=== PATIENT | female | born 1970 | race Caucasian/White ===

== ENCOUNTER → 2018-01-13 07:54 | Outpatient (CLI) | payer OTHER, SELFPAY ==
[2018-01-13 08:25] LABS: Erythrocyte Sedimentation Rate 23 mm/hr (0-20)
[2018-01-13 08:27] LABS: Absolute Lymphocyte Count 2.21 X10^3/ul (0.83-4.51); Absolute Neutrophil Count 5.2 X10^3/uL (2.0-7.7); Basophil# 0.02 X10^3/uL; Basophil% 0.2 % (0-1); Eosinophil# 0.11 X10^3/uL; Eosinophils% 1.4 % (0-5); Hematocrit 36.8 % (37-47); Hemoglobin 11.9 g/dl (12.0-15.0); Lymphocyte # 2.21 X10^3/ul (4.0); Lymphocyte % 27.3 % (19-41); Mean Corp Hgb Conc 32.3 g/gl (32-36); Mean Corpuscular Hgb 27.5 pg (27.0-32.0); Monocyte# 0.59 X10^3/uL; Monocyte% 7.3 % (0-10); Neutrophil # 5.17 X10^3/uL (2.7-7.7); Neutrophil % 63.7 % (47-70); Platelet Count 387 K/mm3 (150-450); RBC Distribution Width CV 13.5 % (11.6-14.6); RBC Distribution Width SD 41.9 fl (35.1-43.9); Red Blood Count 4.33 M/mm3 (4.2-5.4); White Blood Count 8.1 K/mm3 (4.4-11.0)
[2018-01-13 08:28] LABS: POSITIVE COUNT NO; POSITIVE DIFFERENTIAL NO; POSITIVE MORPHOLOGY NO
[2018-01-13 09:14] LABS: ALB/GLOB Ratio 0.9 RATIO (0.9-2.4); AST(SGOT) 12 U/L (15-37); Alanine Aminotransfer ALT/SGPT 19 U/L (13-56); Albumin, Serum 3.5 g/dL (3.2-5.0); Alkaline Phosphatase 40 U/L (45-117); Anion Gap 9 (5-15); BUN 12 mg/dL (7-18); BUN/Creat Ratio 16.3 RATIO (10-20); CRP 6.14 mg/L (0.0-3.0); Calcium,Total 8.5 mg/dL (8.5-10.1); Chloride 107 mmol/L (98-107); Creatinine, Serum 0.74 mg/dL (0.55-1.02); EST Glomerular Filtration Rate 90 mL/min (>60); Est Glom Filt Rate - Afr Amer 109 mL/min (>60); Globulin 3.7 g/dL (2.2-4.2); Glucose 96 mg/dL (74-106); Potassium 4.1 mmol/L (3.5-5.1); Protein, Total 7.2 g/dL (6.4-8.2); Sodium Level 141 mmol/L (136-145); Thyroid Stim Hormone (TSH) 0.92 uIU/mL (0.358-3.74)
[2018-01-13 18:45] LABS: Ferritin 49 ng/mL (8-252)
[2018-01-13 19:01] LABS: RET-HE 29.2 pg (30-35); Reticulocyte Count 0.72 % (0.5-1.5)
[2018-01-13 19:02] LABS: Immature Platelet Fraction 0.9 % (1.0-7.9)
[2018-01-14 10:29] LABS: Vitamin B12 482 pg/mL (211-911); Vitamin D,25 Hydroxy 31.2 ng/mL (29.95-100.01)
== END ==
PROVIDERS: Family Provider Family Medicine; PCP Family Medicine; Visit Provider Internal Medicine Endocrinology, Diabetes & Metabolism
DX: D50.8 Other iron deficiency anemias (principal); D51.9 Vitamin B12 deficiency anemia, unspecified; R79.9 Abnormal finding of blood chemistry, unspecified; E03.8 Other specified hypothyroidism; E55.9 Vitamin D deficiency, unspecified; L40.59 Other psoriatic arthropathy; L40.8 Other psoriasis; E04.9 Nontoxic goiter, unspecified; F32.89 Other specified depressive episodes; F41.8 Other specified anxiety disorders; E06.3 Autoimmune thyroiditis
CPT/HCPCS: 36415; 80053; 82306; 82607; 82728; 84443; 85025; 85045; 85652; 86140

== ENCOUNTER → 2018-01-26 07:12 | Outpatient (CLI) | payer OTHER, SELFPAY ==
[2018-01-26 08:04] LABS: Hematocrit 37.5 % (37-47); Hemoglobin 11.9 g/dl (12.0-15.0)
== END ==
PROVIDERS: Family Provider Family Medicine; PCP Family Medicine; Visit Provider Internal Medicine Endocrinology, Diabetes & Metabolism
DX: D64.9 Anemia, unspecified (principal)
CPT/HCPCS: 36415; 85014; 85018

== ENCOUNTER → 2018-04-29 16:41 | Outpatient (CLI) | payer OTHER, SELFPAY ==
[2018-04-29 18:25] LABS: Thyroid Stim Hormone (TSH) 0.61 uIU/mL (0.358-3.74)
== END ==
PROVIDERS: Family Provider Family Medicine; PCP Family Medicine; Visit Provider Family Medicine
DX: E03.9 Hypothyroidism, unspecified (principal)
CPT/HCPCS: 36415; 84443

== ENCOUNTER → 2018-05-16 10:59 | Outpatient (CLI) | payer OTHER, SELFPAY ==
[2018-05-16 12:02] LABS: Absolute Lymphocyte Count 2.17 X10^3/ul (0.83-4.51); Absolute Neutrophil Count 5.3 X10^3/uL (2.0-7.7); Basophil# 0.03 X10^3/uL; Basophil% 0.4 % (0-1); Eosinophil# 0.11 X10^3/uL; Eosinophils% 1.3 % (0-5); Hematocrit 38.9 % (37-47); Hemoglobin 12.6 g/dl (12.0-15.0); Lymphocyte # 2.17 X10^3/ul (4.0); Mean Corp Hgb Conc 32.4 g/gl (32-36); Mean Corpuscular Hgb 27.5 pg (27.0-32.0); Mean Corpuscular Volume 84.9 fL (81-99); Monocyte# 0.74 X10^3/uL; Monocyte% 8.9 % (0-10); Neutrophil # 5.28 X10^3/uL (2.7-7.7); Neutrophil % 63.3 % (47-70); Platelet Count 414 K/mm3 (150-450); RBC Distribution Width CV 13.7 % (11.6-14.6); RBC Distribution Width SD 42.4 fl (35.1-43.9); Red Blood Count 4.58 M/mm3 (4.2-5.4); White Blood Count 8.3 K/mm3 (4.4-11.0)
[2018-05-16 12:03] LABS: POSITIVE COUNT NO; POSITIVE DIFFERENTIAL NO; POSITIVE MORPHOLOGY NO
[2018-05-16 12:07] LABS: ALB/GLOB Ratio 0.9 RATIO (0.9-2.4); AST(SGOT) 11 U/L (15-37); Alanine Aminotransfer ALT/SGPT 21 U/L (13-56); Albumin, Serum 3.7 g/dL (3.2-5.0); Alkaline Phosphatase 44 U/L (45-117); Anion Gap 8 (5-15); BUN 10 mg/dL (7-18); BUN/Creat Ratio 12.8 RATIO (10-20); CRP 7.06 mg/L (0.0-3.0); Calcium,Total 9.1 mg/dL (8.5-10.1); Chloride 107 mmol/L (98-107); Creatinine, Serum 0.78 mg/dL (0.55-1.02); EST Glomerular Filtration Rate 84 mL/min (>60); Est Glom Filt Rate - Afr Amer 102 mL/min (>60); Globulin 3.9 g/dL (2.2-4.2); Glucose 89 mg/dL (74-106); Potassium 4.1 mmol/L (3.5-5.1); Protein, Total 7.6 g/dL (6.4-8.2); Sodium Level 139 mmol/L (136-145)
[2018-05-16 12:09] LABS: Erythrocyte Sedimentation Rate 45 mm/hr (0-20)
== END ==
PROVIDERS: Family Provider Family Medicine; PCP Family Medicine; Referring Provider Internal Medicine Rheumatology; Visit Provider Internal Medicine Rheumatology
DX: L40.59 Other psoriatic arthropathy (principal); L40.8 Other psoriasis; E03.9 Hypothyroidism, unspecified; E04.9 Nontoxic goiter, unspecified; F32.89 Other specified depressive episodes; F41.8 Other specified anxiety disorders; E06.3 Autoimmune thyroiditis
CPT/HCPCS: 36415; 80053; 85025; 85652; 86140

== ENCOUNTER → 2018-08-20 06:48 | Outpatient (CLI) | payer OTHER, SELFPAY ==
[2018-08-20 07:29] LABS: Absolute Neutrophil Count 5.3 X10^3/uL (2.0-7.7); Basophil# 0.03 X10^3/uL; Basophil% 0.4 % (0-1); Eosinophil# 0.17 X10^3/uL; Hematocrit 40.1 % (37-47); Hemoglobin 12.7 g/dl (12.0-15.0); Lymphocyte % 25.1 % (19-41); Mean Corp Hgb Conc 31.7 g/gl (32-36); Mean Corpuscular Hgb 27.9 pg (27.0-32.0); Mean Corpuscular Volume 87.9 fL (81-99); Mean Platelet Vol. 9.3 fl (6.2-12.0); Monocyte# 0.71 X10^3/uL; Monocyte% 8.5 % (0-10); Neutrophil # 5.34 X10^3/uL (2.7-7.7); Neutrophil % 63.8 % (47-70); Platelet Count 401 K/mm3 (150-450); RBC Distribution Width CV 14.2 % (11.6-14.6); RBC Distribution Width SD 45.8 fl (35.1-43.9); Red Blood Count 4.56 M/mm3 (4.2-5.4); White Blood Count 8.4 K/mm3 (4.4-11.0)
[2018-08-20 07:38] LABS: POSITIVE COUNT NO; POSITIVE DIFFERENTIAL NO; POSITIVE MORPHOLOGY NO
[2018-08-20 07:54] LABS: ALB/GLOB Ratio 0.9 RATIO (0.9-2.4); AST(SGOT) 12 U/L (15-37); Alanine Aminotransfer ALT/SGPT 17 U/L (13-56); Albumin, Serum 3.7 g/dL (3.2-5.0); Alkaline Phosphatase 44 U/L (45-117); Anion Gap 9 (5-15); BUN 13 mg/dL (7-18); BUN/Creat Ratio 17.7 RATIO (10-20); Calcium,Total 8.7 mg/dL (8.5-10.1); Chloride 107 mmol/L (98-107); Creatinine, Serum 0.74 mg/dL (0.55-1.02); EST Glomerular Filtration Rate 90 mL/min (>60); Est Glom Filt Rate - Afr Amer 109 mL/min (>60); Glucose 89 mg/dL (74-106); Potassium 4.3 mmol/L (3.5-5.1); Protein, Total 7.7 g/dL (6.4-8.2); Sodium Level 140 mmol/L (136-145)
[2018-08-20 11:18] LABS: Erythrocyte Sedimentation Rate 22 mm/hr (0-20)
== END ==
PROVIDERS: Family Provider Family Medicine; PCP Family Medicine; Referring Provider Internal Medicine Rheumatology; Visit Provider Internal Medicine Rheumatology
DX: L40.59 Other psoriatic arthropathy (principal); L40.8 Other psoriasis; E03.9 Hypothyroidism, unspecified; E04.9 Nontoxic goiter, unspecified; F32.89 Other specified depressive episodes; F41.8 Other specified anxiety disorders; E06.3 Autoimmune thyroiditis
CPT/HCPCS: 36415; 80053; 85025; 85652; 86140

== ENCOUNTER → 2018-12-01 | Outpatient (CLI) | payer OTHER, SELFPAY ==
[2018-12-01 14:25] LABS: Absolute Lymphocyte Count 2.17 X10^3/ul (0.83-4.51); Absolute Neutrophil Count 6.2 X10^3/uL (2.0-7.7); Basophil# 0.02 X10^3/uL; Basophil% 0.2 % (0-1); Eosinophils% 1.1 % (0-5); Hematocrit 37.2 % (37-47); Hemoglobin 12.2 g/dl (12.0-15.0); Lymphocyte # 2.17 X10^3/ul (4.0); Lymphocyte % 23.5 % (19-41); Mean Corp Hgb Conc 32.8 g/gl (32-36); Mean Corpuscular Hgb 28.3 pg (27.0-32.0); Mean Corpuscular Volume 86.3 fL (81-99); Mean Platelet Vol. 9.3 fl (6.2-12.0); Monocyte# 0.76 X10^3/uL; Monocyte% 8.2 % (0-10); Neutrophil # 6.15 X10^3/uL (2.7-7.7); Neutrophil % 66.8 % (47-70); Platelet Count 409 K/mm3 (150-450); RBC Distribution Width CV 14.3 % (11.6-14.6); RBC Distribution Width SD 43.7 fl (35.1-43.9); Red Blood Count 4.31 M/mm3 (4.2-5.4); White Blood Count 9.2 K/mm3 (4.4-11.0)
[2018-12-01 14:29] LABS: POSITIVE COUNT NO; POSITIVE DIFFERENTIAL NO; POSITIVE MORPHOLOGY NO
[2018-12-01 14:54] LABS: Vitamin D,25 Hydroxy 30.4 ng/mL (29.95-100.01)
[2018-12-01 14:57] LABS: AST(SGOT) 12 U/L (15-37); Alanine Aminotransfer ALT/SGPT 18 U/L (13-56); Albumin, Serum 3.6 g/dL (3.2-5.0); Alkaline Phosphatase 44 U/L (45-117); Anion Gap 4 (5-15); BUN 10 mg/dL (7-18); BUN/Creat Ratio 12.6 RATIO (10-20); Calcium,Total 8.6 mg/dL (8.5-10.1); Chloride 108 mmol/L (98-107); Creatinine, Serum 0.79 mg/dL (0.55-1.02); EST Glomerular Filtration Rate 82 mL/min (>60); Est Glom Filt Rate - Afr Amer 100 mL/min (>60); Globulin 3.6 g/dL (2.2-4.2); Glucose 86 mg/dL (74-106); Protein, Total 7.2 g/dL (6.4-8.2); Sodium Level 137 mmol/L (136-145); Thyroid Stim Hormone (TSH) 1.05 uIU/mL (0.358-3.74)
== END | disposition home or self-care (01) ==
PROVIDERS: Family Provider Family Medicine; PCP Family Medicine; Referring Provider Internal Medicine Rheumatology; Visit Provider Internal Medicine Rheumatology
DX: L40.59 Other psoriatic arthropathy (principal); Z79.899 Other long term (current) drug therapy; L40.8 Other psoriasis; E03.9 Hypothyroidism, unspecified; E04.9 Nontoxic goiter, unspecified; F32.89 Other specified depressive episodes; F41.8 Other specified anxiety disorders; E06.3 Autoimmune thyroiditis; E03.8 Other specified hypothyroidism; E55.9 Vitamin D deficiency, unspecified
CPT/HCPCS: 36415; 80053; 82306; 84443; 85025

== ENCOUNTER → 2019-02-25 11:51 | Outpatient (CLI) | payer OTHER, SELFPAY ==
[2019-02-25 14:23] LABS: Absolute Lymphocyte Count 2.31 X10^3/uL (0.83-4.51); Absolute Neutrophil Count 5.1 X10^3/uL (2.0-7.7); Basophil# 0.06 X10^3/uL; Basophil% 0.7 % (0-1); Eosinophils% 2.3 % (0-5); Hematocrit 38.5 % (37-47); Hemoglobin 12.4 g/dL (12.0-15.0); Lymphocyte # 2.31 X10^3/ul (4.0); Lymphocyte % 27.1 % (19-41); Mean Corp Hgb Conc 32.2 g/dL (32-36); Mean Corpuscular Hgb 28.9 pg (27.0-32.0); Mean Corpuscular Volume 89.7 fL (81-99); Mean Platelet Vol. 9.4 fl (6.2-12.0); Monocyte# 0.79 X10^3/uL; Monocyte% 9.3 % (0-10); NRBC Flagged by Analyzer 0 % (0-5); Neutrophil # 5.14 X10^3/uL (2.7-7.7); Neutrophil % 60.2 % (47-70); Platelet Count 407 K/mm3 (150-450); RBC Distribution Width CV 13.9 % (11.6-14.6); RBC Distribution Width SD 45.7 fl (35.1-43.9); Red Blood Count 4.29 M/mm3 (4.2-5.4); White Blood Count 8.5 K/mm3 (4.4-11.0)
[2019-02-25 15:09] LABS: ALB/GLOB Ratio 0.9 RATIO (0.9-2.4); AST(SGOT) 9 U/L (15-37); Alanine Aminotransfer ALT/SGPT 18 U/L (13-56); Albumin, Serum 3.6 g/dL (3.2-5.0); Alkaline Phosphatase 43 U/L (45-117); Anion Gap 4 (5-15); BUN 9 mg/dL (7-18); BUN/Creat Ratio 12.8 RATIO (10-20); Calcium,Total 8.8 mg/dL (8.5-10.1); Chloride 109 mmol/L (98-107); EST Glomerular Filtration Rate 94 mL/min (>60); Est Glom Filt Rate - Afr Amer 114 mL/min (>60); Free T3 2.1 pg/mL (2.18-3.98); Glucose 75 mg/dL (74-106); Potassium 3.7 mmol/L (3.5-5.1); Protein, Total 7.6 g/dL (6.4-8.2); Sodium Level 140 mmol/L (136-145); T4 Total, Thyroxin 7.3 ug/dL (4.8-13.9); Thyroid Stim Hormone (TSH) 0.98 uIU/mL (0.358-3.74)
== END ==
PROVIDERS: Family Provider Family Medicine; PCP Family Medicine; Referring Provider Internal Medicine Rheumatology; Visit Provider Internal Medicine Rheumatology
DX: L40.59 Other psoriatic arthropathy (principal); Z79.899 Other long term (current) drug therapy; L40.8 Other psoriasis; E03.9 Hypothyroidism, unspecified; E04.9 Nontoxic goiter, unspecified; F32.89 Other specified depressive episodes; F41.8 Other specified anxiety disorders; E06.3 Autoimmune thyroiditis; R53.83 Other fatigue
CPT/HCPCS: 36415; 80053; 84436; 84443; 84481; 85025

== ENCOUNTER → 2019-05-07 12:39 | Outpatient (CLI) | payer OTHER, SELFPAY ==
--- NOTE | 2019-05-07 12:50 | MRI_ITS ---
STUDY: MRI BRAIN WITH AND WITHOUT CONTRAST REASON FOR EXAM: Female, 49 years old. The patient presents with a history of episodic dizziness, memory loss and fatigue since March 12, 2019 TECHNIQUE: Standardized multiplanar fat and water weighted pulse sequences were obtained. IV Dotarem 18 was administered for the contrast portion of the examination. COMPARISON: None. FINDINGS: Normal size of the ventricles and extra-axial spaces for the patient's age. Normal white matter tracts of the supratentorial brain. There is no evidence for recent intracranial ischemia or other cause of cytotoxic edema on diffusion weighted imaging (DWI). Normal T2* images of the brain without demonstrated susceptibility artifact. There is no demonstrated hemosiderin stain. Normal bilateral basal ganglia. Normal thalami. There is no extra-axial fluid accumulation. Normal flow voids within the major intracranial circulation suggesting patency by spin echo criteria. Normal venous enhancement. There is no enhancing intra-axial or extra-axial abnormality. There is enlargement of the sella turcica with increased CSF within the sella and flattening of the pituitary gland consistent with an empty sellar syndrome. Normal infundibular stalk, hypothalamus, and optic chiasm. Normal tectal plate and pineal gland. Normal midbrain, rodriguez and medulla. Normal cerebellum. Normal basal cisterns. Normal bilateral temporal bones. Normal bilateral internal auditory canals. No demonstrated orbital abnormality, within the constraints of a routine brain study. There is chronic sinusitis with retention cyst within the bilateral maxillary antrum (axial T2 series 5, image 4). Normal calvarium and skull base. Normal visualized soft tissue structures. Normal visualized upper cervical spine. MRI/Brain W/WO Contrast IMPRESSION: 1. Normal unenhanced and enhanced MRI of the brain. 2. Chronic sinusitis of the bilateral maxillary sinuses. Electronically Signed: Hansel Browne DO at 14:28 EST Tel , Service support ,
== END ==
PROVIDERS: Family Provider Family Medicine; PCP Family Medicine; Referring Provider Psychiatry & Neurology Neurology; Visit Provider Psychiatry & Neurology Neurology
DX: R41.3 Other amnesia (principal)
CPT/HCPCS: 70553; A9575

== ENCOUNTER → 2019-06-29 09:08 | Outpatient (CLI) | payer OTHER, SELFPAY ==
[2019-06-29 09:42] LABS: Absolute Lymphocyte Count 2.34 X10^3/uL (0.83-4.51); Absolute Neutrophil Count 5.8 X10^3/uL (2.0-7.7); Basophil# 0.05 X10^3/uL; Basophil% 0.5 % (0-1); Eosinophil# 0.23 X10^3/uL; Eosinophils% 2.5 % (0-5); Hematocrit 36.8 % (37-47); Hemoglobin 11.8 g/dL (12.0-15.0); Lymphocyte # 2.34 X10^3/ul (4.0); Lymphocyte % 25.4 % (19-41); Mean Corp Hgb Conc 32.1 g/dL (32-36); Mean Corpuscular Hgb 27.8 pg (27.0-32.0); Mean Corpuscular Volume 86.8 fL (81-99); Mean Platelet Vol. 9.1 fl (6.2-12.0); Monocyte# 0.78 X10^3/uL; Monocyte% 8.5 % (0-10); NRBC Flagged by Analyzer 0 % (0-5); Neutrophil # 5.78 X10^3/uL (2.7-7.7); Neutrophil % 62.6 % (47-70); Platelet Count 425 K/mm3 (150-450); RBC Distribution Width CV 14.6 % (11.6-14.6); RBC Distribution Width SD 45.6 fl (35.1-43.9); Red Blood Count 4.24 M/mm3 (4.2-5.4); White Blood Count 9.2 K/mm3 (4.4-11.0)
[2019-06-29 10:24] LABS: ALB/GLOB Ratio 0.9 RATIO (0.9-2.4); AST(SGOT) 13 U/L (15-37); Alanine Aminotransfer ALT/SGPT 23 U/L (13-56); Albumin, Serum 3.5 g/dL (3.2-5.0); Alkaline Phosphatase 41 U/L (45-117); Anion Gap 6 (5-15); BUN 12 mg/dL (7-18); BUN/Creat Ratio 15.7 RATIO (10-20); Calcium,Total 8.8 mg/dL (8.5-10.1); Chloride 110 mmol/L (98-107); Creatinine, Serum 0.77 mg/dL (0.55-1.02); EST Glomerular Filtration Rate 86 mL/min (>60); Est Glom Filt Rate - Afr Amer 103 mL/min (>60); Globulin 3.9 g/dL (2.2-4.2); Glucose 100 mg/dL (74-106); Protein, Total 7.4 g/dL (6.4-8.2); Sodium Level 138 mmol/L (136-145); Thyroid Stim Hormone (TSH) 2.82 uIU/mL (0.358-3.74)
[2019-06-29 12:37] LABS: Vitamin D,25 Hydroxy 28.8 ng/mL (29.95-100.01)
[2019-07-10 15:22] LABS: Anti-Thyroglobulin AB 1.1 IU/mL (0.0-0.9); Thyroglobulin RIA 376 ng/mL (.)
== END ==
LOC: LAB.FUTURE 09:11 → LAB 06-30 06:24
PROVIDERS: Family Provider Family Medicine; PCP Family Medicine; Referring Provider Internal Medicine Rheumatology; Visit Provider Internal Medicine Rheumatology
DX: E03.8 Other specified hypothyroidism (principal); E04.2 Nontoxic multinodular goiter; E55.9 Vitamin D deficiency, unspecified; L40.59 Other psoriatic arthropathy; Z79.899 Other long term (current) drug therapy; L40.8 Other psoriasis; F32.89 Other specified depressive episodes; F41.8 Other specified anxiety disorders; E06.3 Autoimmune thyroiditis
CPT/HCPCS: 36415; 80053; 82306; 84432; 84443; 85025; 86376; 86800

== ENCOUNTER → 2019-08-12 11:47 | Outpatient (CLI) | payer OTHER, SELFPAY ==
--- NOTE | 2019-08-12 12:01 | BI_ITS ---
MAMMOGRAPHY - BILATERAL SCREENING REASON FOR EXAM: Female, 49 years old. Routine annual screening examination. PERTINENT HISTORY: Aunt with breast cancer. TECHNIQUE: Digital bilateral breast robbin (3D mammographic acquisition) in the CC and MLO projections. 2-D mediolateral oblique (MLO) and craniocaudad (CC) views of both breasts were obtained. CAD: Full Field Digital Mammography with Computer Added Detection was performed. COMPARISON: Comparison is made with prior examination dated December 20, 2016 and August 26, 2013. FINDINGS: Breast Composition: The breasts are heterogeneously dense, which may obscure small masses. There are no dominant masses or suspicious calcifications. No other significant abnormalities are identified. There has been no significant change since the prior study. BI/SCREEN MAMM (CAD) W/ROBBIN BILAT IMPRESSION: Stable bilateral screening mammogram. Yearly follow-up mammogram recommended. (A) ASSESSMENT CATEGORY: BIRADS Category 1: Negative. A letter regarding these results will be sent to the patient by the facility within 30 days. Approximately 10% of breast cancers are not detected by mammography. A normal mammogram should not delay biopsy of a clinically suspicious abnormality. [id number] Electronically Signed: Jeremy Mcgrath, at 12:36 EST , Service support ,
== END ==
PROVIDERS: PCP Family Medicine; Referring Provider Obstetrics & Gynecology; Visit Provider Obstetrics & Gynecology
DX: Z12.31 Encounter for screening mammogram for malignant neoplasm of breast (principal)
CPT/HCPCS: 77063; 77067

== ENCOUNTER → 2019-11-23 | Outpatient (CLI) | payer OTHER, SELFPAY ==
--- NOTE | 2019-11-23 11:00 | EMB_PTH ---
PATIENT: CHARLES STONER LOC: [facility] U#:[id number] AGE/SX: 49/F ROOM: RE11/23/[address]: Dr. Nahed Teixeira MD : 1970 BED: DIS: 11/23/2019 SPEC #: [id number] RECD: 11/23/19 12:10 STATUS: RAMONITA REEboni #: [id number] MAYRA: 11/23/19 11:[address]: Nahed Anna DEPT: SURGICAL PATHOLOGY RECD BY: Gigi Bazan ENTERED: 11/24/19 09:05 SP TYPE: ENDOM BX/C DEYA DR: Dr. Mikel Nicolas MD Tissues: Endometrium, NOS Procedures: Surgery Specimen Level IV HEADER OPERATION: Endometrial biopsy PRE-OP DIAGNOSIS: Irregular bleeding TISSUE SUBMITTED: Endometrial biopsy MICROSCOPIC DIAGNOSIS Endometrium, biopsy: Disordered proliferative endometrium with focal stromal breakdown. AM:dennis 11/25/19 COMMENT Case has been reviewed in consultation with Dr. Palomo who concurs with the above diagnosis. IDC:SJ MICROSCOPIC DESCRIPTION Slides are reviewed. GROSS DESCRIPTION Received in fixative is one container labeled with the patient's name and designated endometrial biopsy. The specimen consists of multiple irregular and elongated fragments of dark shabazz soft tissue that in aggregate measure 2.5 x 2.5 x 0.2 cm. The specimen is totally submitted in one cassette. / AM:dennis 11/24/19 TC:5 CPT: 02947
== END | disposition home or self-care (01) ==
LOC: LABSPEC 12:20
PROVIDERS: PCP Family Medicine; Referring Provider Obstetrics & Gynecology; Visit Provider Obstetrics & Gynecology
DX: N85.8 Other specified noninflammatory disorders of uterus (principal)
CPT/HCPCS: 88305

== ENCOUNTER → 2019-12-07 | Outpatient (CLI) | payer OTHER, SELFPAY ==
[2019-12-14 04:57] LABS: HPV APTIMA, High Risk Negative (Negative)
== END | disposition home or self-care (01) ==
LOC: LABSPEC 13:34
PROVIDERS: PCP Family Medicine; Visit Provider Obstetrics & Gynecology
DX: Z12.4 Encounter for screening for malignant neoplasm of cervix (principal)
CPT/HCPCS: 87624; 88175; G0145

== ENCOUNTER → 2019-12-28 15:36 | Outpatient (CLI) | payer OTHER, SELFPAY ==
[2019-12-28 17:34] LABS: Absolute Lymphocyte Count 2.53 X10^3/uL (0.83-4.51); Absolute Neutrophil Count 6.5 X10^3/uL (2.0-7.7); Basophil# 0.04 X10^3/uL; Basophil% 0.4 % (0-1); Eosinophil# 0.14 X10^3/uL; Eosinophils% 1.4 % (0-5); Hematocrit 37.5 % (37-47); Hemoglobin 11.8 g/dL (12.0-15.0); Lymphocyte # 2.53 X10^3/ul (4.0); Lymphocyte % 25.2 % (19-41); Mean Corp Hgb Conc 31.5 g/dL (32-36); Mean Corpuscular Hgb 28.6 pg (27.0-32.0); Mean Corpuscular Volume 90.8 fL (81-99); Mean Platelet Vol. 9.4 fl (6.2-12.0); NRBC Flagged by Analyzer 0 % (0-5); Neutrophil # 6.51 X10^3/uL (2.7-7.7); Neutrophil % 64.7 % (47-70); Platelet Count 525 K/mm3 (150-450); RBC Distribution Width CV 14.1 % (11.6-14.6); RBC Distribution Width SD 46.4 fl (35.1-43.9); Red Blood Count 4.13 M/mm3 (4.2-5.4); White Blood Count 10.1 K/mm3 (4.4-11.0)
[2019-12-28 17:57] LABS: ALB/GLOB Ratio 0.9 RATIO (0.9-2.4); AST(SGOT) 24 U/L (15-37); Alanine Aminotransfer ALT/SGPT 34 U/L (13-56); Albumin, Serum 3.7 g/dL (3.2-5.0); Alkaline Phosphatase 49 U/L (45-117); Anion Gap 9 (5-15); BUN 11 mg/dL (7-18); BUN/Creat Ratio 14.2 RATIO (10-20); Calcium,Total 8.7 mg/dL (8.5-10.1); Chloride 106 mmol/L (98-107); Creatinine, Serum 0.78 mg/dL (0.55-1.02); EST Glomerular Filtration Rate 84 mL/min (>60); Est Glom Filt Rate - Afr Amer 102 mL/min (>60); Glucose 86 mg/dL (74-106); Potassium 3.9 mmol/L (3.5-5.1); Protein, Total 7.7 g/dL (6.4-8.2); Sodium Level 139 mmol/L (136-145)
== END ==
PROVIDERS: PCP Family Medicine; Referring Provider Internal Medicine Rheumatology; Visit Provider Internal Medicine Rheumatology
DX: L40.59 Other psoriatic arthropathy (principal); Z79.899 Other long term (current) drug therapy; E03.9 Hypothyroidism, unspecified; L40.8 Other psoriasis; E04.9 Nontoxic goiter, unspecified; F32.89 Other specified depressive episodes; F41.8 Other specified anxiety disorders; E06.3 Autoimmune thyroiditis
CPT/HCPCS: 36415; 80053; 85025

== ENCOUNTER 2020-01-09 04:44 | Observation (INO) | payer OTHER, SELFPAY ==
[2020-01-09] VITALS (11 sets, daily range): BP systolic 121–143; BP diastolic 69–84; PULSE 82–99; RESP 16–20; TEMP 36.6–37.3; O2SAT 97–98; BMI 35.8; BMI 34.4; BMI 34.5
--- NOTE | 2020-01-09 04:53 | EKG12_ITS ---
Test Reason : CP ADMISSION Blood Pressure : / mmHG Vent. Rate : 086 BPM Atrial Rate : 086 BPM P-R Int : 132 ms QRS Dur : 090 ms QT Int : 374 ms P-R-T Axes : 052 013 012 degrees QTc Int : 447 ms Normal sinus rhythm Nonspecific T wave abnormality Abnormal ECG Confirmed by JÚNIOR GARCIA, DAWN ([id number]), senior editor DARIANA ALONZO ([id number]) on 01/12/2020 8:55:32 AM Referred By: JACK Confirmed By:DAWN CALLEJAS MD
--- NOTE | 2020-01-09 04:53 | RAD_ITS ---
STUDY: X-RAY CHEST REASON FOR EXAM: Female, 49 years old. Chest pressure to upper chest and right shoulder. TECHNIQUE: AP portable COMPARISON: None. FINDINGS: The lungs are clear and expanded. There is no demonstrated pleural abnormality. Normal size heart. Normal mediastinum and shakira. Normal visualized pulmonary arteries. Normal visualized aortic arch and descending thoracic aorta. Normal visualized thoracic spine. Normal visualized ribs, clavicles, and shoulders. There is no demonstrated abnormality of the visualized soft tissue structures of the upper abdomen. RAD/Chest 1 View (Portable) IMPRESSION: Negative x-ray examination of the chest. Electronically Signed: Abram Painting, at 5:44 EDT Tel , Service support ,
--- NOTE | 2020-01-09 04:53 | ED.VIS.GEN ---
History of Present Illness Chief Complaint: Chest Pain Informant: Patient Narrative: 49-year-old female presenting with chest pain which she felt was like squeezing in the center of her chest. This radiated up into her jaw and into her left shoulder between her spine and her shoulder blade. She states this lasted about 40 minutes and the pain would come in waves. She did have an episode of vomiting. She states that prior to this she was having some dyspepsia. She states that she has had reflux before but never this severe. She denies a cardiac history. No history of DVT/PE. She does have recent travel to [place] by car. Dates that currently the pain is gone. Past Medical History - Allergies and Home Meds Allergies/Adverse Reactions: Allergies Sulfa (Sulfonamide Antibiotics) Allergy (Verified 01/09/20 04:51) Rash Latex, Natural Rubber Adverse Reaction (Verified 01/09/20 04:51) Rash oseltamivir phosphate [From Tamiflu] Adverse Reaction (Verified 01/09/20 04:51) Nausea Primary Care Physician: Mikel Nicolas MD [Primary Care Provider] - Prior records reviewed: Yes Past Medical History: - Lives: Spouse/ Significant Other Smoking Status: Never smoker Alcohol: Occasional Drugs: None Review of Systems General: Denies: Chills, Fever Eyes: Denies: Visual changes - bilaterally, Diplopia ENT: Denies: Rhinorrhea, Sore throat Cardiovascular: Reports: Chest pain, Heart racing Respiratory: Denies: Dyspnea, Cough, Sputum Gastrointestinal: Reports: Nausea, Vomiting. Denies: Abdominal pain Genitourinary: Denies: Dysuria Musculoskeletal: Denies: Myalgias, Arthralgias Skin: Denies: Rash Neurological: Denies: Headache Allergy: Denies: Uticaria Physical Exam Vital Signs/Narrative: Vital Signs Temp Pulse Resp BP Pulse Ox 01/09/20 04:45 98 F 99 20 H 143/81 H 97 General: Well nourished, Obese Head: Normocephalic, Atraumatic Eyes: Perrl, EOMI ENT: Moist mucous membranes Neck: Supple, Nontender Cardiovascular: Regular rate, Regular rhythm, No murmurs Respiratory: No distress, CTA bilaterally Abdomen: Soft Extremities: Nontender, No edema Skin: Normal color, No rash Neurological: Alert, Oriented x3 Psychological: Normal affect Diagnostic/Tx/Re-eval Clinical Impression(s) from Imaging Studies Chest X-Ray 01/09/20 04:53 IMPRESSION: Negative x-ray examination of the chest. Electronically Signed: Abram Painting, at 5:44 EDT Tel , Service support , Chest CTA 01/09/20 05:38 IMPRESSION: Normal CTA chest examination, without a demonstrated pulmonary embolism or arterial dissection. Electronically Signed: Abram Painting, at 6:23 EDT Tel , Service support , Laboratory Data 01/09/20 01/09/20 01/09/20 04:54 04:54 04:54 WBC 10.3 RBC 3.85 L Hgb 11.1 L Hct 34.6 L MCV 89.9 MCH 28.8 MCHC 32.1 RDW Std Deviation 45.1 H RDW Coeff of Marielena 14.1 Plt Count 384 MPV 8.9 Immature Gran % (Auto) 0.400 Neut % (Auto) 59.7 Lymph % (Auto) 29.0 [place] % (Auto) 8.2 Eos % (Auto) 2.1 Baso % (Auto) 0.6 Absolute Neuts (auto) 6.1 Absolute Lymphs (auto) 2.98 Nucleated RBC % 0 D-Dimer Quant (PE/DVT) 0.54 H* Sodium 141 Potassium 3.4 L Chloride 109 H Carbon Dioxide 24.0 Anion Gap 8 BUN 9 Creatinine 0.75 Estim Creat Clear Calc 79.21 Est GFR (MDRD) Af Amer 106 Est GFR (MDRD) Non-Af 88 BUN/Creatinine Ratio 12.0 Glucose 116 H Calcium 8.3 L Troponin I < 0.015 Presents for chest pain which woke her up from sleep. She described it as slight dyspepsia at first but then became a heavy chest pressure which radiated up into her neck and to her left shoulder blade area. This lasted about 30 to 40 minutes. It resolved prior to arrival. Her EKG is sinus rhythm. There is inversion of the T wave in lead III. There is no ST elevations or depressions. This pain has not returned. Chest x-ray is normal. Troponin is negative. D-dimer was elevated so she had a CTA of the chest which was negative for PE or dissection. Patient's heart score is a 5. I discussed this with the admitting physician who will accept her for evaluation. She is stable for the medical floor. - Rhythm Strip Rhythm Strip: Sinus Rhythm Rate: 96 - EKG Follow-up EKG Interpretation: Sinus Rhythm - T wave inversion in lead III no ST elevations Prior: No Prior ED Disposition - Plan for ED Patient: Referrals: Mikel Nicolas MD [Primary Care Provider] -
[2020-01-09 05:02] LABS: Absolute Lymphocyte Count 2.98 X10^3/uL (0.83-4.51); Absolute Neutrophil Count 6.1 X10^3/uL (2.0-7.7); Basophil# 0.06 X10^3/uL; Basophil% 0.6 % (0-1); Eosinophil# 0.22 X10^3/uL; Eosinophils% 2.1 % (0-5); Hematocrit 34.6 % (37-47); Hemoglobin 11.1 g/dL (12.0-15.0); Lymphocyte # 2.98 X10^3/ul (4.0); Mean Corp Hgb Conc 32.1 g/dL (32-36); Mean Corpuscular Hgb 28.8 pg (27.0-32.0); Mean Corpuscular Volume 89.9 fL (81-99); Mean Platelet Vol. 8.9 fl (6.2-12.0); Monocyte# 0.84 X10^3/uL; Monocyte% 8.2 % (0-10); NRBC Flagged by Analyzer 0 % (0-5); Neutrophil # 6.12 X10^3/uL (2.7-7.7); Neutrophil % 59.7 % (47-70); Platelet Count 384 K/mm3 (150-450); RBC Distribution Width CV 14.1 % (11.6-14.6); RBC Distribution Width SD 45.1 fl (35.1-43.9); Red Blood Count 3.85 M/mm3 (4.2-5.4); White Blood Count 10.3 K/mm3 (4.4-11.0)
[2020-01-09 05:37] LABS: D-Dimer Quantitative (DVT/PE) 0.54 FEU/ug/m (0.27-0.49)
--- NOTE | 2020-01-09 05:38 | CT_ITS ---
STUDY: CTA CHEST REASON FOR EXAM: Female, 49 years old. CHEST PRESSURE TO UPPER CHEST AND RIGHT SHOULDER SINCE 3AM WITH EMESIS X 1 RADIATION DOSAGE (If Supplied By Facility): CTDIvol = ( 15.88 ) mGy, DLP = ( 473.71 ) mGycm TECHNIQUE: The examination was performed with the intravenous administration of IV 100mL Isovue-370. Post-processing of the angiographic images was performed, with multiplanar reformation and 3D reconstruction. Individualized dose optimization techniques were used for this CT. COMPARISON: None. FINDINGS: Normal enhancement of the main pulmonary artery and right and left pulmonary arteries. Normal enhancement of the bilateral peripheral pulmonary arteries. There is no demonstrated pulmonary embolism. Normal thoracic aorta and visualized great vessels. There is no demonstrated aortic dissection. Normal heart and pericardium. Normal mediastinum. Normal hilar regions. Normal visualized trachea and bronchi. The lungs are well expanded. Normal pulmonary parenchyma. Normal pleura. Normal chest wall structures. Normal osseous structures. Normal visualized upper abdomen. CT/CTA Chest W/WO Contrast IMPRESSION: Normal CTA chest examination, without a demonstrated pulmonary embolism or arterial dissection. Electronically Signed: Abram Painting, at 6:23 EDT Tel , Service support ,
[2020-01-09] MEDS: 0.9% Normal Saline 1,000 ML 999 ML IV (06:04)
[2020-01-09 06:14] LABS: Anion Gap 8 (5-15); BUN 9 mg/dL (7-18); Calcium,Total 8.3 mg/dL (8.5-10.1); Chloride 109 mmol/L (98-107); Creatinine, Serum 0.75 mg/dL (0.55-1.02); EST Glomerular Filtration Rate 88 mL/min (>60); Est Glom Filt Rate - Afr Amer 106 mL/min (>60); Estimated Creatinine Clearance 79.21 ml/min; Glucose 116 mg/dL (74-106); Potassium 3.4 mmol/L (3.5-5.1); Sodium Level 141 mmol/L (136-145)
--- NOTE | 2020-01-09 07:15 | HP.PCM_ITS ---
Problem List (1) Chest pain Status: Acute (2) History of colon polyps Status: Chronic (3) Screening for colon cancer Status: Inactive History of Present Illness Date of Admission: 01/09/20 Chief Complaint: Chest pain The patient is a 49 year old F problems medical history segment for hypothyroidism, history of psoriatic arthritis on methotrexate who presented with chest pain. Patient symptoms started around 3 AM on the morning of her presentation. Pain was described as squeezing located in the retrosternal region radiating up her neck as well as to her back. Patient also did complain of some shortness of breath and nausea. In view of the persistent nature of her symptoms she presented to the emergency department. Initial set of cardiac enzymes and EKG came back unremarkable subsequently admitted to a monitored bed for further management Past Medical History Past Medical History (Chronic Problems): Chronic Problems History of colon polyps (Chronic) Allergies Sulfa (Sulfonamide Antibiotics) Allergy (Verified 01/09/20 04:51) Rash Latex, Natural Rubber Adverse Reaction (Verified 01/09/20 04:51) Rash oseltamivir phosphate [From Tamiflu] Adverse Reaction (Verified 01/09/20 04:51) Nausea Home Medications: Ambulatory Orders Medication Instructions Recorded Cholecalciferol (VIT D3) [Vitamin 4,000 unit PO DAILY 06/16/15 D] Levothyroxine [Synthroid] 88 mcg PO DAILY 06/16/15 Apremilast [Otezla] 30 mg PO DAILY 01/03/17 Naproxen [Naprosyn] 500 mg PO BID PRN #20 tablet 01/03/17 Ibuprofen 200 mg PO PRN PRN 01/20/17 Vitamin B Complex 1 each PO DAILY 01/20/17 Calcium (Elemental) [Os-Donnie 500] 500 mg PO DAILY@0800 01/09/20 Levothyroxine [Synthroid] 44 mcg PO HERNANDEZ 01/09/20 Lives: Spouse/ Significant Other Smoking Status: Never smoker Alcohol: Occasional Drugs: None - *Family History Paternal History Items: Heart Disease Review of Systems Constitutional: Denies: Anorexia, Chills, Fever, Night Sweats, Weight Change HEENT: Denies: Head Aches, Sinus Congestion, Sinus Drainage Cardiovascular: Reports: Chest Pain Respiratory: Denies: Cough, Shortness of breath at rest, Shortness of breath upon exertion, Sputum production Gastrointestinal: Reports: Nausea. Denies: Abdominal Pain, Hematemesis, Hematochezia, Melena Genitourinary: Denies: Dysuria, Frequency, Hematuria, Urgency Musculoskeletal: Denies: Joint Pain, Joint Tenderness Skin: Denies: Rash Neurological: Denies: Focal weakness, Numbness, Tingling Psychiatric: Denies: Homicidal Ideations, Suicidal Ideations Hematologic/ Lymphatic: Denies: Easy Bruising, Easy Bleeding VTE Information - Inpt Only VTE Present on Admission: No VTE Mechan Device Prophylaxis: None VTE Pharm Prophylaxis ordered?: Yes Patient Problems: Active and Suspected Problems Chest pain (Acute) Objective: GENERAL: cooperative HEENT: Atraumatic; EYES; Anicteric, Normal Conjunctiva NECK; supple, normal thyroid, RESPIRATORY: Diminished to auscultation CARDIOVASCULAR: Regular S1 S2, GI: soft, normoactive bowel sounds, : No Renal angle tenderness; EXTREMITIES: No edema, no clubbing, MUSCULOSKELETAL: no muscle waisting NEURO: Awake; no lateralizing signs. SKIN: No Rash PSYCH; Flat affect - Physical Exam Vitals/I&O's: Vital Signs Temp Pulse Resp BP Pulse Ox 98.1 F 92 19 H 139/82 H 97 01/09/20 06:57 01/09/20 06:57 01/09/20 06:57 01/09/20 06:57 01/09/20 06:57 Oxygen Delivery Method Room Air Weight: 94.6 kg Body Mass Index (BMI) 35.8 Laboratory Results 01/09/20 04:54: WBC 10.3, RBC 3.85 L, Hgb 11.1 L, Hct 34.6 L, MCV 89.9, MCH 28.8, MCHC 32.1, RDW Std Deviation 45.1 H, RDW Coeff of Marielena 14.1, Plt Count 384, MPV 8.9, Immature Gran % (Auto) 0.400, Neut % (Auto) 59.7, Lymph % (Auto) 29.0, [place] % (Auto) 8.2, Eos % (Auto) 2.1, Baso % (Auto) 0.6, Absolute Neuts (auto) 6.1, Absolute Lymphs (auto) 2.98, Nucleated RBC % 0 01/09/20 04:54: Sodium 141, Potassium 3.4 L, Chloride 109 H, Carbon Dioxide 24.0, Anion Gap 8, BUN 9, Creatinine 0.75, Estim Creat Clear Calc 79.21, Est GFR (MDRD) Af Amer 106, Est GFR (MDRD) Non-Af 88, BUN/Creatinine Ratio 12.0, Glucose 116 H, Calcium 8.3 L, Troponin I < 0.015 01/09/20 04:54: D-Dimer Quant (PE/DVT) 0.54 H* Assessment/Plan All Active Problems Chest pain (Acute) Patient is a 49-year-old lady presented with chest pain 1. Chest pain ?Admitted to monitored bed ruling out myocardial infarction with serial cardiac enzymes. Patient to undergo an exercise nuclear stress test in a.m. if NE is ruled out 2. Hypothyroidism - Patient is on levothyroxine home dose continued 3. Psoriatic arthritis ?On methotrexate 4. Obesity with BMI of 35.8 ?Weight loss advised 5. DVT prophylaxis ?Lovenox OBSV E&M: 22470 Initial observation care L3
--- NOTE | 2020-01-09 08:05 | EKG12_ITS ---
Test Reason : CP Blood Pressure : / mmHG Vent. Rate : 096 BPM Atrial Rate : 096 BPM P-R Int : 138 ms QRS Dur : 092 ms QT Int : 360 ms P-R-T Axes : 033 -06 005 degrees QTc Int : 454 ms Normal sinus rhythm Minimal voltage criteria for LVH, may be normal variant Nonspecific T wave abnormality Abnormal ECG Confirmed by JORGE GARCIA, OLEG ([id number]), art editor DARIANA ALONZO ([id number]) on 01/12/2020 9:01:05 AM Referred By: BEVERLY Confirmed By:OLEG PATEL MD
[2020-01-09 08:51] LABS: Magnesium 2.1 mg/dL (1.6-2.6)
[2020-01-09] MEDS: Aspirin E.C. 81 MG Tablet PO (11:19)
[2020-01-09] MEDS: Famotidine 20 MG Tablet PO ×2 (11:19→20:59)
[2020-01-09] MEDS: Enoxaparin 40 MG/0.4 ML Syringe SC (11:21)
[2020-01-09] MEDS: Levothyroxine 88 MCG Tablet PO (15:51)
[2020-01-09] MEDS: MELATONIN 10 MG TABLET PO (20:59)
[2020-01-09] MEDS: Sertraline 50 MG Tablet PO (22:37)
[2020-01-10 03:00] VITALS: BP 109/70; PULSE 84; RESP 14; TEMP 36.7; O2SAT 97
[2020-01-10 05:23] LABS: Absolute Lymphocyte Count 2.09 X10^3/uL (0.83-4.51); Absolute Neutrophil Count 4.9 X10^3/uL (2.0-7.7); Basophil# 0.06 X10^3/uL; Basophil% 0.7 % (0-1); Eosinophil# 0.29 X10^3/uL; Eosinophils% 3.6 % (0-5); Hematocrit 35.7 % (37-47); Hemoglobin 11.2 g/dL (12.0-15.0); Lymphocyte # 2.09 X10^3/ul (4.0); Lymphocyte % 25.6 % (19-41); Mean Corp Hgb Conc 31.4 g/dL (32-36); Mean Corpuscular Hgb 28.6 pg (27.0-32.0); Mean Corpuscular Volume 91.3 fL (81-99); Mean Platelet Vol. 8.9 fl (6.2-12.0); Monocyte# 0.81 X10^3/uL; Monocyte% 9.9 % (0-10); NRBC Flagged by Analyzer 0 % (0-5); Neutrophil # 4.89 X10^3/uL (2.7-7.7); Platelet Count 360 K/mm3 (150-450); RBC Distribution Width CV 14.3 % (11.6-14.6); RBC Distribution Width SD 46.7 fl (35.1-43.9); Red Blood Count 3.91 M/mm3 (4.2-5.4); White Blood Count 8.2 K/mm3 (4.4-11.0)
[2020-01-10 05:42] LABS: ALB/GLOB Ratio 0.9 RATIO (0.9-2.4); AST(SGOT) 10 U/L (15-37); Alanine Aminotransfer ALT/SGPT 18 U/L (13-56); Albumin, Serum 3.2 g/dL (3.2-5.0); Alkaline Phosphatase 45 U/L (45-117); Anion Gap 4 (5-15); BUN 8 mg/dL (7-18); BUN/Creat Ratio 11.1 RATIO (10-20); Calcium,Total 8.2 mg/dL (8.5-10.1); Chloride 110 mmol/L (98-107); Cholesterol 158 mg/dL (200); Creatinine, Serum 0.72 mg/dL (0.55-1.02); EST Glomerular Filtration Rate 92 mL/min (>60); Est Glom Filt Rate - Afr Amer 111 mL/min (>60); Estimated Creatinine Clearance 82.51 ml/min; Globulin 3.4 g/dL (2.2-4.2); Glucose 97 mg/dL (74-106); High Density Lipoprotein 44 mg/dL; Potassium 3.9 mmol/L (3.5-5.1); Protein, Total 6.6 g/dL (6.4-8.2); Sodium Level 139 mmol/L (136-145); Triglycerides 116 mg/dL; Very Low Density Lipoprotein 23 mg/dL (5-40)
[2020-01-10 05:47] VITALS: BP 114/69; PULSE 75; RESP 12; TEMP 36.8; O2SAT 96
[2020-01-10] MEDS: Levothyroxine 88 MCG Tablet PO (05:49)
[2020-01-10] MEDS: Aspirin E.C. 81 MG Tablet PO (05:49)
--- NOTE | 2020-01-10 05:55 | EKG12_ITS ---
Test Reason : AM EKG Blood Pressure : / mmHG Vent. Rate : 072 BPM Atrial Rate : 072 BPM P-R Int : 134 ms QRS Dur : 088 ms QT Int : 382 ms P-R-T Axes : 034 004 001 degrees QTc Int : 418 ms Normal sinus rhythm with sinus arrhythmia Nonspecific T wave abnormality Confirmed by JÚNIOR GARCIA, DAWN ([id number]), editorial writer DARIANA ALONZO ([id number]) on 01/12/2020 8:59:31 AM Referred By: OCTAVIO Confirmed By:DAWN CALLEJAS MD
[2020-01-10 07:00] VITALS: PULSE 78
[2020-01-10 07:45] VITALS: O2SAT 98
[2020-01-10] MEDS: Famotidine 20 MG Tablet PO (09:55)
[2020-01-10 10:05] VITALS: BP 134/37; PULSE 91; RESP 16; TEMP 36.8; O2SAT 97
--- NOTE | 2020-01-10 11:08 | STRESSREP ---
Stress Test Report Exercise myocardial perfusion stress test. 49-year-old lady with a history of chest pain. Stress protocol: Resting EKG demonstrates normal sinus rhythm with a rate of 87 bpm normal intervals are noted resting blood pressure is 118/70 mmHg. The patient exercised according to regular Ethan protocol for a total duration of 7 minutes. The maximum heart rate attained was 187 bpm which was 108% of maximum predicted heart rate the maximum workload was 8.5 metabolic equivalents. The patient maintained sinus rhythm throughout the recording. Occasional premature ventricular complexes were noted. At rest there were no ST or T wave changes noted suggest ischemia at peak exercise upsloping ST changes only were noted which did not meet the criteria for ischemia. The peak blood pressure was noted to be 160/78 mmHg. Myocardial perfusion protocol. 10.9 mCi of technetium 99m sestamibi was injected at rest. The patient exercised according to regular Ethan protocol for 7 minutes at peak exercise 33.8 mCi of technetium 99m sestamibi was injected stress images were obtained stress and rest images were reconstructed and compared in the short axis vertical long horizontal long axis. Gated images were also obtained Perfusion SPECT analysis: Review of the stress images demonstrate normal uptake of tracer noted in all areas of the myocardium the resting images similar demonstrate normal uptake of tracer noted in all areas of the myocardium. No reversibility is noted suggest ischemia no previous infarct is noted. Gated SPECT analysis: The gated ejection fraction is 67%. Conclusion: Normal exercise myocardial perfusion stress test at a moderate workload. No clinical angina noted. Preserved ejection fraction.
--- NOTE | 2020-01-10 11:15 | DCINST_ITS ---
- Discharge Diagnoses Current Active Problems: Current Active and Chronic Problems Chest pain (Acute) You will use the following diet at home:: No restrictions Discharge Activity: Return to Normal Activity Call your doctor if you observe: Shortness of breath, Dizziness, Fainting spells, Chest pain Allergies/Adverse Reactions: Allergies Sulfa (Sulfonamide Antibiotics) Allergy (Verified 01/09/20 04:51) Rash Latex, Natural Rubber Adverse Reaction (Verified 01/09/20 04:51) Rash oseltamivir phosphate [From Tamiflu] Adverse Reaction (Verified 01/09/20 04:51) Nausea Medications to take at Discharge Cholecalciferol (VIT D3) [Vitamin D3] 4,000 unit PO DAILY 06/16/15 Levothyroxine [Synthroid] 88 mcg PO DAILY 06/16/15 Apremilast [Otezla] 30 mg PO DAILY 01/03/17 Ibuprofen 200 mg PO PRN PRN 01/20/17 Vitamin B Complex 1 each PO DAILY 01/20/17 Calcium (Elemental) [Os-Donnie 500] 500 mg PO DAILY@0800 01/09/20 Fluticasone 0.05% [Flonase Nasal [place]] 1 spray NASAL DAILY PRN 01/09/20 Levothyroxine [Synthroid] 44 mcg PO HERNANDEZ 01/09/20 Loratadine [Claritin] 10 mg PO DAILY PRN 01/09/20 Methotrexate 15 mg PO Q7D 01/09/20 Sertraline HCl 50 mg PO QHS 01/09/20 Primary Care Physician: Mikel Nicolas MD [Primary Care Provider] - Please follow up with your Primary Care Physician in: 1 Week Test Results: Test results from this visit will be discussed in further detail at your follow- up appointment, if applicable. Proposed Discharge Date: 01/10/20
--- NOTE | 2020-01-10 11:16 | PCM.DC.SUM ---
<Yu Steiner - Last Filed: 01/10/20 11:28> Discharge Date and Diagnosis Date of Admission: 01/09/20 Date of Discharge: 01/10/20 - Primary Discharge Diagnosis Acute Problems: Active Problems 1. Chest pain, ACS ruled out 2. Psoriatic arthritis 3. Hypothyroidism 4. Obesity 5. Depression - Secondary Discharge Diagnosis Chronic Problems: Chronic Problems History of colon polyps (Chronic) Hospital Course and Treatment Imaging Results: Diagnostic Data Chest X-Ray 01/09/20 04:53 IMPRESSION: Negative x-ray examination of the chest. Electronically Signed: Shanetoni Garima, at 5:44 EDT Tel , Service support , Chest CTA 01/09/20 05:38 IMPRESSION: Normal CTA chest examination, without a demonstrated pulmonary embolism or arterial dissection. Electronically Signed: Shanetoni Garima, at 6:23 EDT Tel , Service support , Operations: None Procedures: Stress test Summary of Care Provided: The patient is a 49 year old F admitted 01/09/2020 due to chest pain. 1. Chest pain, ACS ruled out-troponin negative. EKG without ST-T changes. Patient underwent nuclear stress test which was negative for ischemia. Gated ejection fraction 67%. Patient reports she has occasional GERD. Discussed possible etiology including GERD, esophageal spasm, elevated blood pressure. Patient reports during a recent office visit her blood pressure was higher than normal however at home her blood pressures been fairly controlled. Blood pressure during admission stable. Patient states while eating certain types of food such as hard-boiled eggs, she notices a spasm in her esophagus. She denies choking or swallowing difficulty. Patient denies frequent episodes of GERD. Discussed with patient if episodes become more frequent, recommend initiating daily regimen of PPI or H2 trinity. Follow-up with primary care physician in 1 week. 2. Psoriatic arthritis-on methotrexate, apremilast. 3. Hypothyroidism-continue Synthroid regimen. 4. Obesity-encouraged diet and lifestyle modifications. 5. Depression-continue home sertraline regimen. Patient seen and examined prior to discharge. Physical assessment as noted below. Patient is stable for discharge with follow up recommendations as noted above. This patient was seen by ROSEANNE Denton under the supervision of Dr. Paris. - Physical Exam Vitals/I&O's: Vital Signs Temp Pulse Resp BP Pulse Ox 98.2 F 91 16 134/37 H 97 01/10/20 10:05 01/10/20 10:05 01/10/20 10:05 01/10/20 10:05 01/10/20 10:05 Oxygen Delivery Method Room Air Weight: 201 lb 0.985 oz Body Mass Index (BMI) 34.4 Intake and Output for Last 24 Hours 01/08/20 01/09/20 01/10/20 23:59 23:59 23:59 Intake Total 2219 / 2219 0 / 0 Balance 2219 / 2219 0 / 0 General: Alert, Oriented x3, Cooperative HEENT: Atraumatic, PERRLA, EOMI, Normocephalic Neck: Supple, No JVD, Negative Carotid Bruits Lungs: Clear to auscultation, Normal air movement Cardiovascular: Regular rate, No murmurs Abdomen: Bowel Sounds Present, Soft, Non Tender, Non-Distended Extremities: No clubbing, No cyanosis, No edema, Capillary Refill Less than 3 Seconds Skin: No rashes, No breakdown Musculoskeletal: No Tenderness to Palpation of Joints or Extremities Neurological: Cranial nerves II-XII grossly intact, Neuro grossly intact Psych/Mental Status: Normal Affect, Appropriate Laboratory Results 01/09/20 11:30: Troponin I < 0.015 01/10/20 05:12: WBC 8.2, RBC 3.91 L, Hgb 11.2 L, Hct 35.7 L, MCV 91.3, MCH 28.6, MCHC 31.4 L, RDW Std Deviation 46.7 H, RDW Coeff of Marielena 14.3, Plt Count 360, MPV 8.9, Immature Gran % (Auto) 0.200, Neut % (Auto) 60.0, Lymph % (Auto) 25.6, Childress % (Auto) 9.9, Eos % (Auto) 3.6, Baso % (Auto) 0.7, Absolute Neuts (auto) 4.9, Absolute Lymphs (auto) 2.09, Nucleated RBC % 0 07/20/20 05:12: Sodium 139, Potassium 3.9, Chloride 110 H, Carbon Dioxide 25.0, Anion Gap 4 L, BUN 8, Creatinine 0.72, Estim Creat Clear Calc 82.51, Est GFR (MDRD) Af Amer 111, Est GFR (MDRD) Non-Af 92, BUN/Creatinine Ratio 11.1, Glucose 97, Calcium 8.2 L, Total Bilirubin 0.20, AST 10 L, ALT 18, Alkaline Phosphatase 45, Total Protein 6.6, Albumin 3.2, Globulin 3.4, Albumin/Globulin Ratio 0.9, Triglycerides 116, Cholesterol 158, LDL Cholesterol 91, VLDL Cholesterol 23, HDL Cholesterol 44 Current Medications Acetaminophen (Tylenol) 650 mg PO Q6H PRN PRN PRN Reason: Pain Score 1-10/Temp > 100.7 F Al Hydroxide/Mg Hydroxide (Mylanta Ii) 30 ml PO Q6H PRN PRN PRN Reason: Gastric Burning Albuterol Sulfate (Ventolin Aerosols) 2.5 mg INHALATION Q2H PRN PRN PRN Reason: Dyspnea, wheezing Aspirin (Ecotrin) 81 mg PO DAILY@0800 [facility] Last Admin: 01/10/20 05:49 Dose: 81 mg Documented by: Dextrose (D50w Syringe) 0 gm IV X1 PRN; Protocol PRN Reason: Hypoglycemia Enoxaparin Sodium (Lovenox) 40 mg SC DAILY [facility] Last Admin: 01/09/20 11:21 Dose: 40 mg Documented by: Famotidine (Pepcid) 20 mg PO BID [facility] Last Admin: 01/10/20 09:55 Dose: 20 mg Documented by: Fluticasone Propionate (Flonase Nasal [place]) 1 spray NASAL DAILY PRN PRN Reason: ALLERGIES Glucagon () 1 mg IM .X1 PRN PRN Reason: Hypoglycemia Guaifenesin (Robitussin) 20 ml PO Q4H PRN PRN PRN Reason: COUGH Hydralazine HCl (Apresoline Iv) 10 mg IV Q4H PRN PRN PRN Reason: SBP > 160 Levothyroxine Sodium (Synthroid) 44 mcg PO Hernandez@0600 [facility] Levothyroxine Sodium (Synthroid) 88 mcg PO DAILY@0600 [facility] Last Admin: 01/10/20 05:49 Dose: 88 mcg Documented by: Loratadine (Claritin) 10 mg PO DAILY PRN PRN PRN Reason: ALLERGIES Magnesium Hydroxide (Milk Of Magnesia) 30 ml PO DAILY PRN PRN PRN Reason: Constipation Melatonin (Melatonin) 10 mg PO QHS [facility] Last Admin: 01/09/20 20:59 Dose: 10 mg Documented by: Morphine Sulfate () 2 mg IV Q3H PRN PRN PRN Reason: Pain Score 6-10/10 Nitroglycerin (Nitrostat) 0.4 mg SUBLINGUAL Q5M PRN PRN Reason: CARDIAC/CHEST PAIN Ondansetron HCl (Zofran) 4 mg IV Q8H PRN PRN PRN Reason: NAUSEA/VOMITING Oxycodone HCl (Oxyir) 5 mg PO Q4H PRN PRN PRN Reason: Pain Score 4-5/10 Prochlorperazine Edisylate (Compazine Iv) 5 mg IV Q4H PRN PRN PRN Reason: Breakthrough Nausea/Vomiting Psyllium Hydrophilic Mucilloid (Metamucil) 1 packet PO DAILY PRN PRN PRN Reason: Constipation Senna/Docusate Sodium (Senokot-S, Perla-Colace) 2 tablet PO BID PRN PRN PRN Reason: Constipation Sertraline HCl (Zoloft) 50 mg PO QHS [facility] Last Admin: 01/09/20 22:37 Dose: 50 mg Documented by: Sodium Chloride () 10 - 40 ml IV UD PRN PRN Reason: SALINE FLUSH Throat Lozenges (Cepacol Sore Throat Lozenge) 1 lozenge MUCOUS MEM Q2H PRN PRN PRN Reason: SORE THROAT Discharge Diet: No Restrictions Discharge Activity: Return to Normal Activity Call your doctor if you observe: Shortness of breath, Dizziness, Fainting spells, Chest pain Home Medications: Medications to take at Discharge Cholecalciferol (VIT D3) [Vitamin D3] 4,000 unit PO DAILY 06/16/15 Levothyroxine [Synthroid] 88 mcg PO DAILY 06/16/15 Apremilast [Otezla] 30 mg PO DAILY 01/03/17 Ibuprofen 200 mg PO PRN PRN 01/20/17 Vitamin B Complex 1 each PO DAILY 01/20/17 Calcium (Elemental) [Os-Donnie 500] 500 mg PO DAILY@0800 01/09/20 Fluticasone 0.05% [Flonase Nasal [place]] 1 spray NASAL DAILY PRN 01/09/20 Levothyroxine [Synthroid] 44 mcg PO HERNANDEZ 01/09/20 Loratadine [Claritin] 10 mg PO DAILY PRN 01/09/20 Methotrexate 15 mg PO Q7D 01/09/20 Sertraline HCl 50 mg PO QHS 01/09/20 Primary Care Physician: Mikel Nicolas MD [Primary Care Provider] - Please follow up with your Primary Care Physician in: 1 Week Disposition: Home Minutes spent on discharge:: 35 Patient Condition:: Stable Medical Necessity - Tobacco Use Smoking Status: Never smoker Tobacco Use: Non-smoker Meaningful Use Info Meaningful Use Diagnoses (Choose all that apply): None applicable <Kirstin Paris E - Last Filed: 01/10/20 12:04> Discharge Date and Diagnosis - Secondary Discharge Diagnosis Chronic Problems: Chronic Problems History of colon polyps (Chronic) Hospital Course and Treatment Imaging Results: 01/10/20 05:55 Nuclear Stress Test - Treadmil [NM] AM (NON MEDS) Procedures: EKG, Stress test Summary of Care Provided: Hospitalist note: Discharge summary above reviewed and I concur with above discharge treatment plan. Patient was admitted for chest pain for evaluation. She was found to have elevated d-dimer for which CTA chest done and showed no PE or dissection. EKG revealed no evidence of acute, changes. Troponin was negative x3. Routine blood work was unremarkable. LFT was normal. Patient underwent nuclear stress test that revealed no evidence of stress-induced myocardial ischemia with preserved ejection fraction. ACS ruled out. Her symptoms could be due to GERD although patient denied significant frequent episodes of reflux disease. Patient discharged home in a stable condition, discharged on her previous home medications without any changes, recommended follow-up with PCP in 1 week. - Physical Exam General: Alert, Oriented x3, Cooperative, No apparent distress. HEENT: Atraumatic, PERRLA, EOMI. Neck: Supple, No JVD, Negative Carotid Bruits, Trachea Midline, Thyroid Normal. Lungs: Clear to auscultation, Normal air movement, No rhonchi, No wheeze, No rales. Cardiovascular: Regular rate, Regular Rhythm, Normal S1, Normal S2, PMI Normal. Abdomen: Bowel Sounds Present, Soft, Non Tender, Non-Distended, No Hepato-splenomegaly. Extremities: No clubbing, No cyanosis, No edema Skin: No rashes, No breakdown Neurological: Cranial nerves are intact, neuro grossly intact Vital Signs are stable. This note was generated with [employer] dictation software. It may contain incorrect words, spelling, and punctuation that were not noted in checking the note before signing. - Physical Exam Vitals/I&O's: Vital Signs Temp Pulse Resp BP Pulse Ox 98.2 F 91 16 134/37 H 97 01/10/20 10:05 01/10/20 10:05 01/10/20 10:05 01/10/20 10:05 01/10/20 10:05 Oxygen Delivery Method Room Air Weight: 201 lb 0.985 oz Body Mass Index (BMI) 34.4 Intake and Output for Last 24 Hours 01/08/20 01/09/20 01/10/20 23:59 23:59 23:59 Intake Total 2220 / 2220 0 / 0 Balance 2220 / 2220 0 / 0 Laboratory Results 01/10/20 05:12: WBC 8.2, RBC 3.91 L, Hgb 11.2 L, Hct 35.7 L, MCV 91.3, MCH 28.6, MCHC 31.4 L, RDW Std Deviation 46.7 H, RDW Coeff of Marielena 14.3, Plt Count 360, MPV 8.9, Immature Gran % (Auto) 0.200, Neut % (Auto) 60.0, Lymph % (Auto) 25.6, Childress % (Auto) 9.9, Eos % (Auto) 3.6, Baso % (Auto) 0.7, Absolute Neuts (auto) 4.9, Absolute Lymphs (auto) 2.09, Nucleated RBC % 0 01/10/20 05:12: Sodium 139, Potassium 3.9, Chloride 110 H, Carbon Dioxide 25.0, Anion Gap 4 L, BUN 8, Creatinine 0.72, Estim Creat Clear Calc 82.51, Est GFR (MDRD) Af Amer 111, Est GFR (MDRD) Non-Af 92, BUN/Creatinine Ratio 11.1, Glucose 97, Calcium 8.2 L, Total Bilirubin 0.20, AST 10 L, ALT 18, Alkaline Phosphatase 45, Total Protein 6.6, Albumin 3.2, Globulin 3.4, Albumin/Globulin Ratio 0.9, Triglycerides 116, Cholesterol 158, LDL Cholesterol 91, VLDL Cholesterol 23, HDL Cholesterol 44 Current Medications Acetaminophen (Tylenol) 650 mg PO Q6H PRN PRN PRN Reason: Pain Score 1-10/Temp > 100.7 F Al Hydroxide/Mg Hydroxide (Mylanta Ii) 30 ml PO Q6H PRN PRN PRN Reason: Gastric Burning Albuterol Sulfate (Ventolin Aerosols) 2.5 mg INHALATION Q2H PRN PRN PRN Reason: Dyspnea, wheezing Aspirin (Ecotrin) 81 mg PO DAILY@0800 [facility] Last Admin: 01/10/20 05:49 Dose: 81 mg Documented by: Dextrose (D50w Syringe) 0 gm IV X1 PRN; Protocol PRN Reason: Hypoglycemia Enoxaparin Sodium (Lovenox) 40 mg SC DAILY [facility] Last Admin: 01/10/20 11:55 Dose: Not Given Documented by: Famotidine (Pepcid) 20 mg PO BID [facility] Last Admin: 01/10/20 09:55 Dose: 20 mg Documented by: Fluticasone Propionate (Flonase Nasal [place]) 1 spray NASAL DAILY PRN PRN Reason: ALLERGIES Glucagon () 1 mg IM .X1 PRN PRN Reason: Hypoglycemia Guaifenesin (Robitussin) 20 ml PO Q4H PRN PRN PRN Reason: COUGH Hydralazine HCl (Apresoline Iv) 10 mg IV Q4H PRN PRN PRN Reason: SBP > 160 Levothyroxine Sodium (Synthroid) 44 mcg PO Hernandez@0600 [facility] Levothyroxine Sodium (Synthroid) 88 mcg PO DAILY@0600 [facility] Last Admin: 01/10/20 05:49 Dose: 88 mcg Documented by: Loratadine (Claritin) 10 mg PO DAILY PRN PRN PRN Reason: ALLERGIES Magnesium Hydroxide (Milk Of Magnesia) 30 ml PO DAILY PRN PRN PRN Reason: Constipation Melatonin (Melatonin) 10 mg PO QHS [facility] Last Admin: 01/09/20 20:59 Dose: 10 mg Documented by: Morphine Sulfate () 2 mg IV Q3H PRN PRN PRN Reason: Pain Score 6-10/10 Nitroglycerin (Nitrostat) 0.4 mg SUBLINGUAL Q5M PRN PRN Reason: CARDIAC/CHEST PAIN Ondansetron HCl (Zofran) 4 mg IV Q8H PRN PRN PRN Reason: NAUSEA/VOMITING Oxycodone HCl (Oxyir) 5 mg PO Q4H PRN PRN PRN Reason: Pain Score 4-5/10 Prochlorperazine Edisylate (Compazine Iv) 5 mg IV Q4H PRN PRN PRN Reason: Breakthrough Nausea/Vomiting Psyllium Hydrophilic Mucilloid (Metamucil) 1 packet PO DAILY PRN PRN PRN Reason: Constipation Senna/Docusate Sodium (Senokot-S, Perla-Colace) 2 tablet PO BID PRN PRN PRN Reason: Constipation Sertraline HCl (Zoloft) 50 mg PO QHS [facility] Last Admin: 01/09/20 22:37 Dose: 50 mg Documented by: Sodium Chloride () 10 - 40 ml IV UD PRN PRN Reason: SALINE FLUSH Throat Lozenges (Cepacol Sore Throat Lozenge) 1 lozenge MUCOUS MEM Q2H PRN PRN PRN Reason: SORE THROAT Disposition: Home Minutes spent on discharge:: 27 Patient Condition:: Stable Meaningful Use Info Meaningful Use Diagnoses (Choose all that apply): None applicable OBSV E&M: 74844 Observation care discharge
--- NOTE | 2020-01-10 11:47 | PHA.DC.MC ---
Pharmacy Service has performed discharge medication reconciliation and counseling for this patient. The patient has no new medications at time of discharge. Upon Home medlication list review, it was noted patient is taking methotrexate. Reviewed with patient directions for use, proper administration, ADR associated with MTX, as well as limiting use of NSAIDs while taking methotrexate. Patient was able to demonstrate adequate understanding of all of this. All patient questions were answered at this time. Home Medications Cholecalciferol (VIT D3) [Vitamin D3] 4,000 unit PO DAILY 06/16/15 Levothyroxine [Synthroid] 88 mcg PO DAILY 06/16/15 Apremilast [Otezla] 30 mg PO DAILY 01/03/17 Ibuprofen 200 mg PO PRN PRN 01/20/17 Vitamin B Complex 1 each PO DAILY 01/20/17 Calcium (Elemental) [Os-Donnie 500] 500 mg PO DAILY@0800 01/09/20 Fluticasone 0.05% [Flonase Nasal [place]] 1 spray NASAL DAILY PRN 01/09/20 Levothyroxine [Synthroid] 44 mcg PO HERNANDEZ 01/09/20 Loratadine [Claritin] 10 mg PO DAILY PRN 01/09/20 Methotrexate 15 mg PO Q7D 01/09/20 Sertraline HCl 50 mg PO QHS 01/09/20 The patient's discharge medication list was reviewed for discrepancies and discrepancies were resolved.
== END 2020-01-10 11:15 | disposition home or self-care (01) ==
LOC: ED 05:13 → PCU 07:00
PROVIDERS: Admitting Provider Family Medicine; Emergency Provider Student in an Organized Health Care Education/Training Program; PCP Family Medicine; Visit Provider Hospitalist
DX: R07.89 Other chest pain (principal); E03.9 Hypothyroidism, unspecified; L40.50 Arthropathic psoriasis, unspecified; E66.9 Obesity, unspecified; Z68.34 Body mass index [BMI] 34.0-34.9, adult; F32.9 Major depressive disorder, single episode, unspecified; Z79.899 Other long term (current) drug therapy
CPT/HCPCS: 36415; 71045; 71275; 78452; 80048; 80053; 80061; 83735; 84484; 85025; 85379; 93005; 93017; 96360; 96361; 96372; 99218; 99251; 99285; A9500; J7030; Q9967; A4216; G0378; G0463

== ENCOUNTER → 2020-01-21 | Outpatient (CLI) | payer OTHER, SELFPAY ==
[2020-01-09 08:34] VITALS: BMI 34.4
== END | disposition home or self-care (01) ==
LOC: LABSPEC 11:39
PROVIDERS: PCP Family Medicine; Visit Provider Obstetrics & Gynecology
DX: R87.625 Unsatisfactory cytologic smear of vagina (principal)
CPT/HCPCS: 88175; G0145

== ENCOUNTER 2020-01-27 11:50 | Day surgery (SDC) | payer OTHER, SELFPAY ==
[2020-01-09 08:34] VITALS: BMI 34.4
[2020-01-21 12:32] LABS: Partial Thromboplast Time 25.9 Seconds (24.1-36.2); Prothrombin Time (Protime)PT. 12.6 SECONDS (11.7-14.9)
[2020-01-21 12:56] LABS: Thyroid Stim Hormone (TSH) 1.37 uIU/mL (0.358-3.74)
--- NOTE | 2020-01-27 | FALS_PTH ---
PATIENT: CHARLES STONER [place] [facility] [place][id number] AGE/SX: 49/F ROOM: RE01/27/[address]: Dr. Nahed Teixeira MD : 1970 BED: DIS: 01/27/2020 SPEC #: [id number] RECD: 01/27/20 15:08 STATUS: RAMONITA REEboni #: [id number] MAYRA: 01/27/20 00:[address]: Nahed Anna DEPT: SURGICAL PATHOLOGY RECD BY: Raffi Mallory ENTERED: 01/28/20 07:46 SP TYPE: FALL TUBES OTHR DR: Dr. Mikel Nicolas MD Tissues: A - Fallopian tube Endometrial cavity Procedures: Surgery Specimen Level II Surgery Specimen Level IV HEADER OPERATION: Hysteroscopy, dilation and curettage, Uzma ablation PRE-OP DIAGNOSIS: Excessive and frequent menstruation TISSUE SUBMITTED: A - Bilateral fallopian tubes, B - Endometrial curettings MICROSCOPIC DIAGNOSIS A. Right and left fallopian tubes, bilateral salpingectomies: Two complete cross-sections of fallopian tubes. Benign paratubal cysts. B. Endometrium, curettings: Secretory endometrium with glandular and stroma breakdown. AM:dennis 01/31/20 MICROSCOPIC DESCRIPTION Slides are reviewed. GROSS DESCRIPTION A - Received in fixative is one container labeled with the patient's name and designated bilateral fallopian tubes. The specimen consists of two fallopian tubes with an average length of 5.5 cm and has an average diameter of 0.8 cm. Both fallopian tubes have normal fimbriated ends. No mass lesions are identified. One fallopian tubes contains a paratubal cyst measuring 1.2 cm in greatest dimension. Anesthetic Assistant sections are submitted in two cassettes as follows: 1 - one fallopian tube, paratubal cyst, 2 - the other fallopian tube. B - Received in fixative is one container labeled with the patient's name and designated endometrial curettings. The specimen consists of multiple irregular fragments of dark shabazz soft tissue that in aggregate measure 3 x 2.5 x 0.2 cm. The specimen is totally submitted in one cassette. / AM:dennis 01/28/20 TC:5 CPT: 61844, 88696 x2
--- NOTE | 2020-01-27 06:04 | HP.PCM_ITS ---
- Problem List (1) Excessive and frequent menstruation with irregular cycle Status: Acute History and Physical Date of Admission: 01/27/20 Surgical History and Physical Date: 01/25/2020 Name: KYM STONER Age: 49 Date of : 1970 Kym Stoner, a 49 year old female 2 0 0 0 2, presents for Hysteroscopy, D&C, Uzma endometrial ablation, Laparoscopic bilateral salpingectomy on January 27, 2020 at 11:00. -- Kym is here for pre-op visit for Hysteroscopy D and C, Uzma, tubal. Will have repap today in office also. Consents are signed and PAT packet provided. LMT as above. m MEDICATIONS HISTORY: Patient is also takin. levothyroxine 75 mcg tablet, one po daily 2. Otezla 30 mg tablet 3. methotrexate sodium 2.5 mg tablet, six pills once a day ALLERGIES: Sulfa, Rash, Latex, Skin irritation, Latex, Skin irritation, Sulfa (Sulfonamide Antibiotics), Rash, Tamiflu and Severe nausea & vomiting Infections - Strep throat and strep throat Illnesses - Hypothyroidism, Depression, Anxiety Accidents - no injuries of consequence Hospitalizations - Childbirth and see surgery Review of Systems: GENERAL - Denies fever, or chills SKIN - Denies skin changes EYES - Denies visual changes EARS - Denies difficulty hearing NOSE - Denies nasal congestion or bleeding MOUTH - Denies sore throat or difficulty swallowing NECK - Denies pain or swelling RESPIRATORY - Denies shortness of breath or wheezing CARDIOVASCULAR - Denies palpitations or chest pain GASTROINTESTINAL - Denies nausea, vomiting, diarrhea, constipation GENITOURINARY - irregular bleeding MUSCULOSKELETAL - Denies joint or muscle pain NEUROLOGICAL - Denies localized numbness or weakness PSYCHIATRIC - Denies depression or anxiety ENDOCRINE - Denies heat or cold intolerance, weight loss or gain HEMATO-IMMUNOLOGIC - Denies excesive bleeding with cuts SOCIAL HISTORY: Alcohol Use - 1 glass red wine 5 nights / week Smoking - denies smoking Diet - no special diet Lifestyle - Exercise - minimal Seat Belt Use - always Employer - [employer] Job Description - [employer] [place] Illicit Drug Use - denies use of street drugs Sexual Activity - and only sexual partner Residence - lives w/ Hours Worked - 30hr/wk Spouse-Sig Other Name - Santi Stoner Spouse-Sig Other Occupation - [employer] Spouse-Sig Other Phone No - [phone] Children Name(s) - Tatiana Bo Control - condoms FAMILY HISTORY: Mother: Heart Disease. Father: DM II and Heart Disease. MENSTRUAL HISTORY: LMP Known?- DefiniteAmount/Duration - 3-4 DAYS, Regularity - Regular, Frequency - 25-29 days, LMP - 12/24/19, Age Onset Menarche - 13 PAST PREGNANCIES: Total Pregnancies - 2; Full Term Pregnancies - 2; Premature - 0; Abortions, Induced - 0; Abortions, Spontaneous - 0; Ectopics - 0; Multiple Births - 0; Living Children - 2 SURGICAL HISTORY: 1. Bone Marrow Donation -- Pelvis -- 1999 ; - 2. Colonoscopy after age 36 ; - PHYSICAL EXAM BP- 124/80 Sitting, Right arm, regular cuff Temp- 98.3 Taken Orally Weight- 202.49345 lbs Height- 64 inch BMI:34.75 CONSTITUTIONAL - NAD, well nourished, and well developed SKIN - No rash, lesions, or ulcers HEENT - normocephalic, atraumatic, sclerae anicteric LUNGS - CTA x2 without wheezes, crackles or rales CARDIAC - Regular rate and rhythm without rubs, murmurs, or gallops ABDOMEN - Without hepatosplenomegaly, distention, masses, rebound, or guarding; normal bowel sounds; no hernias EXTREMITIES - No edema or calf tenderness NEUROLOGICAL - normal gait, normal balance, normal motor PSYCHIATRIC - A and O to time, place, person, mood and affect 01/21/20 pap NILM PELVIC US UTERUS: 10.6 x 5.3 x 5.1cm and contains 2 subserousal fibroids, largest measuring 2 x 1.6 x 1.3 cm and the other 1.6 x 1.5 x 1.6cm. ENDOMETRIAL ECHO: 1.1cm. RIGHT OVARY: 2.1 x 2.2 x 1.3cm and contains a 1.2 x 1.5 1x 1.1cm complex cystic area.. LEFT OVARY: 4.2 x 3.3 x 2cm and contains 2 simple cysts, largest is1.6 x 1.6 x 1.6cm. FREE FLUID: NONE. OTHER PERTINENT FINDINGS: fibroids seen within uterus and Nabot cysts in the cervix. Bilateral ovarian cysts.. Laboratory Tests 01/21/20 01/21/20 01/21/20 Range/Units 11:12 11:12 11:10 PT 12.6 (11.7-14.9) SECONDS INR 1.0 APTT 25.9 (24.1-36.2) Seconds TSH 1.37 (0.358-3.74) uIU/mL COVID-19 ([facility]) (Not Detect) Blood Type A POSITIVE Antibody Screen NEGATIVE 01/21/20 Range/Units 09:30 PT (11.7-14.9) SECONDS INR APTT (24.1-36.2) Seconds TSH (0.358-3.74) uIU/mL COVID-19 ([facility]) Not Detected (Not Detect) Blood Type Antibody Screen ASSESSMENT/PLAN: 1. Encounter For Sterilization and Other Specified Irregular Menstruation US with enlarged fibroid uterus and EMB - benign pathology Plan for hysteroscopy, dilation and curettage with Uzma endometrial ablation, bilateral salpingectomy; Procedural r/b/i/a reviewed Consents signed Preop preparation and labs reviewed Procedure Criteria Procedure Type: Elective COVID Risk Discussion: The surgeon/proceduralist and patient have discussed in detail the risk of exposure to and/or potential harm posed by the COVID-19 virus with having a surgery/procedure at this time versus the risk of delaying the surgery/procedure. It is not possible to know either the risk of delaying the surgery or procedure or chance of getting an infection with perfect accuracy, but a joint decision was made between the patient and the surgeon/proceduralist to proceed at this time with the scheduled surgery/procedure as indicated on the consent form.
[2020-01-27 12:19] VITALS: BP 119/66; PULSE 70; RESP 14; TEMP 36.4; O2SAT 98; BMI 34.2
[2020-01-27] MEDS: Lactated Ringers 1,000 ML 125 ML IV (12:48)
[2020-01-27 13:04] LABS: Internal QC Validated? YES +Cl - CLEAR BKGD; Pregnancy, Urine Negative Negative
--- NOTE | 2020-01-27 14:38 | OP.PCM_ITS ---
Problem List (1) Excessive and frequent menstruation with irregular cycle Status: Acute Report of Operation Date of Procedure: 01/27/20 Pre-Operative Diagnosis: 1. Menorrhagia. 2. Subserosal fibroids. 3. Sterilization request Post-Operative Diagnosis: 1. Menorrhagia. 2. Subserosal fibroid. 3. Endometrial polyp. 4. Sterilization request Surgery/Procedure Performed:: 1. Hysteroscopy. 2. Dilation and curettage. 3. Polypectomy. 4. Uzma endometrial ablation. 5. Laparoscopic bilateral salpingectomy Description of Surgical Findings:: Normal tubes, ovaries bilaterally. Uterus approximately 10w size with subserosal fibroids. Endometriosis of posterior culdesac and left uterosacral peritoneum. Appendix normal. payroll and benefits assistant: Naina Palma Type of Anesthesia:: General, Local Anesthesiologist: Luis Alfredo Patel Specimen's removed: 1. bilateral tubes. 2. endometrial curettings with polyp Estimated Blood Loss (mL): 10 Fluids Replaced: 1200 ml Description of Procedure: Indications: 49-year-old 2 para 2 with a history of menorrhagia and subserosal uterine fibroids. She was counseled regarding management options and opted to proceed with hysteroscopy, dilation and curettage and Uzma en dometrial ablation. Sterilization was desired with plan for laparoscopic bilateral salpingectomy. Procedural risks, benefits, indications and alternatives were reviewed at length. Patient opted to proceed. Informed consent was obtained prior to the procedure. Procedure: The patient was brought to the operating room and signed was performed. She was placed in the dorsal supine position and induced under general anesthesia and intubated. She was repositioned into dorsolithotomy and her arms were tucked at her side. The perineum and abdomen were prepped and draped in sterile fashion. Straight catheterization of the bladder was performed. Patient was placed to high lithotomy and a bivalve speculum was placed vaginally. The cervix was grasped the anterior cervical lip using a single-tooth tenaculum and the uterus sounded to 9 cm. A ZUMI uterine manipulator was placed and secured and the tenaculum was removed from the cervix. The speculum was removed from the vagina. The patient was placed into low lithotomy attention turned to the abdomen. Half percent bupivacaine was injected at the inferior umbilicus and an incision was placed at the site. A 5 mm port was placed under laparoscopic guidance confirming entry into the abdominal cavity. A left lower quadrant tap block was performed using same Vivacaine. An incision was made at the site under transillumination and a 5 mm port also placed. In similar fashion local analgesic was injected suprapubically, incision made and a 5 mm port placed. The abdomen and pelvis were inspected with the findings as reported above. Attention was turned to the left adnexa and tubal fimbria identified. The mesosalpinx was serially clamped, coagulated and transected using the Enseal device to the level of the uterine cornua with salpingectomy performed. In similar fashion right salpingectomy was also performed. There was excellent hemostasis. The tubes were removed via ports. The abdomen was desufflated and the ports were removed. The [employer] reapproximated the abdominal incisions using 4-0 Monocryl under my supervision. Steri-Strips and OpSite dressing were placed over the incisions. At the same time attention was returned to the perineum. The patient was placed into high lithotomy and a bivalve speculum placed vaginally. The ZUMI uterine manipulator was removed. The anterior cervical lip was grasped using a single-tooth tenaculum. The cervix was subsequently dilated and hysteroscopy performed demonstrating an approximately 1-1/2 cm endometrial polyp present. There is no evidence of submucosal fibroids. Polypectomy was performed and followed by sharp curettage. Hysteroscopy again performed confirming full removal of the polyp. The Uzma ablation apparatus was set to five 5 cm depth and introduced into the uterine cavity and secured. The ablation cycle was performed, completed, and the device removed. Hysteroscopy was again performed with evidence of global endometrial ablation and cavity integrity maintained. The procedure was complete. The tenaculum was removed from the cervix with the site hemostatic. The speculum was removed from the vagina. The patient was placed into dorsal supine position, awakened, extubated and transferred to the recovery room without complication. Sponge and needle counts were correct x2. The patient tolerated the procedure well. - Complications None - Admit VTE Documentation VTE Present on Admission: No VTE Mechan Device Prophylaxis: SCD's VTE Pharm Prophylaxis ordered?: No
[2020-01-27 14:49] VITALS: BP 119/66; BP 98/55; PULSE 83; RESP 16; TEMP 36.2; O2SAT 100
--- NOTE | 2020-01-27 14:57 | PCM.DC ---
- Discharge Diagnoses Current Active Problems: Menorrhagia, Sterilization request Reason(s) for Visit for Discharge Instructions: Laparoscopic bilateral salpingectomy (removal of both tubes). Hysteroscopy (viewing the uterus). Dilation and curettage (D&C). Endometrial ablation You will use the following diet at home:: No restrictions Your food should be the consistency of: Regular Discharge Activity: Return to Normal Activity, May not drive while taking narcotic pain medications., May Shower, - - No tub bath x 2 weeks May resume sexual activity in: 4 weeks Lifting Restrictions: 10 lb Call your doctor if you observe: Fever of 101 or Higher, Inability to urinate, Inability to have a bowel movement, Using more than one pad per hour, Shortness of breath, Chest pain, Calf discomfort, Uncontrolled pain Suture Line Care: Avoid Pulling/Pushing Remove Dressing in (days):: 1 Cleanse incision/area with: Soap & Water Additional Instructions: Take a stool softener over the counter as needed for constipation. Allergies/Adverse Reactions: Allergies Sulfa (Sulfonamide Antibiotics) Allergy (Verified 01/27/20 12:16) Rash Latex, Natural Rubber Adverse Reaction (Verified 01/27/20 12:16) Rash oseltamivir phosphate [From Tamiflu] Adverse Reaction (Verified 01/27/20 12:16) Nausea Medications to take at Discharge Cholecalciferol (VIT D3) [Vitamin D3] 4,000 unit PO DAILY 06/16/15 Levothyroxine [Synthroid] 88 mcg PO DAILY 06/16/15 Apremilast [Otezla] 30 mg PO DAILY 01/03/17 Vitamin B Complex 1 each PO DAILY 01/20/17 Calcium (Elemental) [Os-Donnie 500] 500 mg PO DAILY@0800 01/09/20 Fluticasone 0.05% [Flonase Nasal [place]] 1 spray NASAL DAILY PRN 01/09/20 Levothyroxine [Synthroid] 44 mcg PO HERNANDEZ 01/09/20 Loratadine [Claritin] 10 mg PO DAILY PRN 01/09/20 Methotrexate 15 mg PO Q7D 01/09/20 Sertraline HCl 50 mg PO QHS 01/09/20 Folic Acid 2 mg PO DAILY 01/20/20 Ibuprofen 600 mg PO TID PRN #30 tab 01/27/20 Oxycodone [Oxyir] 5 mg PO Q6H PRN PRN 5 Days #16 tablet 01/27/20 The following prescriptions were given: Ibuprofen 600 mg PO TID PRN #30 tab PRN Reason: pain Transmission Status: Pending to [id number] Oxycodone [Oxyir] 5 mg PO Q6H PRN PRN 5 Days #16 tablet PRN Reason: severe pain Transmission Status: Received by [id number] Primary Care Physician: Mikel Nicolas MD [Primary Care Provider] - Test Results: Test results from this visit will be discussed in further detail at your follow-up appointment, if applicable. Please Follow Up With: Nahed Anna MD When: 2-4 weeks
[2020-01-27 15:00] VITALS: BP 119/66; BP 99/53; PULSE 56; RESP 16; O2SAT 100
[2020-01-27 15:15] VITALS: BP 119/66; BP 98/54; PULSE 57; RESP 16; O2SAT 100
[2020-01-27 15:30] VITALS: BP 119/66; BP 92/50; PULSE 59; RESP 16; TEMP 36.3; O2SAT 94
[2020-01-27 16:33] VITALS: BP 101/65; BP 119/66; PULSE 67; RESP 18; TEMP 36.8; O2SAT 95
== END 2020-01-27 16:34 | disposition home or self-care (01) ==
LOC: SDC 11:51 → AC 11:55
PROVIDERS: Anesthesiology; PCP Family Medicine; Referring Provider Obstetrics & Gynecology; Visit Provider Obstetrics & Gynecology
PROC: 0U5B8ZZ Destruction of Endometrium, Via Natural or Artificial Opening Endoscopic (ICD-10-PCS; CPT 58558; principal; 2020-01-27 13:15)
DX: D25.2 Subserosal leiomyoma of uterus (principal); N84.0 Polyp of corpus uteri; N92.1 Excessive and frequent menstruation with irregular cycle; Z30.2 Encounter for sterilization; Z11.59 Encounter for screening for other viral diseases; E03.9 Hypothyroidism, unspecified; F41.9 Anxiety disorder, unspecified; F32.9 Major depressive disorder, single episode, unspecified; K58.9 Irritable bowel syndrome, unspecified; Z86.2 Personal history of diseases of the blood and blood-forming organs and certain disorders involving the immune mechanism; Z79.899 Other long term (current) drug therapy
CPT/HCPCS: 00952; 58558; 58563; 58661; 36415; 81025; 84443; 85610; 85730; 86850; 86900; 86901; 87635; 88302; 88305; 94799; J7120; C1760; J2405; U0003

== ENCOUNTER → 2020-02-07 13:19 | Outpatient (CLI) | payer OTHER, SELFPAY ==
[2020-01-27 12:19] VITALS: BMI 34.2
[2020-02-07 14:27] LABS: ALB/GLOB Ratio 0.9 RATIO (0.9-2.4); AST(SGOT) 14 U/L (15-37); Alanine Aminotransfer ALT/SGPT 19 U/L (13-56); Albumin, Serum 3.6 g/dL (3.2-5.0); Alkaline Phosphatase 48 U/L (45-117); Anion Gap 7 (5-15); BUN 7 mg/dL (7-18); BUN/Creat Ratio 8.3 RATIO (10-20); Calcium,Total 8.7 mg/dL (8.5-10.1); Chloride 106 mmol/L (98-107); Creatinine, Serum 0.84 mg/dL (0.55-1.02); EST Glomerular Filtration Rate 77 mL/min (>60); Est Glom Filt Rate - Afr Amer 93 mL/min (>60); Globulin 3.9 g/dL (2.2-4.2); Glucose 110 mg/dL (74-106); Potassium 3.7 mmol/L (3.5-5.1); Protein, Total 7.5 g/dL (6.4-8.2); Sodium Level 139 mmol/L (136-145); Thyroid Stim Hormone (TSH) 1.99 uIU/mL (0.358-3.74)
[2020-02-07 14:51] LABS: Vitamin D,25 Hydroxy 45.8 ng/mL
== END ==
PROVIDERS: PCP Family Medicine; Referring Provider Internal Medicine Endocrinology, Diabetes & Metabolism; Visit Provider Internal Medicine Endocrinology, Diabetes & Metabolism
DX: E03.8 Other specified hypothyroidism (principal); N95.1 Menopausal and female climacteric states; E55.9 Vitamin D deficiency, unspecified
CPT/HCPCS: 36415; 80053; 82306; 84443

== ENCOUNTER → 2020-03-29 10:20 | Outpatient (CLI) | payer OTHER, SELFPAY ==
[2020-03-29 11:25] LABS: Absolute Lymphocyte Count 1.91 X10^3/uL (0.83-4.51); Absolute Neutrophil Count 5.1 X10^3/uL (2.0-7.7); Basophil# 0.05 X10^3/uL; Basophil% 0.6 % (0-1); Eosinophils% 1.3 % (0-5); Hematocrit 37.5 % (37-47); Hemoglobin 12.1 g/dL (12.0-15.0); Lymphocyte # 1.91 X10^3/ul (4.0); Lymphocyte % 24.6 % (19-41); Mean Corp Hgb Conc 32.3 g/dL (32-36); Mean Corpuscular Hgb 28.4 pg (27.0-32.0); Mean Platelet Vol. 9.4 fl (6.2-12.0); Monocyte# 0.54 X10^3/uL; NRBC Flagged by Analyzer 0 % (0-5); Neutrophil # 5.13 X10^3/uL (2.7-7.7); Neutrophil % 66.1 % (47-70); Platelet Count 469 K/mm3 (150-450); RBC Distribution Width CV 14.7 % (11.6-14.6); Red Blood Count 4.26 M/mm3 (4.2-5.4); White Blood Count 7.8 K/mm3 (4.4-11.0)
[2020-03-29 11:50] LABS: ALB/GLOB Ratio 0.9 RATIO (0.9-2.4); AST(SGOT) 19 U/L (15-37); Alanine Aminotransfer ALT/SGPT 31 U/L (13-56); Albumin, Serum 3.6 g/dL (3.2-5.0); Alkaline Phosphatase 45 U/L (45-117); Anion Gap 6 (5-15); BUN 9 mg/dL (7-18); BUN/Creat Ratio 11.3 RATIO (10-20); Calcium,Total 9.3 mg/dL (8.5-10.1); Chloride 109 mmol/L (98-107); EST Glomerular Filtration Rate 82 mL/min (>60); Est Glom Filt Rate - Afr Amer 99 mL/min (>60); Glucose 122 mg/dL (74-106); Potassium 3.8 mmol/L (3.5-5.1); Protein, Total 7.6 g/dL (6.4-8.2); Sodium Level 139 mmol/L (136-145)
== END ==
PROVIDERS: PCP Family Medicine; Referring Provider Internal Medicine Rheumatology; Visit Provider Internal Medicine Rheumatology
DX: L40.59 Other psoriatic arthropathy (principal); Z79.899 Other long term (current) drug therapy; L40.8 Other psoriasis; E03.9 Hypothyroidism, unspecified; E04.9 Nontoxic goiter, unspecified; F32.89 Other specified depressive episodes; F41.8 Other specified anxiety disorders; E06.3 Autoimmune thyroiditis
CPT/HCPCS: 36415; 80053; 85025

== ENCOUNTER → 2020-06-07 12:14 | Outpatient (CLI) | payer OTHER, SELFPAY ==
[2020-06-07 12:42] LABS: Absolute Lymphocyte Count 2.64 X10^3/uL (0.83-4.51); Absolute Neutrophil Count 4.8 X10^3/uL (2.0-7.7); Basophil# 0.05 X10^3/uL; Basophil% 0.6 % (0-1); Eosinophil# 0.16 X10^3/uL; Eosinophils% 1.9 % (0-5); Hematocrit 38.7 % (37-47); Hemoglobin 12.6 g/dL (12.0-15.0); Lymphocyte # 2.64 X10^3/ul (4.0); Lymphocyte % 31.6 % (19-41); Mean Corp Hgb Conc 32.6 g/dL (32-36); Mean Corpuscular Hgb 28.8 pg (27.0-32.0); Mean Corpuscular Volume 88.6 fL (81-99); Mean Platelet Vol. 9.1 fl (6.2-12.0); Monocyte# 0.66 X10^3/uL; Monocyte% 7.9 % (0-10); NRBC Flagged by Analyzer 0 % (0-5); Neutrophil # 4.84 X10^3/uL (2.7-7.7); Neutrophil % 57.9 % (47-70); Platelet Count 490 K/mm3 (150-450); RBC Distribution Width CV 14.2 % (11.6-14.6); RBC Distribution Width SD 45.4 fl (35.1-43.9); Red Blood Count 4.37 M/mm3 (4.2-5.4); White Blood Count 8.4 K/mm3 (4.4-11.0)
[2020-06-07 13:23] LABS: AST(SGOT) 13 U/L (15-37); Alanine Aminotransfer ALT/SGPT 24 U/L (13-56); Albumin, Serum 3.9 g/dL (3.2-5.0); Alkaline Phosphatase 44 U/L (45-117); Anion Gap 7 (5-15); BUN 12 mg/dL (7-18); BUN/Creat Ratio 14.4 RATIO (10-20); Calcium,Total 9.3 mg/dL (8.5-10.1); Chloride 106 mmol/L (98-107); Creatinine, Serum 0.84 mg/dL (0.55-1.02); EST Glomerular Filtration Rate 77 mL/min (>60); Est Glom Filt Rate - Afr Amer 93 mL/min (>60); Globulin 3.9 g/dL (2.2-4.2); Glucose 84 mg/dL (74-106); Potassium 3.8 mmol/L (3.5-5.1); Protein, Total 7.8 g/dL (6.4-8.2); Sodium Level 139 mmol/L (136-145)
== END ==
PROVIDERS: PCP Family Medicine; Referring Provider Internal Medicine Rheumatology; Visit Provider Internal Medicine Rheumatology
DX: L40.59 Other psoriatic arthropathy (principal); Z79.899 Other long term (current) drug therapy; L40.8 Other psoriasis; E03.9 Hypothyroidism, unspecified; E04.9 Nontoxic goiter, unspecified; E06.3 Autoimmune thyroiditis; F41.8 Other specified anxiety disorders; F32.89 Other specified depressive episodes
CPT/HCPCS: 36415; 80053; 85025

== ENCOUNTER → 2020-08-28 13:12 | Outpatient (CLI) | payer OTHER, SELFPAY ==
[2020-08-28 13:49] LABS: Absolute Lymphocyte Count 2.34 X10^3/uL (0.83-4.51); Absolute Neutrophil Count 4.4 X10^3/uL (2.0-7.7); Basophil# 0.06 X10^3/uL; Basophil% 0.8 % (0-1); Eosinophil# 0.18 X10^3/uL; Eosinophils% 2.3 % (0-5); Hematocrit 36.6 % (37-47); Hemoglobin 11.3 g/dL (12.0-15.0); Lymphocyte # 2.34 X10^3/ul (4.0); Lymphocyte % 29.9 % (19-41); Mean Corp Hgb Conc 30.9 g/dL (32-36); Mean Corpuscular Volume 90.8 fL (81-99); Monocyte# 0.79 X10^3/uL; Monocyte% 10.1 % (0-10); NRBC Flagged by Analyzer 0 % (0-5); Neutrophil # 4.42 X10^3/uL (2.7-7.7); Neutrophil % 56.5 % (47-70); Platelet Count 436 K/mm3 (150-450); RBC Distribution Width CV 14.6 % (11.6-14.6); RBC Distribution Width SD 48.1 fl (35.1-43.9); Red Blood Count 4.03 M/mm3 (4.2-5.4); White Blood Count 7.8 K/mm3 (4.4-11.0)
[2020-08-28 14:18] LABS: ALB/GLOB Ratio 0.9 RATIO (0.9-2.4); AST(SGOT) 11 U/L (15-37); Alanine Aminotransfer ALT/SGPT 24 U/L (13-56); Albumin, Serum 3.7 g/dL (3.2-5.0); Alkaline Phosphatase 45 U/L (45-117); Anion Gap 6 (5-15); BUN 9 mg/dL (7-18); BUN/Creat Ratio 11.1 RATIO (10-20); Calcium,Total 9.1 mg/dL (8.5-10.1); Chloride 108 mmol/L (98-107); Creatinine, Serum 0.81 mg/dL (0.55-1.02); EST Glomerular Filtration Rate 80 mL/min (>60); Est Glom Filt Rate - Afr Amer 96 mL/min (>60); Globulin 3.9 g/dL (2.2-4.2); Glucose 95 mg/dL (74-106); Potassium 3.9 mmol/L (3.5-5.1); Protein, Total 7.6 g/dL (6.4-8.2); Sodium Level 140 mmol/L (136-145)
== END ==
PROVIDERS: PCP Family Medicine; Referring Provider Internal Medicine Rheumatology; Visit Provider Internal Medicine Rheumatology
DX: L40.59 Other psoriatic arthropathy (principal); L40.8 Other psoriasis; E03.9 Hypothyroidism, unspecified; E04.9 Nontoxic goiter, unspecified; E06.3 Autoimmune thyroiditis; Z79.899 Other long term (current) drug therapy
CPT/HCPCS: 36415; 80053; 85025

== ENCOUNTER → 2020-09-11 12:20 | Outpatient (CLI) | payer OTHER, SELFPAY ==
[2020-09-11 14:56] LABS: AST(SGOT) 11 U/L (15-37); Alanine Aminotransfer ALT/SGPT 27 U/L (13-56); Albumin, Serum 3.9 g/dL (3.2-5.0); Alkaline Phosphatase 49 U/L (45-117); Anion Gap 6 (5-15); BUN 9 mg/dL (7-18); BUN/Creat Ratio 11.3 RATIO (10-20); Calcium,Total 9.1 mg/dL (8.5-10.1); Chloride 105 mmol/L (98-107); EST Glomerular Filtration Rate 81 mL/min (>60); Est Glom Filt Rate - Afr Amer 98 mL/min (>60); Glucose 84 mg/dL (74-106); Protein, Total 7.9 g/dL (6.4-8.2); Sodium Level 137 mmol/L (136-145); Thyroid Stim Hormone (TSH) 0.54 uIU/mL (0.358-3.74)
== END ==
PROVIDERS: PCP Family Medicine; Referring Provider Internal Medicine Endocrinology, Diabetes & Metabolism; Visit Provider Internal Medicine Endocrinology, Diabetes & Metabolism
DX: E03.8 Other specified hypothyroidism (principal)
CPT/HCPCS: 36415; 80053; 84443

== ENCOUNTER → 2021-02-23 12:49 | Outpatient (CLI) | payer OTHER, SELFPAY ==
[2021-02-23 16:53] LABS: AST(SGOT) 11 U/L (15-37); Alanine Aminotransfer ALT/SGPT 19 U/L (13-56); Albumin, Serum 3.8 g/dL (3.2-5.0); Alkaline Phosphatase 43 U/L (45-117); Anion Gap 5 (5-15); BUN 9 mg/dL (7-18); BUN/Creat Ratio 10.9 RATIO (10-20); Calcium,Total 8.5 mg/dL (8.5-10.1); Chloride 108 mmol/L (98-107); Creatinine, Serum 0.82 mg/dL (0.55-1.02); EST Glomerular Filtration Rate 78 mL/min (>60); Est Glom Filt Rate - Afr Amer 94 mL/min (>60); Globulin 3.8 g/dL (2.2-4.2); Glucose 114 mg/dL (74-106); Potassium 3.6 mmol/L (3.5-5.1); Protein, Total 7.6 g/dL (6.4-8.2); Sodium Level 140 mmol/L (136-145); Thyroid Stim Hormone (TSH) 2.18 uIU/mL (0.358-3.74)
== END ==
PROVIDERS: PCP Family Medicine; Visit Provider Internal Medicine Endocrinology, Diabetes & Metabolism
DX: E03.8 Other specified hypothyroidism (principal); E04.2 Nontoxic multinodular goiter
CPT/HCPCS: 36415; 80053; 84443

== ENCOUNTER → 2021-05-18 09:22 | Outpatient (CLI) | payer OTHER, SELFPAY ==
[2021-05-18 12:28] LABS: Anion Gap 8 (5-15); BUN 14 mg/dL (7-18); Calcium,Total 8.8 mg/dL (8.5-10.1); Chloride 110 mmol/L (98-107); Cholesterol 152 mg/dL (200); Creatinine, Serum 0.78 mg/dL (0.55-1.02); EST Glomerular Filtration Rate 83 mL/min (>60); Est Glom Filt Rate - Afr Amer 101 mL/min (>60); Free T3 2.4 pg/mL (2.18-3.98); Glucose 101 mg/dL (74-106); High Density Lipoprotein 44 mg/dL; Potassium 3.9 mmol/L (3.5-5.1); Sodium Level 141 mmol/L (136-145); T4 Free Direct 1.08 ng/dL (0.76-1.46); Thyroid Stim Hormone (TSH) 1.75 uIU/mL (0.358-3.74); Triglycerides 72 mg/dL; Very Low Density Lipoprotein 14 mg/dL (5-40)
== END ==
PROVIDERS: PCP Family Medicine; Referring Provider Family Medicine; Visit Provider Family Medicine
DX: Z00.00 Encounter for general adult medical examination without abnormal findings (principal); E03.9 Hypothyroidism, unspecified
CPT/HCPCS: 36415; 80048; 80061; 84439; 84443; 84481

== ENCOUNTER 2021-07-18 10:02 | Outpatient (CLI) | payer OTHER, SELFPAY ==
--- NOTE | 2021-07-18 10:04 | BI_ITS ---
MAMMOGRAPHY - BILATERAL SCREENING REASON FOR EXAM: Female, 51 years old. Routine annual screening examination. PERTINENT HISTORY: Aunt with breast cancer. TECHNIQUE: Digital bilateral breast robbin (3D mammographic acquisition) in the CC and MLO projections. 2-D mediolateral oblique (MLO) and craniocaudad (CC) views of both breasts were obtained. CAD: Full Field Digital Mammography with Computer Added Detection was performed. COMPARISON: Comparison is made with prior study dated 08/12/2019 and 12/20/2016. FINDINGS: Breast Composition: The breasts are heterogeneously dense, which may obscure small masses. There are no dominant masses or suspicious calcifications. No other significant abnormalities are identified. There has been no significant change since the prior study. BI/SCRN MAMM (CAD)W/ROBBIN BILAT IMPRESSION: Stable bilateral screening mammogram. Yearly follow-up mammogram recommended. (A) ASSESSMENT CATEGORY: BIRADS Category 1: Negative. A letter regarding these results will be sent to the patient by the facility within 30 days. Approximately 10% of breast cancers are not detected by mammography. A normal mammogram should not delay biopsy of a clinically suspicious abnormality. [id number] Electronically Signed: Jeremy Mcgrath MD at 10:47 EST ,
== END 2021-07-18 23:59 | disposition short-term general hospital (02) ==
LOC: OPBI 10:02
PROVIDERS: PCP Family Medicine; Referring Provider Obstetrics & Gynecology; Visit Provider Obstetrics & Gynecology
DX: Z12.31 Encounter for screening mammogram for malignant neoplasm of breast (principal); Z80.3 Family history of malignant neoplasm of breast
CPT/HCPCS: 77063; 77067

== ENCOUNTER 2021-09-12 15:13 | Outpatient (CLI) | payer OTHER, SELFPAY ==
[2021-09-12 17:53] LABS: Absolute Lymphocyte Count 2.77 X10^3/uL (0.83-4.51); Absolute Neutrophil Count 8.5 X10^3/uL (2.0-7.7); Basophil# 0.05 X10^3/uL; Basophil% 0.4 % (0-1); Eosinophils% 1.6 % (0-5); Hematocrit 39.2 % (37-47); Hemoglobin 13.3 g/dL (12.0-15.0); Lymphocyte # 2.77 X10^3/ul (0.83-4.51); Lymphocyte % 22.4 % (19-41); Mean Corp Hgb Conc 33.9 g/dL (32-36); Mean Corpuscular Hgb 29.1 pg (27.0-32.0); Mean Corpuscular Volume 85.8 fL (81-99); Mean Platelet Vol. 9.9 fl (6.2-12.0); Monocyte# 0.82 X10^3/uL; Monocyte% 6.6 % (0-10); NRBC Flagged by Analyzer 0 % (0-5); Neutrophil # 8.51 X10^3/uL (2.7-7.7); Neutrophil % 68.7 % (47-70); Platelet Count 463 K/mm3 (150-450); RBC Distribution Width CV 13.2 % (11.6-14.6); RBC Distribution Width SD 41.1 fl (35.1-43.9); Red Blood Count 4.57 M/mm3 (4.2-5.4); White Blood Count 12.4 K/mm3 (4.4-11.0)
[2021-09-12 17:58] LABS: Erythrocyte Sedimentation Rate 39 mm/hr (0-30)
[2021-09-12 18:14] LABS: ALB/GLOB Ratio 1.1 RATIO (0.9-2.4); AST(SGOT) 10 U/L (15-37); Alanine Aminotransfer ALT/SGPT 19 U/L (13-56); Alkaline Phosphatase 47 U/L (45-117); Anion Gap 7 (5-15); BUN 14 mg/dL (7-18); BUN/Creat Ratio 15.7 RATIO (10-20); Calcium,Total 9.2 mg/dL (8.5-10.1); Chloride 106 mmol/L (98-107); Creatinine, Serum 0.89 mg/dL (0.55-1.02); EST Glomerular Filtration Rate 71 mL/min (>60); Est Glom Filt Rate - Afr Amer 86 mL/min (>60); Globulin 3.8 g/dL (2.2-4.2); Glucose 113 mg/dL (74-106); Potassium 3.6 mmol/L (3.5-5.1); Protein, Total 7.8 g/dL (6.4-8.2); Sodium Level 139 mmol/L (136-145)
[2021-09-14 19:07] LABS: QNTFERON TB Mitogen Value > 10.00 IU/mL (.); QNTFERON TB Nil Value 0.02 IU/mL (.); QNTFERON TB1+ Ag Value 0.04 IU/mL (.); QNTFERON TB2+ Ag Value 0.03 IU/mL (.)
[2021-09-14 20:05] LABS: QNTIFERON TB Positive Criteria Negative (Negative)
== END 2021-09-12 23:59 | disposition home or self-care (01) ==
LOC: MTLAB 15:15
PROVIDERS: PCP Family Medicine; Referring Provider Internal Medicine Rheumatology; Visit Provider Internal Medicine Rheumatology
DX: L40.59 Other psoriatic arthropathy (principal); Z79.899 Other long term (current) drug therapy; L40.8 Other psoriasis; E03.9 Hypothyroidism, unspecified; E04.9 Nontoxic goiter, unspecified; F32.89 Other specified depressive episodes; F41.8 Other specified anxiety disorders; E06.3 Autoimmune thyroiditis
CPT/HCPCS: 36415; 80053; 85025; 85652; 86140; 86480

== ENCOUNTER 2021-09-14 13:06 | Outpatient (CLI) | payer OTHER, SELFPAY ==
--- NOTE | 2021-09-14 13:09 | RAD_ITS ---
STUDY: X-RAY CHEST REASON FOR EXAM: Female, 51 years old. PAIN TECHNIQUE: PA and lateral views of the chest. COMPARISON: January 09, 2020 chest x-ray FINDINGS: The lungs are clear and expanded. There is no demonstrated pleural abnormality. Normal size heart. Normal mediastinum and shakira. Normal visualized pulmonary arteries. Normal visualized aortic arch and descending thoracic aorta. There are diffuse degenerative changes of the visualized thoracic spine. Normal visualized ribs, clavicles, and shoulders. There is no demonstrated abnormality of the visualized soft tissue structures of the upper abdomen. RAD/Chest PA and Lateral IMPRESSION: No demonstrated acute cardiopulmonary process. Electronically Signed: Sultana Brown MD at 2:33 EDT ,
== END 2021-09-14 23:59 | disposition home or self-care (01) ==
LOC: MTRAD 13:08
PROVIDERS: PCP Family Medicine; Referring Provider Internal Medicine Rheumatology; Visit Provider Internal Medicine Rheumatology
DX: L40.59 Other psoriatic arthropathy (principal); Z79.899 Other long term (current) drug therapy; L40.8 Other psoriasis; E03.9 Hypothyroidism, unspecified; E04.9 Nontoxic goiter, unspecified; F32.89 Other specified depressive episodes; F41.8 Other specified anxiety disorders; E06.3 Autoimmune thyroiditis
CPT/HCPCS: 71046

== ENCOUNTER 2021-09-28 13:45 | Outpatient (CLI) | payer OTHER, SELFPAY ==
[2021-09-28 15:28] LABS: Vitamin D,25 Hydroxy 42.2 ng/mL
[2021-09-28 15:35] LABS: AST(SGOT) 11 U/L (15-37); Alanine Aminotransfer ALT/SGPT 19 U/L (13-56); Albumin, Serum 3.8 g/dL (3.2-5.0); Alkaline Phosphatase 45 U/L (45-117); Anion Gap 4 (5-15); BUN 13 mg/dL (7-18); BUN/Creat Ratio 16.7 RATIO (10-20); Calcium,Total 8.9 mg/dL (8.5-10.1); Chloride 105 mmol/L (98-107); Creatinine, Serum 0.78 mg/dL (0.55-1.02); EST Glomerular Filtration Rate 83 mL/min (>60); Est Glom Filt Rate - Afr Amer 101 mL/min (>60); Glucose 92 mg/dL (74-106); Potassium 3.9 mmol/L (3.5-5.1); Protein, Total 7.8 g/dL (6.4-8.2); Sodium Level 136 mmol/L (136-145); Thyroid Stim Hormone (TSH) 2.69 uIU/mL (0.358-3.74)
== END 2021-09-28 23:59 | disposition home or self-care (01) ==
LOC: LAB 13:46
PROVIDERS: PCP Family Medicine; Referring Provider Physician Assistant; Visit Provider Physician Assistant
DX: E03.8 Other specified hypothyroidism (principal); E55.9 Vitamin D deficiency, unspecified
CPT/HCPCS: 36415; 80053; 82306; 84443

== ENCOUNTER → 2021-11-23 | Outpatient (CLI) | payer OTHER, SELFPAY ==
[2021-11-23 17:16] LABS: Absolute Lymphocyte Count 1.84 X10^3/uL (0.83-4.51); Absolute Neutrophil Count 9.4 X10^3/uL (2.0-7.7); Basophil# 0.04 X10^3/uL; Basophil% 0.3 % (0-1); Eosinophil# 0.03 X10^3/uL; Eosinophils% 0.2 % (0-5); Hematocrit 36.8 % (37-47); Hemoglobin 12.1 g/dL (12.0-15.0); Lymphocyte # 1.84 X10^3/ul (0.83-4.51); Lymphocyte % 15.3 % (19-41); Mean Corp Hgb Conc 32.9 g/dL (32-36); Mean Corpuscular Hgb 28.4 pg (27.0-32.0); Mean Corpuscular Volume 86.4 fL (81-99); Mean Platelet Vol. 9.7 fl (6.2-12.0); Monocyte# 0.74 X10^3/uL; Monocyte% 6.1 % (0-10); NRBC Flagged by Analyzer 0 % (0-5); Neutrophil # 9.35 X10^3/uL (2.7-7.7); Neutrophil % 77.8 % (47-70); Platelet Count 431 K/mm3 (150-450); RBC Distribution Width CV 14.2 % (11.6-14.6); RBC Distribution Width SD 44.7 fl (35.1-43.9); Red Blood Count 4.26 M/mm3 (4.2-5.4)
[2021-11-23 18:19] LABS: ALB/GLOB Ratio 0.9 RATIO (0.9-2.4); AST(SGOT) 10 U/L (15-37); Alanine Aminotransfer ALT/SGPT 21 U/L (13-56); Albumin, Serum 3.7 g/dL (3.2-5.0); Alkaline Phosphatase 42 U/L (45-117); Anion Gap 4 (5-15); BUN 16 mg/dL (7-18); BUN/Creat Ratio 21.5 RATIO (10-20); Calcium,Total 9.6 mg/dL (8.5-10.1); Chloride 107 mmol/L (98-107); Creatinine, Serum 0.74 mg/dL (0.55-1.02); EST Glomerular Filtration Rate 88 mL/min (>60); Est Glom Filt Rate - Afr Amer 106 mL/min (>60); Globulin 3.9 g/dL (2.2-4.2); Glucose 104 mg/dL (74-106); Potassium 3.7 mmol/L (3.5-5.1); Protein, Total 7.6 g/dL (6.4-8.2); Sodium Level 138 mmol/L (136-145)
== END | disposition home or self-care (01) ==
LOC: LAB 14:42
PROVIDERS: PCP Family Medicine; Visit Provider Internal Medicine Rheumatology
DX: L40.59 Other psoriatic arthropathy (principal); Z79.899 Other long term (current) drug therapy; L40.8 Other psoriasis; E03.9 Hypothyroidism, unspecified; E04.9 Nontoxic goiter, unspecified; F32.89 Other specified depressive episodes; F41.8 Other specified anxiety disorders; E06.3 Autoimmune thyroiditis
CPT/HCPCS: 36415; 80053; 85025

== ENCOUNTER → 2022-02-02 | Outpatient (CLI) | payer OTHER, SELFPAY ==
[2022-02-02 11:37] LABS: Absolute Lymphocyte Count 2.23 X10^3/uL (0.83-4.51); Absolute Neutrophil Count 5.7 X10^3/uL (2.0-7.7); Basophil# 0.07 X10^3/uL; Basophil% 0.8 % (0-1); Eosinophil# 0.17 X10^3/uL; Eosinophils% 1.9 % (0-5); Hematocrit 39.6 % (37-47); Hemoglobin 12.8 g/dL (12.0-15.0); Lymphocyte # 2.23 X10^3/ul (0.83-4.51); Lymphocyte % 25.1 % (19-41); Mean Corp Hgb Conc 32.3 g/dL (32-36); Mean Corpuscular Hgb 28.4 pg (27.0-32.0); Mean Corpuscular Volume 87.8 fL (81-99); Mean Platelet Vol. 9.3 fl (6.2-12.0); Monocyte# 0.74 X10^3/uL; Monocyte% 8.3 % (0-10); NRBC Flagged by Analyzer 0 % (0-5); Neutrophil # 5.67 X10^3/uL (2.7-7.7); Neutrophil % 63.8 % (47-70); Platelet Count 432 K/mm3 (150-450); RBC Distribution Width CV 13.7 % (11.6-14.6); RBC Distribution Width SD 43.9 fl (35.1-43.9); Red Blood Count 4.51 M/mm3 (4.2-5.4); White Blood Count 8.9 K/mm3 (4.4-11.0)
[2022-02-02 11:58] LABS: ALB/GLOB Ratio 0.9 RATIO (0.9-2.4); AST(SGOT) 9 U/L (15-37); Alanine Aminotransfer ALT/SGPT 18 U/L (13-56); Albumin, Serum 3.5 g/dL (3.2-5.0); Alkaline Phosphatase 41 U/L (45-117); Anion Gap 4 (5-15); BUN 11 mg/dL (7-18); BUN/Creat Ratio 14.2 RATIO (10-20); Calcium,Total 8.8 mg/dL (8.5-10.1); Chloride 110 mmol/L (98-107); Creatinine, Serum 0.78 mg/dL (0.55-1.02); EST Glomerular Filtration Rate 83 mL/min (>60); Est Glom Filt Rate - Afr Amer 101 mL/min (>60); Glucose 102 mg/dL (74-106); Potassium 4.2 mmol/L (3.5-5.1); Protein, Total 7.5 g/dL (6.4-8.2); Sodium Level 138 mmol/L (136-145)
== END | disposition home or self-care (01) ==
LOC: LAB 10:55
PROVIDERS: PCP Family Medicine; Referring Provider Internal Medicine Rheumatology; Visit Provider Internal Medicine Rheumatology
DX: L40.59 Other psoriatic arthropathy (principal); Z79.899 Other long term (current) drug therapy; L40.8 Other psoriasis; E03.9 Hypothyroidism, unspecified; E04.9 Nontoxic goiter, unspecified; F32.89 Other specified depressive episodes; F41.8 Other specified anxiety disorders; E06.3 Autoimmune thyroiditis
CPT/HCPCS: 36415; 80053; 85025

== ENCOUNTER → 2022-05-03 | Outpatient (CLI) | payer OTHER, SELFPAY ==
[2022-05-03 14:59] LABS: Absolute Lymphocyte Count 2.73 X10^3/uL (0.83-4.51); Absolute Neutrophil Count 7.4 X10^3/uL (2.0-7.7); Basophil# 0.03 X10^3/uL; Basophil% 0.3 % (0-1); Eosinophils% 1.8 % (0-5); Hematocrit 38.8 % (37-47); Hemoglobin 12.9 g/dL (12.0-15.0); Lymphocyte # 2.73 X10^3/ul (0.83-4.51); Mean Corp Hgb Conc 33.2 g/dL (32-36); Mean Corpuscular Volume 87.2 fL (81-99); Mean Platelet Vol. 9.5 fl (6.2-12.0); Monocyte# 0.97 X10^3/uL; Monocyte% 8.5 % (0-10); NRBC Flagged by Analyzer 0 % (0-5); Neutrophil # 7.42 X10^3/uL (2.7-7.7); Neutrophil % 65.1 % (47-70); Platelet Count 415 K/mm3 (150-450); Red Blood Count 4.45 M/mm3 (4.2-5.4); White Blood Count 11.4 K/mm3 (4.4-11.0)
[2022-05-03 15:33] LABS: ALB/GLOB Ratio 0.9 RATIO (0.9-2.4); AST(SGOT) 8 U/L (15-37); Alanine Aminotransfer ALT/SGPT 17 U/L (13-56); Albumin, Serum 3.6 g/dL (3.2-5.0); Alkaline Phosphatase 44 U/L (45-117); Anion Gap 5 (5-15); BUN 12 mg/dL (7-18); BUN/Creat Ratio 18.2 RATIO (10-20); Calcium,Total 9.3 mg/dL (8.5-10.1); Chloride 107 mmol/L (98-107); Creatinine, Serum 0.66 mg/dL (0.55-1.02); EST Glomerular Filtration Rate 101 mL/min (>60); Est Glom Filt Rate - Afr Amer 122 mL/min (>60); Globulin 3.9 g/dL (2.2-4.2); Glucose 91 mg/dL (74-106); Potassium 3.7 mmol/L (3.5-5.1); Protein, Total 7.5 g/dL (6.4-8.2); Sodium Level 138 mmol/L (136-145); Thyroid Stim Hormone (TSH) 0.88 uIU/mL (0.358-3.74)
== END | disposition home or self-care (01) ==
LOC: LAB 13:58
PROVIDERS: PCP Family Medicine; Referring Provider Internal Medicine Endocrinology, Diabetes & Metabolism; Visit Provider Internal Medicine Endocrinology, Diabetes & Metabolism
DX: L40.59 Other psoriatic arthropathy (principal); L40.8 Other psoriasis; E03.9 Hypothyroidism, unspecified; E04.9 Nontoxic goiter, unspecified; F41.9 Anxiety disorder, unspecified; E06.3 Autoimmune thyroiditis; Z79.899 Other long term (current) drug therapy
CPT/HCPCS: 36415; 80053; 84443; 85025

== ENCOUNTER → 2022-12-09 | Outpatient (CLI) | payer OTHER, SELFPAY ==
[2022-12-09 11:17] LABS: Vitamin D,25 Hydroxy 41.6 ng/mL
[2022-12-09 11:56] LABS: ALB/GLOB Ratio 0.8 RATIO (0.9-2.4); AST(SGOT) 11 U/L (15-37); Alanine Aminotransfer ALT/SGPT 15 U/L (13-56); Albumin, Serum 3.6 g/dL (3.2-5.0); Alkaline Phosphatase 43 U/L (45-117); Anion Gap 8 (5-15); BUN 12 mg/dL (7-18); BUN/Creat Ratio 15.5 RATIO (10-20); Chloride 106 mmol/L (98-107); Creatinine, Serum 0.78 mg/dL (0.55-1.02); EST Glomerular Filtration Rate 83 mL/min (>60); Est Glom Filt Rate - Afr Amer 100 mL/min (>60); Globulin 4.3 g/dL (2.2-4.2); Glucose 97 mg/dL (74-106); Potassium 4.1 mmol/L (3.5-5.1); Protein, Total 7.9 g/dL (6.4-8.2); Sodium Level 136 mmol/L (136-145); Thyroid Stim Hormone (TSH) 1.62 uIU/mL (0.358-3.74)
== END | disposition home or self-care (01) ==
LOC: LAB 10:10
PROVIDERS: PCP Family Medicine; Referring Provider Internal Medicine Endocrinology, Diabetes & Metabolism; Visit Provider Internal Medicine Endocrinology, Diabetes & Metabolism
DX: E03.8 Other specified hypothyroidism (principal); E55.9 Vitamin D deficiency, unspecified
CPT/HCPCS: 36415; 80053; 82306; 84443

== ENCOUNTER → 2023-02-13 | Outpatient (CLI) | payer OTHER, SELFPAY ==
[2023-02-19 22:09] LABS: HPV Reflexed? NOT INDICATED
== END | disposition home or self-care (01) ==
LOC: LABSPEC 14:54
PROVIDERS: PCP Family Medicine; Referring Provider Registered Nurse; Visit Provider Registered Nurse
DX: Z12.4 Encounter for screening for malignant neoplasm of cervix (principal)
CPT/HCPCS: 88175; G0145

== ENCOUNTER → 2023-03-18 | Outpatient (CLI) | payer OTHER, SELFPAY ==
--- NOTE | 2023-03-18 12:04 | BI_ITS ---
MAMMOGRAPHY - BILATERAL SCREENING REASON FOR EXAM: Female, 52 years old. Routine annual screening examination. PERTINENT HISTORY: Aunt with breast cancer. TECHNIQUE: Digital bilateral breast robbin (3D mammographic acquisition) in the CC and MLO projections. 2-D mediolateral oblique (MLO) and craniocaudad (CC) views of both breasts were obtained. CAD: Full Field Digital Mammography with Computer Added Detection was performed. COMPARISON: Comparison is made with prior study dated January 15, 2022 and August 12, 2019. FINDINGS: Breast Composition: The breasts are heterogeneously dense, which may obscure small masses. There are no dominant masses or suspicious calcifications. Stable small benign-appearing bilateral axillary lymph nodes. No other significant abnormalities are identified. There has been no significant change since the prior study. BI/SCRN MAMM (CAD)W/ROBBIN BILAT IMPRESSION: Stable bilateral screening mammogram. Yearly follow-up mammogram recommended. (A) ASSESSMENT CATEGORY: BIRADS Category 2: Benign. A letter regarding these results will be sent to the patient by the facility within 30 days. Approximately 10% of breast cancers are not detected by mammography. A normal mammogram should not delay biopsy of a clinically suspicious abnormality. [id number] Electronically Signed: Jeremy Mcgrath MD at 13:38 EDT ,
== END | disposition home or self-care (01) ==
LOC: OPBI 12:03
PROVIDERS: PCP Family Medicine; Visit Provider Registered Nurse
DX: Z12.31 Encounter for screening mammogram for malignant neoplasm of breast (principal); Z80.3 Family history of malignant neoplasm of breast
CPT/HCPCS: 77063; 77067

== ENCOUNTER → 2023-04-05 | Outpatient (CLI) | payer OTHER, SELFPAY ==
[2023-04-05 12:10] LABS: Basophil# 0.06 X10^3/uL; Basophil% 0.6 % (0-1); Eosinophil# 0.36 X10^3/uL; Eosinophils% 3.5 % (0-5); Hematocrit 40.3 % (37-47); Hemoglobin 13.5 g/dL (12.0-15.0); Lymphocyte % 18.6 % (19-41); Mean Corp Hgb Conc 33.5 g/dL (32-36); Mean Corpuscular Hgb 28.7 pg (27.0-32.0); Mean Corpuscular Volume 85.7 fL (81-99); Monocyte# 0.81 X10^3/uL; Monocyte% 7.9 % (0-10); NRBC Flagged by Analyzer 0 % (0-5); Neutrophil # 7.02 X10^3/uL (2.7-7.7); Platelet Count 414 K/mm3 (150-450); RBC Distribution Width CV 13.3 % (11.6-14.6); RBC Distribution Width SD 41.7 fl (35.1-43.9); White Blood Count 10.2 K/mm3 (4.4-11.0)
[2023-04-05 12:26] LABS: AST(SGOT) 60 U/L (15-37); Alanine Aminotransfer ALT/SGPT 95 U/L (13-56); Albumin, Serum 3.6 g/dL (3.2-5.0); Alkaline Phosphatase 61 U/L (45-117); Bilirubin, Direct 0.13 mg/dL (0.00-0.30); Globulin 4.3 g/dL (2.2-4.2); Protein, Total 7.9 g/dL (6.4-8.2)
[2023-04-08 19:07] LABS: QNTFERON TB Mitogen Value > 10.00 IU/mL (.); QNTFERON TB Nil Value 0.08 IU/mL (.); QNTFERON TB1+ Ag Value 0.08 IU/mL (.); QNTFERON TB2+ Ag Value 0.09 IU/mL (.); QNTIFERON TB Positive Criteria Negative (Negative)
== END | disposition home or self-care (01) ==
LOC: LAB 11:47
PROVIDERS: PCP Family Medicine; Referring Provider Dermatology; Visit Provider Dermatology
DX: L40.0 Psoriasis vulgaris (principal); L40.59 Other psoriatic arthropathy; Z79.899 Other long term (current) drug therapy
CPT/HCPCS: 36415; 80076; 85025; 86480

== ENCOUNTER → 2023-05-01 | Outpatient (CLI) | payer OTHER, SELFPAY ==
[2023-05-01 10:20] LABS: AST(SGOT) 30 U/L (15-37); Alanine Aminotransfer ALT/SGPT 51 U/L (13-56)
== END | disposition home or self-care (01) ==
LOC: MTLAB 08:21
PROVIDERS: PCP Family Medicine; Referring Provider Dermatology; Visit Provider Dermatology
DX: Z79.899 Other long term (current) drug therapy (principal)
CPT/HCPCS: 36415; 84450; 84460

== ENCOUNTER → 2023-05-27 | Outpatient (CLI) | payer OTHER, SELFPAY | END | disposition home or self-care (01) | LOC: SL 13:21 | PROVIDERS: PCP Family Medicine; Referring Provider Nurse Practitioner Acute Care; Visit Provider Nurse Practitioner Acute Care | DX: R06.83 Snoring (principal) | CPT/HCPCS: 95806 ==

== ENCOUNTER → 2023-06-11 | Outpatient (CLI) | payer OTHER, SELFPAY ==
[2023-06-11 14:10] LABS: ALB/GLOB Ratio 0.9 RATIO (0.9-2.4); AST(SGOT) 21 U/L (15-37); Alanine Aminotransfer ALT/SGPT 36 U/L (13-56); Albumin, Serum 3.6 g/dL (3.2-5.0); Alkaline Phosphatase 43 U/L (45-117); Anion Gap 8 (5-15); BUN 10 mg/dL (7-18); BUN/Creat Ratio 13.7 RATIO (10-20); Calcium,Total 8.7 mg/dL (8.5-10.1); Chloride 107 mmol/L (98-107); Cholesterol 165 mg/dL (200); Creatinine, Serum 0.73 mg/dL (0.55-1.02); EST Glomerular Filtration Rate 89 mL/min (>60); Est Glom Filt Rate - Afr Amer 108 mL/min (>60); Estradiol 158.6 pg/mL; Follicle Stimulating Hormone 16.3 mIU/mL; Globulin 3.9 g/dL (2.2-4.2); Glucose 88 mg/dL (74-106); High Density Lipoprotein 62 mg/dL; Potassium 4.3 mmol/L (3.5-5.1); Protein, Total 7.5 g/dL (6.4-8.2); Sodium Level 141 mmol/L (136-145); Thyroid Stim Hormone (TSH) 1.23 uIU/mL (0.358-3.74); Triglycerides 96 mg/dL; Very Low Density Lipoprotein 19 mg/dL (5-40)
== END | disposition home or self-care (01) ==
PROVIDERS: PCP Family Medicine; Referring Provider Nurse Practitioner Adult Health; Visit Provider Nurse Practitioner Adult Health
DX: E03.8 Other specified hypothyroidism (principal); E78.2 Mixed hyperlipidemia; N95.1 Menopausal and female climacteric states
CPT/HCPCS: 36415; 80053; 80061; 82670; 83001; 84443

== ENCOUNTER 2023-07-07 09:51 | Day surgery (SDC) | payer OTHER, SELFPAY ==
[2023-07-07 10:05] VITALS: BP 121/59; PULSE 99; RESP 16; TEMP 36.2; O2SAT 95; BMI 35.2
[2023-07-07] MEDS: Lactated Ringers 1,000 ML 15 ML IV (10:12)
--- OUTSIDE RECORDS SUMMARY | 2023-07-07 10:15 | XMS RPT_ITS | CCD ---
Author Name Unknown Address [address] [place] [address] Organization [facility] Care Team Providers Care Maintenance Operator Name Role Phone Torie Greco Unavailable Unavailable Alo GARCIA, Phil Longo Unavailable [phone] Torie Greco Unavailable Unavailable Allergies Allergy Classification Reported Allergen(s) Allergy Type Date of Onset Reaction(s) Facility (3 sources) Latex drug allergy 7 skin rash [facility] Work Phone: (3 sources) oseltamivir drug allergy 7 excessive vomiting [facility] Work Phone: (3 sources) Sulfonamides (Antibiotic) drug allergy 7 skin rash [facility] Work Phone: Medications Completed/Discontinued Medications Medication Drug Class(es) Dates Sig (Normalized) Sig (Original) apremilast 30 mg oral tablet (3 sources) Start: 12-18-2016 take 2 tablets by mouth once daily OTEZLA 30 MG TABS Two tablets by mouth daily APREMILAST [id number] Torie A Greco B COMPLEX VITAMINS (2 sources) Start: 12-18-2016 take 1 tablet by mouth once daily B COMPLEX CAPS One tablet by mouth daily B COMPLEX VITAMINS [id number] Torie A Greco B COMPLEX VITAMINS (1 source) Start: 12-18-2016 take 1 tablet by mouth once daily B COMPLEX CAPS One tablet by mouth daily B COMPLEX VITAMINS [id number] Torie A Greco calcium (2 sources) Phosphate Binder, Calcium Start: 12-18-2016 take 1 tablet by mouth once daily CALCIUM 600+D TABS One tablet by mouth daily CALCIUM CARB-CHOLECALCIFEROL TABS [id number] Torie Greco CALCIUM CARB-CHOLECALCIFEROL TABS (1 source) Start: 12-18-2016 take 1 tablet by mouth once daily CALCIUM 600+D TABS One tablet by mouth daily CALCIUM CARB-CHOLECALCIFEROL TABS [id number] Torie Greco cholecalciferol 2000 unt oral tablet (3 sources) Vitamin D Start: 12-18-2016 take 1 tablet by mouth once daily VITAMIN D3 2000 UNIT TABS One tablet by mouth daily CHOLECALCIFEROL [id number] Torie Greco levothyroxine sodium 0.088 mg oral tablet (3 sources) l-Thyroxine Start: 12-18-2016 take 1 tablet by mouth once daily LEVOTHYROXINE SODIUM 88 MCG TABS One tablet by mouth daily LEVOTHYROXINE SODIUM 47392028893 Torie Greco vitamin e 600 unt oral capsule (3 sources) Start: 12-18-2016 take 1 tablet by mouth once daily VITAMIN E 600 UNIT CAPS One tablet by mouth daily VITAMIN E [id number] Torie Greco Problems Active Problems Problem Classification Problem Date Documented Da te Episodic/Chronic Osteoarthritis (3 sources) Arthritis; Translations: [Unspecified osteoarthritis, unspecified site] Onset: 12-18-2016 12-18-2016 Chronic Other gastrointestinal disorders (3 sources) Irritable bowel syndrome; Translations: [Irritable bowel syndrome without diarrhea] Onset: 12-18-2016 12-18-2016 Chronic Other inflammatory condition of skin (3 sources) Psoriasis; Translations: [Psoriasis, unspecified] Onset: 12-18-2016 12-18-2016 Chronic Other nutritional; endocrine; and metabolic disorders (3 sources) Overweight; Translations: [Overweight] Onset: 12-18-2016 12-18-2016 Chronic Other upper respiratory disease (3 sources) Seasonal allergy; Translations: [Other seasonal allergic rhinitis] Onset: 12-18-2016 12-18-2016 Chronic Thyroid disorders (3 sources) Hypothyroidism; Translations: [Hypothyroidism, unspecified] Onset: 12-18-2016 12-18-2016 Chronic Unclassified (2 sources) Screening for malignant neoplasm of colon ; Translations: [Encounter for screening for malignant neoplasm of colon] Onset: 12-18-2016 12-18-2016 Past or Other Problems Problem Classification Problem Date Documented Da te Episodic/Chronic Other and unspecified benign neoplasm (3 sources) Polyp of colon; Translations: [Polyp of colon] Onset: 12-18-2016 12-18-2016 Episodic Results Test Name Value Interpretation Reference Range Facil ity Vital Signs Date Time Vital Sign Value Performing Clinician Facility 12-18-2016 10:10-0400 BMI (Body Mass Index) 34.39 kg/m2 Torie Greco [facility] Work Phone: 12-18-2016 10:10-0400 Body Temperature 98.3 [degF] Torie Greco [facility] Work Phone: 12-18-2016 10:10-0400 BP Diastolic 87 mm[Hg] Torie Greco [facility] Work Phone: 12-18-2016 10:10-0400 BP Systolic 150 mm[Hg] Torie Greco [facility] [employer] Work Phone: 12-18-2016 10:10-0400 Height 162.56 cm Torie Greco [facility] Work Phone: 12-18-2016 10:10-0400 Pulse (Heart Rate) 61 /min Torie Greco [facility] Work Phone: 12-18-2016 10:10-0400 Pulse Oximetry 98 % Torie Greco [facility] Work Phone: 12-18-2016 10:10-0400 Respiratory Rate 20 /min Torie Greco [facility] Work Phone: 12-18-2016 10:10-0400 Weight 90.9 kg Torie Greco [facility] Work Phone: Procedures Date Procedure Procedure Detail Performing Clinician Start: 12-18-2016 End: 12-18-2016 Dietary management education, guidance, and counseling Torie Greco Start: 12-18-2016 End: 01-24-2017 Diagnostic colonoscopy Phil elizalde MD Work Phone: Start: 12-18-2016 Screening for malign ant neoplasm of colon Screening, colon ca Toriejose Greco Plan of Treatment Date Care Activity Detail Author Start: 01-24-2017 End: 01-24-2017 Appointment Appointment [facility] Work Phone: Start: 12-18-2016 End: 12-18-2016 Appointment Appointment [facility] Work Phone: Start: 12-18-2016 End: 01-24-2017 Diagnostic colonoscopy Colonoscopy [facility] Work Phone: Additional Source Comments FOR RECORDS PERTAINING TO PATIENTS WHO ARE OR HAVE BEEN ENROLLED IN A CHEMICAL DEPENDENCY/SUBSTANCEABUSE PROGRAM, SOME INFORMATION MAY BE OMITTED. This clinical summary was aggregated from multiple sources. Caution should be exercised in using it in the provision of clinical care. This summary normalizes information from multiple sources, and as a consequence, information in this document may materially change the coding, format and clinical context of patient data. In addition, data may be omitted in some cases. CLINICAL DECISIONS SHOULD BE BASED ON THE PRIMARY CLINICAL RECORDS. [facility] [employer] [facility]. provides no warranty or guarantee of the accuracy or completeness of information in this document.
--- NOTE | 2023-07-07 10:49 | H&P.OPEN ---
HPI - General HPI Narrative CHARLES STONER, is a 53 F who presents for surveillance colonoscopy. Her last colonoscopy was 5 years ago and a tubular adenoma was removed. She is not experiencing any abdominal pain or blood in the stool. [facility] Medical History (Updated 07/04/23 @ 10:57 by Ashley Gallagher) Alcohol use Anxiety Arthritis Back pain Depression Esophageal spasm Family history of cancer of digestive organ Gastric reflux Smita's thyroiditis History of IBS History of irregular heartbeat History of steroid therapy History of stress test Low iron Migraine headache Non-smoker Psoriatic arthritis Tinnitus Wears contact lenses Home Medications loratadine 10 mg tablet 10 mg PO DAILY PRN Allergies 01/09/20 [History Last Taken 01/07/20 21:00] sertraline 50 mg tablet 50 mg PO QHS depression 01/09/20 [History Last Taken 01/08/20 21:00] ibuprofen 600 mg tablet 600 mg PO TID PRN pain #30 tabs 01/27/20 [Rx Last Taken Unknown] ixekizumab 80 mg/mL subcutaneous auto-injector ([employer] Autoinjector) 80 mg subcut Q4W 12/19/22 [History Last Taken Unknown] levothyroxine 100 mcg tablet 100 mcg PO DAILY 05/05/23 [History Last Taken Unknown] clonazepam 0.5 mg tablet (Klonopin) 0.5 mg PO DAILY PRN anxiety 06/27/23 [History Last Taken Unknown] famotidine 20 mg tablet (Acid Controller) 20 mg PO DAILY 07/04/23 [History Last Taken Unknown] prednisone 10 mg tablet 10 mg PO DAILY PRN ARTHRITIS FLARE 07/04/23 [History Last Taken Unknown] Allergy/AdvReac Type Severity Reaction Status Date / Time Sulfa (Sulfonamide Allergy Rash Verified 07/07/23 10:04 Antibiotics) oseltamivir phosphate AdvReac Severe Nausea/Vom/ Verified 07/07/23 10:04 [From Tamiflu] Diarrhea Latex, Natural Rubber AdvReac Rash Verified 07/07/23 10:04 Family History (Updated 06/27/23 @ 08:15 by Tatiana Latham) Unknown Cancer of digestive system Father Colon polyps Other Breast cancer Diabetes Heart disease Surgical History (Updated 07/04/23 @ 10:57 by Ashley Gallagher) History of salpingectomy Hx of bone marrow donation Hx of colonoscopy S/P endometrial ablation Social History number of children: 2 current occupational status: employed current occupation: [employer] Smoking Status: Never smoker Electronic Cigarette Use: not used second hand exposure: No alcohol intake: current alcohol intake frequency: holidays/special occasions only substance use type: does not use additional social history: - Shaneopher Past Medical/Surgical History Planned Operation Planned Operative Procedure/s: CSCOPE OA S.O.S: No Previous Hospitalizations/Surgeries HX Hospitalizations: No HX of Surgeries: BONE MARROW DONATION 1999 COLONOSCOPY X3 Any Problems With Anesthesia: Yes (SLOW TO AWAKEN) You/Your Family Experience Fever (Hyperthermia) With Anes: No Cholinesterase deficiency: No Cardiovascular Hx Chest Pain within Last 2 months: Yes (12/2019 had work up) Hx of Irregular Heartbeat and/or Afib: No Hx Heart Attack: No Hx Congestive Heart Failure: No Hx Rheumatic Fever: No Hx Hypertension: No Hx Internal Defibrillator: No Hx Pacemaker: No Hx Cardiac Catheterization: No Hx Cardiac Surgery/Stents/Etc.: No Hx Stress Test: Yes (08/12/2019 [facility]) Hx Pain in Legs when Walking/Leg Cramps: No Respiratory Chronic Cough: No HX of Shortness of Breath: No Hoarseness: No Hx Chronic Obstructive Pulmonary Disease (COPD): No Hx Asthma: No Hx Emphysema: No Hx Sleep Apnea: No Hx Respiratory Tract Infection/Cold (presently): No Do You Snore Loudly (louder than talking or can be heard): No Do You Often Feel Tired/ Fatigued/ Sleepy Dring Daytime?: No Has Anyone Observed You Stop Breathing During Sleep?: No Result (for STOP score): Negative Hx Smoking: No Smoking Status: Never smoker Gastrointestinal Hx Gastrointestinal Disorders: Yes (IBS) Hx Gastrointestinal Bleed: No Hx Ulcer: No Hx Hiatal Hernia: No Difficulty Chewing/Swallowing: Yes (esophageal spasm/ trouble swallowing eggs) Special diet followed at home: No Hx Unplanned Weight Loss of 20#: No HX Unplanned Weight Gain of 20#: No Neurological Hx Seizures: No HX Syncope/Blackout Spells/Unconsciousness: No Hx Transient Ischemic Attacks (TIA): No Hx Multiple Sclerosis: No Hx Parkinson's Disease: No Hx Head/Neck Injury: No Hx Headaches: Yes (HX OF MIGRAINES 20 YRS AGO) Hx Back Injury/Pain: Yes (herniated disc per hx) Recent Onset of Speech Difficulty: No Restless Legs: No Does patient have nerve stimulator: No Blood Disorder Hx Leukemia: No Bleeding Tendencies: No Hx Deep Vein Thrombosis: No Hx High Cholesterol: No Blood Transmitted Disease: No Hx Hepatitis: No Hx Cirrhosis: No Hx Anemia: Yes (per hx) Hx Blood Disorders: No Reproduction : No Is Patient Lactating: No Hx Hysterectomy: No Hx Tubal Ligation: No Are You Post Menopause: No Genitourinary Hx Renal Disease: No Hx Dialysis: No Musculoskeletal Hx Arthritis: Yes Hx Rheumatoid Arthritis: No (psoriatic) Hx Gout: No Recent Onset of an Orthopedic Problem: No Endocrine Hx Diabetes: No Thyroid Disease: Yes (ON MED) Hx Steroid Therapy: No Psycho/Social Hx Substance Use: No Hx Alcohol Use: Yes (GLASS A WINE A COUPLE NIGHT A WEEK.) Hx Anxiety: Yes (on med) Hx Depression: Yes (on med) Mental Illness: No Hx Dementia: No Miscellaneous Hx Cancer: No Recent Exposure to Contagious Disease: No Hx of C-Diff: No Any Loose Teeth: No Allergies Sulfa (Sulfonamide Antibiotics) Allergy (Verified 07/07/23 10:04) Rash oseltamivir phosphate [From Tamiflu] Adverse Reaction (Severe, Verified 07/07/23 10:04) Nausea/Vom/Diarrhea Latex, Natural Rubber Adverse Reaction (Verified 07/07/23 10:04) Rash Paternal: Family History (Updated 06/27/23 @ 08:15 by Tatiana Latham) Unknown Cancer of digestive system Father Colon polyps Other Breast cancer Diabetes Heart disease Heart Disease Discharge Is Pt Admitted From a Skilled Nursing, or a Halfway: No After D/C, Where Do you Plan to Go: Return Home Vital Signs Vital Signs Vital Signs: 07/07/23 10:05 07/07/23 10:05 Temperature 97.2 F L Temperature Source Temporal Pulse Rate 99 Respiratory Rate 16 Respiratory Pattern Normal Blood Pressure 121/59 H Blood Pressure Mean 79 Blood Pressure Source Monitor Blood Pressure Position Sitting Blood Pressure Location Left Arm Pulse Ox 95 Oxygen Delivery Method Room Air Weight Weight: 205 lb Body Mass Index (BMI) 35.2 Physical Exam Const alert and oriented x3 HEENT normocephalic Eyes PERRL Resp normal respiratory effort and normal air movement Cardio regular rate and regular rhythm GI soft to palpation, non-tender and non-distended Extremity normal to inspection Assessment & Plan Assessment/Plan (1) History of colon polyps: PLAN: Patient is due for surveillance colonoscopy for history of polyps. I explained endoscopy in detail to the patient. I explained the risks including but not limited to stroke or heart attack with anesthesia, perforation of the GI tract, bleeding, infection. I explained that any of these could necessitate further emergency surgery. The patient understands and all questions were answered sufficiently. The patient wishes to proceed with procedure. Phil Prajapati MD Pager: [facility] [address] [place] [address], [address] [place] [address] Office: Surgery Risks - Colonoscopy Risks Include but are not Limited To: Risks include but are not limited to: Bleeding, perforation requiring further surgery, inability to complete colonoscopy requiring barium enema.
[2023-07-07 11:15] VITALS: BP 121/59; BP 153/88; PULSE 82; RESP 16; TEMP 36.5; O2SAT 96
--- NOTE | 2023-07-07 11:18 | OP.COLON_ITS ---
Patient Name: Kym Saldana Procedure Date: 07/07/2023 10:40 AM Date of : 1970 Age: 53 Procedure: Colonoscopy Indications: High risk colon cancer surveillance: Personal history of colonic polyps Providers: Phil Prajapati MD Referring MD: Phil Prajapati MD Medicines: Monitored Anesthesia Care Patient Profile: This is a 53 year old female. Refer to note in patient chart for documentation of history and physical. Last Colonoscopy: 5 years ago. Complications: No immediate complications. Procedure: Pre-Anesthesia Assessment: - Prior to the procedure, a History and Physical was performed, and patient medications and allergies were reviewed. The patient's tolerance of previous anesthesia was also reviewed. The risks and benefits of the procedure and the sedation options and risks were discussed with the patient. All questions were answered, and informed consent was obtained. Prior Anticoagulants: The patient has taken no anticoagulant or antiplatelet agents. After reviewing the risks and benefits, the patient was deemed in satisfactory condition to undergo the procedure. After I obtained informed consent, the scope was passed under direct vision. Throughout the procedure, the patient's blood pressure, pulse, and oxygen saturations were monitored continuously. The Colonoscope was introduced through the anus and advanced to the cecum, identified by appendiceal orifice and ileocecal valve. The colonoscopy was performed without difficulty. The patient tolerated the procedure well. The quality of the bowel preparation was good. The ileocecal valve, appendiceal orifice, and rectum were photographed. Scope In: 11:00:55 AM Scope Withdrawal Time 0 hours 6 minutes 4 seconds Scope Out: 11:11:54 AM Total Procedure Duration Time 0 hours 10 minutes 59 seconds Findings: The entire examined colon appeared normal on direct and retroflexion views. Impression: - The entire examined colon is normal on direct and retroflexion views. - No specimens collected. Recommendation: - Discharge patient to home. - Resume previous diet. - Continue present medications. - Repeat colonoscopy in 10 years for screening purposes. Procedure Code(s): --- Professional --- 62245, Colonoscopy, flexible; diagnostic, including collection of specimen(s) by brushing or washing, when performed (separate procedure) Diagnosis Code(s): --- Professional --- Z86.010, Personal history of colonic polyps CPT copyright 2021 [employer]. All rights reserved. The codes documented in this report are preliminary and upon real estate job titles review may be revised to meet current compliance requirements. Phil Prajapati MD 07/07/2023 11:17:59 AM This report has been signed electronically. Number of Addenda: 0 Note Initiated On: 07/07/2023 10:40 AM
--- NOTE | 2023-07-07 11:18 | OP.CCLET_ITS ---
07/07/2023 Mikel Nicolas MD [address] [id number] Re : Colonoscopy procedure for Kym Saldana Dear Dr. Nicolas This procedure was performed on Friday, July 07, 2023. My impressions and recommendations are as follows: Impressions : - The entire examined colon is normal on direct and retroflexion views. - No specimens collected. Recommendations : - Discharge patient to home. - Resume previous diet. - Continue present medications. - Repeat colonoscopy in 10 years for screening purposes. My findings are described in the full procedure note, which is enclosed. If I can be of further assistance, please feel free to contact me at Doctor phone number(s): , Work: . Sincerely, Phil Prajapati MD 07/07/2023 11:17:59 AM This report has been signed electronically.
[2023-07-07 11:20] VITALS: BP 121/59; BP 128/99; PULSE 75; RESP 16; O2SAT 97
[2023-07-07 11:25] VITALS: BP 121/59; BP 97/65; PULSE 76; RESP 16; TEMP 36.6; O2SAT 98
[2023-07-07 11:43] VITALS: BP 121/59
== END 2023-07-07 12:01 | disposition home or self-care (01) ==
LOC: EN 09:51 → AC 10:02
PROVIDERS: PCP Family Medicine; Referring Provider Surgery; Visit Provider Surgery
PROC: 0DJD8ZZ Inspection of Lower Intestinal Tract, Via Natural or Artificial Opening Endoscopic (ICD-10-PCS; CPT 45378; principal; 2023-07-07 12:25)
DX: Z12.11 Encounter for screening for malignant neoplasm of colon (principal); Z86.010 Personal history of colon polyps; F32.A Depression, unspecified; Z79.899 Other long term (current) drug therapy; E06.3 Autoimmune thyroiditis; K21.9 Gastro-esophageal reflux disease without esophagitis
CPT/HCPCS: 45378; J7120; J2405

== ENCOUNTER → 2023-12-31 | Outpatient (CLI) | payer OTHER, SELFPAY ==
[2023-12-31 10:15] LABS: ALB/GLOB Ratio 0.9 RATIO (0.9-2.4); AST(SGOT) 17 U/L (15-37); Alanine Aminotransfer ALT/SGPT 28 U/L (13-56); Albumin, Serum 3.3 g/dL (3.2-5.0); Alkaline Phosphatase 45 U/L (45-117); Anion Gap 3 (5-15); BUN 8 mg/dL (7-18); BUN/Creat Ratio 10.5 RATIO (10-20); Calcium,Total 8.1 mg/dL (8.5-10.1); Chloride 112 mmol/L (98-107); Cholesterol 142 mg/dL (200); Creatinine, Serum 0.76 mg/dL (0.55-1.02); EST Glomerular Filtration Rate 85 mL/min (>60); Est Glom Filt Rate - Afr Amer 102 mL/min (>60); Globulin 3.6 g/dL (2.2-4.2); Glucose 95 mg/dL (74-106); High Density Lipoprotein 49 mg/dL; Protein, Total 6.9 g/dL (6.4-8.2); Sodium Level 140 mmol/L (136-145); Thyroid Stim Hormone (TSH) 0.58 uIU/mL (0.358-3.74); Triglycerides 99 mg/dL; Very Low Density Lipoprotein 20 mg/dL (5-40)
== END | disposition home or self-care (01) ==
LOC: LAB 08:43
PROVIDERS: PCP Family Medicine; Referring Provider Internal Medicine Endocrinology, Diabetes & Metabolism; Visit Provider Internal Medicine Endocrinology, Diabetes & Metabolism
DX: E78.2 Mixed hyperlipidemia (principal); E04.2 Nontoxic multinodular goiter; E03.8 Other specified hypothyroidism
CPT/HCPCS: 36415; 80053; 80061; 84443

== ENCOUNTER → 2024-05-29 | Outpatient (CLI) | payer OTHER, SELFPAY ==
[2024-06-01 20:08] LABS: QNTFERON TB Mitogen Value > 10.00 IU/mL (.); QNTFERON TB Nil Value 0 IU/mL (.); QNTFERON TB1+ Ag Value 0.01 IU/mL (.); QNTFERON TB2+ Ag Value 0.03 IU/mL (.); QNTIFERON TB Positive Criteria Negative (Negative)
== END | disposition home or self-care (01) ==
LOC: LAB 09:12
PROVIDERS: PCP Family Medicine; Referring Provider Dermatology; Visit Provider Dermatology
DX: Z09 Encounter for follow-up examination after completed treatment for conditions other than malignant neoplasm (principal); L40.59 Other psoriatic arthropathy; Z87.2 Personal history of diseases of the skin and subcutaneous tissue; L40.0 Psoriasis vulgaris; Z79.899 Other long term (current) drug therapy; L71.8 Other rosacea; L82.1 Other seborrheic keratosis; D18.01 Hemangioma of skin and subcutaneous tissue; L57.8 Other skin changes due to chronic exposure to nonionizing radiation; Z71.89 Other specified counseling
CPT/HCPCS: 36415; 86480

== ENCOUNTER 2024-07-20 13:16 | Emergency (ER) | payer OTHER, SELFPAY ==
[2024-07-20 13:16] VITALS: BP 126/100; PULSE 104; RESP 20; TEMP 36.6; O2SAT 99; BMI 35.3
--- NOTE | 2024-07-20 14:10 | US_ITS ---
PROCEDURE: PELVIC W/ TRANSVAGINAL REASON FOR EXAM: Uterine bleeding. TECHNIQUE: Transabdominal and transvaginal pelvic ultrasound COMPARISON: None. FINDINGS: LMP: July 19, 2024. Measurements: Uterus: 11.2 x 6.6 x 4.3 cm. There are 2 uterine fibroids. The larger fibroid measures 3.4 cm x 2. 6 cm x 2.4 cm. Endometrial Thickness: 9 mm. Nabothian cysts. Right Ovary: 3.2 x 2.1 x 1.8 cm. Dominant follicle measuring 1.8 cm x 1.6 cm x 1.2 cm. Left Ovary: 2.3 cm x 1.9 cm x 1.5 cm. TRANSABDOMINAL: Uterus: Normal size, myometrial echotexture, and contour. Endometrium: Unremarkable. Right ovary: Normal size and echotexture. Left ovary: Normal size and echotexture. No large pelvic mass identified. Transvaginal sonography was performed to better visualize the endometrium and to look for the nonvisu alized ovary or ovaries. TRANSVAGINAL: Uterus: Anteverted. Normal contour and myometrial echotexture. Endometrium: Normal echotexture. Right ovary: Normal size and echotexture. Left ovary: Normal size and echotexture. Other adnexal findings: None. Cul-de-sac: No free intraperitoneal fluid identified. No tenderness. US/Pelvic w/ Transvaginal IMPRESSION: Uterine fibroids as described. Dominant follicle in the right ovary. Reading Location: [place] [address]
--- NOTE | 2024-07-20 14:11 | EDS_ITS ---
HPI HPI - Female History of Present Illness Chief Complaint: Vag Bld, Preg Informant: patient Narrative Narrative: 54-year-old female presenting for the evaluation of abnormal vaginal bleeding. Patient states she underwent uterine ablation with Dr. Susana Teixeira in 2019. She has subsequently been following with [facility] but has not seen anybody at the [facility] office for about a year and a half. She notes that intermittently since the ablation she would have the occasional spotting of blood. She states that in the fall she had a day of dark brown like discharge in May had 1 day of spotting. She states that yesterday she had light bleeding. She states that resolved during the night. This morning she notes a slight pain on the right lower side of her abdomen. She went outside and felt a gush of blood. At this point she decided to come to emergency for evaluation. She states now the bleeding is more of a spotting and only needs a panty liner. She is not on any gynecologic hormonal medication. She is treated for psoriatic arthritis. She is a non-smoker. [facility] Medical History Tinnitus Wears contact lenses Anxiety Alcohol use Psoriatic arthritis History of steroid therapy Arthritis Low iron Back pain Migraine headache Esophageal spasm History of IBS Gastric reflux Non-smoker History of stress test History of irregular heartbeat Family history of cancer of digestive organ Smita's thyroiditis Depression Home Medications ?Medication ?Instructions ?Recorded ?Last Taken ?Type loratadine 10 mg tablet 10 mg PO DAILY PRN Allergies 01/09/20 01/07/20 21:00 History sertraline 50 mg tablet 50 mg PO QHS depression 01/09/20 01/08/20 21:00 History ibuprofen 600 mg tablet 600 mg PO TID PRN pain #30 tabs 01/27/20 Unknown Rx ixekizumab 80 mg/mL subcutaneous 80 mg subcut Q4W 12/19/22 Unknown History auto-injector ([employer] Autoinjector) levothyroxine 100 mcg tablet 100 mcg PO DAILY 05/05/23 Unknown History clonazepam 0.5 mg tablet (Klonopin) 0.5 mg PO DAILY PRN anxiety 06/27/23 Unknown History famotidine 20 mg tablet (Acid 20 mg PO DAILY 07/04/23 Unknown History Controller) prednisone 10 mg tablet 10 mg PO DAILY PRN ARTHRITIS FLARE 07/04/23 Unknown History Allergy/AdvReac Type Severity Reaction Status Date / Time Sulfa (Sulfonamide Allergy Rash Verified 07/20/24 13:16 Antibiotics) oseltamivir phosphate (From AdvReac Severe Nausea/Vom/ Verified 07/20/24 13:16 Tamiflu) Diarrhea Latex, Natural Rubber AdvReac Rash Verified 07/20/24 13:16 Family History Unknown Cancer of digestive system Father Colon polyps Other Breast cancer Diabetes Heart disease Surgical History Hx of bone marrow donation Hx of colonoscopy History of salpingectomy S/P endometrial ablation Social History number of children: 2 current occupational status: employed current occupation: [employer] [place] Smoking Status: Never smoker Electronic Cigarette Use: not used second hand exposure: No alcohol intake: current alcohol intake frequency: holidays/special occasions only substance use type: does not use additional social history: - Christopher ROS ROS ED Constitutional Constitutional ED: Denies chills, fever(s) or weight loss Eyes Eyes: Denies change in vision or diplopia ENT ENT ED: Denies ear pain, rhinorrhea or sore throat Cardiovascular Cardiovascular: Denies chest pain, orthopnea, palpitations or racing heartbeat Respiratory/Chest Respiratory/Chest: Denies cough, dyspnea or orthopnea Gastrointestinal Gastrointestinal: Denies abdominal pain, diarrhea, nausea or vomiting Genitourinary Genitourinary ED: Reports other Details: Vaginal bleeding ; Denies dysuria, hematuria or urinary frequency Musculoskeletal Musculoskeletal: Denies arthralgias or myalgias Integumentary Denies abscess or rash Neurologic Neurologic: Denies headache(s) or weakness Psychiatric Psychiatric: Denies anxiety, depression, suicidal ideation or suicidal thoughts Endocrine Endocrinology: Denies polydipsia, polyphagia or polyuria Allergic/Immunologic Allergic/Immunologic ED: Denies mouth swelling, tongue swelling or urticaria EXAM Physical Exam Const Vital Signs: 07/20/24 13:16 07/20/24 15:16 Temperature 97.9 F Temperature Source Temporal Pulse Rate 104 H Respiratory Rate 20 H Blood Pressure 126/100 H 109/78 Blood Pressure Mean 108 88 Pulse Ox 99 Oxygen Delivery Method Room Air Positive well nourished and well developed General Appearance ED: well developed and NAD HEENT Reports normocephalic, head/scalp atraumatic and moist mucous membranes Eyes PERRL and EOMs intact bilaterally Neck no lymphadenopathy, supple and no JVD Resp normal respiratory effort and clear to auscultation bilaterally Cardio regular rate, regular rhythm and no murmurs GI normal to inspection, nondistended, normoactive bowel sounds and non-tender Palpation: soft Narrative: Pelvic examination performed in the presence of female nurse (Piedad Tafoya) This demonstrates dark red bleeding coming from the cervix. I do not appreciate any vaginal lesions/masses. There are small clots. Back/Spine no CVA tenderness and normal ROM Extremity normal to inspection General Extremety ED: Negative for edema General Extremity: Negative for edema Neuro oriented x3 and CN's II-XII intact bilaterally Sensorium / Orientation: alert Motor Exam: strength 5/5 throughout Psych mental status grossly normal Mood & Affect: Negative for depressed or tearful Skin no rashes or lesions noted and no wounds MDM MDM MDM Narrative Medical decision making narrative: Differential diagnosis includes but not limited to dysfunctional uterine bleeding uterine fibroids ovarian cyst anemia malignancy. Patient's hemoglobin 12.1 test is negative. Pelvic ultrasound was obtained which demonstrates 2 uterine fibroids. Endometrial thickness 9 mm. please see radiologist read. Case was discussed with [facility]. Ultrasound and laboratory findings were discussed. Plan of care will be outpatient follow-up for monitoring of bleeding plan for endometrial biopsy. The above was discussed with the patient and her who noted understanding especially early follow-up. History & Record Review Discussion w/independent historian: Patient Lab Data Attestation: I reviewed the patient's lab results. Labs: Laboratory Results - last 24 hr 07/20/24 14:13 Hgb 12.1 Hct 36.6 L Serum , Qual NEGATIVE Radiography Diagnostic Testing: Clinical Impression(s) from Imaging Studies Pelvic/Transvag US 07/20/24 14:10 IMPRESSION: Uterine fibroids as described. Dominant follicle in the right ovary. Reading Location: [place] [id number] Discharge Plan Triage Chief Complaint: Vag Bld, Preg ED Provider: Alfred Bates Dx/Rx/DC Orders Clinical Impression: DUB (dysfunctional uterine bleeding), Uterine fibroid Instructions: ED Dysfunctional Uterine Bleeding, ED Uterine Fibroids Prescriptions: No Action [employer] Autoinjector 80 mg/mL auto-injector 80 mg subcut Q4W levothyroxine 100 mcg tablet 100 mcg PO DAILY Patient Comments: TAKE 1 TABLET BY MOUTH EVERY DAY clonazepam [Klonopin] 0.5 mg tablet 0.5 mg PO DAILY PRN (Reason: anxiety) ibuprofen 600 MG tablet 600 mg PO TID PRN (Reason: pain) Qty: 30 0RF sertraline 50 MG tablet 50 mg PO QHS loratadine 10 MG tablet 10 mg PO DAILY PRN (Reason: Allergies) famotidine [Acid Controller] 20 mg tablet 20 mg PO DAILY prednisone 10 mg tablet 10 mg PO DAILY PRN (Reason: ARTHRITIS FLARE) Primary Care Provider: Mikel Nicolas Referrals: Mikel Nicolas MD [Primary Care Provider] - Lucrecia Lui MD [Med Staff - Active Staff] - As soon as possible Print Language: Upper Sorbian Disposition Disposition: Home, Self Care
[2024-07-20 14:34] LABS: Hematocrit 36.6 % (37-47); Hemoglobin 12.1 g/dL (12.0-15.0)
[2024-07-20 14:35] LABS: Internal QC Validated? YES +Cl - CLEAR BKGD; Pregnancy, Serum, hCG Quali. NEGATIVE Negative
[2024-07-20 15:16] VITALS: BP 109/78
[2024-07-20 16:03] VITALS: BP 109/78; PULSE 69; RESP 16; TEMP 36.6; O2SAT 99
== END 2024-07-20 16:08 | disposition home or self-care (01) ==
PROVIDERS: Emergency Provider Emergency Medicine; PCP Family Medicine; Visit Provider Emergency Medicine
DX: N93.8 Other specified abnormal uterine and vaginal bleeding (principal); D25.9 Leiomyoma of uterus, unspecified; F32.A Depression, unspecified; Z79.899 Other long term (current) drug therapy; F41.9 Anxiety disorder, unspecified
CPT/HCPCS: 76830; 76856; 84703; 85014; 85018; 99282; A4216

== ENCOUNTER → 2024-07-21 | Outpatient (CLI) | payer OTHER, SELFPAY ==
[2024-07-21 17:18] LABS: Absolute Lymphocyte Count 2.54 X10^3/uL (0.83-4.51); Absolute Neutrophil Count 5.5 X10^3/uL (2.0-7.7); Basophil# 0.08 X10^3/uL; Basophil% 0.9 % (0-1); Eosinophil# 0.24 X10^3/uL; Eosinophils% 2.6 % (0-5); Hematocrit 38.2 % (37-47); Hemoglobin 12.4 g/dL (12.0-15.0); Lymphocyte # 2.54 X10^3/ul (0.83-4.51); Lymphocyte % 27.2 % (19-41); Mean Corp Hgb Conc 32.5 g/dL (32-36); Mean Corpuscular Hgb 27.1 pg (27.0-32.0); Mean Corpuscular Volume 83.6 fL (81-99); Mean Platelet Vol. 9.8 fl (6.2-12.0); Monocyte# 0.99 X10^3/uL; Monocyte% 10.6 % (0-10); NRBC Flagged by Analyzer 0 % (0-5); Neutrophil # 5.47 X10^3/uL (2.7-7.7); Neutrophil % 58.4 % (47-70); Platelet Count 478 K/mm3 (150-450); RBC Distribution Width CV 13.6 % (11.6-14.6); RBC Distribution Width SD 41.4 fl (35.1-43.9); Red Blood Count 4.57 M/mm3 (4.2-5.4); White Blood Count 9.4 K/mm3 (4.4-11.0)
[2024-07-21 17:32] LABS: Estradiol 13.7 pg/mL; Follicle Stimulating Hormone 22.8 mIU/mL; Luteinizing Hormone 9.5 mIU/mL
== END | disposition home or self-care (01) ==
LOC: BWCLAB 15:31
PROVIDERS: PCP Family Medicine; Referring Provider Nurse Practitioner Family; Visit Provider Nurse Practitioner Family
DX: N93.9 Abnormal uterine and vaginal bleeding, unspecified (principal)
CPT/HCPCS: 36415; 82670; 83001; 83002; 85025

== ENCOUNTER → 2024-07-27 | Outpatient (CLI) | payer OTHER, SELFPAY ==
--- NOTE | 2024-07-27 13:40 | CER_PTH ---
PATIENT: CHARLES STNOER LOC: [facility] U#:[id number] AGE/SX: 54/F ROOM: RE07/27/[address]: ROSEANNE Galindo : 1970 BED: DIS: 07/27/2024 SPEC #: [id number] RECD: 07/27/24 17:09 STATUS: RAMONITA RORY #: [id number] MAYRA: 07/27/24 13:[address]: Ruth Tate NP DEPT: SURGICAL PATHOLOGY RECD BY: Flori Mishra ENTERED: 07/28/24 08:42 SP TYPE: CERV OTHR DR: Dr. Mikel Nicolas MD Tissues: Uterine cervix, NOS Procedures: Surgery Specimen Level IV HEADER OPERATION: Polypectomy PRE-OP DIAGNOSIS: Cervical polyp TISSUE SUBMITTED: Cervical polyp MICROSCOPIC DIAGNOSIS Cervical polyp, polypectomy: Benign endocervical polyp. SJ.mr 07/29/2024 MICROSCOPIC DESCRIPTION Slides are reviewed. GROSS DESCRIPTION Received is one container labeled with the patient's name and not further designated. The specimen consists of a piece of shabazz-pink polyp measuring 1.5 x 1.5 x 0.7cm. The specimen consists of a cystic lesion and is filled with mucoid material. The entire specimen is submitted in one cassette. 07/28/2024 TC:5 CPT:22911
[2024-07-31 08:08] LABS: HPV APTIMA, High Risk Negative (Negative)
== END | disposition home or self-care (01) ==
LOC: LABSPEC 16:52
PROVIDERS: PCP Family Medicine; Visit Provider Nurse Practitioner Women's Health
DX: Z12.4 Encounter for screening for malignant neoplasm of cervix (principal); N84.1 Polyp of cervix uteri
CPT/HCPCS: 87624; 88175; 88305; G0145

== ENCOUNTER 2024-09-21 09:27 | Day surgery (SDC) | payer OTHER, SELFPAY ==
--- NOTE | 2024-09-09 07:17 | EKG12_ITS ---
Test Reason : PREOP Blood Pressure : */* mmHG Vent. Rate : 91 BPM Atrial Rate : 91 BPM P-R Int : 140 ms QRS Dur : 82 ms QT Int : 358 ms P-R-T Axes : 44 0 8 degrees QTcB Int : 440 ms Normal sinus rhythm Normal ECG Confirmed by JORGE GARCIA, OLEG ([id number]), digital editor DARIANA ALONZO ([id number]) on 09/10/2024 5:50:22 AM Referred By: Lucrecia Lui Confirmed By: OLEG PATEL MD
[2024-09-09 08:00] LABS: Hematocrit 36.7 % (37-47); Mean Corp Hgb Conc 32.7 g/dL (32-36); Mean Corpuscular Hgb 27.4 pg (27.0-32.0); Mean Corpuscular Volume 83.8 fL (81-99); Mean Platelet Vol. 9.5 fl (6.2-12.0); Platelet Count 433 K/mm3 (150-450); RBC Distribution Width CV 13.6 % (11.6-14.6); RBC Distribution Width SD 41.6 fl (35.1-43.9); Red Blood Count 4.38 M/mm3 (4.2-5.4); White Blood Count 9.5 K/mm3 (4.4-11.0)
[2024-09-09 08:36] LABS: ALB/GLOB Ratio 1.3 RATIO (0.9-2.4); AST(SGOT) 16 U/L (<=31); Alanine Aminotransfer ALT/SGPT 15 U/L (<=34); Albumin, Serum 3.9 g/dL (3.5-5.0); Alkaline Phosphatase 42 U/L (35-104); Anion Gap 11 (5-15); BUN 10 mg/dL (4-19); BUN/Creat Ratio 14.8 RATIO (10-20); Calcium,Total 8.6 mg/dL (7.6-11.0); Carbon Dioxide 20.5 mmol/L (21.0-32.0); Chloride 107 mmol/L (98-108); Creatinine, Serum 0.66 mg/dL (0.70-1.20); EST Glomerular Filtration Rate 105 (>60); Follicle Stimulating Hormone 13.5 mIU/mL; Globulin 2.9 g/dL (2.2-4.2); Glucose 106 mg/dL (70-99); Protein, Total 6.9 g/dL (5.9-8.4); Sodium Level 139 mmol/L (133-145); Total Bilirubin 0.23 mg/dL (0.00-1.30)
--- NOTE | 2024-09-09 18:24 | PAT.ANESEVAL ---
Pre-Assessment Diagnosis/Proposed Procedure Planned Operative Procedure(s): CSCOPE Anesthesia History Anesthesia History - company controller: Anesthesia History - company controller Hx Hospitalization No 09/07/24 14:11 Any Problems With Anesthesia No 09/07/24 14:11 Cholinesterase deficiency No 09/07/24 14:11 You/Your Family Experience No 09/07/24 14:11 fever (hyperthermia) with Relationship Recent Exposure to Contagious No 07/07/23 10:50 Disease Does patient have nerve No 09/07/24 14:11 stimulator Patient instructed to have device shut off --Does patient have Pacemaker or ICD? When Was Last Pacemaker Check QUESTION #4 FULL TEXT: You/Your Family Experience fever (hyperthermia) with Anesthesia Last Oral Intake Last Oral intake: Last Oral Intake NPO since Meds taken in AM with sips of water? Meds patient instructed to take am of surgery PONV PONV - company controller: PONV - company controller Female Yes 09/07/24 14:11 HX of Motion Sickness Yes 09/07/24 14:11 HX of N/V After Surgery Yes 09/07/24 14:11 Non-Smoker Yes 09/07/24 14:11 Duration of Surgery greater No 09/07/24 14:11 than 60 minutes Number of Risk Factors 4 09/07/24 14:11 PONV Score Severe Risk 09/07/24 14:11 Height & Weight Height & Weight: Anesthesia: Height & Weight Height 5 ft 4 in 08/09/24 15:17 Respiratory Assessment Respiratory Assessment - company controller: Respiratory Tract Infection Hx - company controller Hx Respiratory Tract Infection Yes: COLD CURRENTLY 09/07/24 14:11 STOP Sleep Apnea STOP Sleep Apnea - company controller: STOP Sleep Apnea - company controller Hx Hypertension No 09/07/24 14:11 Hx Sleep Apnea No 09/07/24 14:11 CPAP BIPAP Do you snore loudly (louder No 09/07/24 14:11 than talking or can be heard Do you often feel tired/ No 09/07/24 14:11 fatigued/ sleepy during daytime? Has anyone observed you stop No 09/07/24 14:11 breathing during sleep? STOP Results Negative 09/07/24 14:11 QUESTION #5 FULL TEXT : Do you snore loudly (louder than talking or can be heard through closed doors)? 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 Specify any problems Hx of Preganancy in last 3 N/A 09/07/24 14:11 Months Nurse Filling Out Transfusion NBUCHER 09/07/24 14:11 & Questions: Date: 09/07/24 09/07/24 14:11 Time: 14:13 09/07/24 14:11 Patient unable to answer at this time (ie. confused, unrespo /Reproduction History /Reproductive History - company controller: /Reproductive Hx- company controller Hx Now No 09/07/24 14:11 Gestational Age (in weeks): EDC: Hx Hx Para Hx Section SAB No 09/07/24 14:11 ON LICENSE OF [facility] Medical History Psoriasis Hypothyroid Thyroid disease Anemia PONV (postoperative nausea and vomiting) Tinnitus Wears contact lenses Anxiety Alcohol use Psoriatic arthritis History of steroid therapy Arthritis Low iron Back pain Migraine headache Esophageal spasm History of IBS Gastric reflux Non-smoker History of stress test History of irregular heartbeat Family history of cancer of digestive organ Smita's thyroiditis Depression Home Medications ?Medication ?Instructions ?Recorded ?Last Taken ?Type loratadine 10 mg tablet 10 mg PO DAILY PRN Allergies 01/09/20 01/07/20 21:00 History ixekizumab 80 mg/mL subcutaneous 80 mg subcut Q4W 12/19/22 Unknown History auto-injector (Taltz Autoinjector) levothyroxine 100 mcg tablet 100 mcg PO DAILY 05/05/23 Unknown History biotin 10,000 mcg capsule 10,000 mcg PO DAILY 07/21/24 Unknown History leflunomide 10 mg tablet 10 mg PO QDAY 07/21/24 Unknown History misoprostol 200 mcg tablet 200 mcg PO .complex #2 tabs 08/10/24 Unknown Rx (Cytotec) betamethasone, augmented 0.05 % 1 applic topical DAILY PRN PSORASIS 09/07/24 Unknown History topical cream Allergy/AdvReac Type Severity Reaction Status Date / Time Sulfa (Sulfonamide Allergy Rash Verified 09/07/24 14:08 Antibiotics) oseltamivir phosphate (From AdvReac Severe Nausea/Vom/ Verified 09/07/24 14:08 Tamiflu) Diarrhea Latex, Natural Rubber AdvReac Rash Verified 09/07/24 14:08 Family History Unknown Cancer of digestive system Father Colon polyps Other Breast cancer Diabetes Heart disease Surgical History Hx of bone marrow donation Hx of colonoscopy History of salpingectomy S/P endometrial ablation Social History number of children: 2 current occupational status: employed current occupation: [employer] Smoking Status: Never smoker Electronic Cigarette Use: not used second hand exposure: No alcohol intake: current alcohol intake frequency: holidays/special occasions only substance use type: does not use additional social history: - Christopher Audit: Pertinent Findings Pertinent Findings EKG Perinent findings: January 10, 2020. Normal sinus rhythm with sinus arrhythmia. Nonspecific T wave abnormality. Stress test pertinent findings: January 10, 2020. Ejection fraction is 67%. No reversibility is noted to suggest ischemia. No previous infarct is noted. Recommendation Anesthesia Recommendation Anesthesia recommendation: OPTIMIZED for anesthesia
[2024-09-21] VITALS (9 sets, daily range): BP systolic 90–118; BP diastolic 48–86; PULSE 78–95; RESP 16–18; TEMP 36.1–36.4; O2SAT 95–97; BMI 35.4
--- NOTE | 2024-09-21 09:50 | PCM.HP.BLA ---
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 Is patient in pain?: No Allergies Sulfa (Sulfonamide Antibiotics) Allergy (Verified 09/07/24 14:08) Rashoseltamivir phosphate (From Tamiflu) Adverse Reaction (Severe, Verified 09/07/24 14:08) Nausea/Vom/DiarrheaLatex, Natural Rubber Adverse Reaction (Verified 09/07/24 14:08) Rash Medications ?Medication ?Instructions ?Recorded ?Confirmed ?Type loratadine 10 mg tablet 10 mg PO DAILY PRN Allergies 01/09/20 09/08/24 History ixekizumab 80 mg/mL subcutaneous 80 mg subcut Q4W 12/19/22 09/08/24 History auto-injector (Taltz Autoinjector) levothyroxine 100 mcg tablet 100 mcg PO DAILY 05/05/23 09/08/24 History biotin 10,000 mcg capsule 10,000 mcg PO DAILY 07/21/24 09/08/24 History leflunomide 10 mg tablet 10 mg PO QDAY 07/21/24 09/08/24 History misoprostol 200 mcg tablet 200 mcg PO .complex #2 tabs 08/10/24 09/08/24 Rx (Cytotec) betamethasone, augmented 0.05 % 1 applic topical DAILY PRN PSORASIS 09/07/24 09/08/24 History topical cream Is last menstrual period known: Yes Patient : No : No PFSH Medical History Psoriasis Hypothyroid Thyroid disease Anemia PONV (postoperative nausea and vomiting) Tinnitus Wears contact lenses Anxiety Alcohol use Psoriatic arthritis History of steroid therapy Arthritis Low iron Back pain Migraine headache Esophageal spasm History of IBS Gastric reflux Non-smoker History of stress test History of irregular heartbeat Family history of cancer of digestive organ Smita's thyroiditis Depression Surgical History Hx of bone marrow donation Hx of colonoscopy History of salpingectomy S/P endometrial ablation Family History Unknown Cancer of digestive systemFather Colon polypsOther Breast cancer Diabetes Heart disease Social History number of children: 2 current occupational status: employed current occupation: [employer] [place] Smoking Status: Never smoker Electronic Cigarette Use: not used second hand exposure: No alcohol intake: current alcohol intake frequency: holidays/special occasions only substance use type: does not use additional social history: - Gianfrancoer [facility] D&C Symphion Details: CHARLES STONER is a 54 year old who presents for preop visit. she has had irregular bleeding. she has had an ablation in the past. On exam by nurse practitioner she had a polyp that was removed but has had an 8-month time span that she had no bleeding and then she had 2 episodes of significant bleeding so this concerned her. Ultrasound showed a 9 mm lining and the nurse practitioner felt like there was another polyp that was in there. Patient is wondering if she should just have a hysterectomy or if a D&C is appropriate. She denies any bleeding or abnormal discharge right now. She denies any significant cramping or pain. She denies any hot flashes or night sweats but has some vaginal dryness. Female Reproductive History Menopausal Symptoms: No night sweats ROS Const Constitutional: Denies fatigue, night sweats, weight gain or weight loss ENT ENT: Reports system reviewed and no additional complaints, except as documented Cardio Card: Denies chest pain Resp Resp: Denies cough or dyspnea GI GI: Reports as per HPI; Denies abdominal pain, constipation, nausea or vomiting : Denies nipple discharge, urinary frequency, urinary incontinence, urinary hesitancy, urinary urgency, vaginal discharge, vaginal dryness, vaginal odor or vaginal pruritus Musc Musc: Denies arthralgias, back pain or muscle weakness Skin Skin/Breast: Denies alopecia, change in hair, dry skin, breast mass, breast pain, breast skin changes or nipple discharge Neuro Neuro: Reports system reviewed and no additional complaints, except as documented Psych Psych: Reports system reviewed and no additional complaints, except as documented Endo Endo: Denies cold intolerance, excessive sweating, heat intolerance or polydipsia Jeronimo/Lymph Hematologic/Lymphatic: Denies easy bleeding, Denies easy bruising and Denies lymphadenopathy Exam Const General: cooperative, healthy appearing, comfortable and no acute distress Orientation: alert [facility] Head: normal to inspection and normocephalic Ears: hearing grossly normal bilaterally and external ears normal Nose: external nose normal and nares normal Face and sinus: normal facial exam Neck Neck: normal visual inspection and no lymphadenopathy Thyroid: thyroid normal Chest Chest palpation & inspection: normal inspection of the chest Resp Effort & Inspection: normal respiratory effort Auscultation: clear to auscultation bilaterally Cardio Rate: regular rate Rhythm: regular rhythm Heart Sounds: S1 normal and S2 normal GI Inspection: normal to inspection and non-distended Palpation: soft and no hepatosplenomegaly Musc Other: gross motor intact no deficits, full bilateral strength Skin General: no rashes or lesions noted Neuro General: patient alert, patient awake, moves all extremities and no focal motor deficits Motor: muscle tone normal throughout Extrem General: normal to inspection and no pedal edema Psych Appearance: grossly normal Mental Status: mental status grossly normal Affect: normal affect Speech and Movement: speech and movement normal Coding Level of Care Code No Charge Diagnoses Abnormal uterine bleeding (AUB) N93.9 History of endometrial ablation Z98.890 Endocervical polyp N84.1 Assessment and Plan Assessment and Plan (1) Abnormal uterine bleeding (AUB): Status: Acute Comment: Counseled regarding options including D&C hysteroscopy polypectomy versus hysterectomy, recommend conservative therapy with hysteroscopy first. Patient agrees. Recommend Cytotec preop prep (2) History of endometrial ablation: Status: Acute (3) Endocervical polyp: Status: Acute Plan After discussing the patient's diagnosis and treatment plan options, patient wishes to proceed with surgical management. I have discussed with the patient the risks, benefits, and alternatives of the procedure which include but are not limited to risks of anesthesia, bleeding, infection, possible damage to bowel, bladder, or surrounding vasculature which could lead to additional surgery to evaluate any complications. Patient agrees to procedure and wishes to proceed. ACOG/uptodate references given for additional information regarding procedure. UPDATE- I have seen the patient and performed any clinically relevant updates to the history and physical exam. Lucrecia Lui MD
--- NOTE | 2024-09-21 10:06 | PRE.ANES_ITS ---
ASA Classification* ASA Classification ASA Classification: 2 Assessment & Plan Anesthesia* Anesthesia Assessment Anesthesia Assessment: Discussed sedation and/or anesthesia options, risks, benefits, and alternatives with patient/parents/legal guardian/POA. Questions invited. The patient/parents/legal guardian/POA seems to understand and agrees to proceed with anesthesia plan. Reviewed the physical assessment, medical history, allergy history and patient home medications list prior to surgery/procedure/anesthetic and documented any changes. Performed airway and anesthesia risk assessments. Anesthesia Type Anesthesia Type: MAC History Source History Obtained from:: Patient and Chart Anesthesia Focused Assessment* Temperature: 97.6 F Pulse Rate: 84 Blood Pressure: 118/86 Respiratory Rate: 18 Pulse Ox: 97 Oxygen Delivery Method: Room Air Airway Assessment Mouth opens: >3 cm Mallampati Score: IV Teeth Condition: Caps/Crowns (Patient has several crowns. They are all tight.) Neck Range of motion (ROM): Full ROM Focused Labs Anesthesia Preop lab: CBC WBC 9.5 K/mm3 (4.4-11.0) 09/09/24 07:09/09/24 RBC 4.38 M/mm3 (4.2-5.4) 09/09/24 07:24 09/09/24 Hgb 12.0 g/dL (12.0-15.0) 09/09/24 07:24 09/09/24 Hct 36.7 % (37-47) L 09/09/24 07:24 09/09/24 Plt Count 433 K/mm3 (150-450) 09/09/24 07:24 09/09/24 CHEMISTRY Potassium 4.0 mmol/L (3.3-5.1) 09/09/24 07:24 09/09/24 Sodium 139 mmol/L (133-145) 09/09/24 07:24 09/09/24 Magnesium 2.1 mg/dL (1.6-2.6) 01/09/20 04:54 01/09/20 BUN 10 mg/dL (4-19) 09/09/24 07:24 09/09/24 Creatinine 0.66 mg/dL (0.70-1.20) L 09/09/24 07:24 Glucose 106 mg/dL (70-99) H 09/09/24 07:24 09/09/24 TSH 0.58 uIU/mL (0.358-3.74) 12/31/23 08:45 COAG PT 12.6 SECONDS (11.7-14.9) 01/21/20 11:12 Urine Test Negative Negative 01/27/20 12:00 01/27/20 Pre-Assessment Diagnosis/Proposed Procedure Planned Operative Procedure(s): Dilatation and curettage, hysteroscopy, possible Symphion Anesthesia History 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 When Was Last Pacemaker Check QUESTION #4 FULL TEXT: You/Your Family Experience fever (hyperthermia) with Anesthesia Last Oral Intake Last Oral intake: Last Oral Intake NPO since 22:00 09/21/24 09:52 Meds taken in AM with sips of Yes 09/21/24 09:52 water? 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 Female Yes 09/07/24 14:11 HX of Motion Sickness Yes 09/07/24 14:11 HX of N/V After Surgery Yes 09/07/24 14:11 Non-Smoker Yes 09/07/24 14:11 Duration of Surgery greater No 09/07/24 14:11 than 60 minutes Number of Risk Factors 4 09/07/24 14:11 PONV Score Severe Risk 09/07/24 14:11 Height & Weight Height & Weight: Anesthesia: Height & Weight Height 5 ft 4 in 09/21/24 09:52 Weight: 93.7 kg 09/21/24 09:52 Body Mass Index (BMI) 35.4 09/21/24 09:52 Respiratory Assessment Respiratory Assessment - sheet metal duct installer apprentice: Respiratory Tract Infection Hx - sheet metal duct installer apprentice Hx Respiratory Tract Infection Yes: COLD CURRENTLY 09/07/24 14:11 Any additional information?: Yes Hx Respiratory Tract Infection: Yes (Recent sinus infection is cleared up.) STOP Sleep Apnea STOP Sleep Apnea - sheet metal duct installer apprentice: STOP Sleep Apnea - sheet metal duct installer apprentice Hx Hypertension No 09/07/24 14:11 Hx Sleep Apnea No 09/07/24 14:11 CPAP BIPAP Do you snore loudly (louder No 09/07/24 14:11 than talking or can be heard Do you often feel tired/ No 09/07/24 14:11 fatigued/ sleepy during daytime? Has anyone observed you stop No 09/07/24 14:11 breathing during sleep? STOP Results Negative 09/07/24 14:11 QUESTION #5 FULL TEXT : Do you snore loudly (louder than talking or can be heard through closed doors)? 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 Specify any problems Hx of Preganancy in last 3 N/A 09/07/24 14:11 Months Nurse Filling Out Transfusion NBUCHER 09/07/24 14:11 & Questions: Date: 09/07/24 09/07/24 14:11 Time: 14:13 09/07/24 14:11 Patient unable to answer at this time (ie. confused, unrespo /Reproduction History /Reproductive History - sheet metal duct installer apprentice: /Reproductive Hx- sheet metal duct installer apprentice Hx Now No 09/07/24 14:11 Gestational Age (in weeks): EDC: Hx Hx Para Hx Section SAB No 09/08/24 11:26 PFSH Medical History Psoriasis Hypothyroid Thyroid disease Anemia PONV (postoperative nausea and vomiting) Tinnitus Wears contact lenses Anxiety Alcohol use Psoriatic arthritis History of steroid therapy Arthritis Low iron Back pain Migraine headache Esophageal spasm History of IBS Gastric reflux Non-smoker History of stress test History of irregular heartbeat Family history of cancer of digestive organ Smita's thyroiditis Depression Home Medications ?Medication ?Instructions ?Recorded ?Last Taken ?Type loratadine 10 mg tablet 10 mg PO DAILY PRN Allergies 01/09/20 01/07/20 21:00 History ixekizumab 80 mg/mL subcutaneous 80 mg subcut Q4W 11/2208/18/24 History auto-injector (Taltz Autoinjector) levothyroxine 100 mcg tablet 100 mcg PO DAILY 05/05/23 Unknown History biotin 10,000 mcg capsule 10,000 mcg PO DAILY 07/21/24 Unknown History leflunomide 10 mg tablet 10 mg PO QDAY 07/21/24 Unkno wn History misoprostol 200 mcg tablet 200 mcg PO .complex #2 tabs 08/10/24 09/21/24 05:30 Rx (Cytotec) betamethasone, augmented 0.05 % 1 applic topical DAILY PRN PSORASIS 09/07/24 Unknown History topical cream Allergy/AdvReac Type Severity Reaction Status Date / Time Sulfa (Sulfonamide Allergy Rash Verified 09/21/24 09:47 Antibiotics) oseltamivir phosphate (From AdvReac Severe Nausea/Vom/ Verified 09/21/24 09:47 Tamiflu) Diarrhea Latex, Natural Rubber AdvReac Rash Verified 09/21/24 09:47 Family History Unknown Cancer of digestive system Father Colon polyps Other Breast cancer Diabetes Heart disease Surgical History Hx of bone marrow donation Hx of colonoscopy History of salpingectomy S/P endometrial ablation Social History number of children: 2 current occupational status: employed current occupation: [employer] [place] Smoking Status: Never smoker Electronic Cigarette Use: not used second hand exposure: No alcohol intake: current alcohol intake frequency: holidays/special occasions only substance use type: does not use additional social history: - Christopher Review of Systems (Anesthesia) ROS Narrative System reviewed and no additional complaints, except as documented.
[2024-09-21] MEDS: Lidocaine 1% (30 ml sdv) 30 ML Vial (10:40)
--- NOTE | 2024-09-21 10:57 | PCM.OPRPT ---
Problems Associated Problem List Diagnoses (1) Abnormal uterine bleeding (AUB): (2) History of endometrial ablation: (3) Endocervical polyp: Multi Select Codes Urinary/Genital Urinary/Genital CPT Codes: 75355 Hysteroscopy, diagnostic Operative Report (Standard) Operative Information Date of Procedure: 09/21/24 Pre-Operative Diagnosis: AUB Post-Operative Diagnosis: same Surgery/Procedure Performed: d and c hysteroscopy correctional therapy director: No Type of Anesthesia: IV Sedation RN Documented Start/Stop Times: Operation Date: 09/21/24 11:00 Case Time Into Pre-Op 09/21/24 09:33 Out of Pre-Op 09/21/24 10:18 Anesthesia Start 09/21/24 10:21 Into Room 09/21/24 10:21 Procedure Start 09/21/24 10:40 Procedure End 09/21/24 10:51 Anesthesia End 09/21/24 10:56 Out of Room 09/21/24 10:56 Into Recovery 09/21/24 11:00 Procedure Start Time: 10:40 Procedure Stop Time: 10:51 Select all DRAINS/GRAFTS/IMPLANTS that apply: None Estimated Blood Loss: 25 Specimen collected: Yes Description of specimen(s) removed: polyp, emc Description of surgery: Patient was prepped and draped in a normal sterile fashion under MAC anesthesia. A weighted speculum was placed in the vagina and the anterior lip of the cervix was grasped with a single-tooth tenaculum. A paracervical block was placed with 1% lidocaine. cervical polyp seen and grasped with ring forcep, easily removed and sent to pathology. Cervix was progressively dilated to allow passage of a 7 mm hysteroscope. The lining was fully visualized and noted to have a thin atophric lining with scarred cavity no polyps seen no fibroids . Uterine sounded to 7 cm. Curettage was performed and tissue removed , sent to pathology. All instruments were removed from the vagina and excellent hemostasis was noted. Patient was awoken and taken to recovery in stable condition. Surgical Findings: cervical polyp thin endometrial lining scarred uterine cavity Complications Complications: No
--- NOTE | 2024-09-21 11:00 | EMB_PTH ---
PATIENT: CHARLES STONER [place] [facility] [facility] [id number] AGE/SX: 54/F ROOM: RE09/21/[address]: Dr. Lucrecia Lui MD : 1970 BED: DIS: 09/21/2024 SPEC #: [id number] RECD: 09/21/24 11:54 STATUS: RAMONITA VALADEZ #: [id number] MAYRA: 09/21/24 11:[address]: Lucrecia Lui DEPT: SURGICAL PATHOLOGY RECD BY: Gigi Bazan ENTERED: 09/21/24 12:23 SP TYPE: ENDOM BX/C OTHR DR: Dr. Mikel Nicolas MD Tissues: A - POLYP B - Endometrium, NOS Procedures: Surgery Specimen Level IV HEADER OPERATION: Hysteroscopy, D&C, polypectomy PRE-OP DIAGNOSIS: Abnormal uterine bleeding, history of endometrial ablation, endocervical polyp TISSUE SUBMITTED: A- Cervical polyp, B- Endometrial curettings MICROSCOPIC DIAGNOSIS A. Cervix, Polyp, Excision: * Benign endocervical mucosal polyp. B. Endometrium, Curettage: * Benign endocervical tissue, atrophic endometrium, and scant cervical squamous mucosa. * Abundant blood clot. MICROSCOPIC DESCRIPTION Slides are reviewed. GROSS DESCRIPTION A. Received in formalin in a container labeled with the patient's name, date of , and cervical polyp are multiple shabazz-pink fragments of soft tissue admixed with mucus measuring 2.0 x 1.7 x 0.5 cm in aggregate. Submitted in toto in A1. B. Received in formalin in a container labeled with the patient's name, date of , and endometrial curettings is an abundance of red-shabazz soft tissue admixed with blood and mucus measuring 4.0 x 3.0 x 2.0 cm in aggregate. Submitted in toto in B1-4. [facility] 09-21-2024 CPT:[id number]
--- NOTE | 2024-09-21 11:03 | PCM.POST.ANE ---
Anesthesia: Postop Eval I Current Vital Signs Temperature: 97 F Pulse Rate: 95 Blood Pressure: 100/61 Respiratory Rate: 16 Pulse Ox: 95 Oxygen Delivery Method: Room Air Assessment Airway patent: Yes Spontaneous unlabored respirations: Yes Mental status: Awake and Calm nausea: No Vomiting: No Anesthesia Complication: No Fluid Hydration Crystalloid volume administer (ml): 10 Total IV fluid infused: 10 Progress Note Anesthesia document: Postop Eval 1 completed: Yes
--- NOTE | 2024-09-21 11:31 | PCM.DC ---
Discharge Instructions Diet Discharge Diet: No restrictions DC O2, CPAP, BIPAP needs Home O2 Discharge instructions: No Dressing / Incision Discharge Activity: Return to Normal Activity, May Shower and May Take a Tub Bath (after 1 week) May resume sexual activity in: 1-2 weeks Weight Bearing Status: Weight bearing as tolerated Lifting Restrictions: none Dressing / Incision Call your doctor if you observe: Fever of 101 or Higher, Using more than 1 pad per hour, Shortness of breath and Uncontrolled pain Follow Up Care Please Follow Up With: Lucrecia Lui MD When: Call [phone] to schedule appointment. Test Results: Test results from this visit will be discussed in further detail at your follow-up appointment, if applicable. Discharge Plan Admission Attending Provider: Lucrecia Lui Primary Care Provider: Mikel Nicolas Instructions Print Language: Togolese Discharge Orders/Prescriptions Prescriptions: No Action Taltz Autoinjector 80 mg/mL auto-injector 80 mg subcut Q4W levothyroxine 100 mcg tablet 100 mcg PO DAILY Patient Comments: TAKE 1 TABLET BY MOUTH EVERY DAY leflunomide 10 mg tablet 10 mg PO QDAY biotin 10,000 mcg capsule 10,000 mcg PO DAILY misoprostol [Cytotec] 200 mcg tablet 200 mcg PO .complex Qty: 2 1RF Rx Instructions: take the night before and two hours prior to the procedure loratadine 10 MG tablet 10 mg PO DAILY PRN (Reason: Allergies) betamethasone, augmented 0.05 % cream 1 applic topical DAILY PRN (Reason: PSORASIS ) Other Ambulatory Orders: 12 Lead EKG (Routine) Timeframe: [id number] Location: None Selected Ordered By: Dr. Lucrecia Lui Referrals / Follow Up: Mikel Nicolas MD [Primary Care Provider] - Disposition Disposition (needs filled in before D/C Order can be placed): Home, Self Care
--- NOTE | 2024-09-21 13:40 | POSTOPAN2_ITS ---
Anesthesia Postop Eval I Sum Postop Eval Completion status Anesthesia document: Postop Eval 1 completed: Yes Anesthesia Postop Eval I Summary Anesthesia Postop Eval I Summary: Anesthesia Postop Eval I: Assessment Summary Airway patent Yes 09/21/24 11:03 [email or web address] Spontaneous unlabored Yes 09/21/24 11:03 [email or web address] respirations Mental status Awake,Calm 09/21/24 11:03 [email or web address] nausea No 09/21/24 11:03 [email or web address][email or web address] Vomiting No 09/21/24 11:03 [email or web address][email or web address] Anesthesia Postop Eval I: Fluid Summary Crystalloid volume administer 10 09/21/24 11:03 [email or web address] (ml) Colloids volume administered ( ml) Blood Product volume administered (ml) Total IV fluid infused 10 09/21/24 11:03 [email or web address] Anesthesia Postop Eval I: Summary Notes Anesthesia Complication No 09/21/24 11:03 [email or web address][email or web address] Anesthesia Complication Comment: Post-operative progress note Anesthesia: Postop Eval II Evaluation Mental status: Awake and Calm Pain Level: 0 nausea: No Vomiting: No Complications Anesthesia Complication: No
--- NOTE | 2024-09-21 13:40 | PCM.POSTANE2 ---
Anesthesia Postop Eval I Sum Postop Eval Completion status Anesthesia document: Postop Eval 1 completed: Yes Anesthesia Postop Eval I Summary Anesthesia Postop Eval I Summary: Anesthesia Postop Eval I: Assessment Summary Airway patent Yes 09/21/24 11:03 [email or web address] [email or web address] Spontaneous unlabored Yes 09/21/24 11:03 HE[employer] [email or web address] respirations Mental status Awake,Calm 09/21/24 11:03 [email or web address] nausea No 09/21/24 11:03 HE[employer] [email or web address] Vomiting No 09/21/24 11:03 HE[employer] [email or web address] Anesthesia Postop Eval I: Fluid Summary Crystalloid volume administer 10 09/21/24 11:03 [email or web address] (ml) Colloids volume administered ( ml) Blood Product volume administered (ml) Total IV fluid infused 10 09/21/24 11:03 HEEL [email or web address] Anesthesia Postop Eval I: Summary Notes Anesthesia Complication No 09/21/24 11:03 HEEL [email or web address] Anesthesia Complication Comment: Post-operative progress note Anesthesia: Postop Eval II Evaluation Mental status: Awake and Calm Pain Level: 0 nausea: No Vomiting: No Complications Anesthesia Complication: No
== END 2024-09-21 12:07 | disposition home or self-care (01) ==
LOC: SDC 09:32 → AC 09:33
PROVIDERS: PCP Family Medicine; Referring Provider Obstetrics & Gynecology; Visit Provider Obstetrics & Gynecology
PROC: 0UB98ZZ Excision of Uterus, Via Natural or Artificial Opening Endoscopic (ICD-10-PCS; CPT 58558; principal; 2024-09-21 10:45)
DX: N93.9 Abnormal uterine and vaginal bleeding, unspecified (principal); N84.1 Polyp of cervix uteri; E06.3 Autoimmune thyroiditis; Z79.890 Hormone replacement therapy
CPT/HCPCS: 58558; 00952; 36415; 80053; 82670; 83001; 85027; 86850; 86900; 86901; 88305; 93005; A4216; J2405

== ENCOUNTER → 2025-01-11 | Outpatient (CLI) | payer OTHER, SELFPAY ==
[2025-01-11 13:57] LABS: AST(SGOT) 18 U/L (<=31); Alanine Aminotransfer ALT/SGPT 18 U/L (<=34); Albumin, Serum 4.3 g/dL (3.5-5.0); Alkaline Phosphatase 49 U/L (35-104); Anion Gap 11 (5-15); BUN 9 mg/dL (4-19); BUN/Creat Ratio 13.1 RATIO (10-20); Calcium,Total 9.3 mg/dL (7.6-11.0); Carbon Dioxide 23.4 mmol/L (21.0-32.0); Chloride 106 mmol/L (98-108); Globulin 3.1 g/dL (2.2-4.2); Glucose 82 mg/dL (70-99); Potassium 4.3 mmol/L (3.3-5.1); Vitamin D,25 Hydroxy 28.1 ng/mL (30-100)
== END | disposition home or self-care (01) ==
LOC: LAB 11:43
PROVIDERS: PCP Family Medicine; Referring Provider Family Medicine; Visit Provider Family Medicine
DX: E03.8 Other specified hypothyroidism (principal); E55.9 Vitamin D deficiency, unspecified
CPT/HCPCS: 36415; 80053; 82306; 84443

== ENCOUNTER → 2025-06-09 | Outpatient (CLI) | payer OTHER, SELFPAY ==
--- OUTSIDE RECORDS SUMMARY | 2025-06-09 07:28 | XMS RPT_ITS | CCD ---
Author Organization [facility] CliniSymd Care Team Providers Care Field Account Manager Name Role Phone Torie Greco Unavailable Unavailable Alo GARCIA, Santiago Longo Unavailable Torie Greco Unavailable Unavailable Dr. Mikel Nicolas Primary Care Provider Dr. Mikel Nicolas Referring Provider TYSHAWN Alejandra Attending Provider Dr. Mikel Nicolas Primary Care Provider Dr. Mikel Nicolas Referring Provider TYSHAWN Alejandra Attending Provider Adam FOOD CART ATTENDANT, FOOD CART ATTENDANT-C Isa Attending Provider Dr. Mikel Nicolas Primary Care Provider Dr. Mikel Nicolas Referring Provider Dr. Mikel Nicolas MD Primary Care Provider [phone] Dr. Ebenezer Martinez MD Attending Provider [phone] Ebenezer Martinez MD Referring Provider Dr. Alfred Bates DO Attending Provider Dr. Alfred Bates DO Emergency Provider Dr. Mikel Nicolas MD Referring Provider Tony BARFIELD-CSelma Attending Provider Tony FOOD CART ATTENDANT-CSelma Referring Provider Lea BARFIELD-Ruth Hong Attending Provider Sania GARCIA, Dr. Singer Attending Provider [phone] Tanya GARCIA, Dr. Ludwig Attending Provider [phone] Sania GARCIA, Dr. Singer Referring Provider Sania GARCIA, Dr. Singer Other Provider [phone] Maria Isabel GARCIA, Dr. Morin Primary Care Provider Sania GARCIA, Dr. Singer Attending Provider Sania GARCIA, Dr. Singer Referring Provider Maria Isabel GARCIA, Dr. Morin Referring Provider Maria Isabel GARCIA, Dr. Morin Attending Provider Selma Jimenez Referring Unavailable Selma Jimenez Attending Unavailable Nicolas, Mikel Primary Care Unavailable LeaRuth Attending Unavailable Nciolas, Mikel Primary Care Unavailable Alfred Bates Attending Unavailable Nicolas, Mikel Primary Care Unavailable Juan, Ebenezer Referring Unavailable Juan, Ebenezer Attending Unavailable Nicolas, Mikel Primary Care Unavailable Black Diamond, Molly Attending Unavailable Nicolas, Mikel Primary Care Unavailable Nicolas, Mikel Referring Unavailable Marcanthony, Lucrecia Attending Unavailable Nicolas, Mikel Primary Care Unavailable Nicolas, Miekl Referring Unavailable Marcanthony, Lucrecia Attending Unavailable Nicolas, Mikel Primary Care Unavailable Nicolas, Mikel Referring Unavailable Marcanthony, Lucrecia Referring Unavailable Nicolas, Mikel Primary Care Unavailable Tnaya, Oziel Attending Unavailable BarkmanSelma Attending Unavailable Nicolas, Mikel Referring Unavailable Nicolas, Mikel Primary Care Unavailable Nicolas, Mikel Primary Care Unavailable Nicolas, Mikel Referring Unavailable Nicolas, Mikel Attending Unavailable Marcanthony, Lucrecia Referring Unavailable Marcanthony, Lucrecia Attending Unavailable Nicolas, Mikel Primary Care Unavailable Marcanthony, Lucrecia Consulting Unavailable Nicolas, Mikel Primary Care Unavailable Nicolas, Mikel Referring Unavailable Marcanthony, Lucrecia Attending Unavailable Marcanthony, Lucrecia Referring Unavailable Marcanthony, Lucrecia Attending Unavailable Nicolas, Mikel Primary Care Unavailable Juan, Ebenezer Referring Unavailable Juan, Ebenezer Attending Unavailable Nicolas, Mikel Primary Care Unavailable Allergies Allergy Classification Reported Allergen(s) Allergy Type Date of Onset Reaction(s) Facility (3 sources) Latex drug allergy 7 skin rash [facility] Work Phone: (3 sources) oseltamivir drug allergy 7 excessive vomiting [facility] Work Phone: (3 sources) Sulfonamides (Antibiotic) drug allergy 7 skin rash [facility] Work Phone: (14 sources) natural latex rubber; Translations: [Latex, Natural Rubber] Propensity to adverse reactions 0 Rash [facility] (14 sources) Oseltamivir; Translations: [oseltamivir phosphate] Drug Allergy 0 Nausea, Nausea/Vom/Diar ritchie [facility] (14 sources) Sulfonamides (Antibiotic); Translations: [Sulfa (Sulfonamide Antibiotics)] Allergy to substance 0 [facility] Medications Current Medications Medication Drug Class(es) Dates Sig (Normalized) Sig (Original) augmented betamethasone 0.5 mg/ml topical cream (2 sources) Corticosteroid Start: 09-07-2024 Betamethasone, Augmented 0.05 % cream Active 1 NMA TOPICAL DAILY as needed for PSORASIS September 07, 2024 12:00am biotin 10 mg oral capsule (2 sources) Start: 07-21-2024 take 1 capsule by mouth once daily Biotin 10,000 mcg capsule Active 32899 ug PO DAILY July 21, 2024 1:00am 1 ml ixekizumab 80 mg/ml auto-injector (8 sources) Interleukin-17A Antagonist Start: 12-19-2022 Ixekizumab (Taltz Autoinjector) 80 mg/mL auto-injector Active 80 mg SC every 4 weeks December 19, 2022 12:00am leflunomide 10 mg oral tablet (2 sources) Antirheumatic Agent Start: 07-21-2024 take 1 tablet by mouth once daily Leflunomide 10 mg tablet Active 10 mg PO daily July 21, 2024 1:00am levothyroxine sodium 0.1 mg oral tablet (20 sources) l-Thyroxine Start: 05-05-2023 take 1 tablet by mouth once daily Levothyroxine 100 mcg tablet Active 100 ug PO DAILY May 05, 2023 1:00am Start: 01-09-2020 End: 05-05-2023 Levothyroxine Discontinued 4 4 MCG PO HERNANDEZ January 08, 2020 11:00pm May 05, 2023 9:48am Takes 88mcg daily and 44mcg + 88mcg on Friday. Start: 06-16-2015 End: 05-05-2023 Levothyroxine 88 MCG tablet Discontinued 44 ug PO HERNANDEZ January 09, 2020 12:00am May 05, 2023 10:48am thyroid Takes 88mcg daily and 44mcg + 88mcg on Friday. loratadine 10 mg oral tablet (13 sources) Start: 01-09-2020 take 1 tablet by mouth once daily as needed Loratadine 10 MG tablet Active 10 mg PO DAILY as needed for Allergies January 09, 2020 12:00am Vitamin B Complex (11 sources) Start: 01-20-2017 Vitamin B Comp adrien Active 1 EACH PO DAILY January 20, 2017 11:45am Start: 01-20-2017 End: 12-19-2022 Vitamin B Complex Discontinu ed 1 EACH PO DAILY January 19, 2017 11:00pm December 19, 2022 6:15am Start: 01-20-2017 End: 12-19-2022 Vitamin B Complex Discontinu ed 1 EACH PO DAILY January 20, 2017 12:00am December 19, 2022 7:15am Start: 01-20-2017 Vitamin B Comp adrien Active 1 EACH PO DAILY January 20, 2017 12:00am Start: 01-20-2017 Vitamin B Comp adrien Active 1 EACH PO DAILY January 19, 2017 11:00pm Completed/Discontinued Medications Medication Drug Class(es) Dates Sig (Normalized) Sig (Original) amoxicillin 875 mg / clavulanate 125 mg oral tablet (2 sources) Penicillin-class Antibacterial Start: 11-02-2023 End: 11-09-2023 Amoxicillin-Pot Clavulanate 875-125 mg tablet Discontinued 1 {tbl} PO TWICE A DAY 14 7 0 November 02, 2023 12:00am November 08, 2023 12:00am November 09, 2023 12:06am apremilast 30 mg oral tablet (16 sources) Start: 01-03-2017 End: 12-19-2022 take 1 tablet by mouth once daily Apremilast (Otezla) 30 MG tablet Discontinued 30 mg PO DAILY January 03, 2017 12:00am December 19, 2022 7:13am scoriatic arthritis Start: 12-18-2016 take 2 tablets by mo [facility] once daily OTEZLA 30 MG TABS Two tablets by mouth daily APREMILAST [id number] Torie Greco B COMPLEX VITAMINS (2 sources) Start: 12-18-2016 take 1 tablet by mouth once daily B COMPLEX CAPS One tablet by mouth daily B COMPLEX VITAMINS [id number] Torie Greco B COMPLEX VITAMINS (1 source) Start: 12-18-2016 take 1 tablet by mouth once daily B COMPLEX CAPS One tablet by mouth daily B COMPLEX VITAMINS [id number] Torie Greco calcium (2 sources) Phosphate Binder, Calcium Start: 12-18-2016 take 1 tablet by mouth once daily CALCIUM 600+D TABS One tablet by mouth daily CALCIUM CARB-CHOLECALCIFEROL TABS [id number] Torie Greco CALCIUM CARB-CHOLECALCIFEROL TABS (1 source) Start: 12-18-2016 take 1 tablet by mouth once daily CALCIUM 600+D TABS One tablet by mouth daily CALCIUM CARB-CHOLECALCIFEROL TABS [id number] Torie Greco calcium carbonate 1250 mg oral tablet (13 sources) Start: 01-09-2020 End: 12-19-2022 take 1 tablet by mouth once daily Calcium Carbonate 500 MG tablet Discontinued 500 mg PO DAILY@0800 January 09, 2020 12:00am December 19, 2022 7:14am supplement cholecalciferol 2000 unt oral tablet (16 sources) Vitamin D Start: 12-18-2016 take 1 tablet by mouth once daily VITAMIN D3 2000 UNIT TABS One tablet by mouth daily CHOLECALCIFEROL [id number] Torie Greco Start: 06-16-2015 End: 12-19-2022 take 4 tablets by mouth once daily Cholecalciferol (Vitamin D3) (Vitamin D3) 1,000 UNIT tablet Discontinued 4000 U PO DAILY June 16, 2015 1:00am December 19, 2022 7:14am supplement clonazePAM 0.5 mg oral tablet (2 sources) Benzodiazepine Start: 06-27-2023 End: 07-21-2024 take 1 tablet by mouth once daily as needed for anxiety Clonazepam (Klonopin) 0.5 mg tablet Discontinued 0.5 mg PO DAILY as needed for anxiety June 27, 2023 1:00am July 21, 2024 3:41pm famotidine 20 mg oral tablet (2 sources) Histamine-2 Receptor Antagonist Start: 07-04-2023 End: 07-21-2024 take 1 tablet by mouth once daily Famotidine (Acid Controller) 20 mg tablet Discontinued 20 mg PO DAILY July 04, 2023 1:00am July 21, 2024 3:41pm fluticasone propionate 0.05 mg/actuat metered dose nasal spray (13 sources) Corticosteroid Start: 01-09-2020 End: 12-19-2022 Fluticasone Propionate 1 SPRAY spray,suspension Discontinued 1 NMA NASAL DAILY as needed for Allergies January 09, 2020 12:00am December 19, 2022 7:14am Start: 01-09-2020 End: 12-19-2022 Fluticasone Propionate Disco ntinued 1 SPRAY NASAL DAILY January 08, 2020 11:00pm December 19, 2022 6:14am folic acid 1 mg oral tablet (13 sources) Start: 01-20-2020 End: 12-19-2022 take 2 tablets by mouth once daily Folic Acid 1 MG tablet Discontinued 2 mg PO DAILY January 20, 2020 12:00am December 19, 2022 7:14am supplement Start: 01-20-2020 End: 12-19-2022 take 2 mg by mouth once daily Folic Acid Discontinued 2 MG PO DAILY January 19, 2020 11:00pm December 19, 2022 6:14am ibuprofen 600 mg oral tablet (13 sources) Nonsteroidal Anti-inflammatory Drug Start: 01-27-2020 End: 09-07-2024 take 1 tablet by mouth three times daily as needed for pain Ibuprofen 600 MG tablet Discontinued 600 mg PO THREE TIMES A DAY as needed for pain 30 0 January 27, 2020 2:49pm September 07, 2024 2:10pm methotrexate 2.5 mg oral tablet (13 sources) Folate Analog Metabolic Inhibitor Start: 01-09-2020 End: 12-19-2022 Methotrexate Sodium 2.5 MG tablet Discontinued 15 mg PO Q7D January 09, 2020 12:00am December 19, 2022 7:15am arthritis Start: 01-09-2020 End: 12-19-2022 take 15 mg by mouth every week Methotrexate Sodium Dis continued 15 MG PO Q7D January 08, 2020 11:00pm December 19, 2022 6:15am miSOPROStol 0.2 mg oral tablet (2 sources) Prostaglandin E1 Analog Start: 08-10-2024 End: 10-04-2024 Misoprostol (Cytotec) 200 mcg tablet Discontinued 200 ug PO .complex 2 August 10, 2024 1:00am October 04, 2024 3:51pm take the night before and two hours prior to the procedure naproxen 500 mg oral tablet (2 sources) Nonsteroidal Anti-inflammatory Drug Start: 09-21-2024 End: 10-04-2024 take 1 tablet by mouth twice daily as needed for pain Naproxen 500 mg tablet Discontinued 500 mg PO TWICE DAILY NEEDED as needed for Pain 30 September 21, 2024 12:00am October 04, 2024 3:51pm oxyCODONE hydrochloride 5 mg oral tablet (13 sources) Opioid Agonist Start: 01-27-2020 End: 02-01-2020 take 1 tablet by mouth every six hours as needed for pain Oxycodone 5 MG tablet Discontinued 5 mg PO EVERY 6 HOURS NEEDED as needed for severe pain 16 5 0 January 27, 2020 January 31, 2020 12:00am February 01, 2020 12:02am Menorrhagia with irregular cycle Excessive and frequent menstruation with irregular cycle predniSONE 10 mg oral tablet (2 sources) Start: 07-04-2023 End: 07-21-2024 take 1 tablet by mouth once daily as needed for arthritis Prednisone 10 mg tablet Discontinued 10 mg PO DAILY as needed for ARTHRITIS FLARE July 04, 2023 1:00am July 21, 2024 3:43pm sertraline 50 mg oral tablet (13 sources) Serotonin Reuptake Inhibitor Start: 01-09-2020 End: 07-21-2024 take 1 tablet by mouth at bedtime Sertraline 50 MG tablet Discontinued 50 mg PO AT BEDTIME January 09, 2020 12:00am July 21, 2024 3:43pm depression Vitamin B Complex 1 EACH capsule (2 sources) Start: 01-20-2017 End: 12-19-2022 Vitamin B Complex 1 EACH capsule Discontinued 1 NMA PO DAILY January 20, 2017 12:00am December 19, 2022 7:15am supplement Start: 01-20-2017 End: 12-19-2022 Vitamin B Complex 1 EACH cap ainsley Discontinued 1 NMA PO DAILY January 20, 2017 12:00am December 19, 2022 7:15am vitamin e 600 unt oral capsule (3 sources) Start: 12-18-2016 take 1 tablet by mouth once daily VITAMIN E 600 UNIT CAPS One tablet by mouth daily VITAMIN E [id number] Toriedanis Greco Problems Active Problems Problem Classification Problem Date Documented Da te Episodic/Chronic Abdominal pain (9 sources) Pain in pelvis; Translations: [Pelvic and perineal pain] 12-19-2022 Episodic Benign neoplasm of uterus (4 sources) Uterine leiomyoma; Translations: [Leiomyoma of uterus, unspecified] 07-28-2024 Episodic Comment on above: largest 3.5cm Menstrual disorders (12 sources) Menometrorrhagia; Translations: [Excessive and frequent menstruation with irregular cycle] 01-27-2020 Chronic Nonspecific chest pain (13 sources) Chest pain; Translations: [Chest pain, unspecified] 01-10-2020 Episodic Osteoarthritis (3 sources) Arthritis; Translations: [Unspecified osteoarthritis, unspecified site] Onset: 12-18-2016 12-18-2016 Chronic Other and unspecified benign neoplasm (13 sources) History of polyp of colon; Translations: [Personal history of colonic polyps] 01-09-2020 Episodic Comment on above: /colonoscopy screeni ng last 01/2017, referral sent. Other and unspecified benign neoplasm (5 sources) Personal history of colonic polyps; Translations: [Personal history of colonic polyps] 02-13-2023 Episodic Other female genital disorders (10 sources) Abnormal uterine bleeding; Translations: [Other specified abnormal uterine and vaginal bleeding] 07-28-2024 Chronic Comment on above: Counseled regarding options including D&C hysteroscopy polypectomy versus hysterectomy, recommend conservative therapy with hysteroscopy first. Patient agrees. Recommend Cytotec preop prep s/p d and c hysteros ocpy polypectomy Other female genital disorders (1 source) Abnormal uterine and vaginal bleeding, unspecified; Translations: [Abnormal uterine and vaginal bleeding, unspecified] Onset: 09-29-2024 Chronic Other female genital disorders (1 source) Other specified abnormal uterine and vaginal bleeding; Translations: [Other specified abnormal uterine and vaginal bleeding] Onset: 08-10-2024 Chronic Other female genital disorders (8 sources) Vaginal dryness; Translations: [Other specified noninflammatory disorders of vagina] 12-19-2022 Episodic Other female genital disorders (8 sources) Other specified noninflammatory disorders of vagina; Translations: [Other specified symptoms associated with female genital organs] 12-19-2022 Episodic Other female genital disorders (7 sources) Endocervical polyp; Translations: [Polyp of cervix uteri] 07-27-2024 Episodic Other gastrointestinal disorders (3 sources) Irritable bowel syndrome; Translations: [Irritable bowel syndrome without diarrhea] Onset: 12-18-2016 12-18-2016 Chronic Other inflammatory condition of skin (3 sources) Psoriasis; Translations: [Psoriasis, unspecified] Onset: 12-18-2016 12-18-2016 Chronic Other inflammatory condition of skin (8 sources) Psoriatic arthritis; Translations: [Arthropathic psoriasis, unspecified] 02-13-2023 Chronic Comment on above: cole managed by [facility]. Other inflammatory condition of skin (5 sources) Arthropathic psoriasis, unspecified; Translations: [Psoriatic arthropathy] 02-13-2023 Chronic Other lower respiratory disease (5 sources) Snoring; Translations: [Snoring] 05-05-2023 Episodic Other lower respiratory disease (3 sources) Snoring; Translations: [Other respiratory abnormalities] 05-05-2023 Episodic Other nutritional; endocrine; and metabolic disorders (3 sources) Overweight; Translations: [Overweight] Onset: 12-18-2016 12-18-2016 Chronic Other nutritional; endocrine; and metabolic disorders (4 sources) Obesity; Translations: [Obesity, unspecified] 05-05-2023 Chronic Other nutritional; endocrine; and metabolic disorders (2 sources) Obesity, unspecified; Translations: [Obesity, unspecified] 05-05-2023 Chronic Other upper respiratory disease (3 sources) Seasonal allergy; Translations: [Other seasonal allergic rhinitis] Onset: 12-18-2016 12-18-2016 Chronic Residual codes; unclassified (7 sources) History of endometrial ablation; Translations: [Other specified postprocedural states] 07-27-2024 Episodic Thyroid disorders (17 sources) Hypothyroidism; Translations: [Smita thyroiditis] Onset: 12-18-2016 12-18-2016 Chronic Comment on above: on synthroid Unclassified (2 sources) Screening for malignant neoplasm of colon ; Translations: [Encounter for screening for malignant neoplasm of colon] Onset: 12-18-2016 12-18-2016 Past or Other Problems Problem Classification Problem Date Documented Da te Episodic/Chronic Other aftercare (1 source) Other mcc (current) drug therapy; Translations: [Other mcc (current) drug therapy] Onset: 06-03-2024 Episodic Other aftercare (1 source) Encounter for follow-up examination after completed treatment for conditions other than malignant neoplasm; Translations: [Encounter for follow-up examination after completed treatment for conditions other than malignant neoplasm] Onset: 07-01-2024 Episodic Other and unspecified benign neoplasm (3 sources) Polyp of colon; Translations: [Polyp of colon] Onset: 12-18-2016 12-18-2016 Episodic Other screening for suspected conditions (not mental disorders or infectious disease) (12 sources) Patient encounter status; Translations: [Encounter for screening for malignant neoplasm of colon] Onset: 08-12-2024 01-09-2020 Episodic Results Test Name Value Interpretation Reference Range Facility Anion gap in Serum or Plasma Ordered By: Mikel Nicolas on 01-11-2025 Anion gap [Moles/Vol] 11 mmol/L 5-15 [facility] BUN/creatinine ratioOrdered By: Mikel Nicolas on 01-11-2025 Urea nitrogen/Creatinine [Mass ratio] 13.1 mg/mg 04-11 [facility] Bilirubin, totalOrdered By: Mikel Nicolas on 01-11-2025 Bilirubin [Mass/Vol] 0.35 mg/dL 0.00-1.30 [facility] Carbon dioxide, total [Moles /volume] in Central venous bloodOrdered By: Mikel Nicolas on 01-11-2025 CO2 [Moles/Vol] 23.4 mmol/L 21.0-32.0 [facility] Chloride assayOrdered By: Lonnie Nicolas on 01-11-2025 Chloride [Moles/Vol] 106 mmol/L 98-108 [facility] Comprehensive Metabolic Prof ilon 01-11-2025 Albumin [Mass/Vol] 4.3 g/dL Normal 3.5-5.0 [facility] Comment on above: Performed By: #### L 506.1002, L501.0209, L500.4050 #### [facility] [address] [place], [address] Albumin/Globulin [Mass ratio] 1.4 {ratio} Normal 0.9-2.4 [facility] Comment on above: Performed By: #### L 506.1001, [id number], [id number] #### [facility] [address] [place], [address] ALK PHOS 49 U/L Normal 35-104 [facility] Comment on above: Performed By: #### L 506.1001, [id number], [id number] #### [facility] [address] [place], [address] ALT [Catalytic activity/Vol] 18 U/L Normal <=34 [facility] Comment on above: Performed By: #### L 506.1001, [id number], [id number] #### [facility] [address] [place], [address] AST [Catalytic activity/Vol] 18 U/L Normal <=31 [facility] Comment on above: Performed By: #### L 506.1001, [id number], [id number] #### [facility] [address] [place], [address] Bilirubin [Mass/Vol] 0.35 mg/dL Normal 0.00-1.30 [facility] Comment on above: Performed By: #### L 506.1001, [id number], [id number] #### [facility] [address] [place], [address] BUN/CRE 13.1 RATIO Normal 10-20 [facility] Comment on above: Performed By: #### L 506.1001, [id number], [id number] #### [facility] [address] [place], [address] Calcium [Mass/Vol] 9.3 mg/dL Normal 7.6-11.0 [facility] Comment on above: Performed By: #### L 506.1001, [id number], [id number] #### [facility] [address] [place], [address] Chloride [Moles/Vol] 106 mmol/L Normal 98-108 [facility] Comment on above: Performed By: #### L 506.1001, [id number], [id number] #### [facility] [address] [place], [address] CO2 [Moles/Vol] 23.4 mmol/L Normal 21.0-32.0 [facility] Comment on above: Performed By: #### L 506.1001, [id number], [id number] #### [facility] [address] [place], [address] Creatinine [Mass/Vol] 0.69 mg/dL Low 0.70-1.20 [facility] Comment on above: Performed By: #### L 506.1001, [id number], [id number] #### [facility] [address] [place], [address] GAP 11 Normal 5-15 [facility] Comment on above: Performed By: #### L 506.1001, [id number], [id number] #### [facility] [address] [place], [address] GFR/1.73 sq M.predicted among non-blacks MDRD (S/P/Bld) [Vol rate/Area] 104 mL/min/{1.73_m2} Normal >60 [facility] Comment on above: Result Comment: mL/m in/1.73m2 CKD-EPI Creatinine Equation (2020) Performed By: #### L 506.1001, [id number], [id number] #### [facility] [address] [place], [address] Globulin (S) [Mass/Vol] 3.1 g/dL Normal 2.2-4.2 [facility] Comment on above: Performed By: #### L 506.1001, [id number], [id number] #### [facility] [address] [place], [address] Glucose [Mass/Vol] 82 mg/dL Normal 70-99 [facility] Comment on above: Performed By: #### L 506.1001, [id number], [id number] #### [facility] [address] [place], [address] Potassium [Moles/Vol] 4.3 mmol/L Normal 3.3-5.1 [facility] Comment on above: Performed By: #### L 506.1001, [id number], [id number] #### [facility] [address] [place], [address] Sodium [Moles/Vol] 140 mmol/L Normal 133-145 [facility] Comment on above: Performed By: #### L 506.1001, [id number], [id number] #### [facility] [address] [place], [address] T PROT 7.4 g/dL Normal 5.9-8.4 [facility] Comment on above: Performed By: #### L 506.1001, [id number], [id number] #### [facility] [address] [place], [address] Urea nitrogen [Mass/Vol] 9 mg/dL Normal 4-19 [facility] Comment on above: Performed By: #### L 506.1001, [id number], [id number] #### [facility] [address] [place], [address] Glomerular filtration rate ( GFR) estimation/1.73 sq m using serum, plasma, or whole bOrdered By: Mikel Nicolas on 01-11-2025 GFR/1.73 sq M.predicted among non-blacks MDRD (S/P/Bld) [Vol rate/Area] 104 mL/min/{1.73_m2} >60 [facility] Comment on above: mL/min/1.73m2 CKD-EP I Creatinine Equation (2020) Laboratory - Chemistry and C hemistry - challengeOrdered By: Mikel Nicolas on 01-11-2025 AST [Catalytic activity/Vol] 18 U/L <32 [facility] Potassium measurement (mass/ volume)Ordered By: Mikel Nicolas on 01-11-2025 Potassium (Unsp spec) [Mass/Vol] 4.3 mmol/L 3.3-5.1 [facility] Serum creatinine measurement (mass/volume)Ordered By: Mikel Nicolas on 01-11-2025 Creatinine [Mass/Vol] 0.69 mg/dL Low 0.70-1.20 [facility] Serum globulin measurementOr dered By: Mikel Nicolas on 01-11-2025 Globulin (S) [Mass/Vol] 3.1 g/dL 2.2-4.2 [facility] Serum glucose measurement (m ass/volume)Ordered By: Mikel Nicolas on 01-11-2025 Glucose [Mass/Vol] 82 mg/dL 70-99 [facility] Serum or plasma alanine lópez otransferase (ALT) measurementOrdered By: Mikel Nicolas on 01-11-2025 ALT [Catalytic activity/Vol] 18 U/L <35 [facility] Serum or plasma albumin ethan urement (mass/volume)Ordered By: Mikel Nicolas on 01-11-2025 Albumin [Mass/Vol] 4.3 g/dL 3.5-5.0 [facility] Serum or plasma albumin/glob ulin mass ratioOrdered By: Mikel Nicolas on 01-11-2025 Albumin/Globulin [Mass ratio] 1.4 {ratio} 0.9-2.4 [facility] Serum or plasma alkaline anahi sphatase measurementOrdered By: Mikel Nicolas on 01-11-2025 ALP [Catalytic activity/Vol] 49 U/L 35-104 [facility] Serum or plasma calcium ethan urement (mass/volume)Ordered By: Mikel Nicolas on 01-11-2025 Calcium [Mass/Vol] 9.3 mg/dL 7.6-11.0 [facility] Serum or plasma urea nitroge n measurement (mass/volume)Ordered By: Mikel Nicolas on 01-11-2025 Urea nitrogen [Mass/Vol] 9 mg/dL 4-19 [facility] Sodium levelOrdered By: Mikel Nicolas on 01-11-2025 Sodium [Moles/Vol] 140 mmol/L 133-145 [facility] TSH DL <= 0.005 mIU/L QnOrde red By: Mikel Nicolas on 01-11-2025 TSH Qn 1.230 uIU/mL 0.300-4.20 0 [facility] Thyroid Stim Hormone (TSH)on 01-11-2025 TSH 1.230 uIU/mL Normal 0.300-4.20 0 [facility] Comment on above: Performed By: #### L 506.1001, L501.9520, L500.4050 #### [facility] [address] [place], [place], [address] Total proteinOrdered By: Opal Nicolas on 01-11-2025 Protein [Mass/Vol] 7.4 g/dL 5.9-8.4 [facility] Vitamin D,25 Hydroxyon 01-11 Vitamin D 25-OH 28.1 ng/mL Low 30-100 [facility] Comment on above: Result Comment: Carin min D Status Deficiency: <20 ng/mL (50nmol/L) Insufficiency: 20-30 ng/mL (50-75 nmol/L) Sufficiency: 30-100 ng/mL (75-250 nmol/L) Toxicity: >100 ng/mL (>250 nmol/L) Performed By: #### L 506.1001, L501.9520, L500.4050 #### [facility] [address] [place], [place], [address] Data Analytics Chief Scientist Office Visit Reporton 10-04-2024 Data Analytics Chief Scientist Office Visit Report [facility] [address], [address] [place] [address] OFFICE VISIT Date of Service: 10/04/24 MR#: [id number] Acct: [id number] Name: CHARLES STONER Rep #: [id number] : 1970 Provider: Dr. Lucrecia bain MD Age/Sex: 54/F Location: [facility] Status: Signed Intake Vital Signs 08/09/24 15:17 09/21/24 09:52 10/04/24 15:43 Height 5 ft 4 in 5 ft 4 in 5 ft 4 in Weight: 208 lb 2 oz BMI 35.7 BP 124/78 H Intake Visit Reasons: 2 wk D C Symphion Credit Rating Inspector Required: No Is patient in pain?: No Allergies Sulfa (Sulfonamide Antibiotics) Allergy (Verified 09/21/24 09:47) Rash oseltamivir phosphate (From Tamiflu) Adverse Reaction (Severe, Verified 09/21/24 09:47) Nausea/Vom/Diarrhea Latex, Natural Rubber Adverse Reaction (Verified 09/21/24 09:47) Rash Medications ???Medication ???Instructions ???Recorded ???Confirmed ???Type loratadine 10 mg tablet 10 mg PO DAILY PRN Allergies 01/0810/04/24 History ixekizumab 80 mg/mL subcutaneous 80 mg subcut Q4W 12/19/22 10/04/24 History auto-injector (Taltz Autoinjector) levothyroxine 100 mcg tablet 100 mcg PO DAILY 05/05/23 10/04/24 History biotin 10,000 mcg capsule 10,000 mcg PO DAILY 07/21/2410/04 History leflunomide 10 mg tablet 10 mg PO QDAY 07/21/24 10/04/24 Hi story betamethasone, augmented 0.05 % 1 applic topical DAILY PRN PSORASI S 09/07/24 10/04/24 History topical cream Is last menstrual period known: No Patient : No : No PFSH Medical History (Updated 10/05/24 @ 05:[address] Lucrecia Lui MD) Psoriasis Hypothyroid Thyroid disease Anemia PONV (postoperative nausea and vomiting) Tinnitus Wears contact lenses Anxiety Alcohol use Psoriatic arthritis History of steroid therapy Arthritis Low iron Back pain Migraine headache Esophageal spasm History of IBS Gastric reflux Non-smoker History of stress test History of irregular heartbeat Family history of cancer of digestive organ Smita's thyroiditis Depression Surgical History (Updated 10/05/24 @ 05:[address] Lucrecia Lui MD) H/O dilation and curettage Hx of bone marrow donation Hx of colonoscopy History of salpingectomy S/P endometrial ablation Family History Unknown Cancer of digestive system Father Colon polyps Other Breast cancer Diabetes Heart disease Social History number of children: 2 current occupational status: employed current occupation: [employer] Smoking Status: Never smoker Electronic Cigarette Use: not used second hand exposure: No alcohol intake: current alcohol intake frequency: holidays/special occasions only substance use type: does not use additional social history: - Christopher HPI 2 wk D C Symphion Details: CHARLES STONER is a 54 year old who presents for follow-up after D C. She has had minimal spotting on and off and is doing well overall no fevers or abnormal discharge. ROS Const Constitutional: Reports system reviewed and no additional complaints, except as documented GI GI: Denies abdominal pain, cramping, nausea or vomiting : Denies pelvic pain, urinary frequency, urinary incontinence, urinary urgency, vaginal discharge, vaginal dryness or vaginal odor Exam Const General: cooperative, healthy appearing, comfortable and no acute distress GI Inspection: normal to inspection Palpation: soft and nontender Coding Level of Care Code No Charge Diagnoses Abnormal uterine bleeding (AUB) N93.9 Assessment and Plan Assessment and Plan (1) Abnormal uterine bleeding (AUB): Status: Acute Comment: s/p d and c hysterosocpy polypectomy Plan Problem list updated and treatment plans were reviewed with the patient and relevant educational handouts given. See problem list details for specific plan information. 10/05/24525 Date Lucrecia Lui MD Cosigner Signature: Date (if applicable) CC: Normal [facility] Discharge Instructionon Discharge Instruction [facility] Medical Records Department [address] [place] [address] Instructions for Home/Discharge Instructions 09/21/24 1131 MR#: [id number] Acct: [id number] Name: CHARLES STONER Rep #: [id number] : 1970 54 From: Lucrecia Lui MD PCP: Dr. Mikel Nicolas MD Status:REG [facility] Discharge Instructions Diet Discharge Diet: No restrictions DC O2, CPAP, BIPAP needs Home O2 Discharge instructions: No Dressing / Incision Discharge Activity: Return to Normal Activity, May Shower and May Take a Tub Bath (after 1 week) May resume sexual activity in: 1-2 weeks Weight Bearing Status: Weight bearing as tolerated Lifting Restrictions: none Dressing / Incision Call your doctor if you observe: Fever of 101 or Higher, Using more than 1 pad per hour, Shortness of breath and Uncontrolled pain Follow Up Care Please Follow Up With: Lucrecia Lui MD When: Call [phone] to schedule appointment. Test Results: Test results from this visit will be discussed in further detail at your follow-up appointment, if applicable. Discharge Plan Admission Attending Provider: Lucrecia Lui Primary Care Provider: Mikel Nicolas Instructions Print Language: Welsh Discharge Orders/Prescriptions Prescriptions: No Action Taltz Autoinjector 80 mg/mL auto-injector 80 mg subcut Q4W levothyroxine 100 mcg tablet 100 mcg PO DAILY Patient Comments: TAKE 1 TABLET BY MOUTH EVERY DAY leflunomide 10 mg tablet 10 mg PO QDAY biotin 10,000 mcg capsule 10,000 mcg PO DAILY misoprostol [Cytotec] 200 mcg tablet 200 mcg PO .complex Qty: 2 1RF Rx Instructions: take the night before and two hours prior to the procedure loratadine 10 MG tablet 10 mg PO DAILY PRN (Reason: Allergies) betamethasone, augmented 0.05 % cream 1 applic topical DAILY PRN (Reason: PSORASIS ) Other Ambulatory Orders: 12 Lead EKG (Routine) Timeframe: [id number] Location: None Selected Ordered By: Dr. Lucrecia Lui Referrals / Follow Up: Mikel Nicolas MD [Primary Care Provider] - Disposition Disposition (needs filled in before D/C Order can be placed): Home, Self Care 09/21/24 1131 Lucrecia Lui MD CC: Dr. Mikel Nicolas MD Signed [facility] MR/POSTOP.ANE 09-21-2024 MR/POSTOP.[facility] Medical Records Department [address] [place] [address] Anesthesia Postop Eval I 09/21/24 1103 MR#: [id number] Acct: [id number] Name: CHARLES STONER Rep #: [id number] : 1970 54 From: Tatum Dwyer PCP: Dr. Mikel Nicolas MD Status:REG [facility] Y Race: C Location: [place] [address] Anesthesia: Postop Eval I Current Vital Signs Temperature: 97 F Pulse Rate: 95 Blood Pressure: 100/61 Respiratory Rate: 16 Pulse Ox: 95 Oxygen Delivery Method: Room Air Assessment Airway patent: Yes Spontaneous unlabored respirations: Yes Mental status: Awake and Calm nausea: No Vomiting: No Anesthesia Complication: No Fluid Hydration Crystalloid volume administer (ml): 10 Total IV fluid infused: 10 Progress Note Anesthesia document: Postop Eval 1 completed: Yes 09/21/24 1103 Date Tatum Melendrez Signature: Date CC: Signed [facility] MR/COGWOAOP7ap 09-21-2024 MR/POSTOPAN2 [facility] Medical Records Department [address] [place] [address] Anesthesia Postop Eval II 09/21/24 1340 MR#: [id number] Acct: [id number] Name: CHARLES STONER Rep #: [id number] : 1970 54 From: Tatum Dwyer PCP: Dr. Mikel Nicolas MD Status:DEP [facility] Y Race: C Location: [facility] Anesthesia Postop Eval I Sum Postop Eval Completion status Anesthesia document: Postop Eval 1 completed: Yes Anesthesia Postop Eval I Summary Anesthesia Postop Eval I Summary: Anesthesia Postop Eval I: Assessment Summary Airway patent Yes 09/21/24 11:03 SENIOR MAINTENANCE MECHANIC.GDOTT Spontaneous unlabored Yes 09/21/24 11:03 SENIOR MAINTENANCE MECHANIC.GDOTT respirations Mental status Awake,Calm 09/21/24 11:03 SENIOR MAINTENANCE MECHANIC.GDOTT nausea No 09/21/24 11:03 SENIOR MAINTENANCE MECHANIC.GDOTT Vomiting No 09/21/24 11:03 SENIOR MAINTENANCE MECHANIC.GDOTT Anesthesia Postop Eval I: Fluid Summary Crystalloid volume administer 10 09/21/24 11:03 SENIOR MAINTENANCE MECHANIC.GDOTT (ml) Colloids volume administered ( ml) Blood Product volume administered (ml) Total IV fluid infused 10 09/21/24 11:03 SENIOR MAINTENANCE MECHANIC.GDOTT Anesthesia Postop Eval I: Summary Notes Anesthesia Complication No 09/21/24 11:03 SENIOR MAINTENANCE MECHANIC.GDOTT Anesthesia Complication Comment: Post-operative progress note Anesthesia: Postop Eval II Evaluation Mental status: Awake and Calm Pain Level: 0 nausea: No Vomiting: No Complications Anesthesia Complication: No 09/21/24 1341 Date Tatum Melendrez Signature: Date CC: Signed Normal [facility] Operative Reporton [address] [facility] Medical Records Department [address] [place] [address] Operative Report 09/21/24 1057 MR#: [id number] Acct: [id number] Name: CHARLES STONER Rep #: [id number] : 1970 54 From: Lucrecia Lui MD PCP: Dr. Mikel Nicolas MD Status:[facility] Location: [place] [address] Problems Associated Problem List Diagnoses (1) Abnormal uterine bleeding (AUB): (2) History of endometrial ablation: (3) Endocervical polyp: Multi Select Codes Urinary/Genital Urinary/Genital CPT Codes: 18261 Hysteroscopy, diagnostic Operative Report (Standard) Operative Information Date of Procedure: 09/21/24 Pre-Operative Diagnosis: AUB Post-Operative Diagnosis: same Surgery/Procedure Performed: d and c hysteroscopy fruit thinner machine operator: No Type of Anesthesia: IV Sedation RN Documented Start/Stop Times: Operation Date: 09/21/24 11:00 Case Time Into Pre-Op 09/21/24 09:33 Out of Pre-Op 09/21/24 10:18 Anesthesia Start 09/21/24 10:21 Into Room 09/21/24 10:21 Procedure Start 09/21/24 10:40 Procedure End 09/21/24 10:51 Anesthesia End 09/21/24 10:56 Out of Room 09/21/24 10:56 Into Recovery 09/21/24 11:00 Procedure Start Time: 10:40 Procedure Stop Time: 10:51 Select all DRAINS/GRAFTS/IMPLANTS that apply: None Estimated Blood Loss: 25 Specimen collected: Yes Description of specimen(s) removed: polyp, emc Description of surgery: Patient was prepped and draped in a normal sterile fashion under MAC anesthesia. A weighted speculum was placed in the vagina and the anterior lip of the cervix was grasped with a single-tooth tenaculum. A paracervical block was placed with 1% lidocaine. cervical polyp seen and grasped with ring forcep, easily removed and sent to pathology. Cervix was progressively dilated to allow passage of a 7 mm hysteroscope. The lining was fully visualized and noted to have a thin atophric lining with scarred cavity no polyps seen no fibroids . Uterine sounded to 7 cm. Curettage was performed and tissue removed , sent to pathology. All instruments were removed from the vagina and excellent hemostasis was noted. Patient was awoken and taken to recovery in stable condition. Surgical Findings: cervical polyp thin endometrial lining scarred uterine cavity Complications Complications: No 09/21/24 1134 Cosigner Signature (if applicable): CC: Dr. Mikel Nicolas MD; Dr. Lucrecia Lui MD Signed Normal [facility] Surgery Specimen Level Darrick 09-21-2024 Surgery Specimen Level IV -------- Patient Age/Sex Location Account Attending Physician -------- CHARLES STONER 54/F [facility] [id number] Dr. Lucrecia Lui MD -------- Specimen: [id number] Received: 09/21/24 Status: RAMONITA Fatmata Num: [id number] Spec Type: ENDOM BX/C Subm Dr: Dr. Lucrecia Lui MD HEADER OPERATION: Hysteroscopy, D C, polypectomy PRE-OP DIAGNOSIS: Abnormal uterine bleeding, history of endometrial ablation, endocervical polyp TISSUE SUBMITTED: A- Cervical polyp, B- Endometrial curettings -------- MICROSCOPIC DIAGNOSIS A. Cervix, Polyp, Excision: * Benign endocervical mucosal polyp. B. Endometrium, Curettage: * Benign endocervical tissue, atrophic endometrium, and scant cervical squamous mucosa. * Abundant blood clot. MICROSCOPIC DESCRIPTION Slides are reviewed. GROSS DESCRIPTION A. Received in formalin in a container labeled with the patient's name, date of , and cervical polyp are multiple shabazz-pink fragments of soft tissue admixed with mucus measuring 2.0 x 1.7 x 0.5 cm in aggregate. Submitted in toto in A1. B. Received in formalin in a container labeled with the patient's name, date of , and endometrial curettings is an abundance of red-shabazz soft tissue admixed with blood and mucus measuring 4.0 x 3.0 x 2.0 cm in aggregate. Submitted in toto in B1-4. [facility] 09-21-2024 CPT:02225j0 -------- Patient Age/Sex Location Account Attending Physician -------- CHARLES STONER 54/F [facility] [id number] Dr. Lucrecia Lui MD -------- Signed (signature on file) Dr. Sarah Beth Mendez MD 09/24/24 1650 -------- Normal [facility] Comment on above: Performed By: #### P SUIV ####[facility] [address] [facility] [place], [place], [address] Electrocardiogram reportOrde red By: Oziel Martínez on 09-10-2024 EKG study [facility] Cardiovascular Services [address] [place] [address] 12 Lead EKG 09/09/24 0717 MR#: [id number] Acct: [id number] Name: CHARLES STONER Rep #:[id number] : 1970 54 From: Oziel Martínez MD Attending Dr: Dr. Lucrecia Lui MD Status: PRE [facility] Ordering Dr: Lucrecia Lui MD Ranjeet e: 09/09/24 Location: [facility] Sex: F C Admitted: Test Reason : PREOP Blood Pressure : */* mmHG Vent. Rate : 91 BPM Atrial Rate : 91 BPM P-R Int : 140 ms QRS Dur : 82 ms QT Int : 358 ms P-R-T Axes : 44 0 8 degrees QTcB Int : 440 ms Normal sinus rhythm Normal ECG Confirmed by OZIEL MARTÍNEZ MD ([id number]), makeup editor DARIANA ALONZO ([id number]) on 55:50:22 AM Referred By: Lucrecia Lui Confirmed By: OZIEL MARTÍNEZ MD 09/10/24 0550 Date _ Oziel Martínez MD CC: Dr. Mikel Nicolas MD; Dr. Lucrecia Lui MD ~ Signed [facility] Work Phone: 12 Lead EKGon 09-09-2024 12 Lead EKG [facility] Cardiovascular Services [address] [place] [address] 12 Lead EKG 09/09/24 0717 MR#: [id number] Acct: [id number] Name: CHARLES STONER Rep #: [id number] : 1970 54 From: Oziel Martínez MD Attending Dr: Dr. Lucrecia Lui MD Status: PRE [facility] Ordering Dr: Lucrecia Lui MD Date: 09/09/24 Location: [facility] Sex: F C Admitted: Test Reason : PREOP Blood Pressure : */* mmHG Vent. Rate : 91 BPM Atrial Rate : 91 BPM P-R Int : 140 ms QRS Dur : 82 ms QT Int : 358 ms P-R-T Axes : 44 0 8 degrees QTcB Int : 440 ms Normal sinus rhythm Normal ECG Confirmed by TANYA GARCIA, OZIEL ([id number]), makeup editor DARIANA ALONZO ([id number]) on 09/10/2024 5:50:22 AM Referred By: Lucrecia Lui Confirmed By: OZIEL MARTÍNEZ MD 09/10/24 0550 Date Oziel Martínez MD CC: Dr. Mikel Nicolas MD; Dr. Lucrecia Lui MD Signed Normal [facility] Anion gap in Serum or Plasma Ordered By: Lucrecia Lui on 09-09-2024 Anion gap [Moles/Vol] 11 mmol/L 11-04 [facility] Automated blood erythrocyte countOrdered By: Lucrecia Lui on 09-09-2024 RBC (Bld) [#/Vol] 4.38 10*6/uL Normal 4.2-5.4 [facility] Comment on above: Performed By: #### B TSPAT, L3300.1750, L100.0500, L500.4050, L3100.5125 ####[facility] [address] [place], [place], [address] Automated blood hematocrit ( percentage)Ordered By: Lucrecia Lui on 09-09-2024 Hematocrit (Bld) [Volume fraction] 36.7 % Low 37-47 [facility] Comment on above: Performed By: #### B TSPAT, L3300.1750, L100.0500, L500.4050, L3100.5125 ####[facility] [address] [place], [address] BUN/creatinine ratioOrdered By: Lucrecia Lui on 09-09-2024 Urea nitrogen/Creatinine [Mass ratio] 14.8 mg/mg - [facility] Bilirubin, totalOrdered By: Lucrecia Lui on 09-09-2024 Bilirubin [Mass/Vol] 0.23 mg/dL 0.00-1.30 [facility] CBC-Complete Blood Cnt No Di ffon 09-09-2024 RDW SD 41.6 fl Normal 35.1-43.9 [facility] Comment on above: Performed By: #### B TSPAT, L3300.1750, L100.0500, L500.4050, L3100.5125 ####[facility] [address] [place], [place], [address] Carbon dioxide, total [Moles /volume] in Central venous bloodOrdered By: Lucrecia Lui on 09-09-2024 CO2 [Moles/Vol] 20.5 mmol/L Low 21.0-32.0 [facility] Chloride assayOrdered By: Elliott Lui on 09-09-2024 Chloride [Moles/Vol] 107 mmol/L 98-108 [facility] Comprehensive Metabolic Prof ilon 09-09-2024 Albumin [Mass/Vol] 3.9 g/dL Normal 3.5-5.0 [facility] Comment on above: Performed By: #### B TSPAT, L3300.1750, L100.0500, L500.4050, L3100.5125 ####[facility] [address] [place], [address] Albumin/Globulin [Mass ratio] 1.3 {ratio} Normal 0.9-2.4 [facility] Comment on above: Performed By: #### B TSPAT, L3300.1750, L100.0500, L500.4050, L3100.5125 ####[facility] [address] [place], [address] ALK PHOS 42 U/L Normal 35-104 [facility] Comment on above: Performed By: #### B TSPAT, L3300.1750, L100.0500, L500.4050, L3100.5125 ####[facility] [address] [place], [address] ALT [Catalytic activity/Vol] 15 U/L Normal <=34 [facility] Comment on above: Performed By: #### B TSPAT, L3300.1750, L100.0500, L500.4050, L3100.5125 ####[facility] [address] [place], [address] AST [Catalytic activity/Vol] 16 U/L Normal <=31 [facility] Comment on above: Performed By: #### B TSPAT, L3300.1750, L100.0500, L500.4050, L3100.5125 ####[facility] [address] [place], [address] Bilirubin [Mass/Vol] 0.23 mg/dL Normal 0.00-1.30 [facility] Comment on above: Performed By: #### B TSPAT, L3300.1750, L100.0500, L500.4050, L3100.5125 ####[facility] [address] [place], [address] BUN/CRE 14.8 RATIO Normal 10-20 [facility] Comment on above: Performed By: #### B TSPAT, L3300.1750, L100.0500, L500.4050, L3100.5125 ####[facility] [address] [place], [address] Calcium [Mass/Vol] 8.6 mg/dL Normal 7.6-11.0 [facility] Comment on above: Performed By: #### B TSPAT, L3300.1750, L100.0500, L500.4050, L3100.5125 ####[facility] [address] [place], [address] Chloride [Moles/Vol] 107 mmol/L Normal 98-108 [facility] Comment on above: Performed By: #### B TSPAT, L3300.1750, L100.0500, L500.4050, L3100.5125 ####[facility] [address] [place], [address] CO2 [Moles/Vol] 20.5 mmol/L Low 21.0-32.0 [facility] Comment on above: Performed By: #### B TSPAT, L3300.1750, L100.0500, L500.4050, L3100.5125 ####[facility] [address] [place], [address] Creatinine [Mass/Vol] 0.66 mg/dL Low 0.70-1.20 [facility] Comment on above: Performed By: #### B TSPAT, L3300.1750, L100.0500, L500.4050, L3100.5125 ####[facility] [address] [place], [address] GAP 11 Normal 5-15 [facility] Comment on above: Performed By: #### B TSPAT, L3300.1750, L100.0500, L500.4050, L3100.5125 ####[facility] [address] [place], [address] GFR/1.73 sq M.predicted among non-blacks MDRD (S/P/Bld) [Vol rate/Area] 105 mL/min/{1.73_m2} Normal >60 [facility] Comment on above: Result Comment: mL/m in/1.73m2 CKD-EPI Creatinine Equation (2020) Performed By: #### B TSPAT, L3300.1750, L100.0500, L500.4050, L3100.5125 ####[facility] [address] [place], [address] Globulin (S) [Mass/Vol] 2.9 g/dL Normal 2.2-4.2 [facility] Comment on above: Performed By: #### B TSPAT, L3300.1750, L100.0500, L500.4050, L3100.5125 ####[facility] [address] [place], [address] Glucose [Mass/Vol] 106 mg/dL High 70-99 [facility] Comment on above: Performed By: #### B TSPAT, L3300.1750, L100.0500, L500.4050, L3100.5125 ####[facility] [address] [place], [address] Potassium [Moles/Vol] 4.0 mmol/L Normal 3.3-5.1 [facility] Comment on above: Performed By: #### B TSPAT, L3300.1750, L100.0500, L500.4050, L3100.5125 ####[facility] [address] [place], [address] Sodium [Moles/Vol] 139 mmol/L Normal 133-145 [facility] Comment on above: Performed By: #### B TSPAT, L3300.1750, L100.0500, L500.4050, L3100.5125 ####[facility] [address] [place], [address] T PROT 6.9 g/dL Normal 5.9-8.4 [facility] Comment on above: Performed By: #### B TSPAT, L3300.1750, L100.0500, L500.4050, L3100.5125 ####[facility] [address] [place], [address] Urea nitrogen [Mass/Vol] 10 mg/dL Normal 4-19 [facility] Comment on above: Performed By: #### B TSPAT, L3300.1750, L100.0500, L500.4050, L3100.5125 ####[facility] [address] [place], [address] E2 post dose follitropin [Ma ss/Vol]Ordered By: Lucrecia Lui on 09-09-2024 Estradiol (E2) Level 118.0 pg/mL [facility] Comment on above: FEMALES ADULT FEMALE : Premenopausal: 15-350 pg/mL(E2 levels vary widely through the menstrual cycle) Postmenopausal: <10 pg/mL CRISTOFER STAGES MEAN AGE REFERENCE RANGES Stage I(>14 days and prepubertal) 7.1 years Undetectable-20 pg/mLL Stage II 10.5 years Undetectable-24 pg/mL Stage III 11.6 years Undetectable-60 pg/mL Stage IV 12.3 years 15-85 pg/mL Stage V 14.5 years 15-350 pg/mL Puberty onset (transition from Cristofer stage I to Cristofer stage II) occurs for girls at a median age of 10.5 (/- 2) years. There is evidence that it may occur up to 1 year earlier in obese girls and in girls.Progression through Cristofer stages is variable. Cristofer stage V (adult) should be reached by age 18. Erythrocyte distribution wid th ratioOrdered By: Lucrecia Underwoodsantiago on 09-09-2024 Erythrocyte distribution width (RBC) [Ratio] 13.6 % Normal 11.6-14.6 [facility] Comment on above: Performed By: #### B TSPAT, L3300.1750, L100.0500, L500.4050, L3100.5125 ####[facility] [address] [place], [address] Erythrocyte distribution wid th standard deviationOrdered By: Lucrecia Underwoodsantiago on 09-09-2024 Erythrocyte distribution width (RBC) [Entitic vol] 41.6 fL 35.1-43.9 [facility] Erythrocyte distribution width (RBC) [Ratio] 41.6 fl 35.1-43.9 [facility] Estradiolon 09-09-2024 ESTRADIOL 118.0 pg/mL Normal [facility] Comment on above: Result Comment: FEMA LES ADULT FEMALE: Premenopausal: 15-350 pg/mL(E2 levels vary widely through the menstrual cycle) Postmenopausal: <10 pg/mL CRISTOFER STAGES MEAN AGE REFERENCE RANGES Stage I(>14 days and prepubertal) 7.1 years Undetectable-20 pg/mLL Stage II 10.5 years Undetectable-24 pg/mL Stage III 11.6 years Undetectable-60 pg/mL Stage IV 12.3 years 15-85 pg/mL Stage V 14.5 years 15-350 pg/mL Puberty onset (transition from Cristofer stage I to Cristofer stage II) occurs for girls at a median age of 10.5 (/- 2) years. There is evidence that it may occur up to 1 year earlier in obese girls and in girls. Progression through Cristofer stages is variable. Cristofer stage V (adult) should be reached by age 18. Performed By: #### B TSPAT, L3300.1750, L100.0500, L500.4050, L3100.5125 ####[facility] [address] [place], [place], [id number] Follicle Stimulating Hormone on 09-09-2024 FSH 13.5 mIU/mL Normal [facility] Comment on above: Result Comment: FEMA LE: Follicular: 1.4 - 18.1 mIU/mL Midcycle: 3.4 - 33.4 mIU/mL Luteal: 1.5 - 9.1 mIU/mL Post Menopause: 23.0 - 116.3 mIU/mL MALE: 1.4 - 18.1 mIU/mL NORMAL REFERENCE RANGES FEMALE FOLLICULAR 2.3 - 12.6 mIU/mL MID-CYCLE PEAK 5.2 - 17.5 mIU/mL LUTEAL 1.7 - 12.9 mIU/mL POST-MENOPAUSAL ON MHT 5.9 - 72.8 mIU/mL NOT ON MHT 12.7 - 132.2 mlU/mL MALE 0.7 - 10.8 mIU/mL Performed By: #### B TSPAT, L3300.1750, L100.0500, L500.4050, L3100.5125 ####[facility] [address] [place], [address] Follicle stimulating hormone (FSH) levelOrdered By: Lucrecia Lui on 09-09-2024 Follicle Stimulating Hormone 13.5 mIU/mL [facility] Comment on above: FEMALE:Follicular: 1 .4 - 18.1 mIU/mLMidcycle: 3.4 - 33.4 mIU/mLLuteal: 1.5 - 9.1 mIU/mLPost Menopause: 23.0 - 116.3 mIU/mLMALE: 1.4 - 18.1 mIU/mL NORMAL REFERENCE RANGES FEMALE FOLLICULAR 2.3 - 12.6 mIU/mL MID-CYCLE PEAK 5.2 - 17.5 mIU/mL LUTEAL 1.7 - 12.9 mIU/mL POST-MENOPAUSAL ON MHT 5.9 - 72.8 mIU/mL NOT ON MHT 12.7 - 132.2 mlU/mL MALE 0.7 - 10.8 mIU/mL GFR/1.73 sq M.predicted aiden g non-blacks MDRD (S/P/Bld) [Vol rate/Area]Ordered By: Lucrecia Lui on 09-09-2024 Estimated GFR (MDRD) Non-Af Amer 105 >60 [facility] Comment on above: mL/min/1.73m2 CKD-EP I Creatinine Equation (2020) Glomerular filtration rate ( GFR) estimation/1.73 sq m using serum, plasma, or whole bOrdered By: Lucrecia Lui on 09-09-2024 GFR/1.73 sq M.predicted among non-blacks MDRD (S/P/Bld) [Vol rate/Area] 105 mL/min/{1.73_m2} >60 [facility] Comment on above: mL/min/1.73m2 CKD-EP I Creatinine Equation (2020) Hemoglobin measurementOrdere d By: Lucrecia Lui on 09-09-2024 Hemoglobin (Bld) [Mass/Vol] 12.0 g/dL Normal 12.0-15.0 [facility] Comment on above: Performed By: #### B TSPAT, L3300.1750, L100.0500, L500.4050, L3100.5125 ####[facility] [address] [place], [address] Laboratory - Chemistry and C hemistry - challengeOrdered By: Lucrecia Lui on 09-09-2024 AST [Catalytic activity/Vol] 16 U/L <32 [facility] MCV (mean corpuscular volume ) determinationOrdered By: Lucrecia Lui on 09-09-2024 MCV (RBC) [Entitic vol] 83.8 fL Normal 81-99 [facility] Comment on above: Performed By: #### B TSPAT, L3300.1750, L100.0500, L500.4050, L3100.5125 ####[facility] [address] [place], [address] MR/PATKofiANEon 09-09-2024 MR/PAT.[facility] Medical Records Department [address] [address] PAT - Anesthesia 09/09/24 1824 MR#: [id number] Acct: [id number] Name: CHARLES STONER Rep #: [id number] : 1970 54 From: Luis Alfredo Patel MD PCP: Dr. 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 When Was Last Pacemaker Check QUESTION #4 FULL TEXT: You/Your Family Experience fever (hyperthermia) with Anesthesia Last Oral Intake Last Oral intake: Last Oral Intake NPO since Meds taken in AM with sips of water? Meds patient instructed to take am of surgery PONV PONV - associate professor computer science: PONV - associate professor computer science Female Yes 09/07/24 14:11 HX of Motion Sickness Yes 09/07/24 14:11 HX of N/V After Surgery Yes 09/07/24 14:11 Non-Smoker Yes 09/07/24 14:11 Duration of Surgery greater No 09/07/24 14:11 than 60 minutes Number of Risk Factors 4 09/07/24 14:11 PONV Score Severe Risk 09/07/24 14:11 Height Weight Height Weight: Anesthesia: Height Weight Height 5 ft 4 in 08/09/24 15:17 Respiratory Assessment Respiratory Assessment - associate professor computer science: Respiratory Tract Infection Hx - associate professor computer science Hx Respiratory Tract Infection Yes: COLD CURRENTLY 09/07/24 14:11 STOP Sleep Apnea STOP Sleep Apnea - associate professor computer science: STOP Sleep Apnea - associate professor computer science Hx Hypertension No 09/07/24 14:11 Hx Sleep Apnea No 09/07/24 14:11 CPAP BIPAP Do you snore loudly (louder No 09/07/24 14:11 than talking or can be heard Do you often feel tired/ No 09/07/24 14:11 fatigued/ sleepy during daytime? Has anyone observed you stop No 09/07/24 14:11 breathing during sleep? STOP Results Negative 09/07/24 14:11 QUESTION #5 FULL TEXT : Do you snore loudly (louder than talking or can be heard through closed doors)? 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 Specify any problems Hx of Preganancy in last 3 N/A 09/07/24 14:11 Months Nurse Filling Out Transfusion NBUCHER 09/07/24 14:11 Questions: Date: 09/07/24 09/07/24 14:11 Time: 14:13 09/07/24 14:11 Patient unable to answer at this time (ie. confused, unrespo /Reproduction History /Reproductive History - associate professor computer science: /Reproductive Hx- associate professor computer science Hx Now No 09/07/24 14:11 Gestational Age (in weeks): EDC: Hx Hx Para Hx Section SAB No 09/07/24 14:11 PFSH Medical History Psoriasis Hypothyroid Thyroid disease Anemia PONV (postoperative nausea and vomiting) Tinnitus Wears contact lenses Anxiety Alcohol use Psoriatic arthritis History of steroid therapy Arthritis Low iron Back pain Migraine headache Esophageal spasm History of IBS Gastric reflux Non-smoker History of stress test History of irregular heartbeat Family history of cancer of digestive organ Smita's thyroiditis Depression Home Medications ???Medication ???Instructions ???Recorded ???Last Taken ???Type loratadine 10 mg tablet 10 mg PO DAILY PRN Allergies 01/0801/07/20 21:00 History ixekizumab 80 mg/mL subcutaneous 80 mg subcut Q4W 12/19/22 Unknown History auto-injector (Taltz Autoinjector) levothyroxine 100 mcg tablet 100 mcg PO DAILY 05/05/23 Unknown History biotin 10,000 mcg capsule 10,000 mcg PO DAILY 07/21/24 Unkno wn History l (more content not included)... Normal [facility] Mean corpuscular hemoglobin (MCH) determinationOrdered By: Lucrecia Lui on 09-09-2024 MCH (RBC) [Entitic mass] 27.4 pg Normal 27.0-32.0 [facility] Comment on above: Performed By: #### B TSPAT, L3300.1750, L100.0500, L500.4050, L3100.5125 ####[facility] [address] [place], [address] Mean corpuscular hemoglobin concentration (MCHC) determinationOrdered By: Lucrecia Lui on 09-09-2024 MCHC (RBC) [Mass/Vol] 32.7 g/dL Normal 32-36 [facility] Comment on above: Performed By: #### B TSPAT, L3300.1750, L100.0500, L500.4050, L3100.5125 ####[facility] [address] [place], [address] Mean platelet volume determi nationOrdered By: Lucrecia Lui on 09-09-2024 Platelet mean volume (Bld) [Entitic vol] 9.5 fL Normal 6.2-12.0 [facility] Comment on above: Performed By: #### B TSPAT, L3300.1750, L100.0500, L500.4050, L3100.5125 ####[facility] [address] [place], [address] Platelet countOrdered By: Elliott Lui on 09-09-2024 Platelets (Bld) [#/Vol] 433 10*3/uL Normal 150-450 [facility] Comment on above: Performed By: #### B TSPAT, L3300.1750, L100.0500, L500.4050, L3100.5125 ####[facility] [address] [place], [address] Potassium (Unsp spec) [Mass/ Vol]Ordered By: Lucrecia Lui on 09-09-2024 Potassium [Moles/Vol] 4.0 mmol/L 3.3-5.1 [facility] Potassium measurement (mass/ volume)Ordered By: Lucrecia Lui on 09-09-2024 Potassium (Unsp spec) [Mass/Vol] 4.0 mmol/L 3.3-5.1 [facility] Serum creatinine measurement (mass/volume)Ordered By: Lucrecia Lui on 09-09-2024 Creatinine [Mass/Vol] 0.66 mg/dL Low 0.70-1.20 [facility] Serum globulin measurementOr dered By: Lucrecia Lui on 09-09-2024 Globulin (S) [Mass/Vol] 2.9 g/dL 2.2-4.2 [facility] Serum glucose measurement (m ass/volume)Ordered By: Lucrecia Lui on 09-09-2024 Glucose [Mass/Vol] 106 mg/dL High 70-99 [facility] Serum or plasma alanine lópez otransferase (ALT) measurementOrdered By: Lucrecia Lui on 09-09-2024 ALT [Catalytic activity/Vol] 15 U/L <35 [facility] Serum or plasma albumin ethan urement (mass/volume)Ordered By: Lucrecia Lui on 09-09-2024 Albumin [Mass/Vol] 3.9 g/dL 3.5-5.0 [facility] Serum or plasma albumin/glob ulin mass ratioOrdered By: Lucrecia Lui on 09-09-2024 Albumin/Globulin [Mass ratio] 1.3 {ratio} 0.9-2.4 [facility] Serum or plasma alkaline anahi sphatase measurementOrdered By: Lucrecia Lui on 09-09-2024 ALP [Catalytic activity/Vol] 42 U/L 35-104 [facility] Serum or plasma calcium ethan urement (mass/volume)Ordered By: Lucrecia Lui on 09-09-2024 Calcium [Mass/Vol] 8.6 mg/dL 7.6-11.0 [facility] Serum or plasma estradiol me asurement after follitropin dose (mass/volume)Ordered By: Lucrecia Lui on 09-09-2024 E2 post dose follitropin [Mass/Vol] 118.0 pg/mL [facility] Comment on above: FEMALES ADULT FEMALE : Premenopausal: 15-350 pg/mL(E2 levels vary widely through the menstrual cycle) Postmenopausal: <10 pg/mL CRISTOFER STAGES MEAN AGE REFERENCE RANGES Stage I(>14 days and prepubertal) 7.1 years Undetectable-20 pg/mLL Stage II 10.5 years Undetectable-24 pg/mL Stage III 11.6 years Undetectable-60 pg/mL Stage IV 12.3 years 15-85 pg/mL Stage V 14.5 years 15-350 pg/mL Puberty onset (transition from Cristofer stage I to Cristofer stage II) occurs for girls at a median age of 10.5 (/- 2) years. There is evidence that it may occur up to 1 year earlier in obese girls and in girls.Progression through Cristofer stages is variable. Cristofer stage V (adult) should be reached by age 18. Serum or plasma urea nitroge n measurement (mass/volume)Ordered By: Lucrecia Lui on 09-09-2024 Urea nitrogen [Mass/Vol] 10 mg/dL 4-19 [facility] Sodium levelOrdered By: Jan Lui on 09-09-2024 Sodium [Moles/Vol] 139 mmol/L 133-145 [facility] Total proteinOrdered By: Robin Lui on 09-09-2024 Protein [Mass/Vol] 6.9 g/dL 5.9-8.4 [facility] Type AND Screen - PAT ONLYon 09-09-2024 ABO and Rh group Nom (Bld) Blood group A Rh(D) positive Normal [facility] Comment on above: Order Comment: Reaso n for Laboratory Test [id number] Performed By: #### B TSPAT, L3300.1750, L100.0500, L500.4050, L3100.5125 ####[facility] [address] [place], [address] White blood cell (WBC) count Ordered By: Lucrecia Lui on 09-09-2024 WBC (Bld) [#/Vol] 9.5 10*3/uL Normal 4.4-11.0 [facility] Comment on above: Performed By: #### B TSPAT, L3300.1750, L100.0500, L500.4050, L3100.5125 ####[facility] [address] [place], [address] Data Analytics Chief Scientist Office Visit Reporton 09-08-2024 Data Analytics Chief Scientist Office Visit Report [facility] [address], [address] [place] [address] OFFICE VISIT Date of Service: 09/08/24 MR#: [id number] Acct: [id number] Name: CHARLES STONER Rep #: [id number] : 1970 Provider: Dr. Lucrecia bain MD Age/Sex: 54/F Location: [facility] [place] Status: Signed Intake Vital Signs 08/09/24 15:17 09/08/24 11:24 Height 5 ft 4 in 5 ft 4 in Weight: 210 lb 6 oz BMI 36.1 BP 119/83 H Intake Visit Reasons: Quirino Hong [employer] Credit Rating Inspector Required: No Is patient in pain?: No Allergies Sulfa (Sulfonamide Antibiotics) Allergy (Verified 09/07/24 14:08) Rash oseltamivir phosphate (From Tamiflu) Adverse Reaction (Severe, Verified 09/07/24 14:08) Nausea/Vom/Diarrhea Latex, Natural Rubber Adverse Reaction (Verified 09/07/24 14:08) Rash Medications ???Medication ???Instructions ???Recorded ???Confirmed ???Type loratadine 10 mg tablet 10 mg PO DAILY PRN Allergies 01/0809/08/24 History ixekizumab 80 mg/mL subcutaneous 80 mg subcut Q4W 12/19/22 09/08/24 History auto-injector (Taltz Autoinjector) levothyroxine 100 mcg tablet 100 mcg PO DAILY 05/05/23 09/08/24 History biotin 10,000 mcg capsule 10,000 mcg PO DAILY 07/21/2409/08 History leflunomide 10 mg tablet 10 mg PO QDAY 07/21/24 09/08/24 Hi story misoprostol 200 mcg tablet 200 mcg PO .complex #2 tabs 09/08/24 Rx (Cytotec) betamethasone, augmented 0.05 % 1 applic topical DAILY PRN PSORASI S 09/07/24 09/08/24 History topical cream Is last menstrual period known: Yes Patient : No : No PFSH Medical History Psoriasis Hypothyroid Thyroid disease Anemia PONV (postoperative nausea and vomiting) Tinnitus Wears contact lenses Anxiety Alcohol use Psoriatic arthritis History of steroid therapy Arthritis Low iron Back pain Migraine headache Esophageal spasm History of IBS Gastric reflux Non-smoker History of stress test History of irregular heartbeat Family history of cancer of digestive organ Smita's thyroiditis Depression Surgical History Hx of bone marrow donation Hx of colonoscopy History of salpingectomy S/P endometrial ablation Family History Unknown Cancer of digestive system Father Colon polyps Other Breast cancer Diabetes Heart disease Social History number of children: 2 current occupational status: employed current occupation: [employer] Smoking Status: Never smoker Electronic Cigarette Use: not used second hand exposure: No alcohol intake: current alcohol intake frequency: holidays/special occasions only substance use type: does not use additional social history: - Shanetoni EVI D C Symphion Details: CHARLES STONER is a 54 year old who presents for preop visit. she has had irregular bleeding. she has had an ablation in the past. On exam by nurse practitioner she had a polyp that was removed but has had an 8-month time span that she had no bleeding and then she had 2 episodes of significant bleeding so this concerned her. Ultrasound showed a 9 mm lining and the nurse practitioner felt like there was another polyp that was in there. Patient is wondering if she should just have a hysterectomy or if a D C is appropriate. She denies any bleeding or abnormal discharge right now. She denies any significant cramping or pain. She denies any hot flashes or night sweats but has some vaginal dryness. Female Reproductive History Menopausal Symptoms: No night sweats ROS Const Constitutional: Denies fatigue, night sweats, weight gain or weight loss ENT ENT: Reports system reviewed and no additional complaints, except as documented Cardio Card: Denies chest pain Resp Resp: Denies cough or dyspnea GI GI: Reports as per HPI; Denies abdominal pain, constipation, nausea or vomiting : Denies nipple discharge, urinary frequency, urinary incontinence, urinary hesitancy, urinary urgency, vaginal discharge, vaginal dryness, vaginal odor or vaginal pruritus Musc Musc: Denies arthralgias, back pain or muscle weakness Skin Skin/Breast: Denies alopecia, change in hair, dry skin, breast mass, breast pain, breast skin changes or nipple discharge Neuro Neuro: Reports system reviewed and no additional complaints, except as documented Psych Psych: Reports system reviewed and no additional complaints, except as documented Endo Endo: Denies cold intolerance, excessive sweating, heat intolerance or polydipsia Jeronimo/Lymph Hematologic/Lymphatic: Denies easy bleeding, Denies easy bruising and Denies lymphadeno (more content not included)... Normal [facility] Data Analytics Chief Scientist Office Visit Reporton 08-09-2024 Data Analytics Chief Scientist Office Visit Report [facility] [address], [address] [place] [address] OFFICE VISIT Date of Service: 08/09/24 MR#: [id number] Acct: [id number] Name: CHARLES STONER Rep #: [id number] : 1970 Provider: Dr. Lucrecia bain MD Age/Sex: 54/F Location: [facility] [place] Status: Signed Intake Vital Signs 07/27/24 13:13 08/09/24 15:09 08/09/24 15:17 Height 5 ft 4 in 5 ft 4 in 5 ft 4 in Weight: 204 lb 2 oz 207 lb 2 oz BMI 35.0 35.5 BP 130/87 H 120/80 Intake Visit Reasons: SURGICAL CONSULT D C VS HYSTO Credit Rating Inspector Required: No Is patient in pain?: Yes (some mild cramping earlier today) Pain scale (1-10): 1 Allergies Sulfa (Sulfonamide Antibiotics) Allergy (Verified 07/27/24 13:36) Rash oseltamivir phosphate (From Tamiflu) Adverse Reaction (Severe, Verified 07/27/24 13:36) Nausea/Vom/Diarrhea Latex, Natural Rubber Adverse Reaction (Verified 07/27/24 13:36) Rash Medications ???Medication ???Instructions ???Recorded ???Confirmed ???Type loratadine 10 mg tablet 10 mg PO DAILY PRN Allergies 01/0808/09/24 History ibuprofen 600 mg tablet 600 mg PO TID PRN pain #30 tabs 08/09/24 Rx ixekizumab 80 mg/mL subcutaneous 80 mg subcut Q4W 12/19/22 08/09/24 History auto-injector (Taltz Autoinjector) levothyroxine 100 mcg tablet 100 mcg PO DAILY 05/05/23 08/09/24 History biotin 10,000 mcg capsule mcg PO 07/21/24 08/09/24 History leflunomide 10 mg tablet 10 mg PO QDAY 07/21/24 08/09/24 Hi story Is last menstrual period known: Yes Patient : No : No PFSH Medical History Tinnitus Wears contact lenses Anxiety Alcohol use Psoriatic arthritis History of steroid therapy Arthritis Low iron Back pain Migraine headache Esophageal spasm History of IBS Gastric reflux Non-smoker History of stress test History of irregular heartbeat Family history of cancer of digestive organ Smita's thyroiditis Depression Surgical History Hx of bone marrow donation Hx of colonoscopy History of salpingectomy S/P endometrial ablation Family History Unknown Cancer of digestive system Father Colon polyps Other Breast cancer Diabetes Heart disease Social History number of children: 2 current occupational status: employed current occupation: [employer] Smoking Status: Never smoker Electronic Cigarette Use: not used second hand exposure: No alcohol intake: current alcohol intake frequency: holidays/special occasions only substance use type: does not use additional social history: - Abram HPI SURGICAL CONSULT D C VS HYSASKIA Details: CHARLES STONER is a 54 year old who presents for irregular bleeding. she has had an ablation in the past. On exam by nurse practitioner she had a polyp that was removed but has had an 8-month time span that she had no bleeding and then she had 2 episodes of significant bleeding so this concerned her. Ultrasound showed a 9 mm lining and the nurse practitioner felt like there was another polyp that was in there. Patient is wondering if she should just have a hysterectomy or if a D C is appropriate. She denies any bleeding or abnormal discharge right now. She denies any significant cramping or pain. She denies any hot flashes or night sweats but has some vaginal dryness. Female Reproductive History Menopausal Symptoms: No night sweats ROS Const Constitutional: Denies fatigue, night sweats, weight gain or weight loss ENT ENT: Reports system reviewed and no additional complaints, except as documented Cardio Card: Denies chest pain Resp Resp: Denies cough or dyspnea GI GI: Reports as per HPI; Denies abdominal pain, constipation, nausea or vomiting : Denies nipple discharge, urinary frequency, urinary incontinence, urinary hesitancy, urinary urgency, vaginal discharge, vaginal dryness, vaginal odor or vaginal pruritus Musc Musc: Denies arthralgias, back pain or muscle weakness Skin Skin/Breast: Denies alopecia, change in hair, dry skin, breast mass, breast pain, breast skin changes or nipple discharge Neuro Neuro: Reports system reviewed and no additional complaints, except as documented Psych Psych: Reports system reviewed and no additional complaints, except as documented Endo Endo: Denies cold intolerance, excessive sweating, heat intolerance or polydipsia Jeronimo/Lymph Hematologic/Lymphatic: Denies easy bleeding, Denies easy bruising and Denies lymphadenopathy Exam Const General: cooperative, healthy appearing, comfortable and no acute distress Orientation: alert HENIA (more content not included)... Normal [facility] PAP IG HPV APTIMA 16/18,45on 07-31-2024 ADEQ Comment Normal . [facility] Comment on above: Order Comment: Speci men Comment: [id number] Specimen Comment: Source.............Cervix Specimen Comment: No. of containers..01 ThinPrep Vial Result Comment: Sati sfactory for evaluation. Endocervical and/or squamous metaplastic cells (endocervical component) are present. Performed By: #### L 7400.0280 #### [facility] [address] [place], [address] COMM . Normal . [facility] Comment on above: Order Comment: Speci men Comment: [id number] Specimen Comment: Source.............Cervix Specimen Comment: No. of containers..01 ThinPrep Vial Performed By: #### L 7400.0280 #### [facility] [address] [place], [place], [address] COMMENT Comment Normal . [facility] Comment on above: Order Comment: Speci men Comment: [id number] Specimen Comment: Source.............Cervix Specimen Comment: No. of containers..01 ThinPrep Vial Result Comment: This liquid based ThinPrep(R) pap test was screened with the use of an image guided system. Performed By: #### L 7400.0280 #### [facility] [facility] [address] [place], [place], [id number] DIAG Comment Normal . [facility] Comment on above: Order Comment: Speci men Comment: [id number] Specimen Comment: Source.............Cervix Specimen Comment: No. of containers..01 ThinPrep Vial Result Comment: NEGA TIVE FOR INTRAEPITHELIAL LESION OR MALIGNANCY. Performed By: #### L 7400.0280 #### [facility] [address] [place], [place], [address] HPV APTIMA, HR Negative Normal Negative [facility] Comment on above: Order Comment: Speci men Comment: [id number] Specimen Comment: Source.............Cervix Specimen Comment: No. of containers..01 ThinPrep Vial Result Comment: This nucleic acid amplification test detects fourteen high- risk HPV types (16,18,31,33,35,39,45,51,52,56,58,59,66,68) without differentiation. Performed By: #### L 7400.0280 #### [facility] [address] [place], [place], [id number] HPV Melissa Rfx Comment Normal . [facility] Comment on above: Order Comment: Speci men Comment: [id number] Specimen Comment: Source.............Cervix Specimen Comment: No. of containers..01 ThinPrep Vial Result Comment: Crit eria not met, HPV Genotype not performed. Performed at: - [facility] [id number] Lean Engineer: Barb Marshall MD, Phone: [phone] Performed at: =G - [facility] [address] [id number] Lean Engineer: Barb Marshall MD, Phone: [phone] Performed By: #### L 7400.0280 #### [facility] [address] [place], [place], [address] PAPSMR Comment Normal . [facility] Comment on above: Order Comment: Speci men Comment: [id number] Specimen Comment: Source.............Cervix Specimen Comment: No. of containers..01 ThinPrep Vial Result Comment: The Pap smear is a screening test designed to aid in the detection of premalignant and malignant conditions of the uterine cervix. It is not a diagnostic procedure and should not be used as the sole means of detecting cervical cancer. Both false-positive and false-negative reports do occur. Performed By: #### L 7400.0280 #### [facility] [address] [place], [place], [address] PERFORM Comment Normal . [facility] Comment on above: Order Comment: Speci men Comment: [id number] Specimen Comment: Source.............Cervix Specimen Comment: No. of containers..01 ThinPrep Vial Result Comment: Catalina White, Disk Operator (ASCP) Performed By: #### L 7400.0280 #### [facility] [address] [place], [address] Living Supervisor Cyto stain Nom (C vx/Vag) [ID]Ordered By: Ruth Tate on 07-27-2024 Pap Smear Performed By Comment . [facility] Comment on above: Gely Damonotechnologist (ASCP) Cytology report Cyto stain D oc (Cvx/Vag)Ordered By: Ruth Tate on 07-27-2024 Thin Prep Pap Smear Comment . [facility] Comment on above: The Pap smear is a s creening test designed to aid in thedetection of premalignant and malignant conditions of theuterine cervix. It is not a diagnostic procedure andshould not be used as the sole means of detecting cervicalcancer. Both false-positive and false-negative reports dooccur. Cytology report Cyto stain.t hin prep Doc (Cvx/Vag)Ordered By: Ruth Tate on 07-27-2024 HPV Genotype Special Info Comment . [facility] Comment on above: Criteria not met, HP V Genotype not performed.Performed at: [address] [id number] Director: Barb Marshall MD, Phone: [phone] at: =[address] [id number] Director: Brab Marshall MD, Phone: [phone] HPV 16+18+31+33+35+39+45+51+ 52+56+58+59+66+68 DNA Probe+sig amp Ql (Cvx)Ordered By: Ruth Tate on 07-27-2024 Human Papillomavirus High Risk Negative Negative [facility] Comment on above: This nucleic acid am plification test detects fourteen high- risk HPV types (16,18,31,33,35,39,45,51,52,56,58,59,66,68)without differentiation. Image-guided ThinPrep PapOrd ered By: Ruth Tate on 07-27-2024 Pap Smear Note Comment . [facility] Comment on above: This liquid based Th inPrep(R) pap test was screened withthe use of an image guided system. Image-guided liquid-based Pa pOrdered By: Ruth Tate on 07-27-2024 Pap Smear Diagnosis Comment . [facility] Comment on above: NEGATIVE FOR INTRAEP ITHELIAL LESION OR MALIGNANCY. Data Analytics Chief Scientist Office Visit Reporton 07-27-2024 Data Analytics Chief Scientist Office Visit Report [facility] [address], [address] [place] [address] OFFICE VISIT Date of Service: 07/27/24 MR#: [id number] Acct: [id number] Name: CHARLES STONER Rep #: [id number] : 1970 Provider: ROSEANNE weber Age/Sex: 54/F Location: [facility] Status: Signed Intake Vital Signs 07/21/24 14:34 07/27/24 13:13 Height 5 ft 4 in 5 ft 4 in Weight: 205 lb 204 lb 2 oz BMI 35.2 35.0 BP 124/88 H 130/87 H Intake Visit Reasons: EMB per B.M. Credit Rating Inspector Required: No Is patient in pain?: No Allergies Sulfa (Sulfonamide Antibiotics) Allergy (Verified 07/27/24 13:36) Rash oseltamivir phosphate (From Tamiflu) Adverse Reaction (Severe, Verified 07/27/24 13:36) Nausea/Vom/Diarrhea Latex, Natural Rubber Adverse Reaction (Verified 07/27/24 13:36) Rash Medications ???Medication ???Instructions ???Recorded ???Confirmed ???Type loratadine 10 mg tablet 10 mg PO DAILY PRN Allergies 01/0807/27/24 History ibuprofen 600 mg tablet 600 mg PO TID PRN pain #30 tabs 07/27/24 Rx ixekizumab 80 mg/mL subcutaneous 80 mg subcut Q4W 12/19/22 07/27/24 History auto-injector (Taltz Autoinjector) levothyroxine 100 mcg tablet 100 mcg PO DAILY 05/05/23 07/27/24 History biotin 10,000 mcg capsule mcg PO 07/21/24 07/27/24 History leflunomide 10 mg tablet 10 mg PO QDAY 07/21/24 07/27/24 Hi story Is last menstrual period known: No Patient : No PFSH PFSH Medical History Tinnitus Wears contact lenses Anxiety Alcohol use Psoriatic arthritis History of steroid therapy Arthritis Low iron Back pain Migraine headache Esophageal spasm History of IBS Gastric reflux Non-smoker History of stress test History of irregular heartbeat Family history of cancer of digestive organ Smita's thyroiditis Depression Surgical History Hx of bone marrow donation Hx of colonoscopy History of salpingectomy S/P endometrial ablation Family History Unknown Cancer of digestive system Father Colon polyps Other Breast cancer Diabetes Heart disease Social History number of children: 2 current occupational status: employed current occupation: [employer] Smoking Status: Never smoker Electronic Cigarette Use: not used second hand exposure: No alcohol intake: current alcohol intake frequency: holidays/special occasions only substance use type: does not use additional social history: - Christopher HPI EMB per B.M. Details: CHARLES STONER is a 54 year old who presents for seen in ED early June for heavy menstrual bleeding. States had sharp pain in lower right side just prior that only lasted seconds. States uterine ablation in 2019. Has never gone a year without bleeding but usually will have brown spotting for a few days every few months. Ultrasound indicates 1cm uterus with 2 fibroids, largest 3.5cm. Labs do not indicate that she is postmenopausal. ROS Const Constitutional: Reports system reviewed and no additional complaints, except as documented Eyes Eyes: Reports system reviewed and no additional complaints, except as documented GI GI: Denies abdominal pain or change in bowel habits : Reports as per HPI Exam Const General: cooperative and no acute distress Orientation: oriented x3 General: bladder normal to palpation External Female Exam: normal external appearance and normal appearance of the urethra Urethra: normal appearance of the urethra Speculum Exam - Vagina: normal appearance of the vagina, normal vaginal discharge, no lesions and nontender Speculum Exam - Cervix: mass (1cm nonfriable polyp) Bimanual Exam- Vagina Uterus: bladder normal to palpation, uterine shape normal, uterine mobility normal, non-tender and enlarged Bimanual Exam- Adnexa, other: normal adnexae, no masses and non-tender Office Procedures Miscellaneous Procedure Procedure Performed By: Procedure performed by: Ruth Tate NP Details Cervix prepped with betadine solution. 1cm endocervical polyp easily removed with ring forcep and twisting motion. Noted that appears to be another cervical polyp higher up in cervix and unable to remove. Cervix was stabilized with tenaculum and attempted to use graduate metal dilator to dilate cervix but unable to pass farther then 2cm. EMB deferred. Coding Level of Care Code Attention Applications Chemist Diagnoses Endocervical polyp N84.1 Uterine leiomyoma, unspecified location D25.9 Uterine leiomyoma location: unspecified location Abnormal uterine bleeding (AUB) N93.9 History of endometrial ablation Z98.890 (more content not included)... Normal [facility] Service comment (Unsp spec) [Interp]Ordered By: Ruth Tate on 07-27-2024 Pap Smear Comment (3) . . [facility] Surgery Specimen Level Darrick 07-27-2024 Surgery Specimen Level IV -------- Patient Age/Sex Location Account Attending Physician -------- CHARLES STONER 54/F [facility] [id number] ROSEANNE Galindo -------- Specimen: [id number] Received: 07/27/24 Status: RAMONITA Avilez Num: [id number] Spec Type: CERV Subm Dr: Ruth Tate, STEPHENC HEADER OPERATION: Polypectomy PRE-OP DIAGNOSIS: Cervical polyp TISSUE SUBMITTED: Cervical polyp -------- MICROSCOPIC DIAGNOSIS Cervical polyp, polypectomy: Benign endocervical polyp. [facility] 07/29/2024 MICROSCOPIC DESCRIPTION Slides are reviewed. GROSS DESCRIPTION Received is one container labeled with the patient's name and not further designated. The specimen consists of a piece of shabazz-pink polyp measuring 1.5 x 1.5 x 0.7cm. The specimen consists of a cystic lesion and is filled with mucoid material. The entire specimen is submitted in one cassette. Kofi 07/28/2024 TC:5 CPT:99318 -------- Patient Age/Sex Location Account Attending Physician -------- CHARLES STONER 54/F [facility] [id number] ROSEANNE Galindo -------- Signed (signature on file) Dr. Stefano Palomo MD 07/29/24 1246 -------- Normal [facility] Comment on above: Performed By: #### P SUIV #### [facility] [address] [facility] [place], [place], [id number] Absolute neutrophil countOrd ered By: Selma Jimenez on 07-21-2024 Neutrophils (Bld) [#/Vol] 5.5 10*3/uL 2.0-7.7 [facility] Basophil percentageOrdered B y: Selma Jimenez on 07-21-2024 Basophils/100 WBC (Bld) 0.9 % 0-1 [facility] CBC W/Diff, Automatedon 06-24 Absolute Lymph 2.54 X10 3/uL Normal 0.83-4.51 [facility] Comment on above: Performed By: #### L 100.0100, L3300.1750, L3100.5055 ####[facility] [address] [place], [place], [address] Absolute Neut 5.5 X10 3/uL Normal 2.0-7.7 [facility] Comment on above: Performed By: #### L 100.0100, L3300.1750, L3100.5055 ####[facility] [address] [place], [address] Basophils/100 WBC (Bld) 0.9 % Normal 0-1 [facility] Comment on above: Performed By: #### L 100.0100, L3300.1750, L3100.5055 ####[facility] [address] [place], [address] Eosinophils/100 WBC (Bld) 2.6 % Normal 0-5 [facility] Comment on above: Performed By: #### L 100.0100, L3300.1750, L3100.5055 ####[facility] [address] [place], [address] Erythrocyte distribution width (RBC) [Ratio] 13.6 % Normal 11.6-14.6 [facility] Comment on above: Performed By: #### L 100.0100, L3300.1750, L3100.5055 ####[facility] [address] [place], [address] Hematocrit (Bld) [Volume fraction] 38.2 % Normal 37-47 [facility] Comment on above: Performed By: #### L 100.0100, L3300.1750, L3100.5055 ####[facility] [address] [place], [address] Hemoglobin (Bld) [Mass/Vol] 12.4 g/dL Normal 12.0-15.0 [facility] Comment on above: Performed By: #### L 100.0100, L3300.1750, L3100.5055 ####[facility] [address] [place], [address] IG% 0.300 Normal 0.0-0.9 [facility] Comment on above: Result Comment: IG% - Immature Granulocytes (promyelocytes, myelocytes and metamyelocytes) > 1% indicates that a LEFT SHIFT is Present. Performed By: #### L 100.0100, L3300.1750, L3100.5055 ####[facility] [address] [place], [address] Lymphocytes/100 WBC (Bld) 27.2 % Normal 19-41 [facility] Comment on above: Performed By: #### L 100.0100, L3300.1750, L3100.5055 ####[facility] [address] [place], [address] MCH (RBC) [Entitic mass] 27.1 pg Normal 27.0-32.0 [facility] Comment on above: Performed By: #### L 100.0100, L3300.1750, L3100.5055 ####[facility] [address] [place], [address] MCHC (RBC) [Mass/Vol] 32.5 g/dL Normal 32-36 [facility] Comment on above: Performed By: #### L 100.0100, L3300.1750, L3100.5055 ####[facility] [address] [place], [address] MCV (RBC) [Entitic vol] 83.6 fL Normal 81-99 [facility] Comment on above: Performed By: #### L 100.0100, L3300.1750, L3100.5055 ####[facility] [address] [place], [address] Monocytes/100 WBC (Bld) 10.6 % High 0-10 [facility] Comment on above: Performed By: #### L 100.0100, L3300.1750, L3100.5055 ####[facility] [address] [place], [address] Neutrophils/100 WBC (Bld) 58.4 % Normal 47-70 [facility] Comment on above: Performed By: #### L 100.0100, L3300.1750, L3100.5055 ####[facility] [address] [place], [address] Nucleated RBC (Bld) [#/Vol] 0 10*3/uL Normal 0-5 [facility] Comment on above: Performed By: #### L 100.0100, L3300.1750, L3100.5055 ####[facility] [address] [place], [address] Platelet mean volume (Bld) [Entitic vol] 9.8 fL Normal 6.2-12.0 [facility] Comment on above: Performed By: #### L 100.0100, L3300.1750, L3100.5055 ####[facility] [address] [place], [address] Platelets (Bld) [#/Vol] 478 10*3/uL High 150-450 [facility] Comment on above: Performed By: #### L 100.0100, L3300.1750, L3100.5055 ####[facility] [address] [place], [address] RBC (Bld) [#/Vol] 4.57 10*6/uL Normal 4.2-5.4 [facility] Comment on above: Performed By: #### L 100.0100, L3300.1750, L3100.5055 ####[facility] [address] [place], [address] RDW SD 41.4 fl Normal 35.1-43.9 [facility] Comment on above: Performed By: #### L 100.0100, L3300.1750, L3100.5055 ####[facility] [address] [place] [place], [address] WBC (Bld) [#/Vol] 9.4 10*3/uL Normal 4.4-11.0 [facility] Comment on above: Performed By: #### L 100.0100, L3300.1750, L3100.5055 ####[facility] [address] [place], [place], [address] Eosinophil percentageOrdered By: Selma Jimenez on 07-21-2024 Eosinophils/100 WBC (Bld) 2.6 % 0-5 [facility] Erythrocyte distribution wid th ratioOrdered By: Selma Jimenez on 07-21-2024 Erythrocyte distribution width (RBC) [Ratio] 13.6 % 11.6-14.6 [facility] Erythrocyte distribution wid th standard deviationOrdered By: Selma Jimenez on 07-21-2024 Erythrocyte distribution width (RBC) [Entitic vol] 41.4 fL 35.1-43.9 [facility] Estradiolon 07-21-2024 ESTRADIOL 13.7 pg/mL Normal [facility] Comment on above: Result Comment: NORM AL REFERENCE RANGES FEMALE FOLLICULAR 21.4 - 164.8 pg/mL MID-CYCLE PEAK 49.9 - 367.2 pg/mL LUTEAL 40.2 - 259.0 pg/mL POST-MENOPAUSAL ON MHT <11.0 - 462.1 pg/mL NOT ON MHT <11.0 - 58.3 pg/mL MALE <11.0 - 52.5 pg/mL NOTE: [employer] HAS CONFIRMED THE DRUG FULVETRANT (FASLODEX) MAY CAUSE FALSELY ELEVATED ESTRADIOL RESULTS WHEN USING THIS TEST METHOD. IF PATIENT IS TAKING FULVESTRANT AN ALTERNATIVE METHOD SHOULD BE USED TO DETERMINE ESTRADIOL CONCENTRATION. Performed By: #### L 100.0100, L3300.1750, L3100.5055 ####[facility] [address] [place], [place], [address] Estradiol measurementOrdered By: Selma Jimenez on 07-21-2024 Estradiol (E2) Level 13.7 pg/mL [facility] Comment on above: NORMAL REFERENCE RAN GES FEMALE FOLLICULAR 21.4 - 164.8 pg/mL MID-CYCLE PEAK 49.9 - 367.2 pg/mL LUTEAL 40.2 - 259.0 pg/mL POST-MENOPAUSAL ON MHT <11.0 - 462.1 pg/mL NOT ON MHT <11.0 - 58.3 pg/mL MALE <11.0 - 52.5 pg/mL NOTE:[employer] HAS CONFIRMED THE DRUG FULVETRANT (FASLODEX) MAY CAUSE FALSELY ELEVATED ESTRADIOL RESULTS WHEN USING THIS TEST METHOD. IF PATIENT IS TAKING FULVESTRANT AN ALTERNATIVE METHOD SHOULD BE USED TO DETERMINE ESTRADIOL CONCENTRATION. FSH and LHon 07-21-2024 FSH 22.8 mIU/mL Normal [facility] Comment on above: Result Comment: NORMAL REFERENCE RANGES FEMALE FOLLICULAR 2.3 - 12.6 mIU/mL MID-CYCLE PEAK 5.2 - 17.5 mIU/mL LUTEAL 1.7 - 12.9 mIU/mL POST-MENOPAUSAL ON MHT 5.9 - 72.8 mIU/mL NOT ON MHT 12.7 - 132.2 mlU/mL MALE 0.7 - 10.8 mIU/mL Performed By: #### L 100.0100, L3300.1750, L3100.5055 ####[facility] [address] [place], [place], [address] LH 9.5 mIU/mL Normal [facility] Comment on above: Result Comment: NORMAL REFERENCE RANGES FEMALE FOLLICULAR 1.9 - 26.2 mIU/mL MID-CYCLE PEAK 22.8 - 76.1 mIU/mL LUTEAL 0.6 - 16.6 mIU/mL POST-MENOPAUSAL ON MHT 1.1 - 52.4 mIU/mL NOT ON MHT 8.6 - 61.8 mIU/mL MALE 1.2 - 10.6 mIU/mL Performed By: #### L 100.0100, L3300.1750, L3100.5055 ####[facility] [address] [place] [place], [address] Follicle stimulating hormone (FSH) levelOrdered By: Selma Jimenez on 07-21-2024 Follicle Stimulating Hormone 22.8 mIU/mL [facility] Comment on above: NORMAL REFERENCE RAN GES FEMALE FOLLICULAR 2.3 - 12.6 mIU/mL MID-CYCLE PEAK 5.2 - 17.5 mIU/mL LUTEAL 1.7 - 12.9 mIU/mL POST-MENOPAUSAL ON MHT 5.9 - 72.8 mIU/mL NOT ON MHT 12.7 - 132.2 mlU/mL MALE 0.7 - 10.8 mIU/mL Hematocrit Auto (Bld) [Volum e fraction]Ordered By: Selma Jimenez on 07-21-2024 Hematocrit (Bld) [Volume fraction] 38.2 % 37-47 [facility] Hemoglobin measurementOrdere d By: Selma Jimenez on 07-21-2024 Hemoglobin (Bld) [Mass/Vol] 12.4 g/dL 12.0-15.0 [facility] Immature granulocytes/100 WB C Auto (Bld)Ordered By: Selma Jimenez on 07-21-2024 Immature granulocytes/100 WBC (Bld) 0.300 % 0.0-0.9 [facility] Comment on above: IG% - Immature Granu locytes (promyelocytes, myelocytes and metamyelocytes) > 1% indicates that a LEFT SHIFT is Present. Luteinizing hormone measurem entOrdered By: Selma Jimenez on 07-21-2024 Luteinizing Hormone 9.5 mIU/mL [facility] Comment on above: NORMAL REFERENCE RAN GES FEMALE FOLLICULAR 1.9 - 26.2 mIU/mL MID-CYCLE PEAK 22.8 - 76.1 mIU/mL LUTEAL 0.6 - 16.6 mIU/mL POST-MENOPAUSAL ON MHT 1.1 - 52.4 mIU/mL NOT ON MHT 8.6 - 61.8 mIU/mL MALE 1.2 - 10.6 mIU/mL Lymphocytes Auto (Unsp spec) [#/Vol]Ordered By: Selma Jimenez on 07-21-2024 Lymphocytes (Bld) [#/Vol] 2.54 10*3/uL 0.83-4.51 [facility] Lymphocytes/100 WBC Auto (Un sp spec)Ordered By: Selma Jimenez on 07-21-2024 Lymphocytes/100 WBC (Bld) 27.2 % 19-41 [facility] MCV (mean corpuscular volume ) determinationOrdered By: Selma Jimenez on 07-21-2024 MCV (RBC) [Entitic vol] 83.6 fL 81-99 [facility] Mean corpuscular hemoglobin (MCH) determinationOrdered By: Selma Jimenez on 07-21-2024 MCH (RBC) [Entitic mass] 27.1 pg 27.0-32.0 [facility] Mean corpuscular hemoglobin concentration (MCHC) determinationOrdered By: Selma Jimenez on 07-21-2024 MCHC (RBC) [Mass/Vol] 32.5 g/dL 32-36 [facility] Mean platelet volume determi nationOrdered By: Selma Jimenez on 07-21-2024 Platelet mean volume (Bld) [Entitic vol] 9.8 fL 6.2-12.0 [facility] Monocyte percentageOrdered B y: Selma Jimenez on 07-21-2024 Monocytes/100 WBC (Bld) 10.6 % High 0-10 [facility] Neutrophil percentageOrdered By: Selma Jimenez on 07-21-2024 Neutrophils/100 WBC (Bld) 58.4 % 47-70 [facility] Nucleated red blood cell per centageOrdered By: Selma Jimenez on 07-21-2024 Nucleated RBC/100 WBC (Bld) [Ratio] 0 % 0-5 [facility] Data Analytics Chief Scientist Office Visit Reporton 07-21-2024 Data Analytics Chief Scientist Office Visit Report [facility] [address], [address] [place] [address] OFFICE VISIT Date of Service: 07/21/24 MR#: [id number] Acct: [id number] Name: CHARLES STONER Rep #: [id number] : 1970 Provider: ROSEANNE Flower Age/Sex: 54/F Location: [facility] Status: Signed Intake Vital Signs 07/20/24 13:16 07/21/24 14:34 Height 5 ft 4 in 5 ft 4 in Weight: 205 lb BMI 35.2 BP 124/88 H Intake Visit Reasons: ER F/U HEAVY BLEEDING Credit Rating Inspector Required: No Is patient in pain?: No Allergies Sulfa (Sulfonamide Antibiotics) Allergy (Verified 07/21/24 14:32) Rash oseltamivir phosphate (From Tamiflu) Adverse Reaction (Severe, Verified 07/21/24 14:32) Nausea/Vom/Diarrhea Latex, Natural Rubber Adverse Reaction (Verified 07/21/24 14:32) Rash Medications ???Medication ???Instructions ???Recorded ???Confirmed ???Type loratadine 10 mg tablet 10 mg PO DAILY PRN Allergies 01/09/20 07/21/24 History ibuprofen 600 mg tablet 600 mg PO TID PRN pain #30 tabs 01/27/20 07/21/24 Rx ixekizumab 80 mg/mL subcutaneous 80 mg subcut Q4W 12/19/22 07/21/24 History auto-injector (Taltz Autoinjector) levothyroxine 100 mcg tablet 100 mcg PO DAILY 05/05/23 07/21/24 History biotin 10,000 mcg capsule mcg PO 07/21/24 07/21/24 History leflunomide 10 mg tablet 10 mg PO QDAY 07/21/24 07/21/24 History Is last menstrual period known: No PFSH Medical History Tinnitus Wears contact lenses Anxiety Alcohol use Psoriatic arthritis History of steroid therapy Arthritis Low iron Back pain Migraine headache Esophageal spasm History of IBS Gastric reflux Non-smoker History of stress test History of irregular heartbeat Family history of cancer of digestive organ Smita's thyroiditis Depression Surgical History Hx of bone marrow donation Hx of colonoscopy History of salpingectomy S/P endometrial ablation Family History Unknown Cancer of digestive system Father Colon polyps Other Breast cancer Diabetes Heart disease Social History number of children: 2 current occupational status: employed current occupation: [employer] Smoking Status: Never smoker Electronic Cigarette Use: not used second hand exposure: No alcohol intake: current alcohol intake frequency: holidays/special occasions only substance use type: does not use additional social history: - Christaricer HPI ER F/U HEAVY BLEEDING Details: CHARLES STONER is a 54 year old who presents for an ER follow up from yesterday. She does have a history of endometriosis. Had ablation [place] [address] Nahed Teixeira. Prior to March she had 8 months of no bleeding. In March 2024 she had a one day episode of dark blood/spotting. At that time advised ultrasound however was unable to obtain this. In May then had a 1 day light spotting/bleeding. Friday this week she started with vaginal bleeding; this resolved overnight. Then yesterday mid morning she had a sharp right pelvic pain; shortly after she had gushing blood. She then proceeded to the ER. At the ER test was ran and this was negative. Ultrasound was completed--report overall normal however lining was at 9mm. No further pelvic pain. She confirms she is not having to change a pad every hour and bleeding is overall improved. Was advised from ER to follow up with [facility] as soon as possible. Female Reproductive History Last Menstrual Period: 07/19/24 Questions: metorrhagia: No, sexually active: Yes, dyspareunia: No and PCB: No ROS Const Constitutional: Reports system reviewed and no additional complaints, except as documented; Denies chills or fever(s) ENT ENT: Denies dizziness Cardio Card: Denies palpitations Resp Resp: Denies cough GI GI: Denies constipation, nausea or vomiting : Reports as per HPI; Denies vaginal discharge, vaginal dryness, vaginal odor or vaginal pruritus Neuro Neuro: Denies dizziness Endo Endo: Reports as per HPI Exam Const General: cooperative, healthy appearing, comfortable, no acute distress, well developed and well groomed Resp Effort Inspection: normal respiratory effort, able to speak in complete sentences and symmetric chest movement Speculum Exam - Vagina: normal appearance of the vagina and vaginal bleeding (cervix; no lesions or masses noted. ) Bimanual Exam- Vagina Uterus: normal bimanual exam, normal palpation and uterine size normal Bimanual Exam- Adnexa, other: normal Pelvic Support: normal OB/External Speculum: vaginal bleeding (cervix; no lesions or masses noted. ) Speculum Exam: vagin (more content not included)... Normal [facility] Platelet countOrdered By: Kamini Jimenez on 07-21-2024 Platelets (Bld) [#/Vol] 478 10*3/uL High 150-450 [facility] RBC Auto (Bld) [#/Vol]Ordere d By: Selma Jimenez on 07-21-2024 RBC (Bld) [#/Vol] 4.57 10*6/uL 4.2-5.4 [facility] White blood cell (WBC) count Ordered By: Selma Jimenez on 07-21-2024 WBC (Bld) [#/Vol] 9.4 10*3/uL 4.4-11.0 [facility] Beta HCG ( test) Ql Ordered By: Alfred Bates on 07-20-2024 Serum Test, Qualitative Negative [facility] Emergency Department Summary on 07-20-2024 Emergency Department Summary [facility] Medical Records Department [address] [place] [address] Emergency Department Summary 07/20/24 MR#: [id number] Acct: [id number] Name: CHARLES STONER Rep #: [id number] : 1970 54 From: Alfred Bates DO PCP: Dr. Mikel Nicolas MD Status:DEP ER Location: ED HPI HPI - Female History of Present Illness Chief Complaint: Vag Bld, Preg Informant: patient Narrative Narrative: 54-year-old female presenting for the evaluation of abnormal vaginal bleeding. Patient states she underwent uterine ablation with Dr. Susana Teixeira in 2019. She has subsequently been following with [facility] but has not seen anybody at the [place] office for about a year and a half. She notes that intermittently since the ablation she would have the occasional spotting of blood. She states that in the fall she had a day of dark brown like discharge in May had 1 day of spotting. She states that yesterday she had light bleeding. She states that resolved during the night. This morning she notes a slight pain on the right lower side of her abdomen. She went outside and felt a gush of blood. At this point she decided to come to emergency for evaluation. She states now the bleeding is more of a spotting and only needs a panty liner. She is not on any gynecologic hormonal medication. She is treated for psoriatic arthritis. She is a non-smoker. [facility] Medical History Tinnitus Wears contact lenses Anxiety Alcohol use Psoriatic arthritis History of steroid therapy Arthritis Low iron Back pain Migraine headache Esophageal spasm History of IBS Gastric reflux Non-smoker History of stress test History of irregular heartbeat Family history of cancer of digestive organ Smita's thyroiditis Depression Home Medications ???Medication ???Instructions ???Recorded ???Last Taken ???Type loratadine 10 mg tablet 10 mg PO DAILY PRN Allergies 01/09/20 01/07/20 21:00 History sertraline 50 mg tablet 50 mg PO QHS depression 01/09/20 01/08/20 21:00 History ibuprofen 600 mg tablet 600 mg PO TID PRN pain #30 tabs 01/27/20 Unknown Rx ixekizumab 80 mg/mL subcutaneous 80 mg subcut Q4W 12/19/22 Unknown History auto-injector (Taltz Autoinjector) levothyroxine 100 mcg tablet 100 mcg PO DAILY 05/05/23 Unknown History clonazepam 0.5 mg tablet (Klonopin) 0.5 mg PO DAILY PRN anxiety 06/27/23 Unknown History famotidine 20 mg tablet (Acid 20 mg PO DAILY 07/04/23 Unknown History Controller) prednisone 10 mg tablet 10 mg PO DAILY PRN ARTHRITIS FLARE 07/04/23 Unknown History Allergy/AdvReac Type Severity Reaction Status Date / Time Sulfa (Sulfonamide Allergy Rash Verified 07/20/24 13:16 Antibiotics) oseltamivir phosphate (From AdvReac Severe Nausea/Vom/ Verified 07/20/24 13:16 Tamiflu) Diarrhea Latex, Natural Rubber AdvReac Rash Verified 07/20/24 13:16 Family History Unknown Cancer of digestive system Father Colon polyps Other Breast cancer Diabetes Heart disease Surgical History Hx of bone marrow donation Hx of colonoscopy History of salpingectomy S/P endometrial ablation Social History number of children: 2 current occupational status: employed current occupation: [employer] Smoking Status: Never smoker Electronic Cigarette Use: not used second hand exposure: No alcohol intake: current alcohol intake frequency: holidays/special occasions only substance use type: does not use additional social history: - Christopher ROS ROS ED Constitutional Constitutional ED: Denies chills, fever(s) or weight loss Eyes Eyes: Denies change in vision or diplopia ENT ENT ED: Denies ear pain, rhinorrhea or sore throat Cardiovascular Cardiovascular: Denies chest pain, orthopnea, palpitations or racing heartbeat Respiratory/Chest Respiratory/Chest: Denies cough, dyspnea or orthopnea Gastrointestinal Gastrointestinal: Denies abdominal pain, diarrhea, nausea or vomiting Genitourinary Genitourinary ED: Reports other Details: Vaginal bleeding ; Denies dysuria, hematuria or urinary frequency Musculoskeletal Musculoskeletal: Denies arthralgias or myalgias Integumentary Denies abscess or rash Neurologic Neurologic: Denies headache(s) or weakness Psychiatric Psychiatric: Denies anxiety, depression, suicidal ideation or suicidal thoughts Endocrine Endocrinology: Denies polydipsia, polyphagia or polyuria Allergic/Immunologic Allergic/Immunologic ED: Denies mouth swelling, tongue swelling or urticaria EXAM Physical Exam Const Vital Signs: 07/20/24 (more content not included)... Normal [facility] HH, Hemoglobin AND Hematocri ton 07-20-2024 Hematocrit (Bld) [Volume fraction] 36.6 % Low 3747 [facility] Comment on above: Performed By: #### L 100.0600 ####[facility] [address] [facility] [place], [address] Hemoglobin (Bld) [Mass/Vol] 12.1 g/dL Normal 12.0-15.0 [facility] Comment on above: Performed By: #### L 100.0600 ####[facility] [address] [place], [address] Hematocrit Auto (Bld) [Volum e fraction]Ordered By: Alfred Bates on 07-20-2024 Hematocrit (Bld) [Volume fraction] 36.6 % Low 37-47 [facility] Hemoglobin measurementOrdere d By: Alfred Bates on 07-20-2024 Hemoglobin (Bld) [Mass/Vol] 12.1 g/dL 12.0-15.0 [facility] Pelvic w/ Transvaginalon Pelvic w/ Transvaginal [facility] Imaging Services [address] [place], [place] [id number] Pelvic w/ Transvaginal MR#: [id number] Acct: [id number] Name: CHARLES STONER Rep #: [id number] : 1970 F 54 From: Jeremy ferris MD PCP: Dr. Mikel Nicolas MD Status: REG ER Study: Pelvic w/ Transvaginal Date of Exam: 07/20/24 Exam# [id number] Ordering Dr: Alfred Bates DO PROCEDURE: PELVIC W/ TRANSVAGINAL REASON FOR EXAM: Uterine bleeding. TECHNIQUE: Transabdominal and transvaginal pelvic ultrasound COMPARISON: None. FINDINGS: LMP: July 19, 2024. Measurements: Uterus: 11.2 x 6.6 x 4.3 cm. There are 2 uterine fibroids. The larger fibroid measures 3.4 cm x 2.6 cm x 2.4 cm. Endometrial Thickness: 9 mm. Nabothian cysts. Right Ovary: 3.2 x 2.1 x 1.8 cm. Dominant follicle measuring 1.8 cm x 1.6 cm x 1.2 cm. Left Ovary: 2.3 cm x 1.9 cm x 1.5 cm. TRANSABDOMINAL: Uterus: Normal size, myometrial echotexture, and contour. Endometrium: Unremarkable. Right ovary: Normal size and echotexture. Left ovary: Normal size and echotexture. No large pelvic mass identified. Transvaginal sonography was performed to better visualize the endometrium and to look for the nonvisualized ovary or ovaries. TRANSVAGINAL: Uterus: Anteverted. Normal contour and myometrial echotexture. Endometrium: Normal echotexture. Right ovary: Normal size and echotexture. Left ovary: Normal size and echotexture. Other adnexal findings: None. Cul-de-sac: No free intraperitoneal fluid identified. No tenderness. US/Pelvic w/ Transvaginal IMPRESSION: Uterine fibroids as described. Dominant follicle in the right ovary. Reading Location: [facility] CC: Dr. Alfred Bates DO; Dr. Mikel Nicolas MD Construction Accountant: Signed Normal [facility] ,Serum,hCG Quali.on 07-20-2024 HCG, SERUM QUAL Negative Normal [facility] Comment on above: Performed By: #### L 700.6800 #### [facility] [address] [place], [address] Quantiferon TB-Gold+on 06-01 QFT MITOGEN DAYSI > 10.00 Normal . [facility] Comment on above: Performed By: #### L 3400.8000 ####[facility] [address] [place], [address] QFT NIL VALUE 0 IU/mL Normal . [facility] Comment on above: Performed By: #### L 3400.8000 ####[facility] [address] [place], [address] QFT TB GOLD+ Comment Normal . [facility] Comment on above: Result Comment: Samm tiFERON-TB Gold Plus is a qualitative indirect test for M tuberculosis infection (including disease) and is intended for use in conjunction with risk assessment, radiography, and other medical and diagnostic evaluations. The QuantiFERON-TB Gold Plus result is determined by subtracting the Nil value from either TB antigen (Ag) value. The Mitogen tube serves as a control for the test. Performed By: #### L 3400.8000 ####[facility] [address] [place], [address] QFT TB POS CRIT Negative Normal Negative [facility] Comment on above: Result Comment: No r esponse to M tuberculosis antigens detected. Infection with M tuberculosis is unlikely, but high risk individuals should be considered for additional testing (ATS/IDSA/CDC Clinical Practice Guidelines, 2017). The reference range is an Antigen minus Nil result of <0.35 IU/mL. The specimen received for QuantiFERON testing was incubated by the ordering institution. Specific procedures outlined in our Directory of Services and in the package insert for the QuantiFERON Gold (In Tube) test must be followed to enable for proper stimulation of cells for the production of interferon gamma. Chemiluminescence immunoassay methodology Performed at: [facility] [id number] Lean Engineer: Jamie Hernadez PhD, Phone: [phone] Performed By: #### L 3400.8000 ####[facility] [address] [place], [address] QFT TB1+ AG DAYSI 0.01 IU/mL Normal . [facility] Comment on above: Performed By: #### L 3400.8000 ####[facility] [address] [place], [address] QFT TB2+ AG DAYSI 0.03 IU/mL Normal . [facility] Comment on above: Performed By: #### L 3400.8000 ####[facility] [address] [place], [address] M. tuberculosis tuberculin s nohelia IFN-g Ql (Bld)Ordered By: Ebenezer Martinez on 05-29-2024 TB Test (QFT) Antigen 1 0.01 IU/mL . [facility] Quantiferon-TB Gold Plus eve tOrdered By: Ebenezer Martinez on 05-29-2024 TB Test (QFT) Comment . [facility] Comment on above: QuantiFERON-TB Gold Plus is a qualitative indirect test forM tuberculosis infection (including disease) and isintended for use in conjunction with risk assessment,radiography, and other medical and diagnostic evaluations.The QuantiFERON-TB Gold Plus result is determined bysubtracting the Nil value from either TB antigen (Ag)value. The Mitogen tube serves as a control for the test. TB Test (QFT) Antigen 2 0.03 IU/mL . [facility] TB Test (QFT) Mitogen > 10.00 IU/mL . [facility] TB Test (QFT) Nil 0 IU/mL . [facility] TB Test (QFT) Positive Criteria Negative Negative [facility] Comment on above: No response to M tub erculosis antigens detected.Infection with M tuberculosis is unlikely, but high riskindividuals should be considered for additional testing(ATS/IDSA/CDC Clinical Practice Guidelines, 2017). Thereference range is an Antigen minus Nil result of <0.35IU/mL.The specimen received for QuantiFERON testing was incubatedby the ordering institution. Specific procedures outlinedin our Directory of Services and in the package insert forthe QuantiFERON Gold (In Tube) test must be followed toenable for proper stimulation of cells for the productionof interferon gamma. Chemiluminescence immunoassaymethodologyPerformed at: [facility] [id number] Director: Jamie Hernadez PhD, Phone: [phone] Basophil percentageOrdered B y: Eleanor Lyon on 06-11-2023 Bilirubin [Mass/Vol] 0.40 mg/dL 0.20-1.00 [facility] Comment on above: For patients on eltr ombopag therapy, use of Dimension [place] TBIL is not recommended. Chloride [Moles/Vol] 107 mmol/L 98-107 [facility] Cholesterol [Mass/Vol] 165 mg/dL <200 [facility] Comment on above: <200 mg/dL Desirable 200-240 mg/dL Borderline >240 mg/dL High Risk Glucose [Mass/Vol] 88 mg/dL 74-106 [facility] Potassium [Moles/Vol] 4.3 mmol/L 3.5-5.1 [facility] Protein [Mass/Vol] 7.5 g/dL 6.4-8.2 [facility] Sodium [Moles/Vol] 141 mmol/L 136-145 [facility] Triglyceride [Mass/Vol] 96 mg/dL <199 [facility] Comment on above: The drugs N-Acetylcy steine and Metamizole may falsely depress this assay.Serum Triglycerides Reference Interval Normal <150 mg/dL Borderline high 150 - 199 mg/dL High 200 - 499 mg/dL Very High > or = 500 mg/dL Laboratory - Chemistry and C hemistry - challengeOrdered By: Eleanor Lyon on 06-11-2023 ALP [Catalytic activity/Vol] 43 U/L 45-117 [facility] ALT [Catalytic activity/Vol] 36 U/L 13-56 [facility] CO2 [Moles/Vol] 26.0 mmol/L 21.0-32.0 [facility] Globulin (S) [Mass/Vol] 3.9 g/dL 2.2-4.2 [facility] Urea nitrogen/Creatinine [Mass ratio] 13.7 mg/mg 10-20 [facility] No Panel InformationOrdered By: Eleanor Lyon on 06-11-2023 Estimated GFR (MDRD) Amer 108 mL/min >60 [facility] Comment on above: GFR Calc Estimated GFR (MDRD) Non-Af Amer 89 mL/min >60 [facility] Comment on above: Non- GFR Calc Follicle Stimulating Hormone 16.3 mIU/mL [facility] Comment on above: NORMAL REFERENCE RAN GES FEMALE FOLLICULAR 2.3 - 12.6 mIU/mL MID-CYCLE PEAK 5.2 - 17.5 mIU/mL LUTEAL 1.7 - 12.9 mIU/mL POST-MENOPAUSAL ON MHT 5.9 - 72.8 mIU/mL NOT ON MHT 12.7 - 132.2 mlU/mL MALE 0.7 - 10.8 mIU/mL Thyroid Stimulating Hormone (TSH) 1.23 uIU/mL 0.358-3.74 [facility] Serum or plasma albumin ethan urement (mass/volume)Ordered By: Eleanor Lyon on 06-11-2023 Albumin [Mass/Vol] 3.6 g/dL 3.2-5.0 [facility] Serum or plasma albumin/glob ulin mass ratioOrdered By: Eleanor Lyon on 06-11-2023 Albumin/Globulin [Mass ratio] 0.9 {ratio} 0.9-2.4 [facility] Serum or plasma calcium ethan urement (mass/volume)Ordered By: Eleanor Lyon on 06-11-2023 Calcium [Mass/Vol] 8.7 mg/dL 8.5-10.1 [facility] Serum or plasma cholesterol in HDL measurement (mass/volume)Ordered By: Eleanor Lyon on 06-11-2023 Cholesterol in HDL [Mass/Vol] 62 mg/dL >40 [facility] Comment on above: The drugs N-Acetylcy steine and Metamizole may falsely depress this assay. Reference Range HDL <40 mg/dL Low HDL Cholesterol HDL >or= 60 mg/dL High HDL Cholesterol Serum or plasma cholesterol in VLDL measurement (mass/volume)Ordered By: Eleanor Lyon on 06-11-2023 Cholesterol in VLDL [Mass/Vol] 19 mg/dL 5-40 [facility] Serum or plasma creatinine m easurement (mass/volume)Ordered By: Eleanor Lyon on 06-11-2023 Creatinine [Mass/Vol] 0.73 mg/dL 0.55-1.02 [facility] Comment on above: The validity of the calculated GFR & GFRAA in patients over 70 years has not been determined. Clinical correlation is essential. Serum or plasma estradiol (E 2) measurement (mass/volume)Ordered By: Eleanor Lyon on 06-11-2023 E2 [Mass/Vol] 158.6 pg/mL [facility] Comment on above: NORMAL REFERENCE RAN GES FEMALE FOLLICULAR 21.4 - 164.8 pg/mL MID-CYCLE PEAK 49.9 - 367.2 pg/mL LUTEAL 40.2 - 259.0 pg/mL POST-MENOPAUSAL ON MHT <11.0 - 462.1 pg/mL NOT ON MHT <11.0 - 58.3 pg/mL MALE <11.0 - 52.5 pg/mL NOTE:[employer] HAS CONFIRMED THE DRUG FULVETRANT (FASLODEX) MAY CAUSE FALSELY ELEVATED ESTRADIOL RESULTS WHEN USING THIS TEST METHOD. IF PATIENT IS TAKING FULVESTRANT AN ALTERNATIVE METHOD SHOULD BE USED TO DETERMINE ESTRADIOL CONCENTRATION. Serum or plasma low density lipoprotein (LDL) cholesterol measurement (mass/volume)Ordered By: Eleanor Lyon on 06-11-2023 Cholesterol in LDL [Mass/Vol] 84 mg/dL 0-130 [facility] Serum or plasma urea nitroge n measurement (mass/volume)Ordered By: Eleanor Lyon on 06-11-2023 Urea nitrogen [Mass/Vol] 10 mg/dL 7-18 [facility] Thin prep Papanicolaou smear with manual screeningOrdered By: Eleanor Lyon on 06-11-2023 Thin prep Papanicolaou smear with manual screening 21 U/L [facility] Thin prep Papanicolaou smear with manual screening 8 5-15 [facility] Laboratory - Chemistry and C hemistry - challengeOrdered By: Ebenezer Martinez on 05-01-2023 ALT [Catalytic activity/Vol] 51 U/L 13-56 [facility] Thin prep Papanicolaou smear with manual screeningOrdered By: Ebenezer Martinez on 05-01-2023 Thin prep Papanicolaou smear with manual screening 30 U/L [facility] Absolute lymphocyte countOrd ered By: Ebenezer Martinez on 04-05-2023 Lymphocytes Auto (Unsp spec) [#/Vol] 1.90 10*3/uL 0.83-4.51 [facility] Basophil percentageOrdered B y: Ebenezer Martinez on 04-05-2023 Basophils/100 WBC (Bld) 0.6 % 0-1 [facility] Bilirubin [Mass/Vol] 0.50 mg/dL 0.20-1.00 [facility] Comment on above: For patients on eltr ombopag therapy, use of Dimension [place] TBIL is not recommended. Eosinophils/100 WBC (Bld) 3.5 % 0-5 [facility] Neutrophils (Bld) [#/Vol] 7.0 10*3/uL 2.0-7.7 [facility] Neutrophils/100 WBC (Bld) 69.0 % 47-70 [facility] Protein [Mass/Vol] 7.9 g/dL 6.4-8.2 [facility] WBC (Bld) [#/Vol] 10.2 10*3/uL 4.4-11.0 [facility] Blood erythrocytes count (nu mber/volume)Ordered By: Ebenezer Martinez on 04-05-2023 RBC (Bld) [#/Vol] 4.70 10*6/uL 4.2-5.4 [facility] Blood hemoglobin measurement (mass/volume)Ordered By: Ebenezer Martinez on 04-05-2023 Hemoglobin (Bld) [Mass/Vol] 13.5 g/dL 12.0-15.0 [facility] Blood lymphocytes/100 leukoc ytesOrdered By: Ebenezer Martinez on 04-05-2023 Lymphocytes/100 WBC (Bld) 18.6 % 19-41 [facility] Blood monocytes/100 leukocyt esOrdered By: Ebenezer Martinez on 04-05-2023 Monocytes/100 WBC (Bld) 7.9 % 0-10 [facility] Blood platelet mean volumeOr dered By: Ebenezer Martinez on 04-05-2023 Platelet mean volume (Bld) [Entitic vol] 9.0 fL 6.2-12.0 [facility] Determination of erythrocyte mean corpuscular volume (MCV)Ordered By: Ebenezer Martinez on 04-05-2023 MCV (RBC) [Entitic vol] 85.7 fL 81-99 [facility] Direct bilirubinOrdered By: Ebenezer Martinez on 04-05-2023 Bilirubin.direct [Mass/Vol] 0.13 mg/dL 0.00-0.30 [facility] Hematocrit Auto (Bld) [Volum e fraction]Ordered By: Ebenezer Martinez on 04-05-2023 Hematocrit (Bld) [Volume fraction] 40.3 % 37-47 [facility] Laboratory - Chemistry and C hemistry - challengeOrdered By: Ebenezer Martinez on 04-05-2023 ALP [Catalytic activity/Vol] 61 U/L 45-117 [facility] ALT [Catalytic activity/Vol] 95 U/L 13-56 [facility] Globulin (S) [Mass/Vol] 4.3 g/dL 2.2-4.2 [facility] Laboratory - Hematology and Cell countsOrdered By: Ebenezer Martinez on 04-05-2023 Erythrocyte distribution width (RBC) [Entitic vol] 41.7 fL 35.1-43.9 [facility] Erythrocyte distribution width (RBC) [Ratio] 13.3 % 11.6-14.6 [facility] Immature granulocytes/100 WBC (Bld) 0.400 % 0.0-0.9 [facility] Comment on above: IG% - Immature Granu locytes (promyelocytes, myelocytes and metamyelocytes) > 1% indicates that a LEFT SHIFT is Present. MCH (RBC) [Entitic mass] 28.7 pg 27.0-32.0 [facility] Nucleated RBC/100 WBC (Bld) [Ratio] 0 % 0-5 [facility] MCHC Auto (RBC) [Mass/Vol]Or dered By: Ebenezer Martinez on 04-05-2023 MCHC (RBC) [Mass/Vol] 33.5 g/dL 32-36 [facility] Platelets bldOrdered By: Robin Martinez on 04-05-2023 Platelets (Bld) [#/Vol] 414 10*3/uL 150-450 [facility] Qualitative QuantiFERON-TB g old in tube testOrdered By: Ebenezer Martinez on 04-05-2023 M. tuberculosis tuberculin stim IFN-g Ql (Bld) 0.08 IU/mL . [facility] Serum or plasma albumin ethan urement (mass/volume)Ordered By: Ebenezer Martinez on 04-05-2023 Albumin [Mass/Vol] 3.6 g/dL 3.2-5.0 [facility] Thin prep Papanicolaou smear with manual screeningOrdered By: Ebenezer Martinez on 04-05-2023 Thin prep Papanicolaou smear with manual screening 60 U/L 15-37 [facility] Thin prep Papanicolaou smear with manual screening Comment . [facility] Comment on above: QuantiFERON-TB Gold Plus is a qualitative indirect test forM tuberculosis infection (including disease) and isintended for use in conjunction with risk assessment,radiography, and other medical and diagnostic evaluations.The QuantiFERON-TB Gold Plus result is determined bysubtracting the Nil value from either TB antigen (Ag)value. The Mitogen tube serves as a control for the test. Thin prep Papanicolaou smear with manual screening 0.09 IU/mL . [facility] Thin prep Papanicolaou smear with manual screening 0.08 IU/mL . [facility] Thin prep Papanicolaou smear with manual screening > 10.00 IU/mL . [facility] Thin prep Papanicolaou smear with manual screening Negative Negative [facility] Comment on above: No response to M tub erculosis antigens detected.Infection with M tuberculosis is unlikely, but high riskindividuals should be considered for additional testing(ATS/IDSA/CDC Clinical Practice Guidelines, 2017). Thereference range is an Antigen minus Nil result of <0.35IU/mL.The specimen received for QuantiFERON testing was incubatedby the ordering institution. Specific procedures outlinedin our Directory of Services and in the package insert forthe QuantiFERON Gold (In Tube) test must be followed toenable for proper stimulation of cells for the productionof interferon gamma. Chemiluminescence immunoassaymethodologyPerformed at: [facility] [id number] Director: Jamie Hernadez PhD, Phone: [phone] Cervical or vagninal specime n microscopic examination by cytology stain (reported asOrdered By: Caridad Alejandra on 02-13-2023 Cytology report Cyto stain Doc (Cvx/Vag) Comment . [facility] Comment on above: The Pap smear is a s creening test designed to aid in thedetection of premalignant and malignant conditions of theuterine cervix. It is not a diagnostic procedure andshould not be used as the sole means of detecting cervicalcancer. Both false-positive and false-negative reports dooccur. Laboratory - CytologyOrdered By: Caridad Alejandra on 02-13-2023 Living Supervisor Cyto stain Nom (Cvx/Vag) [ID] Comment . [facility] Comment on above: Cyrus Montes totechnologist (ASCP) Laboratory - Miscellaneous t estsOrdered By: Caridad Alejandra on 02-13-2023 Service comment (Unsp spec) [Interp] Comment . [facility] Comment on above: This liquid based Th inPrep(R) pap test was screened withthe use of an image guided system. Service comment (Unsp spec) [Interp] . . [facility] No Panel InformationOrdered By: Caridad Alejandra on 02-13-2023 Human Papillomavirus Screen Comment . [facility] Comment on above: The HPV DNA reflex c riteria were not met with this specimenresult therefore, no HPV testing was performed.Performed at: [facility] Lab[address] [id number] Director: Barb Marshall MD, Phone: [phone] Pathology report final diagnosis Narrative Comment . [facility] Comment on above: NEGATIVE FOR INTRAEP ITHELIAL LESION OR MALIGNANCY. Basophil percentageOrdered B y: Dr. Lara on 12-09-2022 Bilirubin [Mass/Vol] 0.40 mg/dL 0.20-1.00 [facility] Comment on above: For patients on eltr ombopag therapy, use of Dimension [place] TBIL is not recommended. Chloride [Moles/Vol] 106 mmol/L 98-107 [facility] Glucose [Mass/Vol] 97 mg/dL 74-106 [facility] Potassium [Moles/Vol] 4.1 mmol/L 3.5-5.1 [facility] Protein [Mass/Vol] 7.9 g/dL 6.4-8.2 [facility] Sodium [Moles/Vol] 136 mmol/L 136-145 [facility] Laboratory - Chemistry and C hemistry - challengeOrdered By: Dr. Lara on 12-09-2022 ALP [Catalytic activity/Vol] 43 U/L 45-117 [facility] ALT [Catalytic activity/Vol] 15 U/L 13-56 [facility] CO2 [Moles/Vol] 22.0 mmol/L 21.0-32.0 [facility] Globulin (S) [Mass/Vol] 4.3 g/dL 2.2-4.2 [facility] Urea nitrogen/Creatinine [Mass ratio] 15.5 mg/mg 10-20 [facility] No Panel InformationOrdered By: Dr. Lara on 12-09-2022 Estimated GFR (MDRD) Amer 100 mL/min >60 [facility] Comment on above: GFR Calc Estimated GFR (MDRD) Non-Af Amer 83 mL/min >60 [facility] Comment on above: Non- GFR Calc Thyroid Stimulating Hormone (TSH) 1.62 uIU/mL 0.358-3.74 [facility] Vitamin D 25-Hydroxy 41.6 ng/mL [facility] Comment on above: Vitamin D 25(OH) Sta tus Range Deficiency <20 ng/mL (50nmol/L) Insufficiency 20 - 30 ng/mL (50 - 75 nmol/L) Sufficiency 30 - 100 ng/mL (75 - 250 nmol/L) Toxicity >100 ng/mL (>250 nmol/L) Serum or plasma albumin ethan urement (mass/volume)Ordered By: Dr. Lara on 12-09-2022 Albumin [Mass/Vol] 3.6 g/dL 3.2-5.0 [facility] Serum or plasma albumin/glob ulin mass ratioOrdered By: Dr. Lara on 12-09-2022 Albumin/Globulin [Mass ratio] 0.8 {ratio} 0.9-2.4 [facility] Serum or plasma calcium ethan urement (mass/volume)Ordered By: Dr. Lara on 12-09-2022 Calcium [Mass/Vol] 9.0 mg/dL 8.5-10.1 [facility] Serum or plasma creatinine m easurement (mass/volume)Ordered By: Dr. Lara on 12-09-2022 Creatinine [Mass/Vol] 0.78 mg/dL 0.55-1.02 [facility] Comment on above: The validity of the calculated GFR & GFRAA in patients over 70 years has not been determined. Clinical correlation is essential. Serum or plasma urea nitroge n measurement (mass/volume)Ordered By: Dr. Lara on 12-09-2022 Urea nitrogen [Mass/Vol] 12 mg/dL 7-18 [facility] Thin prep Papanicolaou smear with manual screeningOrdered By: Dr. Lara on 12-09-2022 Thin prep Papanicolaou smear with manual screening 11 U/L 15-37 [facility] Thin prep Papanicolaou smear with manual screening 8 5-15 [facility] Absolute lymphocyte counton 05-03-2022 Lymphocytes Auto (Unsp spec) [#/Vol] 2.73 10*3/uL 0.83-4.51 [facility] Work Phone: [phone] Basophil percentageon 2021 Basophils/100 WBC (Bld) 0.3 % 0-1 [facility] Work Phone: Bilirubin [Mass/Vol] 0.40 mg/dL 0.20-1.00 [facility] Work Phone: Comment on above: For patients on eltr ombopag therapy, use of Dimension [place] TBIL is not recommended. Chloride [Moles/Vol] 107 mmol/L 98-107 [facility] Work Phone: [phone] Eosinophils/100 WBC (Bld) 1.8 % 0-5 [facility] Work Phone: Glucose [Mass/Vol] 91 mg/dL 74-106 [facility] Work Phone: Neutrophils (Bld) [#/Vol] 7.4 10*3/uL 2.0-7.7 [facility] Work Phone: Neutrophils/100 WBC (Bld) 65.1 % 47-70 [facility] Work Phone: Potassium [Moles/Vol] 3.7 mmol/L 3.5-5.1 [facility] Work Phone: Protein [Mass/Vol] 7.5 g/dL 6.4-8.2 [facility] Work Phone: Sodium [Moles/Vol] 138 mmol/L 136-145 [facility] Work Phone: WBC (Bld) [#/Vol] 11.4 10*3/uL 4.4-11.0 [facility] Work Phone: Blood erythrocytes count (nu mber/volume)on 05-03-2022 RBC (Bld) [#/Vol] 4.45 10*6/uL 4.2-5.4 [facility] Work Phone: Blood hemoglobin measurement (mass/volume)on 05-03-2022 Hemoglobin (Bld) [Mass/Vol] 12.9 g/dL 12.0-15.0 [facility] Work Phone: Blood lymphocytes/100 leukoc yteson 05-03-2022 Lymphocytes/100 WBC (Bld) 24.0 % 19-41 [facility] Work Phone: Blood monocytes/100 leukocyt eson 05-03-2022 Monocytes/100 WBC (Bld) 8.5 % 0-10 [facility] Work Phone: Blood platelet mean volumeon 05-03-2022 Platelet mean volume (Bld) [Entitic vol] 9.5 fL 6.2-12.0 [facility] Work Phone: Determination of erythrocyte mean corpuscular volume (MCV)on 05-03-2022 MCV (RBC) [Entitic vol] 87.2 fL 81-99 [facility] Work Phone: Hematocrit Auto (Bld) [Volum e fraction]on 05-03-2022 Hematocrit (Bld) [Volume fraction] 38.8 % 37-47 [facility] Work Phone: Laboratory - Chemistry and C hemistry - challengeon 05-03-2022 ALP [Catalytic activity/Vol] 44 U/L 45-117 [facility] Work Phone: ALT [Catalytic activity/Vol] 17 U/L 13-56 [facility] Work Phone: CO2 [Moles/Vol] 26.0 mmol/L 21.0-32.0 [facility] Work Phone: Globulin (S) [Mass/Vol] 3.9 g/dL 2.2-4.2 [facility] Work Phone: Urea nitrogen/Creatinine [Mass ratio] 18.2 mg/mg 10-20 [facility] Work Phone: Laboratory - Hematology and Cell countson 05-03-2022 Erythrocyte distribution width (RBC) [Entitic vol] 45.0 fL 35.1-43.9 [facility] Work Phone: Erythrocyte distribution width (RBC) [Ratio] 14.0 % 11.6-14.6 [facility] Work Phone: Immature granulocytes/100 WBC (Bld) 0.300 % 0.0-0.9 [facility] Work Phone: Comment on above: IG% - Immature Granu locytes (promyelocytes, myelocytes and metamyelocytes) > 1% indicates that a LEFT SHIFT is Present. MCH (RBC) [Entitic mass] 29.0 pg 27.0-32.0 [facility] Work Phone: Nucleated RBC/100 WBC (Bld) [Ratio] 0 % 0-5 [facility] Work Phone: MCHC Auto (RBC) [Mass/Vol]on 05-03-2022 MCHC (RBC) [Mass/Vol] 33.2 g/dL 32-36 [facility] Work Phone: No Panel Informationon 05-03 Estimated GFR (MDRD) Amer 122 mL/min >60 [facility] Work Phone: Comment on above: GFR Calc Estimated GFR (MDRD) Non-Af Amer 101 mL/min >60 [facility] Work Phone: Comment on above: Non- GFR Calc Thyroid Stimulating Hormone (TSH) 0.88 uIU/mL 0.358-3.74 [facility] Work Phone: Platelets bldon 05-03-2022 Platelets (Bld) [#/Vol] 415 10*3/uL 150-450 [facility] Work Phone: Serum or plasma albumin ethan urement (mass/volume)on 05-03-2022 Albumin [Mass/Vol] 3.6 g/dL 3.2-5.0 [facility] Work Phone: Serum or plasma albumin/glob ulin mass ratioon 05-03-2022 Albumin/Globulin [Mass ratio] 0.9 {ratio} 0.9-2.4 [facility] Work Phone: Serum or plasma calcium ethan urement (mass/volume)on 05-03-2022 Calcium [Mass/Vol] 9.3 mg/dL 8.5-10.1 [facility] Work Phone: Serum or plasma creatinine m easurement (mass/volume)on 05-03-2022 Creatinine [Mass/Vol] 0.66 mg/dL 0.55-1.02 [facility] Work Phone: Comment on above: The validity of the calculated GFR & GFRAA in patients over 70 years has not been determined. Clinical correlation is essential. Serum or plasma urea nitroge n measurement (mass/volume)on 05-03-2022 Urea nitrogen [Mass/Vol] 12 mg/dL 7-18 [facility] Work Phone: Thin prep Papanicolaou smear with manual screeningon 05-03-2022 Thin prep Papanicolaou smear with manual screening 8 U/L 15-37 [facility] Work Phone: Thin prep Papanicolaou smear with manual screening 5 5-15 [facility] Work Phone: Absolute lymphocyte counton 02-02-2022 Lymphocytes Auto (Unsp spec) [#/Vol] 2.23 10*3/uL 0.83-4.51 [facility] Work Phone: Basophil percentageon 2021 Basophils/100 WBC (Bld) 0.8 % 0-1 [facility] Work Phone: Bilirubin [Mass/Vol] 0.20 mg/dL 0.20-1.00 [facility] Work Phone: Comment on above: For patients on eltr ombopag therapy, use of Dimension [place] TBIL is not recommended. Chloride [Moles/Vol] 110 mmol/L 98-107 [facility] Work Phone: Eosinophils/100 WBC (Bld) 1.9 % 0-5 [facility] Work Phone: Glucose [Mass/Vol] 102 mg/dL 74-106 [facility] Work Phone: Comment on above: Fasting Glucose resu lt from 100 to 125 mg/dL suggests IMPAIRED HOMEOSTASIS per A.D.A. criteria. Neutrophils (Bld) [#/Vol] 5.7 10*3/uL 2.0-7.7 [facility] Work Phone: Neutrophils/100 WBC (Bld) 63.8 % 47-70 [facility] Work Phone: Potassium [Moles/Vol] 4.2 mmol/L 3.5-5.1 [facility] Work Phone: Protein [Mass/Vol] 7.5 g/dL 6.4-8.2 [facility] Work Phone: [phone] Sodium [Moles/Vol] 138 mmol/L 136-145 [facility] Work Phone: [phone] WBC (Bld) [#/Vol] 8.9 10*3/uL 4.4-11.0 [facility] Work Phone: Blood erythrocytes count (nu mber/volume)on 02-02-2022 RBC (Bld) [#/Vol] 4.51 10*6/uL 4.2-5.4 [facility] Work Phone: Blood hemoglobin measurement (mass/volume)on 02-02-2022 Hemoglobin (Bld) [Mass/Vol] 12.8 g/dL 12.0-15.0 [facility] Work Phone: [phone] Blood lymphocytes/100 leukoc yteson 02-02-2022 Lymphocytes/100 WBC (Bld) 25.1 % 19-41 [facility] Work Phone: [phone] Blood monocytes/100 leukocyt eson 02-02-2022 Monocytes/100 WBC (Bld) 8.3 % 0-10 [facility] Work Phone: Blood platelet mean volumeon 02-02-2022 Platelet mean volume (Bld) [Entitic vol] 9.3 fL 6.2-12.0 [facility] Work Phone: Determination of erythrocyte mean corpuscular volume (MCV)on 02-02-2022 MCV (RBC) [Entitic vol] 87.8 fL 81-99 [facility] Work Phone: Hematocrit Auto (Bld) [Volum e fraction]on 02-02-2022 Hematocrit (Bld) [Volume fraction] 39.6 % 37-47 [facility] Work Phone: Laboratory - Chemistry and C hemistry - challengeon 02-02-2022 ALP [Catalytic activity/Vol] 41 U/L 45-117 [facility] Work Phone: [phone] ALT [Catalytic activity/Vol] 18 U/L 13-56 [facility] Work Phone: CO2 [Moles/Vol] 24.0 mmol/L 21.0-32.0 [facility] Work Phone: Globulin (S) [Mass/Vol] 4.0 g/dL 2.2-4.2 [facility] Work Phone: Urea nitrogen/Creatinine [Mass ratio] 14.2 mg/mg 10-20 [facility] Work Phone: Laboratory - Hematology and Cell countson 02-02-2022 Erythrocyte distribution width (RBC) [Entitic vol] 43.9 fL 35.1-43.9 [facility] Work Phone: Erythrocyte distribution width (RBC) [Ratio] 13.7 % 11.6-14.6 [facility] Work Phone: Immature granulocytes/100 WBC (Bld) 0.100 % 0.0-0.9 [facility] Work Phone: Comment on above: IG% - Immature Granu locytes (promyelocytes, myelocytes and metamyelocytes) > 1% indicates that a LEFT SHIFT is Present. MCH (RBC) [Entitic mass] 28.4 pg 27.0-32.0 [facility] Work Phone: Nucleated RBC/100 WBC (Bld) [Ratio] 0 % 0-5 [facility] Work Phone: MCHC Auto (RBC) [Mass/Vol]on 02-02-2022 MCHC (RBC) [Mass/Vol] 32.3 g/dL 32-36 [facility] Work Phone: No Panel Informationon 02-02 Estimated GFR (MDRD) Amer 101 mL/min >60 [facility] Work Phone: Comment on above: GFR Calc Estimated GFR (MDRD) Non-Af Amer 83 mL/min >60 [facility] Work Phone: Comment on above: Non- GFR Calc Platelets bldon 02-02-2022 Platelets (Bld) [#/Vol] 432 10*3/uL 150-450 [facility] Work Phone: Serum or plasma albumin ethan urement (mass/volume)on 02-02-2022 Albumin [Mass/Vol] 3.5 g/dL 3.2-5.0 [facility] Work Phone: Serum or plasma albumin/glob ulin mass ratioon 02-02-2022 Albumin/Globulin [Mass ratio] 0.9 {ratio} 0.9-2.4 [facility] Work Phone: Serum or plasma calcium ethan urement (mass/volume)on 02-02-2022 Calcium [Mass/Vol] 8.8 mg/dL 8.5-10.1 [facility] Work Phone: Serum or plasma creatinine m easurement (mass/volume)on 02-02-2022 Creatinine [Mass/Vol] 0.78 mg/dL 0.55-1.02 [facility] Work Phone: Comment on above: The validity of the calculated GFR & GFRAA in patients over 70 years has not been determined. Clinical correlation is essential. Serum or plasma urea nitroge n measurement (mass/volume)on 02-02-2022 Urea nitrogen [Mass/Vol] 11 mg/dL 7-18 [facility] Work Phone: Thin prep Papanicolaou smear with manual screeningon 02-02-2022 Thin prep Papanicolaou smear with manual screening 9 U/L 15-37 [facility] Work Phone: Thin prep Papanicolaou smear with manual screening 4 5-15 [facility] Work Phone: Absolute lymphocyte counton 11-23-2021 Lymphocytes Auto (Unsp spec) [#/Vol] 1.84 10*3/uL 0.83-4.51 [facility] Work Phone: Basophil percentageon 2021 Basophils/100 WBC (Bld) 0.3 % 0-1 [facility] Work Phone: Bilirubin [Mass/Vol] 0.20 mg/dL 0.20-1.00 [facility] Work Phone: Comment on above: For patients on eltr ombopag therapy, use of Dimension [place] TBIL is not recommended. Chloride [Moles/Vol] 107 mmol/L 98-107 [facility] Work Phone: Eosinophils/100 WBC (Bld) 0.2 % 0-5 [facility] Work Phone: Glucose [Mass/Vol] 104 mg/dL 74-106 [facility] Work Phone: Comment on above: Fasting Glucose resu lt from 100 to 125 mg/dL suggests IMPAIRED HOMEOSTASIS per A.D.A. criteria. Neutrophils (Bld) [#/Vol] 9.4 10*3/uL 2.0-7.7 [facility] Work Phone: Neutrophils/100 WBC (Bld) 77.8 % 47-70 [facility] Work Phone: Potassium [Moles/Vol] 3.7 mmol/L 3.5-5.1 [facility]: Protein [Mass/Vol] 7.6 g/dL 6.4-8.2 [facility] Work Phone: Sodium [Moles/Vol] 138 mmol/L 136-145 [facility] Work Phone: WBC (Bld) [#/Vol] 12.0 10*3/uL 4.4-11.0 [facility]: Blood erythrocytes count (nu mber/volume)on 11-23-2021 RBC (Bld) [#/Vol] 4.26 10*6/uL 4.2-5.4 [facility] Work Phone: Blood hemoglobin measurement (mass/volume)on 11-23-2021 Hemoglobin (Bld) [Mass/Vol] 12.1 g/dL 12.0-15.0 [facility] Work Phone: Blood lymphocytes/100 leukoc yteson 11-23-2021 Lymphocytes/100 WBC (Bld) 15.3 % 19-41 [facility] Work Phone: [phone] Blood monocytes/100 leukocyt eson 11-23-2021 Monocytes/100 WBC (Bld) 6.1 % 0-10 [facility] Work Phone: Blood platelet mean volumeon 11-23-2021 Platelet mean volume (Bld) [Entitic vol] 9.7 fL 6.2-12.0 [facility] Work Phone: Determination of erythrocyte mean corpuscular volume (MCV)on 11-23-2021 MCV (RBC) [Entitic vol] 86.4 fL 81-99 [facility] Work Phone: Hematocrit Auto (Bld) [Volum e fraction]on 11-23-2021 Hematocrit (Bld) [Volume fraction] 36.8 % 37-47 [facility] Work Phone: Laboratory - Chemistry and C hemistry - challengeon 11-23-2021 ALP [Catalytic activity/Vol] 42 U/L 45-117 [facility] Work Phone: ALT [Catalytic activity/Vol] 21 U/L 13-56 [facility] Work Phone: CO2 [Moles/Vol] 27.0 mmol/L 21.0-32.0 [facility] Work Phone: Globulin (S) [Mass/Vol] 3.9 g/dL 2.2-4.2 [facility] Work Phone: Urea nitrogen/Creatinine [Mass ratio] 21.5 mg/mg 10-20 [facility] Work Phone: Laboratory - Hematology and Cell countson 11-23-2021 Erythrocyte distribution width (RBC) [Entitic vol] 44.7 fL 35.1-43.9 [facility] Work Phone: Erythrocyte distribution width (RBC) [Ratio] 14.2 % 11.6-14.6 [facility] Work Phone: Immature granulocytes/100 WBC (Bld) 0.300 % 0.0-0.9 [facility] Work Phone: Comment on above: IG% - Immature Granu locytes (promyelocytes, myelocytes and metamyelocytes) > 1% indicates that a LEFT SHIFT is Present. MCH (RBC) [Entitic mass] 28.4 pg 27.0-32.0 [facility] Work Phone: Nucleated RBC/100 WBC (Bld) [Ratio] 0 % 0-5 [facility] Work Phone: MCHC Auto (RBC) [Mass/Vol]on 11-23-2021 MCHC (RBC) [Mass/Vol] 32.9 g/dL 32-36 [facility] Work Phone: No Panel Informationon 11-23 Estimated GFR (MDRD) Amer 106 mL/min >60 [facility] Work Phone: Comment on above: GFR Calc Estimated GFR (MDRD) Non-Af Amer 88 mL/min >60 [facility] Work Phone: Comment on above: Non- GFR Calc Platelets bldon 11-23-2021 Platelets (Bld) [#/Vol] 431 10*3/uL 150-450 [facility] Work Phone: Serum or plasma albumin ethan urement (mass/volume)on 11-23-2021 Albumin [Mass/Vol] 3.7 g/dL 3.2-5.0 [facility] Work Phone: Serum or plasma albumin/glob ulin mass ratioon 11-23-2021 Albumin/Globulin [Mass ratio] 0.9 {ratio} 0.9-2.4 [facility] Work Phone: Serum or plasma calcium ethan urement (mass/volume)on 11-23-2021 Calcium [Mass/Vol] 9.6 mg/dL 8.5-10.1 [facility] Work Phone: Serum or plasma creatinine m easurement (mass/volume)on 11-23-2021 Creatinine [Mass/Vol] 0.74 mg/dL 0.55-1.02 [facility] Work Phone: Comment on above: The validity of the calculated GFR & GFRAA in patients over 70 years has not been determined. Clinical correlation is essential. Serum or plasma urea nitroge n measurement (mass/volume)on 11-23-2021 Urea nitrogen [Mass/Vol] 16 mg/dL 7-18 [facility] Work Phone: Thin prep Papanicolaou smear with manual screeningon 11-23-2021 Thin prep Papanicolaou smear with manual screening 10 U/L 15-37 [facility] Work Phone: Thin prep Papanicolaou smear with manual screening 4 5-15 [facility] Work Phone: Basophil percentageon 2021 Bilirubin [Mass/Vol] 0.30 mg/dL 0.20-1.00 [facility] Work Phone: Comment on above: For patients on eltr ombopag therapy, use of Dimension [place] TBIL is not recommended. Chloride [Moles/Vol] 105 mmol/L 98-107 [facility] Work Phone: Glucose [Mass/Vol] 92 mg/dL 74-106 [facility] Work Phone: Potassium [Moles/Vol] 3.9 mmol/L 3.5-5.1 [facility] Work Phone: Protein [Mass/Vol] 7.8 g/dL 6.4-8.2 [facility] Work Phone: Sodium [Moles/Vol] 136 mmol/L 136-145 [facility] Work Phone: Laboratory - Chemistry and C hemistry - challengeon 09-28-2021 ALP [Catalytic activity/Vol] 45 U/L 45-117 [facility] Work Phone: ALT [Catalytic activity/Vol] 19 U/L 13-56 [facility] Work Phone: CO2 [Moles/Vol] 27.0 mmol/L 21.0-32.0 [facility] Work Phone: Globulin (S) [Mass/Vol] 4.0 g/dL 2.2-4.2 [facility] Work Phone: Urea nitrogen/Creatinine [Mass ratio] 16.7 mg/mg 10-20 [facility] Work Phone: No Panel Informationon 09-28 Estimated GFR (MDRD) Amer 101 mL/min >60 [facility] Work Phone: Comment on above: GFR Calc Estimated GFR (MDRD) Non-Af Amer 83 mL/min >60 [facility] Work Phone: Comment on above: Non- GFR Calc Thyroid Stimulating Hormone (TSH) 2.69 uIU/mL 0.358-3.74 [facility] Work Phone: Vitamin D 25-Hydroxy 42.2 ng/mL [facility] Work Phone: Comment on above: Vitamin D 25(OH) Sta tus Range Deficiency <20 ng/mL (50nmol/L) Insufficiency 20 - 30 ng/mL (50 - 75 nmol/L) Sufficiency 30 - 100 ng/mL (75 - 250 nmol/L) Toxicity >100 ng/mL (>250 nmol/L) Serum or plasma albumin ethan urement (mass/volume)on 09-28-2021 Albumin [Mass/Vol] 3.8 g/dL 3.2-5.0 [facility] Work Phone: Serum or plasma albumin/glob ulin mass ratioon 09-28-2021 Albumin/Globulin [Mass ratio] 1.0 {ratio} 0.9-2.4 [facility] Work Phone: Serum or plasma calcium ethan urement (mass/volume)on 09-28-2021 Calcium [Mass/Vol] 8.9 mg/dL 8.5-10.1 [facility] Work Phone: Serum or plasma creatinine m easurement (mass/volume)on 09-28-2021 Creatinine [Mass/Vol] 0.78 mg/dL 0.55-1.02 [facility] Work Phone: Comment on above: The validity of the calculated GFR & GFRAA in patients over 70 years has not been determined. Clinical correlation is essential. Serum or plasma urea nitroge n measurement (mass/volume)on 09-28-2021 Urea nitrogen [Mass/Vol] 13 mg/dL 7-18 [facility] Work Phone: Thin prep Papanicolaou smear with manual screeningon 09-28-2021 Thin prep Papanicolaou smear with manual screening 11 U/L 15-37 [facility] Work Phone: Thin prep Papanicolaou smear with manual screening 4 5-15 [facility] Work Phone: Absolute lymphocyte counton 09-12-2021 Lymphocytes Auto (Unsp spec) [#/Vol] 2.77 10*3/uL 0.83-4.51 [facility] Work Phone: Basophil percentageon 2021 Basophils/100 WBC (Bld) 0.4 % 0-1 [facility] Work Phone: Bilirubin [Mass/Vol] 0.20 mg/dL 0.20-1.00 [facility] Work Phone: Comment on above: For patients on eltr ombopag therapy, use of Dimension [place] TBIL is not recommended. Chloride [Moles/Vol] 106 mmol/L 98-107 [facility] Work Phone: [phone] Eosinophils/100 WBC (Bld) 1.6 % 0-5 [facility] Work Phone: [phone] Glucose [Mass/Vol] 113 mg/dL 74-106 [facility] Work Phone: [phone] Comment on above: Fasting Glucose resu lt from 100 to 125 mg/dL suggests IMPAIRED HOMEOSTASIS per A.D.A. criteria. Neutrophils (Bld) [#/Vol] 8.5 10*3/uL 2.0-7.7 [facility] Work Phone: [phone] Neutrophils/100 WBC (Bld) 68.7 % 47-70 [facility] Work Phone: Potassium [Moles/Vol] 3.6 mmol/L 3.5-5.1 [facility] Work Phone: Protein [Mass/Vol] 7.8 g/dL 6.4-8.2 [facility] Work Phone: Sodium [Moles/Vol] 139 mmol/L 136-145 [facility] Work Phone: WBC (Bld) [#/Vol] 12.4 10*3/uL 4.4-11.0 [facility] Work Phone: Blood erythrocytes count (nu mber/volume)on 09-12-2021 RBC (Bld) [#/Vol] 4.57 10*6/uL 4.2-5.4 [facility] Work Phone: Blood hemoglobin measurement (mass/volume)on 09-12-2021 Hemoglobin (Bld) [Mass/Vol] 13.3 g/dL 12.0-15.0 [facility] Work Phone: Blood lymphocytes/100 leukoc yteson 09-12-2021 Lymphocytes/100 WBC (Bld) 22.4 % 19-41 [facility] Work Phone: Blood monocytes/100 leukocyt eson 09-12-2021 Monocytes/100 WBC (Bld) 6.6 % 0-10 [facility] Work Phone: Blood platelet mean volumeon 09-12-2021 Platelet mean volume (Bld) [Entitic vol] 9.9 fL 6.2-12.0 [facility] Work Phone: Determination of erythrocyte mean corpuscular volume (MCV)on 09-12-2021 MCV (RBC) [Entitic vol] 85.8 fL 81-99 [facility] Work Phone: Erythrocyte sedimentation ra nimesh 09-12-2021 ESR (Bld) [Velocity] 39 mm/h 0-30 [facility] Work Phone: Hematocrit Auto (Bld) [Volum e fraction]on 09-12-2021 Hematocrit (Bld) [Volume fraction] 39.2 % 37-47 [facility] Work Phone: Laboratory - Chemistry and C hemistry - challengeon 09-12-2021 ALP [Catalytic activity/Vol] 47 U/L 45-117 [facility] Work Phone: ALT [Catalytic activity/Vol] 19 U/L 13-56 [facility] Work Phone: CO2 [Moles/Vol] 26.0 mmol/L 21.0-32.0 [facility] Work Phone: Globulin (S) [Mass/Vol] 3.8 g/dL 2.2-4.2 [facility] Work Phone: Urea nitrogen/Creatinine [Mass ratio] 15.7 mg/mg 10-20 [facility] Work Phone: Laboratory - Hematology and Cell countson 09-12-2021 Erythrocyte distribution width (RBC) [Entitic vol] 41.1 fL 35.1-43.9 [facility] Work Phone: Erythrocyte distribution width (RBC) [Ratio] 13.2 % 11.6-14.6 [facility] Work Phone: Immature granulocytes/100 WBC (Bld) 0.300 % 0.0-0.9 [facility] Work Phone: Comment on above: IG% - Immature Granu locytes (promyelocytes, myelocytes and metamyelocytes) > 1% indicates that a LEFT SHIFT is Present. MCH (RBC) [Entitic mass] 29.1 pg 27.0-32.0 [facility] Work Phone: Nucleated RBC/100 WBC (Bld) [Ratio] 0 % 0-5 [facility] Work Phone: MCHC Auto (RBC) [Mass/Vol]on 09-12-2021 MCHC (RBC) [Mass/Vol] 33.9 g/dL 32-36 [facility] Work Phone: No Panel Informationon 09-12 Estimated GFR (MDRD) Amer 86 mL/min >60 [facility] Work Phone: Comment on above: GFR Calc Estimated GFR (MDRD) Non-Af Amer 71 mL/min >60 [facility] Work Phone: Comment on above: Non- GFR Calc Platelets bldon 09-12-2021 Platelets (Bld) [#/Vol] 463 10*3/uL 150-450 [facility] Work Phone: Qualitative QuantiFERON-TB g old in tube teston 09-12-2021 M. tuberculosis tuberculin stim IFN-g Ql (Bld) 0.04 IU/mL [facility] Work Phone: Serum or plasma C reactive p rotein measurement (mass/volume)on 09-12-2021 CRP [Mass/Vol] 11.00 mg/L 0.0-3.0 [facility] Work Phone: Comment on above: C-Reactive Protein ( CRP) provides useful information for thediagnosis, therapy and monitoring of inflammatory processesand associated diseases. For the evaluation of Relative Riskfor Cardiovascular Disease, a High Sensitivity CRP (HSCRP)should be ordered. Serum or plasma albumin ethan urement (mass/volume)on 09-12-2021 Albumin [Mass/Vol] 4.0 g/dL 3.2-5.0 [facility] Work Phone: Serum or plasma albumin/glob ulin mass ratioon 09-12-2021 Albumin/Globulin [Mass ratio] 1.1 {ratio} 0.9-2.4 [facility] Work Phone: Serum or plasma calcium ethan urement (mass/volume)on 09-12-2021 Calcium [Mass/Vol] 9.2 mg/dL 8.5-10.1 [facility] Work Phone: Serum or plasma creatinine m easurement (mass/volume)on 09-12-2021 Creatinine [Mass/Vol] 0.89 mg/dL 0.55-1.02 [facility] Work Phone: Comment on above: The validity of the calculated GFR & GFRAA in patients over 70 years has not been determined. Clinical correlation is essential. Serum or plasma urea nitroge n measurement (mass/volume)on 09-12-2021 Urea nitrogen [Mass/Vol] 14 mg/dL 7-18 [facility] Work Phone: Thin prep Papanicolaou smear with manual screeningon 09-12-2021 Thin prep Papanicolaou smear with manual screening 10 U/L 15-37 [facility] Work Phone: Thin prep Papanicolaou smear with manual screening 7 5-15 [facility] Work Phone: Thin prep Papanicolaou smear with manual screening Comment [facility] Work Phone: Comment on above: The QuantiFERON-TB G old Plus result is determined bysubtracting the Nil value from either TB antigen (Ag) tube.The mitogen tube serves as a control for the test. Thin prep Papanicolaou smear with manual screening 0.03 IU/mL [facility] Work Phone: Thin prep Papanicolaou smear with manual screening 0.02 IU/mL [facility] Work Phone: Thin prep Papanicolaou smear with manual screening > 10.00 IU/mL [facility] Work Phone: Thin prep Papanicolaou smear with manual screening Negative Negative [facility] Work Phone: Comment on above: The specimen receive d for QuantiFERON testing was incubatedby the ordering institution. Specific procedures outlinedin our Directory of Services and in the package insert forthe QuantiFERON Gold (In Tube) test must be followed toenable for proper stimulation of cells for the productionof interferon gamma. Chemiluminescence immunoassaymethodologyPerformed at: [facility] [id number] Director: Jamie Hernadez PhD, Phone: [phone] Lab Report: ,Urineo n 01-24-2017 Urine, test (choriogonadotropin presence) Negative Invalid Interpretation Code [facility] Work Phone: Office Visit: colon polypson 12-18-2016 Alcoholism counseling (procedure) no Invalid Interpretation Code [facility] Work Phone: Dietary management education, guidance, and counseling (procedure) yes Invalid Interpretation Code [facility] Work Phone: Documentation of current medications (procedure) Done Invalid Interpretation Code [facility] Work Phone: Fall risk assessment No Invalid Interpretation Code [facility] Work Phone: Protein mass conc no [facility] Work Phone: Protein mass conc Done [facility] Work Phone: Tobacco smoking status NHIS Never Invalid Interpretation Code [facility] Work Phone: Tobacco smoking status NHIS Never smoker [facility] Work Phone: Tobacco use HS Never smoker Invalid Interpretation Code [facility] Work Phone: Vital Signs Date Time Vital Sign Value Performing Clinician Facility 10-04-2024 15:43-0400 Body height 162.[address] Mikel Nicolas MD Work Phone: [facility] 10-04-2024 15:43-0400 Body mass index (BMI) [Ratio] 35.7 kg/m2 Dr. Mikel Nicolas MD Work Phone: [facility] 10-04-2024 15:43-0400 Body weight 94.[address] Mikel Nicolas MD Work Phone: [facility] 10-04-2024 15:43-0400 Diastolic blood pressure 78 mm[Hg] Dr. Mikel Nicolas MD Work Phone: [facility] 10-04-2024 15:43-0400 Systolic blood pressure 124 mm[Hg] Dr. Mikel Nicolas MD Work Phone: [facility] 09-21-2024 11:30-0400 Body temperature 97.2 [degF] Dr. Mikel Nicolas MD Work Phone: [facility] 09-21-2024 11:30-0400 Diastolic blood pressure 48 mm[Hg] Dr. Mikel Nicolas MD Work Phone: [facility] 09-21-2024 11:30-0400 Heart rate 78 /min Dr. Mikel Nicolas MD Work Phone: [facility] 09-21-2024 11:30-0400 Respiratory rate 16 /min Dr. Mikel Nicolas MD Work Phone: [facility] 09-21-2024 11:30-0400 SaO2% (BldA) [Mass fraction] 96 % Dr. Mikel Nicolas MD Work Phone: [facility] 09-21-2024 11:30-0400 Systolic blood pressure 90 mm[Hg] Dr. Mikel Nicolas MD Work Phone: [facility] 09-21-2024 09:52-0400 Body height 162.[address] Mikel Nicolas MD Work Phone: 4(775)476-845251 [place] [address] 09-21-2024 09:52-0400 Body mass index (BMI) [Ratio] 35.4 kg/m2 Dr. Mikel Nicolas MD Work Phone: 8(119)741-638445 [address] 09-21-2024 09:52-0400 Body weight 93.[address] Mikel Nicolas MD Work Phone: 2(850)904-806751 [place] [address] 09-08-2024 11:24-0400 Body mass index (BMI) [Ratio] 36.1 kg/m2 Dr. Mikel Nicolas MD Work Phone: 9(321)129-039451 [place] [address] 09-08-2024 11:24-0400 Body weight 95.[address] Mikel Nicolas MD Work Phone: 9(954)373-487345 [address] 09-08-2024 11:24-0400 Diastolic blood pressure 83 mm[Hg] Dr. Mikel Nicolas MD Work Phone: 6(555)061-613951 [place] [address] 09-08-2024 11:24-0400 Systolic blood pressure 119 mm[Hg] Dr. Mikel Nicolas MD Work Phone: 8(648)593-136951 [place] [address] 08-09-2024 15:09-0500 Body mass index (BMI) [Ratio] 35.5 kg/m2 Dr. Mikel Nicolas MD Work Phone: 1(195)779-767045 [address] 08-09-2024 15:09-0500 Body weight 93.[address] Mikel Nicolas MD Work Phone: 3(303)463-685645 [address] 08-09-2024 15:09-0500 Diastolic blood pressure 80 mm[Hg] Dr. Mikel Nicolas MD Work Phone: 2(857)435-131951 [place] [address] 08-09-2024 15:09-0500 Systolic blood pressure 120 mm[Hg] Dr. Mikel Nicolas MD Work Phone: [facility] 07-27-2024 13:13-0500 Body mass index (BMI) [Ratio] 35 kg/m2 Dr. Mikel Nicolas MD Work Phone: [facility] 07-27-2024 13:13-0500 Body weight 92.[address] Mikel Nicolas MD Work Phone: 2(687)383-583514 [place] [address] 07-27-2024 13:13-0500 Diastolic blood pressure 87 mm[Hg] Dr. Mikel Nicolas MD Work Phone: 8(505)802-715114 [place] [address] 07-27-2024 13:13-0500 Systolic blood pressure 130 mm[Hg] Dr. Mikel Nicolas MD Work Phone: 5(394)508-749545 [address] 07-21-2024 14:34-0500 Body mass index (BMI) [Ratio] 35.2 kg/m2 Dr. Mikel Nicolas MD Work Phone: 5(569)176-337314 [place] [address] 07-21-2024 14:34-0500 Body weight 92.[address] Mikel Nicolas MD Work Phone: 7(227)874-969945 [address] 07-21-2024 14:34-0500 Diastolic blood pressure 88 mm[Hg] Dr. Mikel Nicolas MD Work Phone: 7(307)855-808545 [address] 07-21-2024 14:34-0500 Systolic blood pressure 124 mm[Hg] Dr. Mikel Nicolas MD Work Phone: 3(542)643-413545 [address] 07-20-2024 16:03-0500 Body temperature 98 [degF] Dr. Mikel Nicolas MD Work Phone: 4(213)445-700914 [place] [address] 07-20-2024 16:03-0500 Diastolic blood pressure 78 mm[Hg] Dr. Mikel Nicolas MD Work Phone: 1(333)004-296645 [address] 07-20-2024 16:03-0500 Heart rate 69 /min Dr. Mikel Nicolas MD Work Phone: 8(579)644-691114 [place] [address] 07-20-2024 16:03-0500 Respiratory rate 16 /min Dr. Mikel Nicolas MD Work Phone: 1(536)267-266451 [place] [address] 07-20-2024 16:03-0500 SaO2% (BldA) [Mass fraction] 99 % Dr. Mikel Nicolas MD Work Phone: 1(901)362-910551 [place] [address] 07-20-2024 16:03-0500 Systolic blood pressure 109 mm[Hg] Dr. Mikel Nicolas MD Work Phone: 9(958)732-786351 [place] [address] 07-20-2024 13:16-0500 Body mass index (BMI) [Ratio] 35.3 kg/m2 Dr. Mikel Nicolas MD Work Phone: 2(349)278-372251 [place] [address] 07-20-2024 13:16-0500 Body weight 93.[address] Mikel Nicolas MD Work Phone: 9(236)698-837651 [place] [address] 05-05-2023 07:39-0500 Body height 162.[address] Mikel Nicolas Work Phone: 6(132)816-211551 [place] [address] 05-05-2023 07:39-0500 Body mass index (BMI) [Ratio] 34.3 kg/m2 Dr. Mikel Nicolas Work Phone: 3(948)101-057451 [place] [address] 05-05-2023 07:39-0500 Body temperature 97.8 [degF] Dr. Mikel Nicolas Work Phone: 8(352)889-391351 [place] [address] 05-05-2023 07:39-0500 Body weight 90.[address] Mikel Nicolas Work Phone: 1(798)263-834451 [place] [address] 05-05-2023 07:39-0500 Diastolic blood pressure 78 mm[Hg] Dr. Mikel Nicolas Work Phone: 3(985)802-300751 [place] [address] 05-05-2023 07:39-0500 Heart rate 78 /min Dr. Mikel Nicolas Work Phone: 0(704)395-138351 [place] [address] 05-05-2023 07:39-0500 SaO2% (BldA) [Mass fraction] 98 % Dr. Mikel Nicolas Work Phone: 7(293)207-834945 [address] 05-05-2023 07:39-0500 Systolic blood pressure 111 mm[Hg] Dr. Mikel Nicolas Work Phone: 9(399)833-284151 [place] [address] 02-13-2023 06:44-0400 Body height 162.[address] Mikel Nicolas Work Phone: [facility] 02-13-2023 06:41-0400 Body mass index (BMI) [Ratio] 35.6 kg/m2 Dr. Mikel Nicolas Work Phone: [facility] 02-13-2023 06:41-0400 Body weight 94.[address] Mikel Nicolas Work Phone: [facility] 02-13-2023 06:41-0400 Diastolic blood pressure 79 mm[Hg] Dr. Mikel Nicolas Work Phone: [facility] 02-13-2023 06:41-0400 Systolic blood pressure 113 mm[Hg] Dr. Mikel Nicolas Work Phone: [facility] 12-19-2022 07:12-0400 Body mass index (BMI) [Ratio] 34.7 kg/m2 Dr. Mikel Nicolas Work Phone: [facility] 12-19-2022 07:12-0400 Body weight 91.[address] Mikel Nicolas Work Phone: [facility] 12-19-2022 07:12-0400 Diastolic blood pressure 72 mm[Hg] Dr. Mikel Nicolas Work Phone: [facility] 12-19-2022 07:12-0400 Systolic blood pressure 105 mm[Hg] Dr. Mikel Nicolas Work Phone: [facility] 12-18-2016 10:10-0400 BMI (Body Mass Index) 34.39 kg/m2 Torie Greco [facility] Work Phone: 12-18-2016 10:10-0400 Body Temperature 98.3 [degF] Torie Greco [facility] Work Phone: 12-18-2016 10:10-0400 BP Diastolic 87 mm[Hg] Torie Greco [facility] Work Phone: 12-18-2016 10:10-0400 BP Systolic 150 mm[Hg] Torie Greco [facility] Work Phone: 12-18-2016 10:10-0400 Height 162.56 cm Torie Greco [facility] Work Phone: 12-18-2016 10:10-0400 Pulse (Heart Rate) 61 /min Torie Greco [facility] Work Phone: 12-18-2016 10:10-0400 Pulse Oximetry 98 % Torie Greco [facility] Work Phone: 12-18-2016 10:10-0400 Respiratory Rate 20 /min Torie Greco [facility] Work Phone: 12-18-2016 10:-0400 Weight 90.9 kg Torie Gerco [facility] Work Phone: Encounters Encounter Date Encounter Type Care Provider Facility Start: 01-11-2025 End: 01-11-[address] Mikel Nicolas MD Work Phone: -Laboratory Start: 01-11-2025 End: 01-11-[address] Mikel Nicolas MD -Laboratory Work Phone: Start: 01-11-2025 End: 01-11-2025 ambulatory Mikel Nicolas Facility:[facility] Start: 10-04-2024 End: 10-04-[address] Lucrecia L[facility] Work Phone: Start: 10-04-2024 End: 10-04-2024 ambulatory Mikel Nicolas Facility:[facility] Start: 09-29-2024 Encounter for other preprocedural examination Lucrecia Lui [facility] Start: 09-21-2024 Non-patient / Non-visit Dr. Elliott Lui MD -[facility] Start: 09-21-2024 End: 09-21-2024 Admission to same day surgery center Dr. Lucrecia Lui MD [facility] Start: 09-21-2024 End: 09-21-[address] Mikel Nicolas MD Work Phone: [facility] Work Phone: Start: 09-09-2024 End: 09-09-2024 ambulatory Lucrecia Lui Facility:[facility] Start: 09-09-2024 End: 09-09-2024 Non-patient / Non-visit Dr. Oziel Martínez MD -[facility] Work Phone: Start: 09-08-2024 End: 09-08-[address] Lucrecia Lui MD -[facility] Work Phone: Start: 09-08-2024 End: 09-08-2024 ambulatory Lucrecia Lui Facility:[facility] Start: 08-09-2024 End: 08-09-2024 ambulatory Lucrecia Lui Facility:[facility] Start: 08-09-2024 End: 08-09-[address] Lucrecia Lui MD -[facility] Work Phone: Start: 07-27-2024 End: 07-27-2024 Patient encounter procedure Ruth Tate FOOD CART ATTENDANT-C -Laboratory, Specimen Work Phone: Start: 07-27-2024 End: 07-27-2024 Patient encounter procedure Ruth Tate FOOD CART ATTENDANT-C -[facility] Work Phone: Start: 07-27-2024 End: 07-27-2024 ambulatory Ruth Tate Facility:[facility] Start: 07-27-2024 End: 07-27-2024 ambulatory Ruth Tate Facility:[facility] Start: 07-21-2024 End: 07-21-2024 Patient encounter procedure Selma Jimenez FOOD CART ATTENDANT-C -Lab, [facility] Start: 07-21-2024 End: 07-21-2024 Patient encounter procedure Selma Jimenez FOOD CART ATTENDANT-C -[facility] Work Phone: Start: 07-21-2024 End: 07-21-2024 ambulatory Semla Jimenez Facility:[facility] Start: 07-21-2024 End: 07-21-2024 ambulatory Selma Jimenez Facility:[facility] Start: 07-20-2024 End: 07-20-2024 Emergency department patient visit Dr. Alfred Bates DO -Emergency Department Work Phone: Start: 06-03-2024 ambulatory Ebenezer [place] Facility:[facility] Start: 05-29-2024 End: 05-29-[address] Ebenezer Martinez MD -Laboratory Work Phone: Start: 05-29-2024 End: 05-29-2024 ambulatory [facility] Facility:[facility] Start: 06-11-2023 End: 06-11-[address] Mikel Nicolas Work Phone: [facility] Work Phone: Start: 06-11-2023 End: 06-11-[address] Mikel Nicolas Work Phone: [facility]-Laboratory Work Phone: Start: 05-27-2023 End: 05-27-[address] Mikel Nicolas Work Phone: [facility] Work Phone: Start: 05-27-2023 End: 05-27-[address] Mikel Nicolas Work Phone: [facility]-Sleep Lab Work Phone: Start: 05-05-2023 End: 05-05-[address] Mikel Nicolas Work Phone: [facility]-Pulmonary Medicine [facility] Work Phone: Start: 05-01-2023 End: 05-01-[address] Mikel Nicolas Work Phone: [facility] Work Phone: Start: 05-01-2023 End: 05-01-[address] Mikel Nicolas [facility] Start: 04-05-2023 End: 04-05-[address] Mikel Nicolas Work Phone: [facility] Work Phone: Start: 04-05-2023 End: 04-05-[address] Mikel Nicolas Work Phone: [facility]-Laboratory Work Phone: Start: 03-18-2023 End: 03-18-[address] Mikel Nicolas Work Phone: [facility] Work Phone: Start: 03-18-2023 End: 03-18-[address] Mikel Nicolas Work Phone: [facility]-Outpatient Breast Imaging Work Phone: Start: 02-13-2023 End: 02-13-[address] Mikel Nicolas Work Phone: [facility] Work Phone: Start: 02-13-2023 End: 02-13-[address] [facility] Work [facility] Start: 02-13-2023 End: 02-13-[address] Mikel Nicolas Work Phone: [facility] Start: 12-19-2022 End: 12-19-[address] Mikel Nicolas Work Phone: [facility] Start: 12-09-2022 End: 12-09-2022 ambulatory [facility] Work Phone: Start: 12-09-2022 End: 12-09-2022 Patient encounter procedure [facility]-Laboratory Start: 05-03-2022 End: 05-03-2022 ambulatory [facility] Work Phone: Start: 05-03-2022 End: 05-03-2022 Patient encounter procedure [facility]-Laboratory Start: 02-02-2022 End: 02-02-2022 Patient encounter procedure [facility]-Laboratory Start: 11-23-2021 End: 11-23-2021 [facility]: 09-28-2021 End: 09-28-2021 [facility] Start: 09-14-2021 End: 09-14-2021 Patient encounter procedure [facility]-Radiology, [place] Start: 09-12-2021 End: 09-12-2021 [facility] Start: 07-18-2021 End: 07-18-2021 Patient encounter procedure [facility]Outpatient Breast Imaging Procedures Date Procedure Procedure Detail Performing Clinician Start: 01-11-2025 Vitamin D, 25-hydrox y measurement Dr. Mikel Nicolas MD Work Phone: Comment on above: Vitamin D StatusDefi ciency: <20 ng/mL (50nmol/L)Insufficiency: 20-30 ng/mL (50-75 nmol/L)Sufficiency: 30-100 ng/mL (75-250 nmol/L)Toxicity: >100 ng/mL (>250 nmol/L) Start: 09-21-[address] Mikel perdue MD Work Phone: Start: 09-09-2024 Follicle stimulating hormone measurement Dr. Mikel Nicolas MD Work Phone: Comment on above: FEMALE:Follicular: 1 .4 - 18.1 mIU/mLMidcycle: 3.4 - 33.4 mIU/mLLuteal: 1.5 - 9.1 mIU/mLPost Menopause: 23.0 - 116.3 mIU/mLMALE: 1.4 - 18.1 mIU/mL NORMAL REFERENCE RANGES FEMALE FOLLICULAR 2.3 - 12.6 mIU/mL MID-CYCLE PEAK 5.2 - 17.5 mIU/mL LUTEAL 1.7 - 12.9 mIU/mL POST-MENOPAUSAL ON MHT 5.9 - 72.8 mIU/mL NOT ON MHT 12.7 - 132.2 mlU/mL MALE 0.7 - 10.8 mIU/mL Start: 07-20-[address] Anika Nicolas MD Work Phone: Start: 03-18-2023 Screening mammography Quirino Nicolas Work Phone: Start: 09-14-2021 Plain chest X-ray Start: 07-18-2021 Screening mammography Start: 12-18-2016 End: 12-18-2016 Dietary management education, guidance, and counseling Torie Greco Start: 12-18-2016 End: 01-24-2017 Diagnostic colonoscopy Santiago elizalde MD Work Phone: Start: 12-18-2016 Screening for malign ant neoplasm of colon Screening, colon ca Torie Greco Plan of Treatment Date Care Activity Detail Author Start: 09-21-2024 Anes hysteroscopy&/hysterosalpingog lelia w/bx ANESTH HYSTEROSCOPE/GRAPH [facility] Start: 09-21-2024 Hysteroscopy bx endometrium&/polypc w/wo d&c HYSTEROSCOPY BIOPSY [facility] Start: 09-21-2024 Ambulation without limitation [facility] Start: 09-21-2024 Medication education [facility] Start: 09-21-2024 Patient discharge [facility] Start: 09-21-2024 Procedure discontinued [facility] Start: 09-21-2024 Taking patient vital signs [facility] Start: 09-21-2024 Vital signs measurements [facility] Start: 09-21-2024 [facility] Start: 09-21-2024 Medical regimen orders management [facility] Start: 07-20-2024 [facility] Start: 02-13-2023 Microscopic observation [Identifier] in Cervix by Cyto stain.thin prep [facility] Start: 02-13-2023 Patient referral [facility] Work Phone: Start: 01-24-2017 End: 01-24-2017 Appointment Appointment [facility] Work Phone: Start: 12-18-2016 End: 12-18-2016 Appointment Appointment [facility] Work Phone: Start: 12-18-2016 End: 01-24-2017 Diagnostic colonoscopy Colonoscopy [facility] Work Phone: Electrocardiographic procedure [facility] MG Breast - bilatera l Screening [facility] Path report.final Dx Spec [facility] Patient Education ED Dysfunction al Uterine Bleeding ED Uterine Fibroids [facility] Work Phone: Patient referral [facility] Work Phone: Polysomnography [facility] Immunizations Immunization Date Immunization Notes Care Provider Fa cility 04-01-2019 Influenza virus vaccine [facility] Payers Date Payer Category Payer Self-pay [id number] 2013 Unknown [id number] Private Health Insurance [id number] Unknown [id number] 2.16.8 [id number] Unknown [id number] 2.16.8 40.1.817523.3.579.2.462 Unknown [id number] 2.16.8 40.1.330315.3.579.2.462 Unknown [id number] 2.16.8 40.1.528571.3.579.2.462 Unknown [id number] 2.16.8 40.1.335299.3.579.2.462 Unknown [id number] 2.16.8 40.1.862522.3.579.2.462 Unknown [id number] 2.16.8 40.1.251078.3.579.2.462 Unknown [id number] 2.16.8 40.1.795433.3.579.2.462 Unknown [id number] 2.16.8 40.1.179126.3.579.2.462 Unknown [id number] 2.16.8 40.1.638822.3.579.2.462 Unknown [id number] 2.16.8 40.1.026317.3.579.2.462 Unknown [id number] 2.16.8 40.1.369551.3.579.2.462 Unknown [id number] 2.16.8 40.1.816629.3.579.2.462 Unknown [id number] 2.16.8 40.1.822143.3.579.2.462 Social History Date Type Detail Facility Start: 01-20-2020 End: 05-05-2023 Tobacco smoking status NHIS Unknown if ever smoked [facility] Start: 01-09-2020 Occasional [facility] Start: 01-09-2020 None [facility] Start: 01-09-2020 Spouse/ Signif icant Other [facility] Start: 01-20-2020 Non-smoker [facility] Start: 1970 Sex Assigned At Female [facility] Start: 09-07-2024 Tobacco smoking status NHIS Never smoked tobacco (finding) [facility] Start: 09-21-2024 Sex Female (finding) [facility] NEGATED: Highlighted row Not [facility] Goals Date Patient Goal Desired Activity /State Mental Status Date Assessment Result Facility 09-21-2024 Cognitive function Voice/Name [facility] Work Phone: Clinical Notes 02-13-2023 to 09-21-2024 Note Date & Type Note Facility 09-21-2024 Consult note [facility] 09-21-2024 Discharge summary [facility] 09-21-2024 Consult note Note Date/Time September 21, 2024 10:15am [facility] Medical Records Department [address] [place] [address] Pre-Anesthesia Evaluation 09/21/24 1006 MR#: [id number] Acct: [id number] Name: CHARLES STONER Rep #:[id number] : 1970 54 From: Luis Alfredo Patel MD PCP: Dr. Mikel Nicolas MD Status:REG S DC Y Race: C Location: AC AC20-1 ASA Classification* ASA Classification ASA Classification: 2 Assessment & Plan Anesthesia* Anesthesia Assessment Anesthesia Assessment: Discussed sedation and/or anesthesia options, risks, benefits, and alternatives with patient/parents/legal guardian/POA. Questions invited. The patient/parents/legal guardian/POA seems to understand and agrees to proceedwith anesthesia plan. Reviewed the physical assessment, medical history, allergy history and patient home medications list prior to surgery/procedure/anesthetic and documented any changes. Performed airway and anesthesia risk assessments. Anesthesia Type Anesthesia Type: MAC History Source History Obtained from:: Patient and Chart Anesthesia Focused Assessment* Temperature: 97.6 F Pulse Rate: 84 Blood Pressure: 118/86 Respiratory Rate: 18 Pulse Ox: 97 Oxygen Delivery Method: Room Air Airway Assessment Mouth opens: >3 cm Mallampati Score: IV Teeth Condition: Caps/Crowns (Patient has several crowns. They are all tight.) Neck Range of motion (ROM): Full ROM Focused Labs Anesthesia Preop lab: CBC WBC 9.5 K/mm3 (4.4-11.0) 09/09/24 07:24 09/09/24 RBC 4.38 M/mm3 (4.2-5.4) 09/09/24 07:24 09/09/24 Hgb 12.0 g/dL (12.0-15.0) 09/09/24 07:24 09/09/24 Hct 36.7 % (37-47) L 09/09/24 07:24 09/09/24 Plt Count 433 K/mm3 (150-450) 09/09/24 07:24 09/09/24 CHEMISTRY Potassium 4.0 mmol/L (3.3-5.1) 09/09/24 07:24 09/09/24 Sodium 139 mmol/L (133-145) 09/09/24 07:24 09/09/24 Magnesium 2.1 mg/dL (1.6-2.6) 01/09/20 04:54 01/09/20 BUN 10 mg/dL (4-19) 09/09/24 07:24 09/09/24 Creatinine 0.66 mg/dL (0.70-1.20) L 09/09/24 07:24 Glucose 106 mg/dL (70-99) H 09/09/24 07:24 09/09/24 TSH 0.58 uIU/mL (0.358-3.74) 12/31/23 08:45 COAG PT 12.6 SECONDS (11.7-14.9) 01/21/20 11:12 Urine Test Negative Negative 01/27/20 12:00 01/27/20 Pre-Assessment Diagnosis/Proposed Procedure Planned Operative Procedure(s): Dilatation and curettage, hysteroscopy, possibleSymphion Anesthesia History 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 When Was Last Pacemaker Check QUESTION #4 FULL TEXT: You/Your Family Experience fever (hyperthermia) with Anesthesia Last Oral Intake Last Oral intake: Last Oral Intake NPO since 22:00 09/21/24 09:52 Meds taken in AM with sips of Yes 09/21/24 09:52 water? Meds patient instructed to take am of surgery Any additional information?: Yes Meds taken in AM with sips of water?: Yes PONV PONV - associate professor computer science: PONV - associate professor computer science Female Yes 09/07/24 14:11 HX of Motion Sickness Yes 09/07/24 14:11 HX of N/V After Surgery Yes 09/07/24 14:11 Non-Smoker Yes 09/07/24 14:11 Duration of Surgery greater No 09/07/24 14:11 than 60 minutes Number of Risk Factors 4 09/07/24 14:11 PONV Score Severe Risk 09/07/24 14:11 Height & Weight Height & Weight: Anesthesia: Height & Weight Height 5 ft 4 in 09/21/24 09:52 Weight: 93.7 kg 09/21/24 09:52 Body Mass Index (BMI) 35.4 09/21/24 09:52 Respiratory Assessment Respiratory Assessment - associate professor computer science: Respiratory Tract Infection Hx - associate professor computer science Hx Respiratory Tract Infection Yes: COLD CURRENTLY 09/07/24 14:11 Any additional information?: Yes Hx Respiratory Tract Infection: Yes (Recent sinus infection is cleared up.) STOP Sleep Apnea STOP Sleep Apnea - associate professor computer science: STOP Sleep Apnea - associate professor computer science Hx Hypertension No 09/07/24 14:11 Hx Sleep Apnea No 09/07/24 14:11 CPAP BIPAP Do you snore loudly (louder No 09/07/24 14:11 than talking or can be heard Do you often feel tired/ No 09/07/24 14:11 fatigued/ sleepy during daytime? Has anyone observed you stop No 09/07/24 14:11 breathing during sleep? STOP Results Negative 09/07/24 14:11 QUESTION #5 FULL TEXT : Do you snore loudly (louder than talking or can be heard through closed doors)? 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 Specify any problems Hx of Preganancy in last 3 N/A 09/07/24 14:11 Months Nurse Filling Out Transfusion NBUCHER 09/07/24 14:11 & Questions: Date: 09/07/24 09/07/24 14:11 Time: 14:13 09/07/24 14:11 Patient unable to answer at this time (ie. confused, unrespo /Reproduction History /Reproductive History - associate professor computer science: /Reproductive Hx- associate professor computer science Hx Now No 09/07/24 14:11 Gestational Age (in weeks): EDC: Hx Hx Para Hx Section SAB No 09/08/24 11:26 PFSH Medical History Psoriasis Hypothyroid Thyroid disease Anemia PONV (postoperative nausea and vomiting) Tinnitus Wears contact lenses Anxiety Alcohol use Psoriatic arthritis History of steroid therapy Arthritis Low iron Back pain Migraine headache Esophageal spasm History of IBS Gastric reflux Non-smoker History of stress test History of irregular heartbeat Family history of cancer of digestive organ Smita's thyroiditis Depression Home Medications ?Medication ?Instructions ?Recorded ?Last Taken ?Type loratadine 10 mg tablet 10 mg PO DAILY PRN Allergies 01/09/20 01/07/20 21:00 History ixekizumab 80 mg/mL subcutaneous 80 mg subcut Q4W 11/2208/18/24 History auto-injector (Taltz Autoinjector) levothyroxine 100 mcg tablet 100 mcg PO DAILY 05/05/23 Unknown History biotin 10,000 mcg capsule 10,000 mcg PO DAILY 07/21/24 Unknown History leflunomide 10 mg tablet 10 mg PO QDAY 07/21/24 Unkno wn History misoprostol 200 mcg tablet 200 mcg PO .complex #2 tabs 08/10/24 09/21/24 05:30 Rx (Cytotec) betamethasone, augmented 0.05 % 1 applic topical DAILY PRN PSORASIS 09/07/24 Unknown History topical cream Allergy/AdvReac Type Severity Reaction Status Date / Time Sulfa (Sulfonamide Allergy Rash Verified 09/21/24 09:47 Antibiotics) oseltamivir phosphate (From AdvReac Severe Nausea/Vom/ Verified 09/21/24 09:47 Tamiflu) Diarrhea Latex, Natural Rubber AdvReac Rash Verified 09/21/24 09:47 Family History Unknown Cancer of digestive system Father Colon polyps Other Breast cancer Diabetes Heart disease Surgical History Hx of bone marrow donation Hx of colonoscopy History of salpingectomy S/P endometrial ablation Social History number of children: 2 current occupational status: employed current occupation: [employer] Smoking Status: Never smoker Electronic Cigarette Use: not used second hand exposure: No alcohol intake: current alcohol intake frequency: holidays/special occasions only substance use type: does not use additional social history: - Christopher Review of Systems (Anesthesia) ROS Narrative System reviewed and no additional complaints, except as documented. 09/21/24 1015 <Electronically signed by Luis Alfredo garcía MD> Date _ Luis Alfredo Patel MD Cosigner Signature: Date CC: ~ Signed [facility] Work Phone: 1(534) 327-226504-01-2025 History and physical note Author Lucrecia Lui [facility] Note Date/Time September 21, 2024 9:[address] [facility] Medical Records Department [address] [place] [address] History & Physical Exam 09/21/24 0950 MR#: [id number] Acct: [id number] Name: CHARLES STONER Rep #:[id number] : 1970 54 From: Lucreica james MD PCP: Dr. Mikel Nicolas MD Status:[facility] Location: [place] [address] History and Physical Date of Admission: 09/21/24 Intake Vital Signs 08/09/2514:17 09/08/2510:24 Height 5 ft 4 in 5 ft 4 in Weight: 210 lb 6 oz BMI 36.1 BP 119/83 H Intake Visit Reasons: D&C Symphion Credit Rating Inspector Required: No Is patient in pain?: No Allergies Sulfa (Sulfonamide Antibiotics) Allergy (Verified 09/07/24 14:08) Rashoseltamivir phosphate (From Tamiflu) Adverse Reaction (Severe, Verified 09/07/24 14:08) Nausea/Vom/DiarrheaLatex, Natural Rubber Adverse Reaction (Verified 09/07/24 14:08) Rash Medications ?Medication ?Instructions ?Recorded ?Confirmed ?Type loratadine 10 mg tablet 10 mg PO DAILY PRN Allergies 01/09/20 History ixekizumab 80 mg/mL subcutaneous 80 mg subcut Q4W 12/19/22 09/08/24 Histo ry auto-injector (Taltz Autoinjector) levothyroxine 100 mcg tablet 100 mcg PO DAILY 05/05/23 09/08/24 Histo ry biotin 10,000 mcg capsule 10,000 mcg PO DAILY 07/21/24 09/08/24 Hi story leflunomide 10 mg tablet 10 mg PO QDAY 07/21/24 09/08/24 History misoprostol 200 mcg tablet 200 mcg PO .complex #2 tabs 08/10/24 Rx (Cytotec) betamethasone, augmented 0.05 % 1 applic topical DAILY PRN PSORASIS 08/2109/08/24 History topical cream Is last menstrual period known: Yes Patient : No : No PFSH Medical History Psoriasis Hypothyroid Thyroid disease Anemia PONV (postoperative nausea and vomiting) Tinnitus Wears contact lenses Anxiety Alcohol use Psoriatic arthritis History of steroid therapy Arthritis Low iron Back pain Migraine headache Esophageal spasm History of IBS Gastric reflux Non-smoker History of stress test History of irregular heartbeat Family history of cancer of digestive organ Smita's thyroiditis Depression Surgical History Hx of bone marrow donation Hx of colonoscopy History of salpingectomy S/P endometrial ablation Family History Unknown Cancer of digestive systemFather Colon polypsOther Breast cancer Diabetes Heart disease Social History number of children: 2 current occupational status: employed current occupation: [employer] Smoking Status: Never smoker Electronic Cigarette Use: not used second hand exposure: No alcohol intake: current alcohol intake frequency: holidays/special occasions only substance use type: does not use additional social history: - [facility] D&C Symphion Details: CHARLES STONER is a 54 year old who presents for preop visit. she has had irregular bleeding. she has had an ablation in the past. On exam by nurse practitioner she had a polyp that was removed but has had an 8-month time span that she had no bleeding and then she had 2 episodes of significant bleeding so this concerned her. Ultrasound showed a 9 mm lining and the nurse practitioner felt like there was another polyp that was in there. Patient is wondering if she should just have a hysterectomy or if a D&C is appropriate. She denies any bleeding or abnormal discharge right now. She denies any significant cramping or pain. She denies any hot flashes or night sweats but has some vaginal dryness. Female Reproductive History Menopausal Symptoms: No night sweats ROS Const Constitutional: Denies fatigue, night sweats, weight gain or weight loss ENT ENT: Reports system reviewed and no additional complaints, except as documented Cardio Card: Denies chest pain Resp Resp: Denies cough or dyspnea GI GI: Reports as per HPI; Denies abdominal pain, constipation, nausea or vomiting : Denies nipple discharge, urinary frequency, urinary incontinence, urinary hesitancy, urinary urgency, vaginal discharge, vaginal dryness, vaginal odor or vaginal pruritus Musc Musc: Denies arthralgias, back pain or muscle weakness Skin Skin/Breast: Denies alopecia, change in hair, dry skin, breast mass, breast pain, breast skin changes or nipple discharge Neuro Neuro: Reports system reviewed and no additional complaints, except as documented Psych Psych: Reports system reviewed and no additional complaints, except as documented Endo Endo: Denies cold intolerance, excessive sweating, heat intolerance or polydipsia Jeronimo/Lymph Hematologic/Lymphatic: Denies easy bleeding, Denies easy bruising and Denies lymphadenopathy Exam Const General: cooperative, healthy appearing, comfortable and no acute distress Orientation: alert [facility] Head: normal to inspection and normocephalic Ears: hearing grossly normal bilaterally and external ears normal Nose: external nose normal and nares normal Face and sinus: normal facial exam Neck Neck: normal visual inspection and no lymphadenopathy Thyroid: thyroid normal Chest Chest palpation & inspection: normal inspection of the chest Resp Effort & Inspection: normal respiratory effort Auscultation: clear to auscultation bilaterally Cardio Rate: regular rate Rhythm: regular rhythm Heart Sounds: S1 normal and S2 normal GI Inspection: normal to inspection and non-distended Palpation: soft and no hepatosplenomegaly Musc Other: gross motor intact no deficits, full bilateral strength Skin General: no rashes or lesions noted Neuro General: patient alert, patient awake, moves all extremities and no focal motor deficits Motor: muscle tone normal throughout Extrem General: normal to inspection and no pedal edema Psych Appearance: grossly normal Mental Status: mental status grossly normal Affect: normal affect Speech and Movement: speech and movement normal Coding Level of Care Code No Charge Diagnoses Abnormal uterine bleeding (AUB) N93.9 History of endometrial ablation Z98.890 Endocervical polyp N84.1 Assessment and Plan Assessment and Plan (1) Abnormal uterine bleeding (AUB): Status: Acute Comment: Counseled regarding options including D&C hysteroscopy polypectomy versus hysterectomy, recommend conservative therapy with hysteroscopy first. Patient agrees. Recommend Cytotec preop prep (2) History of endometrial ablation: Status: Acute (3) Endocervical polyp: Status: Acute Plan After discussing the patient's diagnosis and treatment plan options, patient wishes to proceed with surgical management. I have discussed with the patient the risks, benefits, and alternatives of the procedure which include but are notlimited to risks of anesthesia, bleeding, infection, possible damage to bowel, bladder, or surrounding vasculature which could lead to additional surgery to evaluate any complications. Patient agrees to procedure and wishes to proceed. ACOG/uptodate references given for additional information regarding procedure. UPDATE- I have seen the patient and performed any clinically relevant updates to the history and physical exam. Lucrecia Lui MD 09/21/24 0952 <Electronically signed by Lucrecia Lui MD> Cosigner Signature (if applicable): CC: Dr. Mikel Nicolas MD; Dr. Lucrecia Lui MD~ Signed [facility] Work Phone: 1(423) 967-378604-01-2025 Procedure note [facility] Medical Records Department [address] [place] [address] Operative Report 09/21/24 1057 MR#: [id number] Acct: [id number] Name: CHARLES STONER Rep #:[id number] : 1970 54 From: Lucrecia james MD PCP: Dr. 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 Type of Anesthesia: IV Sedation RN Documented Start/Stop Times: Operation Date: 09/21/24 11:00 Case Time Into Pre-Op 09/21/24 09:33 Out of Pre-Op 09/21/24 10:18 Anesthesia Start 09/21/24 10:21 Into Room 09/21/24 10:21 Procedure Start 09/21/24 10:40 Procedure End 09/21/24 10:51 Anesthesia End 09/21/24 10:56 Out of Room 09/21/24 10:56 Into Recovery 09/21/24 11:00 Procedure Start Time: 10:40 Procedure Stop Time: 10:51 Select all DRAINS/GRAFTS/IMPLANTS that apply: None Estimated Blood Loss: 25 Specimen collected: Yes Description of specimen(s) removed: polyp, emc Description of surgery: Patient was prepped and draped in a normal sterile fashion under MAC anesthesia. A weighted speculum was placed in the vagina and the anterior lip of the cervixwas grasped with a single-tooth tenaculum. A paracervical block was placed with1% lidocaine. cervical polyp seen and grasped with ring forcep, easily removed and sent to pathology. Cervix was progressively dilated to allow passage of a 7 mm hysteroscope. The lining was fully visualized and noted to have a thin atophric lining with scarred cavity no polyps seen no fibroids . Uterine sounded to 7 cm. Curettage was performed and tissue removed , sent to pathology. All instruments were removed from the vagina and excellent hemostasis wasnoted. Patient was awoken and taken to recovery in stable condition. Surgical Findings: cervical polyp thin endometrial lining scarred uterine cavity Complications Complications: No 09/21/24 1134 Cosigner Signature (if applicable): CC: Dr. Mikel Nicolas MD; Dr. Lucrecia Lui MD~ Signed [facility]04-01-2025 Evaluation note* Diagnosis Onset Date Resolution Status Admit Date Abnormal uterine bleeding (AUB) acut e September 21, 2024 9:27am Endocervical polyp acute September 21, 2024 9:27am History of endometrial ablation acut e September 21, 2024 9:27am Abnormal uterine bleeding (AUB) acut e October 04, 2024 3:33pm [facility] Work Phone: 1(173) 235-493904-01-2025 Consult note [facility] Medical Records Department [address] [place] [address] Pre-Anesthesia Evaluation 09/21/24 1006 MR#: [id number] Acct: [id number] Name: CHARLES STONER Rep #:[id number] : 1970 54 From: Luis Alfredo Patel MD PCP: Dr. Mikel Nicolas MD Status:REG S DC Y Race: C Location: [place] [address] ASA Classification* ASA Classification ASA Classification: 2 Assessment & Plan Anesthesia* Anesthesia Assessment Anesthesia Assessment: Discussed sedation and/or anesthesia options, risks, benefits, and alternatives with patient/parents/legal guardian/POA. Questions invited. The patient/parents/legal guardian/POA seems to understand and agrees to proceedwith anesthesia plan. Reviewed the physical assessment, medical history, allergy history and patient home medications list prior to surgery/procedure/anesthetic and documented any changes. Performed airway and anesthesia risk assessments. Anesthesia Type Anesthesia Type: MAC History Source History Obtained from:: Patient and Chart Anesthesia Focused Assessment* Temperature: 97.6 F Pulse Rate: 84 Blood Pressure: 118/86 Respiratory Rate: 18 Pulse Ox: 97 Oxygen Delivery Method: Room Air Airway Assessment Mouth opens: >3 cm Mallampati Score: IV Teeth Condition: Caps/Crowns (Patient has several crowns. They are all tight.) Neck Range of motion (ROM): Full ROM Focused Labs Anesthesia Preop lab: CBC WBC 9.5 K/mm3 (4.4-11.0) 09/09/24 07:24 09/09/24 RBC 4.38 M/mm3 (4.2-5.4) 09/09/24 07:24 09/09/24 Hgb 12.0 g/dL (12.0-15.0) 09/09/24 07:24 09/09/24 Hct 36.7 % (37-47) L 09/09/24 07:24 09/09/24 Plt Count 433 K/mm3 (150-450) 09/09/24 07:24 09/09/24 CHEMISTRY Potassium 4.0 mmol/L (3.3-5.1) 09/09/24 07:24 09/09/24 Sodium 139 mmol/L (133-145) 09/09/24 07:24 09/09/24 Magnesium 2.1 mg/dL (1.6-2.6) 01/09/20 04:54 01/09/20 BUN 10 mg/dL (4-19) 09/09/24 07:24 09/09/24 Creatinine 0.66 mg/dL (0.70-1.20) L 09/09/24 07:24 Glucose 106 mg/dL (70-99) H 09/09/24 07:24 09/09/24 TSH 0.58 uIU/mL (0.358-3.74) 12/31/23 08:45 COAG PT 12.6 SECONDS (11.7-14.9) 01/21/20 11:12 Urine Test Negative Negative 01/27/20 12:00 01/27/20 Pre-Assessment Diagnosis/Proposed Procedure Planned Operative Procedure(s): Dilatation and curettage, hysteroscopy, possibleSymphion Anesthesia History 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 When Was Last Pacemaker Check QUESTION #4 FULL TEXT: You/Your Family Experience fever (hyperthermia) with Anesthesia Last Oral Intake Last Oral intake: Last Oral Intake NPO since 22:00 09/21/24 09:52 Meds taken in AM with sips of Yes 09/21/24 09:52 water? Meds patient instructed to take am of surgery Any additional information?: Yes Meds taken in AM with sips of water?: Yes PONV PONV - associate professor computer science: PONV - associate professor computer science Female Yes 09/07/24 14:11 HX of Motion Sickness Yes 09/07/24 14:11 HX of N/V After Surgery Yes 09/07/24 14:11 Non-Smoker Yes 09/07/24 14:11 Duration of Surgery greater No 09/07/24 14:11 than 60 minutes Number of Risk Factors 4 09/07/24 14:11 PONV Score Severe Risk 09/07/24 14:11 Height & Weight Height & Weight: Anesthesia: Height & Weight Height 5 ft 4 in 09/21/24 09:52 Weight: 93.7 kg 09/21/24 09:52 Body Mass Index (BMI) 35.4 09/21/24 09:52 Respiratory Assessment Respiratory Assessment - associate professor computer science: Respiratory Tract Infection Hx - associate professor computer science Hx Respiratory Tract Infection Yes: COLD CURRENTLY 09/07/24 14:11 Any additional information?: Yes Hx Respiratory Tract Infection: Yes (Recent sinus infection is cleared up.) STOP Sleep Apnea STOP Sleep Apnea - associate professor computer science: STOP Sleep Apnea - associate professor computer science Hx Hypertension No 09/07/24 14:11 Hx Sleep Apnea No 09/07/24 14:11 CPAP BIPAP Do you snore loudly (louder No 09/07/24 14:11 than talking or can be heard Do you often feel tired/ No 09/07/24 14:11 fatigued/ sleepy during daytime? Has anyone observed you stop No 09/07/24 14:11 breathing during sleep? STOP Results Negative 09/07/24 14:11 QUESTION #5 FULL TEXT : Do you snore loudly (louder than talking or can be heard through closeddoors)? 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 Specify any problems Hx of Preganancy in last 3 N/A 09/07/24 14:11 Months Nurse Filling Out Transfusion NBUCHER 09/07/24 14:11 & Questions: Date: 09/07/24 09/07/24 14:11 Time: 14:13 09/07/24 14:11 Patient unable to answer at this time (ie. confused, unrespo /Reproduction History /Reproductive History - associate professor computer science: /Reproductive Hx- associate professor computer science Hx Now No 09/07/24 14:11 Gestational Age (in weeks): EDC: Hx Hx Para Hx Section SAB No 09/08/24 11:26 [facility] Medical History Psoriasis Hypothyroid Thyroid disease Anemia PONV (postoperative nausea and vomiting) Tinnitus Wears contact lenses Anxiety Alcohol use Psoriatic arthritis History of steroid therapy Arthritis Low iron Back pain Migraine headache Esophageal spasm History of IBS Gastric reflux Non-smoker History of stress test History of irregular heartbeat Family history of cancer of digestive organ Smita's thyroiditis Depression Home Medications ?Medication ?Instructions ?Recorded ?Last Taken ?Type loratadine 10 mg tablet 10 mg PO DAILY PRN Allergies 01/09/20 01/07/20 21:00 History ixekizumab 80 mg/mL subcutaneous 80 mg subcut Q4W 11/2208/18/24 History auto-injector (Taltz Autoinjector) levothyroxine 100 mcg tablet 100 mcg PO DAILY 05/05/23 Unknown History biotin 10,000 mcg capsule 10,000 mcg PO DAILY 07/21/24 Unknown History leflunomide 10 mg tablet 10 mg PO QDAY 07/21/24 Unkno wn History misoprostol 200 mcg tablet 200 mcg PO .complex #2 tabs 08/10/24 09/21/24 05:30 Rx (Cytotec) betamethasone, augmented 0.05 % 1 applic topical DAILY PRN PSORASIS 09/07/24 Unknown History topical cream Allergy/AdvReac Type Severity Reaction Status Date / Time Sulfa (Sulfonamide Allergy Rash Verified 04/01/25 09:47 Antibiotics) oseltamivir phosphate (From AdvReac Severe Nausea/Vom/ Verified 09/21/24 09:47 Tamiflu) Diarrhea Latex, Natural Rubber AdvReac Rash Verified 09/21/24 09:47 Family History Unknown Cancer of digestive system Father Colon polyps Other Breast cancer Diabetes Heart disease Surgical History Hx of bone marrow donation Hx of colonoscopy History of salpingectomy S/P endometrial ablation Social History number of children: 2 current occupational status: employed current occupation: [employer] Smoking Status: Never smoker Electronic Cigarette Use: not used second hand exposure: No alcohol intake: current alcohol intake frequency: holidays/special occasions only substance use type: does not use additional social history: - Christopher Review of Systems (Anesthesia) ROS Narrative System reviewed and no additional complaints, except as documented. 09/21/24 1015 ricky GARCIA> Date _ Luis Alfredo Patel MD Cosigner Signature: Date CC: ~ Signed [facility]04-01-2025 History and physical note [facility] Medical Records Department [address] [place] [address] History & Physical Exam 09/21/24 0950 MR#: [id number] Acct: [id number] Name: CHARLES STONER Rep #:[id number] : 1970 54 From: Lucrecia james MD PCP: Dr. Mikel Nicolas MD Status:REG S DC Location: [place] [address] History and Physical Date of Admission: 09/21/24 Intake Vital Signs 08/09/2514:17 09/08/2510:24 Height 5 ft 4 in 5 ft 4 in Weight: 210 lb 6 oz BMI 36.1 BP 119/83 H Intake Visit Reasons: D&C Symphion Credit Rating Inspector Required: No Is patient in pain?: No Allergies Sulfa (Sulfonamide Antibiotics) Allergy (Verified 09/07/24 14:08) Rashoseltamivir phosphate (From Tamiflu) Adverse Reaction (Severe, Verified 09/07/24 14:08) Nausea/Vom/DiarrheaLatex, Natural Rubber Adverse Reaction (Verified 09/07/24 14:08) Rash Medications ?Medication ?Instructions ?Recorded ?Confirmed ?Type loratadine 10 mg tablet 10 mg PO DAILY PRN Allergies 01/09/20 History ixekizumab 80 mg/mL subcutaneous 80 mg subcut Q4W 12/19/22 09/08/24 Histo ry auto-injector (Taltz Autoinjector) levothyroxine 100 mcg tablet 100 mcg PO DAILY 05/05/23 09/08/24 Histo ry biotin 10,000 mcg capsule 10,000 mcg PO DAILY 07/21/24 09/08/24 Hi story leflunomide 10 mg tablet 10 mg PO QDAY 07/21/24 09/08/24 History misoprostol 200 mcg tablet 200 mcg PO .complex #2 tabs 08/10/24 Rx (Cytotec) betamethasone, augmented 0.05 % 1 applic topical DAILY PRN PSORASIS 08/2109/08/24 History topical cream Is last menstrual period known: Yes Patient : No : No PFSH Medical History Psoriasis Hypothyroid Thyroid disease Anemia PONV (postoperative nausea and vomiting) Tinnitus Wears contact lenses Anxiety Alcohol use Psoriatic arthritis History of steroid therapy Arthritis Low iron Back pain Migraine headache Esophageal spasm History of IBS Gastric reflux Non-smoker History of stress test History of irregular heartbeat Family history of cancer of digestive organ Smita's thyroiditis Depression Surgical History Hx of bone marrow donation Hx of colonoscopy History of salpingectomy S/P endometrial ablation Family History Unknown Cancer of digestive systemFather Colon polypsOther Breast cancer Diabetes Heart disease Social History number of children: 2 current occupational status: employed current occupation: [employer] [place] Smoking Status: Never smoker Electronic Cigarette Use: not used second hand exposure: No alcohol intake: current alcohol intake frequency: holidays/special occasions only substance use type: does not use additional social history: - Gianfrancoer HPI D&C Symphion Details: CHARLES STONER is a 54 year old who presents for preop visit. she has had irregular bleeding. she has had an ablation in the past. On exam by nurse practitioner she had a polyp that was removed but has had an 8-month time span that she had no bleeding and then she had 2 episodes of significant bleeding so this concerned her. Ultrasound showed a 9 mm lining and the nurse practitioner felt like there was another polyp that was in there. Patient is wondering if she should just have a hysterectomy or if a D&C is appropriate. She denies any bleeding or abnormal discharge right now. She denies anysignificant cramping or pain. She denies any hot flashes or night sweats but has some vaginal dryness. Female Reproductive History Menopausal Symptoms: No night sweats ROS Const Constitutional: Denies fatigue, night sweats, weight gain or weight loss ENT ENT: Reports system reviewed and no additional complaints, except as documented Cardio Card: Denies chest pain Resp Resp: Denies cough or dyspnea GI GI: Reports as per HPI; Denies abdominal pain, constipation, nausea or vomiting : Denies nipple discharge, urinary frequency, urinary incontinence, urinary hesitancy, urinary urgency, vaginal discharge, vaginal dryness, vaginal odor or vaginal pruritus Musc Musc: Denies arthralgias, back pain or muscle weakness Skin Skin/Breast: Denies alopecia, change in hair, dry skin, breast mass, breast pain, breast skin changes or nipple discharge Neuro Neuro: Reports system reviewed and no additional complaints, except as documented Psych Psych: Reports system reviewed and no additional complaints, except as documented Endo Endo: Denies cold intolerance, excessive sweating, heat intolerance or polydipsia Jeronimo/Lymph Hematologic/Lymphatic: Denies easy bleeding, Denies easy bruising and Denies lymphadenopathy Exam Const General: cooperative, healthy appearing, comfortable and no acute distress Orientation: alert [facility] Head: normal to inspection and normocephalic Ears: hearing grossly normal bilaterally and external ears normal Nose: external nose normal and nares normal Face and sinus: normal facial exam Neck Neck: normal visual inspection and no lymphadenopathy Thyroid: thyroid normal Chest Chest palpation & inspection: normal inspection of the chest Resp Effort & Inspection: normal respiratory effort Auscultation: clear to auscultation bilaterally Cardio Rate: regular rate Rhythm: regular rhythm Heart Sounds: S1 normal and S2 normal GI Inspection: normal to inspection and non-distended Palpation: soft and no hepatosplenomegaly Musc Other: gross motor intact no deficits, full bilateral strength Skin General: no rashes or lesions noted Neuro General: patient alert, patient awake, moves all extremities and no focal motor deficits Motor: muscle tone normal throughout Extrem General: normal to inspection and no pedal edema Psych Appearance: grossly normal Mental Status: mental status grossly normal Affect: normal affect Speech and Movement: speech and movement normal Coding Level of Care Code No Charge Diagnoses Abnormal uterine bleeding (AUB) N93.9 History of endometrial ablation Z98.890 Endocervical polyp N84.1 Assessment and Plan Assessment and Plan (1) Abnormal uterine bleeding (AUB): Status: Acute Comment: Counseled regarding options including D&C hysteroscopy polypectomy versus hysterectomy, recommend conservative therapy with hysteroscopy first. Patient agrees. Recommend Cytotec preop prep (2) History of endometrial ablation: Status: Acute (3) Endocervical polyp: Status: Acute Plan After discussing the patient's diagnosis and treatment plan options, patient wishes to proceed withsurgical management. I have discussed with the patient the risks, benefits, and alternatives of theprocedure which include but are notlimited to risks of anesthesia, bleeding, infection, possible damage to bowel, bladder, or surrounding vasculature which could lead to additional surgery to evaluate any complications. Patient agrees to procedure and wishes to proceed. ACOG/uptodate references given for additional information regarding procedure. UPDATE- I have seen the patient and performed any clinically relevant updates to the history and physical exam. Lucrecia Lui MD 09/21/24 0952 Cosigner Signature (if applicable): CC: Dr. Mikel Nicolas MD; Dr. Lucrecia Lui MD~ Signed [facility]04-01-2025 [facility] Medical Records Department [address] [place] [address] History Physical Exam 09/21/24 0950 MR#: [id number] Acct: [id number] Name: CHARLES STONER Rep #: [id number] : 1970 54 From: Lucrecia Lui MD PCP: Dr. Mikel Nicolas MD Status:[facility] Location: [place] [address] History and Physical Date of Admission: 09/21/24 Intake Vital Signs 08/09/2514:17 09/08/2510:24 Height 5 ft 4 in 5 ft 4 in Weight: 210 lb 6 oz BMI 36.1 BP 119/83 H Intake Visit Reasons: Quirino Temple Credit Rating Inspector Required: No Is patient in pain?: No Allergies Sulfa (Sulfonamide Antibiotics) Allergy (Verified 09/07/24 14:08) Rashoseltamivir phosphate (From Tamiflu) Adverse Reaction (Severe, Verified 09/07/24 14:08) Nausea/Vom/DiarrheaLatex, Natural Rubber Adverse Reaction (Verified 09/07/24 14:08) Rash Medications ???Medication ???Instructions ???Recorded ???Confirmed ???Type loratadine 10 mg tablet 10 mg PO DAILY PRN Allergies 01/09/20 09/08/24 His tory ixekizumab 80 mg/mL subcutaneous 80 mg subcut Q4W 12/19/22 09/08/24 History auto-injector (Taltz Autoinjector) levothyroxine 100 mcg tablet 100 mcg PO DAILY 05/05/23 09/08/24 History biotin 10,000 mcg capsule 10,000 mcg PO DAILY 07/21/24 09/08/24 History leflunomide 10 mg tablet 10 mg PO QDAY 07/21/24 09/08/24 History misoprostol 200 mcg tablet 200 mcg PO .complex #2 tabs 08/10/24 09/08/24 Rx (Cytotec) betamethasone, augmented 0.05 % 1 applic topical DAILY PRN PSORASIS 09/07/2409/08 History topical cream Is last menstrual period known: Yes Patient : No : No PFSH Medical History Psoriasis Hypothyroid Thyroid disease Anemia PONV (postoperative nausea and vomiting) Tinnitus Wears contact lenses Anxiety Alcohol use Psoriatic arthritis History of steroid therapy Arthritis Low iron Back pain Migraine headache Esophageal spasm History of IBS Gastric reflux Non-smoker History of stress test History of irregular heartbeat Family history of cancer of digestive organ Smita's thyroiditis Depression Surgical History Hx of bone marrow donation Hx of colonoscopy History of salpingectomy S/P endometrial ablation Family History Unknown Cancer of digestive systemFather Colon polypsOther Breast cancer Diabetes Heart disease Social History number of children: 2 current occupational status: employed current occupation: [employer] [place] Smoking Status: Never smoker Electronic Cigarette Use: not used second hand exposure: No alcohol intake: current alcohol intake frequency: holidays/special occasions only substance use type: does not use additional social history: - Shaneopher HPI D C Symphion Details: CHARLES STONER is a 54 year old who presents for preop visit. she has had irregular bleeding. she has had an ablation in the past. On exam by nurse practitioner she had a polyp that was removed but has had an 8-month time span that she had no bleeding and then she had 2 episodes of significant bleeding so this concerned her. Ultrasound showed a 9 mm lining and the nurse practitioner felt like there was another polyp that was in there. Patient is wondering if she should just have a hysterectomy or if a D C is appropriate. She denies any bleeding or abnormal discharge right now. She denies any significant cramping or pain. She denies any hot flashes or night sweats but has some vaginal dryness. Female Reproductive History Menopausal Symptoms: No night sweats ROS Const Constitutional: Denies fatigue, night sweats, weight gain or weight loss ENT ENT: Reports system reviewed and no additional complaints, except as documented Cardio Card: Denies chest pain Resp Resp: Denies cough or dyspnea GI GI: Reports as per HPI; Denies abdominal pain, constipation, nausea or vomiting : Denies nipple discharge, urinary frequency, urinary incontinence, urinary hesitancy, urinary urgency, vaginal discharge, vaginal dryness, vaginal odor or vaginal pruritus Musc Musc: Denies arthralgias, back pain or muscle weakness Skin Skin/Breast: Denies alopecia, change in hair, dry skin, breast mass, breast pain, breast skin changes or nipple discharge Neuro Neuro: Reports system reviewed and no additional complaints, except as documented Psych Psych: Reports system reviewed and no additional complaints, except as documented Endo Endo: Denies cold intolerance, excessive sweating, heat intolerance or polydipsia Jeronimo/Lymph Hematologic/Lymphatic: Denies easy bleeding, Denies easy bruising and De (more content not included)...[facility]02-04-2025 NotePap Smear Specimen AdequacyFebruary 2024 12:59amComment.Satisfactory for evaluation. Endocervical and/or squamous metaplasticcells (endocervical component)are present.[facility] INTERFACED A#[id number] State Harding HospitalComment on above: Satisfactory for evaluation. Endocervical and/or squamous metaplasticcells (endocervical component)are present.07-21-2024 Evaluation note* Diagnosis Onset Date Resolution Status Admit Date Uterine fibroid inactive June 242024 2:13pm Irregular bleeding deleted Januar y 2024 2:13pm Abnormal uterine bleeding (AUB) acute July 27 12:58pm Endocervical polyp acute Februa 2024 12:58pm History of endometrial ablation acute July 27 12:58pm Uterine fibroid inactive July 27, 2024 12:58pm Abnormal uterine bleeding (AUB) acute August 09, 2 025 2:50pm Endocervical polyp acute Februa 2024 2:50pm History of endometrial ablation acute August 09 2 025 2:50pm Abnormal uterine bleeding (AUB) acute September 08, 2024 11:10am Endocervical polyp acute September 08, 2024 11:10am History of endometrial ablation acute September 08, 2024 11:10am Abnormal uterine bleeding (AUB) acute September 21, 2024 9:27am Endocervical polyp acute September 21, 2024 9:27am History of endometrial ablation acute September 21, 2024 9:27am [facility] Work Phone: 1(758) 381-795308-24-2023 NotePap Smear Specimen AdequacyAugust 2022 3:03pmComment.Satisfactory for evaluation. Endocervical and/or squamous metaplasticcells (endocervical component)are present.[facility] INTERFACED A#[id number] Flower HospitalCommarshfield medical center on above:Satisfactory for evaluation. Endocervical and/or squamous metaplasticcells (endocervical component)are present.02-13-2023 NotePap Smear Specimen AdequacyAugust 2022 3:03pmComment.Satisfactory for evaluation. Endocervical and/or squamous metaplasticcells (endocervical component)are present.[facility] INTERFACED A#[id number] Flower HospitalComment on above:Satisfactory for evaluation. Endocervical and/or squamous metaplasticcells (endocervical component)are present.02-13-2023 NotePap Smear Specimen AdequacyAugust 2022 2:03pmComment.Satisfactory for evaluation. Endocervical and/or squamous metaplasticcells (endocervical component)are present.[facility] INTER[facility]ACED A#[id number] Flower HospitalComment on above:Satisfactory for evaluation. Endocervical and/or squamous metaplasticcells (endocervical component)are present.02-13-2023 NotePap Smear Specimen AdequacyAugust 2022 2:03pmComment.Satisfactory for evaluation. Endocervical and/or squamous metaplasticcells (endocervical component)are present.[facility] INTER[facility]ACED A#[id number] Flower HospitalCommarshfield medical center on above:Satisfactory for evaluation. Endocervical and/or squamous metaplasticcells (endocervical component)are present.Consult note Author Tatum Dwyer [facility] Note Date/Time September 21, 2024 12:0 7pm [facility] Medical Records Department [address] [place] [address] Anesthesia Postop Eval I 09/21/24 1103 MR#: [id number] Acct: [id number] Name: CHARLES STONER Rep #:[id number] : 1970 54 From: Tatum Dwyer PCP: Dr. Mikel Nicolas MD Status:REG S DC Y Race: C Location: [address] Anesthesia: Postop Eval I Current Vital Signs Temperature: 97 F Pulse Rate: 95 Blood Pressure: 100/61 Respiratory Rate: 16 Pulse Ox: 95 Oxygen Delivery Method: Room Air Assessment Airway patent: Yes Spontaneous unlabored respirations: Yes Mental status: Awake and Calm nausea: No Vomiting: No Anesthesia Complication: No Fluid Hydration Crystalloid volume administer (ml): 10 Total IV fluid infused: 10 Progress Note Anesthesia document: Postop Eval 1 completed: Yes 09/21/24 1103 <Electronically signed by Tatum Dwyer > Date _ Tatum Dwyer Cosigncrispin Signature: Date CC: ~ Signed [facility] Work Phone: Discharge summary Author Lucrecia Lui [facility] Note Date/Time September 21, 2024 12:0 7pm [facility] Medical Records Department [address] [place] [id number] Instructions for Home/Discharge Instructions 09/21/24 1131 MR#: [id number] Acct: [id number] Name: CHARLES STONER Rep #:[id number] : 1970 54 From: Lucrecia james MD PCP: Dr. Mikel Nicolas MD Status:REG S DC Discharge Instructions Diet Discharge Diet: No restrictions DC O2, CPAP, BIPAP needs Home O2 Discharge instructions: No Dressing / Incision Discharge Activity: Return to Normal Activity, May Shower and May Take a Tub Bath (after 1 week) May resume sexual activity in: 1-2 weeks Weight Bearing Status: Weight bearing as tolerated Lifting Restrictions: none Dressing / Incision Call your doctor if you observe: Fever of 101 or Higher, Using more than 1 pad per hour, Shortness of breath and Uncontrolled pain Follow Up Care Please Follow Up With: Lucrecia Lui MD When: Call [phone] to schedule appointment. Test Results: Test results from this visit will be discussed in further detail at your follow- up appointment, if applicable. Discharge Plan Admission Attending Provider: Lucrecia Lui Primary Care Provider: Mikel Nicolas Instructions Print Language: Welsh Discharge Orders/Prescriptions Prescriptions: No Action Taltz Autoinjector 80 mg/mL auto-injector 80 mg subcut Q4W levothyroxine 100 mcg tablet 100 mcg PO DAILY Patient Comments: TAKE 1 TABLET BY MOUTH EVERY DAY leflunomide 10 mg tablet 10 mg PO QDAY biotin 10,000 mcg capsule 10,000 mcg PO DAILY misoprostol [Cytotec] 200 mcg tablet 200 mcg PO .complex Qty: 2 1RF Rx Instructions: take the night before and two hours prior to the procedure loratadine 10 MG tablet 10 mg PO DAILY PRN (Reason: Allergies) betamethasone, augmented 0.05 % cream 1 applic topical DAILY PRN (Reason: PSORASIS ) Other Ambulatory Orders: 12 Lead EKG (Routine) Timeframe: [id number] Location: None Selected Ordered By: Dr. Lucrecia Lui Referrals / Follow Up: Mikel Nicolas MD [Primary Care Provider] - Disposition Disposition (needs filled in before D/C Order can be placed): Home, Self Care 09/21/24 1131<Electronically signed by Lucrecia Lui MD>Lucrecia Lui MD CC: Dr. 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 Encounter for routine gynecological examination noneactive [facility] Work Phone: Evaluation note* Diagnosis Onset Date Resolution Status Smita's thyroiditis acut e Psoriatic arthritis acute Vaginal dryness acute History of colon polyps 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 Encounter for routine gynecological examination noneactive Snoring acute [facility] Work Phone: Evaluation note* Diagnosis Onset Date Resolution Status Smita's thyroiditis acut e Psoriatic arthritis acute Vaginal dryness acute History of colon polyps 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 Encounter for routine gynecological examination noneactive Snoring acute Obesity [facility] Work Phone: Evaluation note* Diagnosis Onset Date Resolution Status Snoring acute Obesity [facility] Work Phone: Hospital Discharge instructionsAmbulatory Orders* General Surgery Location: None Selected [facility] Work Phone: Reason for referral (narrative)No reason for referral information availableWOhio State Harding Hospital Work Phone: Chief Complaint and Reason for Visit Chief Complaint SCREENING ARTHRITIS/PAIN- COPY PCP ARTHRITIS/PAIN- COPY PCP Chief Complaint ARTHRITIS/PAIN- COPY PCP ARTHRITIS/PAIN- COPY PCP Chief Complaint [address] Chief Complaint Pelvic pain, bleedin g *pt 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) Reason for Visit Pelvic pain Vaginal dryness Smita's thyroiditis Psoriatic arthritis Vaginal dryness History of colon polyps Encounter for routine gynecological examination Chief Complaint Pelvic pain, bleedin g *pt 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) SCREENING Reason for Visit Pelvic pain Vaginal dryness Smita's thyroiditis Psoriatic arthritis Vaginal dryness History of colon polyps Encounter for routine gynecological examination Chief Complaint Pelvic pain, bleedin g *pt 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) SCREENING Other [facility] (current) drug therapy Reason for Visit Pelvic pain Vaginal dryness Smita's thyroiditis Psoriatic arthritis Vaginal dryness History of colon polyps Encounter for routine gynecological examination Chief Complaint 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) 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 Other [facility] (current) drug therapy SKIN ASHWIN Reason for Visit Smita's thyroidi tis Psoriatic arthritis Vaginal dryness History of colon polyps Encounter for routine gynecological examination Snoring Chief Complaint 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 July 27, 2024 1 2:58pm SURGICAL CONSULT D&C VS HYSTO July 242024 2:50pm D&C Symphion September 08, 2024 11: 10am PREOP September 09, 2024 7:1 7am Hysteroscopy,D&C Symphion, Polypectomy A 2024 9:27am Hysteroscopy,D&C Symphion, Polypectomy A 2024 9:50am Reason for Visit Admit Date Uterine fibroid July 21, 2024 2 :13pm Irregular bleeding July 21, 2024 2 :13pm Abnormal uterine bleeding (AUB) July 27, 2024 12:58pm Endocervical polyp July 27, 2024 1 2:58pm History of endometrial ablation July 27, 2024 12:58pm Uterine fibroid July 27, 2024 1 2:58pm Abnormal uterine bleeding (AUB) August 09, 2024 2:50pm Endocervical polyp August 09, 2024 2:50pm History of endometrial ablation August 09, 2024 2:50pm Abnormal uterine bleeding (AUB) September 082024 11:10am Endocervical polyp September 08, 2024 11: 10am History of endometrial ablation September 082024 11:10am Abnormal uterine bleeding (AUB) September 9:27am Endocervical polyp September 21, 2024 9:27 am History of endometrial ablation September 9:27am Chief Complaint Admit Date Hysteroscopy,D&C Symphion, Polypectomy A 2024 9:27am Hysteroscopy,D&C Symphion, Polypectomy A 2024 9:50am 2 wk D&C Symphion October 04, 2024 3:3 3pm Reason for Visit Admit Date Abnormal uterine bleeding (AUB) September 9:27am Endocervical polyp September 21, 2024 9:27 am History of endometrial ablation September 9:27am Abnormal uterine bleeding (AUB) October 042024 3:33pm Family History No Family History Records Found Relationship Condition Age at Onset Recorded Date/T jeet Unknown Family History?Heart Disease Unknown January 09, 2020 7:18am Relationship Condition Age at Onset Recorded Date/T jeet Unknown Family History?Heart Disease Unknown January 09, 2020 6:18am Relationship Condition Age at Onset Recorded Date/T jeet Unknown Family History?Heart Disease Unknown January 09, 2020 7:18am Family History?Heart Disease Unknown September 11, 2022 12:46pm Relationship Condition Age at Onset Recorded Date/T jeet Not Specified Diabetes mellitus Unknown Cardiac disease Unknown Malignant neoplasm of breast Unknown Relationship Condition Age at Onset Recorded Date/T jeet Not Specified Diabetes mellitus Unknown Cardiac disease Unknown Malignant neoplasm of breast Unknown unrelated friend Malignant neoplasm o f digestive system Unknown father Polyp of colon Unknown Advance Directives No Advanced Directives Records Found Advance Directive Response Recorded Date/ Time Living Will No January 20, 2020 1:26pm Power of Assistant Business Manager No January 19 0 1:26pm Advance Directive Response Recorded Date/ Time Living Will No January 20, 2020 12:26pm Power of Assistant Business Manager No January 19 0 12:26pm Advance Directive Response Recorded Date/ Time Living Will No September 11, 2022 12:46pm Power of Assistant Business Manager No September 11 12:46pm Advance Directive Response Recorded Date/ Time Living Will No September 11, 2022 11:46am Power of Assistant Business Manager No September 11 11:46am Advance Directive Response Recorded Date/ Time Living Will No September 07, 2024 2:11pm Do you have a Healthcare Power of Assistant Business Manager? No September 07, 2024 2:11pm Living Will No July 20 3:14pm Do you have a Healthcare Power of Assistant Business Manager? No July 20, 2024 3:14pm Advance Directive Response Recorded Date/ Time Living Will No September 07, 2024 2:11pm Do you have a Healthcare Power of Assistant Business Manager? No September 07, 2024 2:11pm Summary Purpose Additional Source Comments Goals (unrecognized section and content) Goals may be documented in a n alternate sectionGoals may be documented in an alternate sectionGoals may be documented in an alternate sectionGoals may be documented in an alternate sectionGoals may be documented in an alternate sectionGoals may be documented in an alternate sectionGoals may be documented in an alternate sectionGoals may be documented in an alternate sectionGoals may be documented in an alternate sectionGoals may be documented in an alternate section Care Teams (unrecognized sec tion and content) Team Status: Active Member Role Status Dates Dr. Mikel Nicolas MD Family Provider Active Dr. Mikel Nicolas MD Primary Care Provider Active Team Status: Inactive Member Role Status Dates Dr. Mikel Nicolas MD Primary Care Provider Active Dr. Joce Lara DO Attending Provider, Referring Provider Active Team Status: Inactive Member Role Status Dates Dr. Mikel Nicolas MD Primary Care Provider, Referring Provider Active Caridad Alejandra CNM Attending Provider Active Team Status: Inactive Member Role Status Dates Dr. Mikel Nicolas MD Primary Care Provider Active Caridad Alejandra CNM Attending Provider, Referring Pr ovider Active Team Status: Inactive Member Role Status Dates Dr. Mikel Nicolas MD Primary Care Provider Active Caridad Alejandra CNM Attending Provider Active Team Status: Inactive Member Role Status Dates Dr. Mikel Nicolas MD Primary Care Provider Active Dr. Ebenezer Martinez MD Attending Provider, Referring Pro vider Active Team Status: Inactive Member Role Status Dates Dr. Mikel Nicolas MD Primary Care Provider, Referring Provider Active Isa Medina FOOD CART ATTENDANT, FOOD CART ATTENDANT-C Attending Provider Active Team Status: Inactive Member Role Status Dates Dr. Mikel Nicolas MD Primary Care Provider Active Isa Medina FOOD CART ATTENDANT, FOOD CART ATTENDANT-C Attending Provider, Referrin g Provider Active Team Status: Inactive Member Role Status Dates Dr. Mikel Nicolas MD Primary Care Provider Active Dr. Joce Lara DO Other Provider Active Eleanor Lyon FOOD CART ATTENDANT, FOOD CART ATTENDANT-C Attending Provider, Referring Pro vider Active Team Status: Active Member Role Status Dates Dr. Mikel Nicolas MD Primary Care Provider Active Team Status: Inactive Member Role Status Dates Dr. Mikel Nicolas MD Primary Care Provider Active Start: May 29, 2024 End: May 29, 2024 Dr. Ebenezer Martinez MD Attending Provider Active S tart: May 29, 2024 End: May 29, 2024 Dr. Ebenezer Martinez MD Referring Provider Active S tart: May 29, 2024 End: May 29, 2024 Team Status: Inactive Member Role Status Dates Dr. Mikel Nicolas MD Primary Care Provider Active Start: July 20, 2024 End: July 20, 2024 Dr. Alfred Bates DO Attending Provider Active Start: July 20, 2024 End: July 20, 2024 Dr. Alfred Bates DO Emergency Provider Active Start: July 20, 2024 End: July 20, 2024 Team Status: Inactive Member Role Status Dates Dr. Mikel Nicolas MD Primary Care Provider Active Start: July 21, 2024 End: July 21, 2024 Dr. Mikel Nicolas MD Referring Provider Active Start: July 21, 2024 End: July 21, 2024 ROSEANNE Rodriguez Attending Provider Active Start: July 21, 2024 End: July 21, 2024 Team Status: Inactive Member Role Status Dates Dr. Mikel Nicolas MD Primary Care Provider Active Start: July 21, 2024 End: July 21, 2024 ROSEANNE Rodriguez Attending Provider Active Start: July 21, 2024 End: July 21, 2024 ROSEANNE Rodriguez Referring Provider Active Start: July 21, 2024 End: July 21, 2024 Team Status: Inactive Member Role Status Dates Dr. Mikel Nicolas MD Primary Care Provider Active Start: July 27, 2024 End: July 27, 2024 Dr. Mikel Nicolas MD Referring Provider Active Start: July 27, 2024 End: July 27, 2024 Ruth Tate NP FOOD CART ATTENDANT-C Attending Provider Active Start: July 27, 2024 End: July 27, 2024 Team Status: Inactive Member Role Status Dates Dr. Mikel Nicolas MD Primary Care Provider Active Start: July 27, 2024 End: July 27, 2024 Ruth Tate NP FOOD CART ATTENDANT-C Attending Provider Active Start: July 27, 2024 End: July 27, 2024 Team Status: Inactive Member Role Status Dates Dr. Mikel Nicolas MD Primary Care Provider Active Start: August 09, 2024 End: August 09, 2024 Dr. Mikel Nicolas MD Referring Provider Active Start: August 09, 2024 End: August 09, 2024 Dr. Lucrecia Lui MD Attending Provider Active Start: August 09, 2024 End: August 09, 2024 Team Status: Inactive Member Role Status Dates Dr. Mikel Nicolas MD Primary Care Provider Active Start: September 08, 2024 End: September 08, 2024 Dr. Mikel Nicolas MD Referring Provider Active Start: September 08, 2024 End: September 08, 2024 Dr. Lucrecia Lui MD Attending Provider Active Start: September 08, 2024 End: September 08, 2024 Team Status: Active Member Role Status Dates Dr. Mikel Nicolas MD Primary Care Provider Active Start: September 09, 2024 End: September 09, 2024 Dr. Oziel Martínez MD Attending Provider Active S tart: September 09, 2024 End: September 09, 2024 Dr. Lucrecia Lui MD Referring Provider Active Start: September 09, 2024 End: September 09, 2024 Team Status: Inactive Member Role Status Dates Dr. Mikel Nicolas MD Primary Care Provider Active Start: September 21, 2024 End: September 21, 2024 Dr. Lucrecia Lui MD Attending Provider Active Start: September 21, 2024 End: September 21, 2024 Dr. Lucrecia Lui MD Referring Provider Active Start: September 21, 2024 End: September 21, 2024 Team Status: Active Member Role Status Dates Dr. Mikel Nicolas MD Primary Care Provider Active Start: September 21, 2024 Dr. Lucrecia Lui MD Attending Provider Active Start: September 21, 2024 Dr. Lucrecia Lui MD Referring Provider Active Start: September 21, 2024 Dr. Lucrecia Lui MD Other Provider Active Start: September 21, 2024 Team Status: Active Member Role/Relationship Status Dates Dr. Mikel Nicolas MD Primary Care Provider Active Team Status: Inactive Member Role/Relationship Status Dates Dr. Mikel Nicolas MD Primary Care Provider Active Start: September 21, 2024 End: September 21, 2024 Dr. Lucrecia Lui MD Attending Provider Active Start: September 21, 2024 End: September 21, 2024 Dr. Lucrecia Lui MD Referring Provider Active Start: September 21, 2024 End: September 21, 2024 Team Status: Active Member Role/Relationship Status Dates Dr. Mikel Nicolas MD Primary Care Provider Active Start: September 21, 2024 Dr. Lucrecia Lui MD Attending Provider Active Start: September 21, 2024 Dr. Lucrecia Lui MD Referring Provider Active Start: September 21, 2024 Dr. Lucrecia Lui MD Other Provider Active Start: September 21, 2024 Team Status: Inactive Member Role/Relationship Status Dates Dr. Mikel Nicolas MD Primary Care Provider Active Start: October 04, 2024 End: October 04, 2024 Dr. Mikel Nicolas MD Referring Provider Active Start: October 04, 2024 End: October 04, 2024 Dr. Lucrecia Lui MD Attending Provider Active Start: October 04, 2024 End: October 04, 2024 Team Status: Inactive Member Role/Relationship Status Dates Dr. Mikel Nicolas MD Primary Care Provider Active Start: January 11, 2025 End: January 11, 2025 Dr. Mikel Nicolas MD Attending Provider Active Start: January 11, 2025 End: January 11, 2025 Dr. Mikel Nicolas MD Referring Provider Active Start: January 11, 2025 End: January 11, 2025 INFORMATION SOURCE (unrecogn ized section and content) DATE CREATED AUTHOR 01/18/2025 [facility] FOR RECORDS PERTAINING TO PATIENTS WHO ARE [...] BE BASED ON THE PRIMARY CLINICAL RECORDS. [employer] provides no warranty or guarantee of the accuracy or completeness of information in this document.
[2025-06-09 08:36] LABS: Cholesterol 156 mg/dL (<=200); Low Density Lipoprotein Calc. 85 mg/dL; Triglycerides 68 mg/dL; Very Low Density Lipoprotein 14 mg/dL (5-40); cholesterol:hdl ratio screen 2.69
== END | disposition home or self-care (01) ==
LOC: LAB 07:15
PROVIDERS: PCP Family Medicine; Referring Provider Family Medicine; Visit Provider Family Medicine
DX: Z00.00 Encounter for general adult medical examination without abnormal findings (principal)
CPT/HCPCS: 36415; 80061